=== PATIENT | female | born 1995 | race Caucasian/White ===

== ENCOUNTER 2017-08-04 14:32 | Emergency (ER) | payer MEDICARE ==
--- NOTE | 2017-08-04 15:15 | EDM.PDOC ---
ED HPI GENERAL MEDICAL PROBLEM - General Chief Complaint: Back Pain or Injury Stated Complaint: BACK PAIN Time Seen by Provider: 08/04/17 15:03 - History of Present Illness INITIAL COMMENTS - FREE TEXT/NARRATIVE: HISTORY AND PHYSICAL: History of present illness: Patient 22-year-old female presents with concern of Requip C in mild discomfort with urination she also complains of some left mid back pain fever chills vomiting diarrhea or other concern Review of systems: As per history of present illness and below otherwise all systems reviewed and negative. Past medical history: As per history of present illness and as reviewed below otherwise noncontributory. Surgical history: As per history of present illness and as reviewed below otherwise noncontributory. Social history: No reported history of drug or alcohol abuse. Family history: As per history of present illness and as reviewed below otherwise noncontributory. Physical exam: HEENT: Atraumatic, normocephalic, pupils reactive, negative for conjunctival pallor or scleral icterus, mucous membranes moist, throat clear, neck supple, nontender, trachea midline. Lungs: Clear to auscultation, breath sounds equal bilaterally, chest nontender. Heart: S1S2, regular, negative for clicks, rubs, or JVD. Abdomen: Soft, nondistended, nontender. Negative for masses or hepatosplenomegaly. Negative for costovertebral tenderness. Pelvis: Stable nontender. Genitourinary: Deferred. Rectal: Deferred. Extremities: Atraumatic, negative for cords or calf pain. Neurovascular unremarkable. Neuro: Awake, alert, oriented. Cranial nerves II through XII unremarkable. Cerebellum unremarkable. Motor and sensory unremarkable throughout. Exam nonfocal. Diagnostics: UA urine culture sensitivity chest x-ray hCG Therapeutics: None Impression: # 1 dysuria rule out UTI Definitive disposition and diagnosis as appropriate pending reevaluation and review of above. - Related Data Allergies Allergy/AdvReac Type Severity Reaction Status Date / Time ciprofloxacin Allergy Hives Verified 08/04/17 15:11 latex Allergy Hives Verified 08/04/17 15:11 Home Meds: Home Meds Baclofen 10 mg PO DAILY 08/04/17 [History] Past Medical History - Past Surgical History Other Neurological Surgeries/Procedures: spina bifida Social & Family History - Tobacco Use Smoking Status *Q: Never Smoker - Recreational Drug Use Recreational Drug Use: No ED ROS GENERAL - Review of Systems Review Of Systems: ROS reveals no pertinent complaints other than HPI. ED EXAM, GENERAL - Physical Exam Exam: See Below (The dictation) Course - Vital Signs Last Recorded V/S: Last Vital Signs Temp 36.7 C 08/04/17 15:12 Pulse 90 08/04/17 15:12 Resp 18 08/04/17 15:12 BP 111/68 08/04/17 15:12 Pulse Ox 97 08/04/17 15:12 - Orders/Labs/Meds Orders: Active Orders 24 hr Category Date Time Status CULTURE URINE [RM] Stat Lab 08/04/17 15:20 Received Labs: Laboratory Tests 08/04/17 08/04/17 Range/Units 15:20 15:20 Urine Color YELLOW Urine Appearance SLT CLOUDY Urine pH 7.5 (5.0-8.0) Ur Specific [place] 1.015 (1.001-1.035) Urine Protein TRACE (NEGATIVE) mg/dL Urine Glucose (UA) NEGATIVE (NEGATIVE) mg/dL Urine Ketones NEGATIVE (NEGATIVE) mg/dL Urine Occult Blood TRACE-INTACT (NEGATIVE) Urine Nitrite POSITIVE H (NEGATIVE) Urine Bilirubin NEGATIVE (NEGATIVE) Urine Urobilinogen 0.2 (<2.0) EU/dL Ur Leukocyte Esterase NEGATIVE (NEGATIVE) Urine RBC 1-3 (0-2/HPF) Urine WBC 2-4 (0-5/HPF) Ur Epithelial Cells MANY (NONE-FEW) Amorphous Sediment MODERATE (NEGATIVE) Urine Bacteria FEW (NEGATIVE) Urine HCG, Qual NEGATIVE (NEGATIVE) Departure - Departure Time of Disposition: 16:29 Disposition: Home, Self-Care 01 Condition: Good Clinical Impression: UTI, Urinary tract infectious disease - Discharge Information Referrals: Mague Quintero MD [Primary Care Provider] - Forms: ED Department Discharge Additional Instructions: The following information is given to patients seen in the emergency department who are being discharged to home. This information is to outline your options for follow-up care. We provide all patients seen in our emergency department with a follow-up referral. The need for follow-up, as well as the timing and circumstances, are variable depending upon the specifics of your emergency department visit. If you don't have a primary care physician on staff, we will provide you with a referral. We always advise you to contact your personal physician following an emergency department visit to inform them of the circumstance of the visit and for follow-up with them and/or the need for any referrals to a consulting specialist. The emergency department will also refer you to a specialist when appropriate. This referral assures that you have the opportunity for followup care with a specialist. All of these measure are taken in an effort to provide you with optimal care, which includes your followup. Under all circumstances we always encourage you to contact your private physician who remains a resource for coordinating your care. When calling for followup care, please make the office aware that this follow-up is from your recent emergency room visit. If for any reason you are refused follow-up, please contact the [facility] emergency department at and asked to speak to the emergency department charge nurse. Keflex is prescribed Pyridium as prescribed follow-up primary medical doctor 1- 2 days return as needed as discussed - My Orders Last 24 Hours: My Active Orders 08/04/17 15:20 CULTURE URINE [RM] Stat - Assessment/Plan Last 24 Hours: My Active Orders 08/04/17 15:20 CULTURE URINE [RM] Stat
--- NOTE | 2017-08-04 16:00 | CR ---
EXAMINATION: Two-view chest (PA and Lateral views). HISTORY: Shortness of breath. Comparison: 06/23/2017 FINDINGS: The trachea is midline. The cardiomediastinal silhouette is within normal limits. No pulmonary infilt rates, effusions or pneumothorax. There is reversal of the mid and accentuation of the lower thoracic kyphosis. IMPRESSION: No acute cardiopulmonary process.
[2017-08-04 16:50] VITALS: BP 109/60
== END 2017-08-04 16:45 | disposition home or self-care (01) ==
LOC: MW.ED 14:32
DX: N39.0 Urinary tract infection, site not specified (principal); Z88.1 Allergy status to other antibiotic agents; Z91.040 Latex allergy status
CPT/HCPCS: 71046; 71046-26; 81001; 81025; 87086; 87088; 87186; 99282; 99283

== ENCOUNTER 2017-09-07 12:20 | Emergency (ER) | payer MEDICARE ==
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
--- NOTE | 2017-09-07 14:47 | CR ---
EXAMINATION: AP chest and left ribs. HISTORY: Fall. FINDINGS: The trachea is midline. The cardiomediastinal silhouette is within normal limits. No pulmonary infilt rates, effusions or pneumothorax. Scoliotic changes most prominent near the thoracolumbar junction. Old left-sided rib fracture demonst rated no definite acute or displaced fracture. IMPRESSION: 1. No acute cardiopulmonary process. 2. No acute rib fracture identified.
--- NOTE | 2017-09-07 14:48 | CR ---
EXAMINATION: Left Shoulder HISTORY: Fall COMPARISON: None TECHNIQUE: 3 views FINDINGS/IMPRESSION: There is no acute osseous abnormality, dislocation, or fracture. Bone mineraliza tion and joint spaces appear preserved.
--- NOTE | 2017-09-07 14:53 | CT ---
EXAMINATION: Non contrast CT head. Coronal and sagittal reformats. HISTORY: Fall FINDINGS: No evidence of intra or extra axial hemorrhage, mass, midline shift, hydrocephalus or edema. No hypoattenuation changes in the major vascular territories to suggest acute infarct. No abnormal intracranial calcifications are detected. No evidence of substantial vascular calcificat ions. Paranasal sinuses and mastoid air cells are well aerated without substantial findings. Moderate left hannon deviation of the nasal septum. Pituitary fossa appears unremarkable. Calvarium is intact. No evidence of skull fracture. IMPRESSION: No acute intracranial findings.
--- NOTE | 2017-09-07 14:54 | CT ---
EXAMINATION: CT cervical spine HISTORY: Fall COMPARISON: None TECHNIQUE: Axial CT images obtained through the cervical spine without contrast. Coronal and sagittal reconstructions obtained. FINDINGS: There is reversal of the normal cervical lordosis. Vertebral body heights and disc spaces a ppear well-maintained. There is no fracture or acute osseous abnormality. Bone mineralization is norm al. Lung apices are clear. Paravertebral soft tissues appear normal. IMPRESSION: 1. No acute osseous abnormalities identified.
[2017-09-07] MEDS ORDERED: Ketorolac 60 MG/2 ML SDV IM ONE (15:04)
[2017-09-07 16:10] VITALS: BP 133/71
== END 2017-09-07 16:28 | disposition home or self-care (01) ==
LOC: MW.ED 12:20
DX: S00.12XA Contusion of left eyelid and periocular area, initial encounter (principal); S00.212A Abrasion of left eyelid and periocular area, initial encounter; F17.210 Nicotine dependence, cigarettes, uncomplicated; Z88.1 Allergy status to other antibiotic agents; Z91.040 Latex allergy status; Z79.899 Other long term (current) drug therapy; W01.0XXA Fall on same level from slipping, tripping and stumbling without subsequent striking against object, initial encounter
CPT/HCPCS: 70450; 71101; 72125; 73030; 81025; 96372; 99284; J1885

== ENCOUNTER 2017-10-26 09:13 | Inpatient (IN) | payer MEDICAID, MEDICARE ==
[2017-10-26] MEDS ORDERED: Ondansetron 4 MG/2 ML SDV IVPUSH ONE (09:27)
[2017-10-26] MEDS ORDERED: Ketorolac 30 MG/ML SDV IVPUSH ONE (09:27)
[2017-10-26] MEDS ORDERED: Sodium Chloride 0.9% 1,000 ML IV ONE (09:27)
--- NOTE | 2017-10-26 09:29 | EDM.PDOC ---
ED HPI GENERAL MEDICAL PROBLEM - General Chief Complaint: Abdominal Pain Stated Complaint: ABDOMINAL PAIN Time Seen by Provider: 10/26/17 09:28 Source of Information: Reports: Patient - History of Present Illness INITIAL COMMENTS - FREE TEXT/NARRATIVE: HISTORY AND PHYSICAL: History of present illness: [Patient presents with abdominal pain 8 out of 10 epigastric region no fever nausea vomiting chills sweats ] Review of systems: As per history of present illness and below otherwise all systems reviewed and negative. Past medical history: As per history of present illness and as reviewed below otherwise noncontributory. Surgical history: As per history of present illness and as reviewed below otherwise noncontributory. Social history: No reported history of drug or alcohol abuse. Family history: As per history of present illness and as reviewed below otherwise noncontributory. Physical exam: HEENT: Atraumatic, normocephalic, pupils reactive, negative for conjunctival pallor or scleral icterus, mucous membranes moist, throat clear, neck supple, nontender, trachea midline. Lungs: Clear to auscultation, breath sounds equal bilaterally, chest nontender. Heart: S1S2, regular, negative for clicks, rubs, or JVD. Abdomen: Soft, nondistended, nontender. Negative for masses or hepatosplenomegaly. Negative for costovertebral tenderness. Pelvis: Stable nontender. Genitourinary: Deferred. Rectal: Deferred. Extremities: Atraumatic, negative for cords or calf pain. Neurovascular unremarkable. Neuro: Awake, alert, oriented. Cranial nerves II through XII unremarkable. Cerebellum unremarkable. Motor and sensory unremarkable throughout. Exam nonfocal. Diagnostics: [CBC CMP UA hCG lipase ] Therapeutics: [Normal saline 1 L bolus Zofran 8 mg IV Toradol 30 mg IV ] morphine 2 mg IV Septra IV Impression: Pancreatitis [ abdominal pain ] Definitive disposition and diagnosis as appropriate pending reevaluation and review of above. 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 Musculoskeletal History: Reports: None Neurological History: Reports: None Psychiatric History: Reports: None Endocrine/Metabolic History: Reports: None Hematologic History: Reports: None Immunologic History: Reports: None Oncologic (Cancer) History: Reports: None Dermatologic History: Reports: None - Past Surgical History Head Surgeries/Procedures: Reports: None HEENT Surgical History: Reports: None Cardiovascular Surgical History: Reports: None Respiratory Surgical History: Reports: None GI Surgical History: Reports: None Female Surgical History: Reports: None Endocrine Surgical History: Reports: None Other Neurological Surgeries/Procedures: spina bifida Musculoskeletal Surgical History: Reports: None Oncologic Surgical History: Reports: None Dermatological Surgical History: Reports: None Social & Family History - Family History Family Medical History: Noncontributory - Tobacco Use Smoking Status *Q: Current Every Day Smoker Years of Tobacco use: 2 Packs/Tins Daily: 0.5 - Caffeine Use Caffeine Use: Reports: Soda - Recreational Drug Use Recreational Drug Use: Yes Drug Use in Last 12 Months: Yes Recreational Drug Type: Reports: Marijuana/Hashish Recreational Drug Use Frequency: Daily ED ROS GENERAL - Review of Systems Review Of Systems: ROS reveals no pertinent complaints other than HPI. ED EXAM, GENERAL - Physical Exam Exam: See Below Course - Vital Signs Last Recorded V/S: Last Vital Signs Temp 99.5 F 10/26/17 13:02 Pulse 89 10/26/17 13:02 Resp 18 10/26/17 13:02 BP 154/85 H 10/26/17 13:02 Pulse Ox 99 10/26/17 13:02 - Orders/Labs/Meds Orders: Active Orders 24 hr Category Date Time Status HCG QUALITATIVE,URINE [URCHEM] Stat Lab 10/26/17 11:08 Ordered UA W/MICROSCOPIC [URIN] Stat Lab 10/26/17 11:08 Ordered Ciprofloxacin in D5W [Cipro in D5W 400 MG/200 ML] 400 Med 10/26/17 13:00 Active mg Premix Bag 1 bag IV Q12H Sulfamethoxazole/Trimethoprim [Septra IV] 20 ml Med 10/26/17 13:30 Ordered Dextrose 5% in Water 500 ml IV Q8H Medication Orders Ciprofloxacin/Dextrose 400 mg/ (Premix) 200 mls @ 200 mls/hr IV Q12H MILAN Last Admin: 10/26/17 13:13 Dose: 200 mls/hr Labs: Laboratory Tests 10/26/17 10/26/17 10/26/17 Range/Units 09:45 09:45 09:45 WBC 8.12 (4.0-11.0) K/uL RBC 4.82 (4.30-5.90) M/uL Hgb 14.8 (12.0-16.0) g/dL Hct 43.5 (36.0-46.0) % MCV 90.2 (80.0-98.0) fL MCH 30.7 (27.0-32.0) pg MCHC 34.0 (31.0-37.0) g/dL RDW Std Deviation 53.0 (28.0-62.0) fl RDW Coeff of Renetta 16 H (11.0-15.0) % Plt Count 310 (150-400) K/uL MPV 10.10 (7.40-12.00) fL Neut % (Auto) 69.1 (48.0-80.0) % Lymph % (Auto) 21.4 (16.0-40.0) % [place] % (Auto) 7.3 (0.0-15.0) % Eos % (Auto) 1.7 (0.0-7.0) % Baso % (Auto) 0.5 (0.0-1.5) % Neut # (Auto) 5.6 (1.4-5.7) K/uL Lymph # (Auto) 1.7 (0.6-2.4) K/uL [place] # (Auto) 0.6 (0.0-0.8) K/uL Eos # (Auto) 0.1 (0.0-0.7) K/uL Baso # (Auto) 0.0 (0.0-0.1) K/uL Nucleated RBC % 0.0 /100WBC Nucleated RBCs # 0 K/uL Sodium 141 (136-145) mmol/L Potassium 3.4 L (3.5-5.1) mmol/L Chloride 104 (98-107) mmol/L Carbon Dioxide 23.5 (21.0-32.0) mmol/L BUN 12 (7.0-18.0) mg/dL Creatinine 0.5 L (0.6-1.0) mg/dL Est Cr Clr Drug Dosing 110.27 mL/min Estimated GFR (MDRD) > 60.0 ml/min Glucose 167 H (74-106) mg/dL Calcium 9.2 (8.5-10.1) mg/dL Total Bilirubin 0.2 (0.2-1.0) mg/dL AST 16 (15-37) IU/L ALT 21 (14-63) IU/L Alkaline Phosphatase 92 (46-116) U/L Total Protein 7.7 (6.4-8.2) g/dL Albumin 4.2 (3.4-5.0) g/dL Globulin 3.5 (2.0-3.5) g/dL Albumin/Globulin Ratio 1.2 L (1.3-2.8) Lipase 525 H (73-393) U/L Urine Color Urine Appearance Urine pH (5.0-8.0) Ur Specific [place] (1.001-1.035) Urine Protein (NEGATIVE) mg/dL Urine Glucose (UA) (NEGATIVE) mg/dL Urine Ketones (NEGATIVE) mg/dL Urine Occult Blood (NEGATIVE) Urine Nitrite (NEGATIVE) Urine Bilirubin (NEGATIVE) Urine Urobilinogen (<2.0) EU/dL Ur Leukocyte Esterase (NEGATIVE) Urine RBC (0-2/HPF) Urine WBC (0-5/HPF) Ur Epithelial Cells (NONE-FEW) Amorphous Sediment (NEGATIVE) Urine Bacteria (NEGATIVE) Urine Mucus (NONE-MOD) Urine HCG, Qual (NEGATIVE) Ethyl Alcohol <3 mg/dL 10/26/17 10/26/17 Range/Units 11:08 11:08 WBC (4.0-11.0) K/uL RBC (4.30-5.90) M/uL Hgb (12.0-16.0) g/dL Hct (36.0-46.0) % MCV (80.0-98.0) fL MCH (27.0-32.0) pg MCHC (31.0-37.0) g/dL RDW Std Deviation (28.0-62.0) fl RDW Coeff of Renetta (11.0-15.0) % Plt Count (150-400) K/uL MPV (7.40-12.00) fL Neut % (Auto) (48.0-80.0) % Lymph % (Auto) (16.0-40.0) % [place] % (Auto) (0.0-15.0) % Eos % (Auto) (0.0-7.0) % Baso % (Auto) (0.0-1.5) % Neut # (Auto) (1.4-5.7) K/uL Lymph # (Auto) (0.6-2.4) K/uL [place] # (Auto) (0.0-0.8) K/uL Eos # (Auto) (0.0-0.7) K/uL Baso # (Auto) (0.0-0.1) K/uL Nucleated RBC % /100WBC Nucleated RBCs # K/uL Sodium (136-145) mmol/L Potassium (3.5-5.1) mmol/L Chloride (98-107) mmol/L Carbon Dioxide (21.0-32.0) mmol/L BUN (7.0-18.0) mg/dL Creatinine (0.6-1.0) mg/dL Est Cr Clr Drug Dosing mL/min Estimated GFR (MDRD) ml/min Glucose (74-106) mg/dL Calcium (8.5-10.1) mg/dL Total Bilirubin (0.2-1.0) mg/dL AST (15-37) IU/L ALT (14-63) IU/L Alkaline Phosphatase (46-116) U/L Total Protein (6.4-8.2) g/dL Albumin (3.4-5.0) g/dL Globulin (2.0-3.5) g/dL Albumin/Globulin Ratio (1.3-2.8) Lipase (73-393) U/L Urine Color YELLOW Urine Appearance CLEAR Urine pH 6.0 (5.0-8.0) Ur Specific [place] <= 1.005 (1.001-1.035) Urine Protein NEGATIVE (NEGATIVE) mg/dL Urine Glucose (UA) NEGATIVE (NEGATIVE) mg/dL Urine Ketones NEGATIVE (NEGATIVE) mg/dL Urine Occult Blood MODERATE (NEGATIVE) Urine Nitrite POSITIVE H (NEGATIVE) Urine Bilirubin NEGATIVE (NEGATIVE) Urine Urobilinogen 0.2 (<2.0) EU/dL Ur Leukocyte Esterase NEGATIVE (NEGATIVE) Urine RBC 4-6 (0-2/HPF) Urine WBC 2-4 (0-5/HPF) Ur Epithelial Cells MANY (NONE-FEW) Amorphous Sediment LIGHT (NEGATIVE) Urine Bacteria 2+ H (NEGATIVE) Urine Mucus LIGHT (NONE-MOD) Urine HCG, Qual NEGATIVE (NEGATIVE) Ethyl Alcohol mg/dL Meds: Medications Generic Name Dose Route Start Last Admin Trade Name Freq PRN Reason Stop Dose Admin Ciprofloxacin/Dextrose 400 mg/ 200 mls @ 200 mls/hr 10/26/17 13:00 10/26/17 13:13 Premix IV 200 mls/hr Q12H MILAN Administration Discontinued Medications Generic Name Dose Route Start Last Admin Trade Name Freq PRN Reason Stop Dose Admin Sodium Chloride 1,000 mls @ 999 mls/hr 10/26/17 09:27 10/26/17 09:45 Normal Saline IV 10/26/17 10:27 999 mls/hr STAT ONE Administration Sodium Chloride 1,000 mls @ 150 mls/hr 10/26/17 10:45 10/26/17 10:50 Normal Saline IV 150 mls/hr STAT MILAN Administration Ciprofloxacin/Dextrose Confirm 10/26/17 13:08 Cipro In D5w 400 Mg/200 Ml Administered 10/26/17 13:09 Dose 200 mls @ as directed .ROUTE .STK-MED ONE Iopamidol 100 ml 10/26/17 10:52 10/26/17 10:53 Isovue Multipack-370 (76%) IVPUSH 10/26/17 10:53 100 ml ONETIME STA Administration Ketorolac Tromethamine 30 mg 10/26/17 09:27 10/26/17 09:51 Toradol IVPUSH 10/26/17 09:28 30 mg ONETIME ONE Administration Morphine Sulfate 2 mg 10/26/17 10:34 10/26/17 10:50 Morphine IVPUSH 10/26/17 10:35 2 mg ONETIME ONE Administration Ondansetron HCl 8 mg 10/26/17 09:27 10/26/17 09:46 Zofran IVPUSH 10/26/17 09:28 8 mg ONETIME ONE Administration Pantoprazole Sodium 40 mg 10/26/17 11:36 10/26/17 12:22 Protonix Iv IVPUSH 10/26/17 11:37 40 mg NOW ONE Administration Departure - Departure Time of Disposition: 13:21 Disposition: Admitted As Inpatient 65 Condition: Fair Clinical Impression: Pancreatitis, UTI, Urinary tract infectious disease - Discharge Information Referrals: Mague Quintero MD [Primary Care Provider] - Forms: ED Department Discharge - My Orders Last 24 Hours: My Active Orders 10/26/17 11:08 HCG QUALITATIVE,URINE [URCHEM] Stat UA W/MICROSCOPIC [URIN] Stat 10/26/17 13:00 Ciprofloxacin in D5W [Cipro in D5W 400 MG/200 ML] 400 mg Premix Bag 1 bag IV Q12H 10/26/17 13:30 Sulfamethoxazole/Trimethoprim [Septra IV] 20 ml Dextrose 5% in Water 500 ml IV Q8H - Assessment/Plan Last 24 Hours: My Active Orders 10/26/17 11:08 HCG QUALITATIVE,URINE [URCHEM] Stat UA W/MICROSCOPIC [URIN] Stat 10/26/17 13:00 Ciprofloxacin in D5W [Cipro in D5W 400 MG/200 ML] 400 mg Premix Bag 1 bag IV Q12H 10/26/17 13:30 Sulfamethoxazole/Trimethoprim [Septra IV] 20 ml Dextrose 5% in Water 500 ml IV Q8H
[2017-10-26 10:30] LABS: CHLORIDE,CL 104 mmol/L (98-107); SODIUM,NA 141 mmol/L (136-145)
[2017-10-26] MEDS ORDERED: Morphine 4 MG/ML Syringe IVPUSH ONE (10:34)
[2017-10-26] MEDS ORDERED: Sodium Chloride 0.9% 1,000 ML IV SCH (10:45)
[2017-10-26] MEDS ORDERED: Iopamidol 755 MG/ML 200 ML Multipack Bottle IVPUSH STA (10:52)
[2017-10-26] MEDS ORDERED: Pantoprazole 40 MG Vial IVPUSH ONE (11:36)
--- NOTE | 2017-10-26 12:44 | CT ---
CT of the abdomen and pelvis with contrast. HISTORY: Pain TECHNIQUE: Axial CT images were obtained of the abdomen and pelvis following administration of 100 mL of Isovue-370 without complication. Coronal and sagittal reconstructions obtained. FINDINGS: The lung bases are clear, no pleural effusion. The liver, spleen, adrenal glands, and pancreas appear normal. The gallbladder is normal. There is no bulky retroperitoneal lymphadenopathy or abdominal ascites. The kidneys enhance and function symmetrically without evidence of obstructive uropathy. The large and small bowel are normal caliber without evidence of obstruction. No focal pericolonic in flammation or stranding. The appendix is not well characterized. No bulky pelvic lymphadenopathy or f ree pelvic fluid. Urinary bladder wall thickening is noted, however the urinary bladder is minimally distended. Uterus and ovaries appear grossly unremarkable. Fusion and psychotic changes noted near the thoracolumbar junction. IMPRESSION: 1. No acute findings noted within the abdomen or pelvis. 2. Mild bladder wall thickening, correlate clinically for a UTI.
[2017-10-26] MEDS ORDERED: Ciprofloxacin in D5W 0 ML ONE (13:08)
[2017-10-26] MEDS: Ciprofloxacin in D5W 400 MG in Premix Bag 1 BAG IV SCH ×4 (13:13→13:22)
[2017-10-26] MEDS ORDERED: Sulfamethoxazole/Trimethoprim 20 ML in Dextrose 5% in Water 500 ML IV SCH ×2 (13:30)
[2017-10-26] MEDS ORDERED: TRIMETHOPRIM IV SCH ×2 (13:34)
[2017-10-26] MEDS ORDERED: WATER IV SCH ×4 (13:34→16:00)
[2017-10-26] MEDS ORDERED: SULFAMETHOXAZOLE IV SCH ×2 (13:34)
[2017-10-26] MEDS ORDERED: DEXTROSE IV SCH ×2 (13:34)
[2017-10-26] MEDS ORDERED: Lactated Ringers 1,000 ML IV ONE (14:18)
[2017-10-26] MEDS: HYDROmorphone 1 MG/ML Syringe IVPUSH PRN ×3 (14:47→22:20)
--- NOTE | 2017-10-26 14:56 | PCM.HP ---
H&P History of Present Illness - General Date of Service: 10/26/17 Admit Problem/Dx: Admission Diagnosis/Problem Admission Diagnosis/Problem Pancreatitis Source of Information: Patient History Limitations: Reports: No Limitations - History of Present Illness Initial Comments - Free Text/Narative: This 22 year old female with pmh of spina bifida and history of gallstone presented to the ED with 10/10 epigastric pain that has been on going for many weeks, but recently worsened this weekend and has been unable to keep anything down since Wednesday. She denies alcohol intake. She has been following with Dr Edward, who recommended she see a cork wirer in [place] due to comorbidities for surgical intervention. She denies URI symptoms, fevers, neck pain, chest pain or palpitations. Epigastric pain radiates to her back and throughout her abdomen. She has not had a BM since this weekend. She does self cath due to spina bifida and does not have a specific bowel regimen for bowel movements. She reports no alcohol use recently but no history of heavy alcohol use, she reports marijuana use for pain control, which has stopped working this weekend, smokes cigarettes and denies any further recreational drug use. In the ED no leukocytosis noted, K+ 3.4, BUN 12, Cr 0.5, lipase 525 ETOH negative. UA +2 bacteria, + nitrites and pyruri 2-4. HCG negative. LFTs/ bilirubin normal. CT of abdomen revealed no acute abdominal pelvis findings, gallbladder appeared normal. Mild bladder thickening, correlate with UTI. VS stable. In review of her records she has been worked up for epigastric pain and cholecysitis, cholelithiasis by Dr Edward. I spoke with Dr Edward regarding Meri. She will come see patient this afternoon. PCP, Dr Quintero Upper Abdominal Pain Score (Numeric/FACES): 8 - Related Data Allergies/Adverse Reactions: Allergies Allergy/AdvReac Type Severity Reaction Status Date / Time ciprofloxacin Allergy Hives Verified 10/26/17 09:25 latex Allergy Hives Verified 10/26/17 09:25 Home Medications: Home Meds Ondansetron HCl [Zofran] 4 mg PO ASDIRECTED 10/26/17 [History] Past Medical History HEENT History: Reports: None Cardiovascular History: Reports: None. Denies: Blood Clots/VTE/DVT, CAD, High Cholesterol, Hypertension Respiratory History: Reports: None. Denies: Asthma, COPD, PE Gastrointestinal History: Reports: Cholelithiasis Genitourinary History: Reports: UTI, Recurrent, Other (See Below) (neurogenic bladder). Denies: Chronic Renal Insuffiency PEDIATRIC AUDIOLOGIST History: Reports: None Musculoskeletal History: Reports: None Neurological History: Reports: Other (See Below) (spina bifida with paraplegia) Psychiatric History: Reports: None Endocrine/Metabolic History: Reports: None Hematologic History: Reports: None Immunologic History: Reports: None Oncologic (Cancer) History: Reports: None Dermatologic History: Reports: None - Past Surgical History Head Surgeries/Procedures: Reports: None HEENT Surgical History: Reports: None Cardiovascular Surgical History: Reports: None Respiratory Surgical History: Reports: None GI Surgical History: Reports: None Female Surgical History: Reports: None Endocrine Surgical History: Reports: None Neurological Surgical History: Reports: Other (See Below) (multiple back surgeries as a child secondary to spina bifida) Other Neurological Surgeries/Procedures: spina bifida Musculoskeletal Surgical History: Reports: None Oncologic Surgical History: Reports: None Dermatological Surgical History: Reports: None Social & Family History - Family History Family Medical History: Noncontributory - Tobacco Use Smoking Status *Q: Current Every Day Smoker Years of Tobacco use: 2 Packs/Tins Daily: 0.5 - Caffeine Use Caffeine Use: Reports: Soda - Alcohol Use Alcohol Use Frequency: Socially (but for "a while") - Recreational Drug Use Recreational Drug Use: Yes Drug Use in Last 12 Months: Yes Recreational Drug Type: Reports: Marijuana/Hashish Recreational Drug Use Frequency: Daily H&P Review of Systems - Review of Systems: Review Of Systems: See Below General: Reports: No Symptoms. Denies: Fever, Chills, Malaise, Weakness, Fatigue HEENT: Reports: No Symptoms. Denies: Headaches, Sinus Congestion, Sore Throat Pulmonary: Reports: No Symptoms. Denies: Shortness of Breath, Wheezing, Cough, Sputum Cardiovascular: Reports: No Symptoms. Denies: Chest Pain, Palpitations, Edema Gastrointestinal: Reports: Abdominal Pain (epigastric and RUQ), Constipation, Decreased Appetite, Distension, Nausea, Vomiting. Denies: Black Stool, Bloody Stool Genitourinary: Reports: Other (self caths due to neurogenic bladder). Denies: Dysuria, Frequency, Burning Musculoskeletal: Reports: No Symptoms Skin: Reports: No Symptoms Psychiatric: Reports: No Symptoms Neurological: Reports: No Symptoms Hematologic/Lymphatic: Reports: No Symptoms Immunologic: Reports: No Symptoms Exam - Exam Exam: See Below - Vital Signs Vital Signs: Last Vital Signs Temp 98.3 F 10/26/17 14:00 Pulse 69 10/26/17 14:00 Resp 18 10/26/17 14:00 BP 142/73 H 10/26/17 14:00 Pulse Ox 98 10/26/17 14:00 Weight: 39.916 kg - Exam General: Alert, Oriented, Cooperative, Mild Distress (curled in ball on all fours when first walked into the room.), Other (smells of marijuana) HEENT: Conjunctiva Clear, Mucosa Moist & [place], Posterior Pharynx Clear, Pupils Equal, Pupils Reactive Neck: Supple, Trachea Midline, 2 Lungs: Clear to Auscultation, Normal Respiratory Effort, Other (barrel chested) Cardiovascular: Regular Rate, Regular Rhythm GI/Abdominal Exam: Normal Bowel Sounds, Soft, No Mass, Tender (epigastric pain and RUQ tenderness), Other. No: Guarding, Rigid, Rebound, Hepatomegaly, Splenomegaly (Female) Exam: Deferred Rectal (Female) Exam: Deferred Back Exam: Normal Inspection, Full Range of Motion, NT Extremities: Normal Inspection, Normal Range of Motion, Non-Tender, No Pedal Edema, Normal Capillary Refill, Other (does not ambulate, wheelchair bound, but very mobile per self. ) Neuro Extensive - Mental Status: Alert, Oriented x3, Normal Mood/Affect, Normal Cognition Neuro Extensive - Motor, Sensory, Reflexes: CN II-XII Intact Psychiatric: Alert, Normal Affect, Normal Mood - Patient Data Lab Results Last 24 hrs: Laboratory Results - last 24 hr 10/26/17 10/26/17 10/26/17 Range/Units 09:45 09:45 09:45 WBC 8.12 (4.0-11.0) K/uL RBC 4.82 (4.30-5.90) M/uL Hgb 14.8 (12.0-16.0) g/dL Hct 43.5 (36.0-46.0) % MCV 90.2 (80.0-98.0) fL MCH 30.7 (27.0-32.0) pg MCHC 34.0 (31.0-37.0) g/dL RDW Std Deviation 53.0 (28.0-62.0) fl RDW Coeff of Renetta 16 H (11.0-15.0) % Plt Count 310 (150-400) K/uL MPV 10.10 (7.40-12.00) fL Neut % (Auto) 69.1 (48.0-80.0) % Lymph % (Auto) 21.4 (16.0-40.0) % [place] % (Auto) 7.3 (0.0-15.0) % Eos % (Auto) 1.7 (0.0-7.0) % Baso % (Auto) 0.5 (0.0-1.5) % Neut # (Auto) 5.6 (1.4-5.7) K/uL Lymph # (Auto) 1.7 (0.6-2.4) K/uL [place] # (Auto) 0.6 (0.0-0.8) K/uL Eos # (Auto) 0.1 (0.0-0.7) K/uL Baso # (Auto) 0.0 (0.0-0.1) K/uL Nucleated RBC % 0.0 /100WBC Nucleated RBCs # 0 K/uL Sodium 141 (136-145) mmol/L Potassium 3.4 L (3.5-5.1) mmol/L Chloride 104 (98-107) mmol/L Carbon Dioxide 23.5 (21.0-32.0) mmol/L BUN 12 (7.0-18.0) mg/dL Creatinine 0.5 L (0.6-1.0) mg/dL Est Cr Clr Drug Dosing 110.27 mL/min Estimated GFR (MDRD) > 60.0 ml/min Glucose 167 H (74-106) mg/dL Calcium 9.2 (8.5-10.1) mg/dL Total Bilirubin 0.2 (0.2-1.0) mg/dL AST 16 (15-37) IU/L ALT 21 (14-63) IU/L Alkaline Phosphatase 92 (46-116) U/L Total Protein 7.7 (6.4-8.2) g/dL Albumin 4.2 (3.4-5.0) g/dL Globulin 3.5 (2.0-3.5) g/dL Albumin/Globulin Ratio 1.2 L (1.3-2.8) Lipase 525 H (73-393) U/L Urine Color Urine Appearance Urine pH (5.0-8.0) Ur Specific [place] (1.001-1.035) Urine Protein (NEGATIVE) mg/dL Urine Glucose (UA) (NEGATIVE) mg/dL Urine Ketones (NEGATIVE) mg/dL Urine Occult Blood (NEGATIVE) Urine Nitrite (NEGATIVE) Urine Bilirubin (NEGATIVE) Urine Urobilinogen (<2.0) EU/dL Ur Leukocyte Esterase (NEGATIVE) Urine RBC (0-2/HPF) Urine WBC (0-5/HPF) Ur Epithelial Cells (NONE-FEW) Amorphous Sediment (NEGATIVE) Urine Bacteria (NEGATIVE) Urine Mucus (NONE-MOD) Urine HCG, Qual (NEGATIVE) Ethyl Alcohol <3 mg/dL 10/26/17 10/26/17 Range/Units 11:08 11:08 WBC (4.0-11.0) K/uL RBC (4.30-5.90) M/uL Hgb (12.0-16.0) g/dL Hct (36.0-46.0) % MCV (80.0-98.0) fL MCH (27.0-32.0) pg MCHC (31.0-37.0) g/dL RDW Std Deviation (28.0-62.0) fl RDW Coeff of [place] (11.0-15.0) % Plt Count (150-400) K/uL MPV (7.40-12.00) fL Neut % (Auto) (48.0-80.0) % Lymph % (Auto) (16.0-40.0) % [place] % (Auto) (0.0-15.0) % Eos % (Auto) (0.0-7.0) % Baso % (Auto) (0.0-1.5) % Neut # (Auto) (1.4-5.7) K/uL Lymph # (Auto) (0.6-2.4) K/uL [place] # (Auto) (0.0-0.8) K/uL Eos # (Auto) (0.0-0.7) K/uL Baso # (Auto) (0.0-0.1) K/uL Nucleated RBC % /100WBC Nucleated RBCs # K/uL Sodium (136-145) mmol/L Potassium (3.5-5.1) mmol/L Chloride (98-107) mmol/L Carbon Dioxide (21.0-32.0) mmol/L BUN (7.0-18.0) mg/dL Creatinine (0.6-1.0) mg/dL Est Cr Clr Drug Dosing mL/min Estimated GFR (MDRD) ml/min Glucose (74-106) mg/dL Calcium (8.5-10.1) mg/dL Total Bilirubin (0.2-1.0) mg/dL AST (15-37) IU/L ALT (14-63) IU/L Alkaline Phosphatase (46-116) U/L Total Protein (6.4-8.2) g/dL Albumin (3.4-5.0) g/dL Globulin (2.0-3.5) g/dL Albumin/Globulin Ratio (1.3-2.8) Lipase (73-393) U/L Urine Color YELLOW Urine Appearance CLEAR Urine pH 6.0 (5.0-8.0) Ur Specific [place] <= 1.005 (1.001-1.035) Urine Protein NEGATIVE (NEGATIVE) mg/dL Urine Glucose (UA) NEGATIVE (NEGATIVE) mg/dL Urine Ketones NEGATIVE (NEGATIVE) mg/dL Urine Occult Blood MODERATE (NEGATIVE) Urine Nitrite POSITIVE H (NEGATIVE) Urine Bilirubin NEGATIVE (NEGATIVE) Urine Urobilinogen 0.2 (<2.0) EU/dL Ur Leukocyte Esterase NEGATIVE (NEGATIVE) Urine RBC 4-6 (0-2/HPF) Urine WBC 2-4 (0-5/HPF) Ur Epithelial Cells MANY (NONE-FEW) Amorphous Sediment LIGHT (NEGATIVE) Urine Bacteria 2+ H (NEGATIVE) Urine Mucus LIGHT (NONE-MOD) Urine HCG, Qual NEGATIVE (NEGATIVE) Ethyl Alcohol mg/dL Result Diagrams: 10/26/17 09:45 10/26/17 09:45 *Q Meaningful Use (ADM) - VTE Risk Assess *Q Each Risk Factor Represents 1 Point: None Total Score 1 Point Risk Factors: 0 Each Risk Factor Represents 2 Points: None Total Score 2 Point Risk Factors: 0 Each Risk Factor Represents 3 Points: None Total Score 3 Point Risk Factors: 0 Each Risk Factor Represents 5 Points: None Total Score 5 Point Risk Factors: 0 Venous Thromboembolism Risk Factor Score *Q: 0 - Problem List (1) Pancreatitis SNOMED Code(s): 61511604 ICD Code: K85.90 - ACUTE PANCREATITIS WITHOUT NECROSIS OR INFECTION, UNSP Status: Acute Current Visit: No Qualifiers: Chronicity: acute Pancreatitis type: biliary Acute pancreatitis complication: no infection or necrosis Qualified Code(s): K85.10 - Biliary acute pancreatitis without necrosis or infection (2) Nausea and vomiting SNOMED Code(s): 33545904 ICD Code: R11.2 - NAUSEA WITH VOMITING, UNSPECIFIED Status: Acute Current Visit: Yes Qualifiers: Vomiting type: unspecified Vomiting Intractability: non-intractable Qualified Code(s): R11.2 - Nausea with vomiting, unspecified (3) Hx of cholelithiasis SNOMED Code(s): 384000201 ICD Code: Z87.19 - PERSONAL HISTORY OF OTHER DISEASES OF THE DIGESTIVE SYSTEM Status: Acute Current Visit: Yes (4) UTI, Urinary tract infectious disease SNOMED Code(s): 08223081 ICD Code: N39.0 - URINARY TRACT INFECTION, SITE NOT SPECIFIED Status: Acute Current Visit: No (5) Spina bifida SNOMED Code(s): 03021963 ICD Code: Q05.9 - SPINA BIFIDA, UNSPECIFIED Status: Chronic Current Visit : Yes Problem List Initiated/Reviewed/Updated: Yes Orders Last 24hrs: Active Orders 24 hr Category Date Time Status Admission Status [Patient Status] [ADT] Stat ADT 10/26/17 13:21 Active Intake and Output [RC] QSHIFT Care 10/26/17 14:19 Ordered Notify Provider Consults [RC] ASDIRECTED Care 10/26/17 14:40 Ordered Oxygen Therapy [RC] PRN Care 10/26/17 14:18 Ordered Up ad Enma [RC] ASDIRECTED Care 10/26/17 14:18 Ordered VTE/DVT Education [RC] PER UNIT ROUTINE Care 10/26/17 14:18 Ordered Vital Signs [RC] Q4H Care 10/26/17 14:18 Ordered Consult to Physician [CONS] Routine Cons 10/26/17 14:40 Ordered Nothing Per Oral Diet [DIET] Diet 10/26/17 Dinner Ordered Abdomen Comp [US] Urgent Exams 10/26/17 14:22 Ordered CBC WITH AUTO DIFF [HEME] AM Lab 10/27/17 05:11 Ordered CBC WITH AUTO DIFF [HEME] AM Lab 10/28/17 05:11 Ordered CBC WITH AUTO DIFF [HEME] AM Lab 10/29/17 05:11 Ordered COMPREHENSIVE METABOLIC PN,CMP [CHEM] AM Lab 10/27/17 05:11 Ordered COMPREHENSIVE METABOLIC PN,CMP [CHEM] AM Lab 10/28/17 05:11 Ordered COMPREHENSIVE METABOLIC PN,CMP [CHEM] AM Lab 10/29/17 05:11 Ordered HCG QUALITATIVE,URINE [URCHEM] Stat Lab 10/26/17 11:08 Ordered MAGNESIUM [CHEM] AM Lab 10/27/17 05:11 Ordered MAGNESIUM [CHEM] AM Lab 10/28/17 05:11 Ordered MAGNESIUM [CHEM] AM Lab 10/29/17 05:11 Ordered UA W/MICROSCOPIC [URIN] Stat Lab 10/26/17 11:08 Ordered HYDROmorphone [Dilaudid] Med 10/26/17 14:18 Ordered 0.5 mg IVPUSH Q2H PRN Lactated Ringers [Ringers, Lactated] 1,000 ml Med 10/26/17 14:18 Ordered IV .BOLUS Lactated Ringers [Ringers, Lactated] 1,000 ml Med 10/26/17 14:30 Ordered IV ASDIRECTED Ondansetron [Zofran] Med 10/26/17 14:18 Ordered 4 mg IVPUSH Q4H PRN Sodium Chloride 0.9% [Normal Saline] 1,000 ml Med 10/26/17 10:45 Active IV STAT cefTRIAXone [Rocephin] 1 mg Med 10/26/17 16:00 Active Dextrose 5% in Water 50 ml IV Q24H Sequential Compression Device [OM.PC] Per Unit Routine Oth 10/26/17 14:19 Ordered Resuscitation Status Routine Resus Stat 10/26/17 14:18 Ordered Medication Orders Hydromorphone HCl (Dilaudid) 0.5 mg IVPUSH Q2H PRN PRN Reason: Pain (severe 7-10) Sodium Chloride (Normal Saline) 1,000 mls @ 150 mls/hr IV STAT MILAN Last Admin: 10/26/17 10:50 Dose: 150 mls/hr Lactated Ringer's (Ringers, Lactated) 1,000 mls @ 999 mls/hr IV .BOLUS ONE Stop: 10/26/17 15:18 Lactated Ringer's (Ringers, Lactated) 1,000 mls @ 200 mls/hr IV ASDIRECTED IMLAN Ceftriaxone Sodium 1 mg/ (Dextrose/Water) 50 mls @ 200 mls/hr IV Q24H MILAN Ondansetron HCl (Zofran) 4 mg IVPUSH Q4H PRN PRN Reason: Nausea Assessment/Plan Comment:: this 22 year old female admitted with acute pancreatitis with known hx of cholelithiasis and UTI 1. Acute pancreatitis: Lipase elevated 525, highest it has been since intially starting workup with PCP in August. Has seen general surgery, but referred GI in [place] due to comorbidities. CT today normal. Dr Edward will see Meri this evening. Keep NPO with ice chips for now. IVF resuscitation, will give another bolus now and then continue LR at 200 ml/hr. Dilaudid for pain PRN and zofran for nausea PRN. Will monitor labwork in am. 2. UTI: likely secondary to self cathing. Will stop Bactrim and treat with Rocephin 1 gm IV daily. UC pending. VTE prophylaxis: SCDs Dispo: 2-4 days pending improvement.
[2017-10-26] MEDS: Ondansetron 4 MG/2 ML SDV IVPUSH PRN (15:26)
--- NOTE | 2017-10-26 15:49 | US ---
EXAMINATION: Right upper quadrant ultrasound HISTORY: Pain COMPARISON: CT from the same day. TECHNIQUE: Grayscale and color Doppler imaging obtained. FINDINGS: The pancreas is not well visualized. The liver is normal in contour and echotexture without a focal hepatic mass. There is a filling defect within the gallbladder. Gallbladder wall thickness i s normal. No pericholecystic fluid. Common bile duct measures 4 mm. Right kidney measures 9.4 cm pole -to-pole without evidence of hydronephrosis. Sonographic Bobby sign is negative. IMPRESSION: 1. Cholelithiasis without evidence cholecystitis. 2. Pancreas not well characterized.
[2017-10-26] MEDS ORDERED: DEXTROSE 5% IV SCH ×2 (16:00)
[2017-10-26] MEDS ORDERED: CEFTRIAXONE IV SCH ×2 (16:00)
--- NOTE | 2017-10-26 16:39 | PCM.CONS ---
H&P History of Present Illness - General Date of Service: 10/26/17 Admit Problem/Dx: Admission Diagnosis/Problem Admission Diagnosis/Problem Pancreatitis Source of Information: Patient History Limitations: Reports: No Limitations - History of Present Illness Initial Comments - Free Text/Narative: Patient is a 22 year old female who was admitted to the medicine service with acute pancreatitis. She saw me last wednesday in clinic with symptomatic cholelithiasis. Labs were performed that day including lipase and amylase and all were within normal limits. Over the weekend the patient said that she had upper abdominal pain and nausea. She smoked a large amount of marijuana over the weekend which she feels helped her symptoms. She presented to the ED this morning with intractable nausea, vomiting and abdominal pain. Her LFTs were within normal limits. She was found to have UTI. Her WBC was normal. Her lipase was elevated. A CT of the abdomen/pelvis was normal. She had an US performed which was unchanged from her last US. Her CBD was 4mm in size. There was no evidence of cholecystitis. Upper Abdominal Pain Score (Numeric/FACES): 8 - Related Data Allergies/Adverse Reactions: Allergies Allergy/AdvReac Type Severity Reaction Status Date / Time ciprofloxacin Allergy Hives Verified 10/26/17 09:25 latex Allergy Hives Verified 10/26/17 09:25 Home Medications: Home Meds Ondansetron HCl [Zofran] 4 mg PO ASDIRECTED 10/26/17 [History] Past Medical History HEENT History: Reports: None Cardiovascular History: Reports: None. Denies: Blood Clots/VTE/DVT, CAD, High Cholesterol, Hypertension Respiratory History: Reports: None. Denies: Asthma, COPD, PE Gastrointestinal History: Reports: Cholelithiasis Genitourinary History: Reports: UTI, Recurrent, Other (See Below) (neurogenic bladder). 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: Reports: None Musculoskeletal History: Reports: None Neurological History: Reports: Other (See Below) (spina bifida with paraplegia) Psychiatric History: Reports: None Endocrine/Metabolic History: Reports: None Hematologic History: Reports: None Immunologic History: Reports: None Oncologic (Cancer) History: Reports: None Dermatologic History: Reports: None - Past Surgical History Head Surgeries/Procedures: Reports: None HEENT Surgical History: Reports: None Cardiovascular Surgical History: Reports: None Respiratory Surgical History: Reports: None GI Surgical History: Reports: None Female Surgical History: Reports: None Endocrine Surgical History: Reports: None Neurological Surgical History: Reports: Other (See Below) (multiple back surgeries as a child secondary to spina bifida) Other Neurological Surgeries/Procedures: spina bifida Musculoskeletal Surgical History: Reports: None Oncologic Surgical History: Reports: None Dermatological Surgical History: Reports: None Social & Family History - Family History Family Medical History: Noncontributory - Tobacco Use Smoking Status *Q: Current Every Day Smoker Years of Tobacco use: 2 Packs/Tins Daily: 0.5 - Caffeine Use Caffeine Use: Reports: Soda - Recreational Drug Use Recreational Drug Use: Yes Drug Use in Last 12 Months: Yes Recreational Drug Type: Reports: Marijuana/Hashish Recreational Drug Use Frequency: Daily H&P Review of Systems - Review of Systems: Review Of Systems: ROS reveals no pertinent complaints other than HPI. Exam - Exam Exam: See Below - Vital Signs Vital Signs: Last Vital Signs Temp 36.8 C 10/26/17 14:00 Pulse 69 10/26/17 14:00 Resp 18 10/26/17 14:00 BP 142/73 H 10/26/17 14:00 Pulse Ox 96 10/26/17 15:00 Weight: 39.916 kg - Exam General: Alert, Oriented HEENT: Conjunctiva Clear, Mucosa Moist & [place], Pupils Equal, Pupils Reactive Lungs: Clear to Auscultation, Normal Respiratory Effort Cardiovascular: Regular Rate, Regular Rhythm GI/Abdominal Exam: Soft, Non-Tender, No Distention, No Mass - Patient Data Lab Results Last 24 hrs: Laboratory Results - last 24 hr 10/26/17 10/26/17 10/26/17 Range/Units 09:45 09:45 09:45 WBC 8.12 (4.0-11.0) K/uL RBC 4.82 (4.30-5.90) M/uL Hgb 14.8 (12.0-16.0) g/dL Hct 43.5 (36.0-46.0) % MCV 90.2 (80.0-98.0) fL MCH 30.7 (27.0-32.0) pg MCHC 34.0 (31.0-37.0) g/dL RDW Std Deviation 53.0 (28.0-62.0) fl RDW Coeff of Renetta 16 H (11.0-15.0) % Plt Count 310 (150-400) K/uL MPV 10.10 (7.40-12.00) fL Neut % (Auto) 69.1 (48.0-80.0) % Lymph % (Auto) 21.4 (16.0-40.0) % [place] % (Auto) 7.3 (0.0-15.0) % Eos % (Auto) 1.7 (0.0-7.0) % Baso % (Auto) 0.5 (0.0-1.5) % Neut # (Auto) 5.6 (1.4-5.7) K/uL Lymph # (Auto) 1.7 (0.6-2.4) K/uL [place] # (Auto) 0.6 (0.0-0.8) K/uL Eos # (Auto) 0.1 (0.0-0.7) K/uL Baso # (Auto) 0.0 (0.0-0.1) K/uL Nucleated RBC % 0.0 /100WBC Nucleated RBCs # 0 K/uL Sodium 141 (136-145) mmol/L Potassium 3.4 L (3.5-5.1) mmol/L Chloride 104 (98-107) mmol/L Carbon Dioxide 23.5 (21.0-32.0) mmol/L BUN 12 (7.0-18.0) mg/dL Creatinine 0.5 L (0.6-1.0) mg/dL Est Cr Clr Drug Dosing 110.27 mL/min Estimated GFR (MDRD) > 60.0 ml/min Glucose 167 H (74-106) mg/dL Calcium 9.2 (8.5-10.1) mg/dL Total Bilirubin 0.2 (0.2-1.0) mg/dL AST 16 (15-37) IU/L ALT 21 (14-63) IU/L Alkaline Phosphatase 92 (46-116) U/L Total Protein 7.7 (6.4-8.2) g/dL Albumin 4.2 (3.4-5.0) g/dL Globulin 3.5 (2.0-3.5) g/dL Albumin/Globulin Ratio 1.2 L (1.3-2.8) Lipase 525 H (73-393) U/L Urine Color Urine Appearance Urine pH (5.0-8.0) Ur Specific [place] (1.001-1.035) Urine Protein (NEGATIVE) mg/dL Urine Glucose (UA) (NEGATIVE) mg/dL Urine Ketones (NEGATIVE) mg/dL Urine Occult Blood (NEGATIVE) Urine Nitrite (NEGATIVE) Urine Bilirubin (NEGATIVE) Urine Urobilinogen (<2.0) EU/dL Ur Leukocyte Esterase (NEGATIVE) Urine RBC (0-2/HPF) Urine WBC (0-5/HPF) Ur Epithelial Cells (NONE-FEW) Amorphous Sediment (NEGATIVE) Urine Bacteria (NEGATIVE) Urine Mucus (NONE-MOD) Urine HCG, Qual (NEGATIVE) Ethyl Alcohol <3 mg/dL 10/26/17 10/26/17 Range/Units 11:08 11:08 WBC (4.0-11.0) K/uL RBC (4.30-5.90) M/uL Hgb (12.0-16.0) g/dL Hct (36.0-46.0) % MCV (80.0-98.0) fL MCH (27.0-32.0) pg MCHC (31.0-37.0) g/dL RDW Std Deviation (28.0-62.0) fl RDW Coeff of [place] (11.0-15.0) % Plt Count (150-400) K/uL MPV (7.40-12.00) fL Neut % (Auto) (48.0-80.0) % Lymph % (Auto) (16.0-40.0) % [place] % (Auto) (0.0-15.0) % Eos % (Auto) (0.0-7.0) % Baso % (Auto) (0.0-1.5) % Neut # (Auto) (1.4-5.7) K/uL Lymph # (Auto) (0.6-2.4) K/uL [place] # (Auto) (0.0-0.8) K/uL Eos # (Auto) (0.0-0.7) K/uL Baso # (Auto) (0.0-0.1) K/uL Nucleated RBC % /100WBC Nucleated RBCs # K/uL Sodium (136-145) mmol/L Potassium (3.5-5.1) mmol/L Chloride (98-107) mmol/L Carbon Dioxide (21.0-32.0) mmol/L BUN (7.0-18.0) mg/dL Creatinine (0.6-1.0) mg/dL Est Cr Clr Drug Dosing mL/min Estimated GFR (MDRD) ml/min Glucose (74-106) mg/dL Calcium (8.5-10.1) mg/dL Total Bilirubin (0.2-1.0) mg/dL AST (15-37) IU/L ALT (14-63) IU/L Alkaline Phosphatase (46-116) U/L Total Protein (6.4-8.2) g/dL Albumin (3.4-5.0) g/dL Globulin (2.0-3.5) g/dL Albumin/Globulin Ratio (1.3-2.8) Lipase (73-393) U/L Urine Color YELLOW Urine Appearance CLEAR Urine pH 6.0 (5.0-8.0) Ur Specific [place] <= 1.005 (1.001-1.035) Urine Protein NEGATIVE (NEGATIVE) mg/dL Urine Glucose (UA) NEGATIVE (NEGATIVE) mg/dL Urine Ketones NEGATIVE (NEGATIVE) mg/dL Urine Occult Blood MODERATE (NEGATIVE) Urine Nitrite POSITIVE H (NEGATIVE) Urine Bilirubin NEGATIVE (NEGATIVE) Urine Urobilinogen 0.2 (<2.0) EU/dL Ur Leukocyte Esterase NEGATIVE (NEGATIVE) Urine RBC 4-6 (0-2/HPF) Urine WBC 2-4 (0-5/HPF) Ur Epithelial Cells MANY (NONE-FEW) Amorphous Sediment LIGHT (NEGATIVE) Urine Bacteria 2+ H (NEGATIVE) Urine Mucus LIGHT (NONE-MOD) Urine HCG, Qual NEGATIVE (NEGATIVE) Ethyl Alcohol mg/dL Result Diagrams: 10/26/17 09:45 10/26/17 09:45 Consult PN Assessment/Plan Procedures: Procedures ASSAY OF AMYLASE (10/22/17) ASSAY OF LIPASE (10/22/17) CHEST X-RAY 2VW FRONTAL&LATL (06/23/17) COMPLETE CBC W/AUTO DIFF WBC (08/20/17) COMPREHEN METABOLIC PANEL (10/22/17) CT ABD & PELV W/CONTRAST (05/18/15) CT HEAD/BRAIN W/O DYE (09/07/17) CT NECK SPINE W/O DYE (09/07/17) ECHO EXAM OF ABDOMEN (08/20/17) EMERGENCY DEPT VISIT (09/07/17) EMERGENCY DEPT VISIT (08/04/17) EMERGENCY DEPT VISIT (05/18/15) GLYCOSYLATED HEMOGLOBIN TEST (08/18/17) HELICOBACTER PYLORI ANTIBODY (10/22/17) HYDRATE IV INFUSION ADD-ON (05/18/15) LIPID PANEL (06/10/17) MICROBE SUSCEPTIBLE JOSE (08/04/17) ROUTINE VENIPUNCTURE (10/22/17) THER/PROPH/DIAG INJ IV PUSH (05/18/15) THER/PROPH/DIAG INJ SC/IM (09/07/17) URINALYSIS AUTO W/SCOPE (08/04/17) URINE BACTERIA CULTURE (08/04/17) URINE CULTURE/COLONY COUNT (08/04/17) URINE TEST (09/07/17) X-RAY EXAM CHEST 2 VIEWS (08/04/17) X-RAY EXAM HIP UNI 2-3 VIEWS (07/16/17) X-RAY EXAM OF KNEE 3 (07/16/17) X-RAY EXAM OF SHOULDER (09/07/17) X-RAY EXAM UNILAT RIBS/CHEST (09/07/17) (1) Hx of cholelithiasis SNOMED Code(s): 899534968 Code(s): Z87.19 - PERSONAL HISTORY OF OTHER DISEASES OF THE DIGESTIVE SYSTEM Current Visit: Yes (2) Nausea and vomiting SNOMED Code(s): 77797917 Code(s): R11.2 - NAUSEA WITH VOMITING, UNSPECIFIED Current Visit: Yes Qualifiers: Vomiting type: unspecified Vomiting Intractability: non-intractable Qualified Code(s): R11.2 - Nausea with vomiting, unspecified (3) Pancreatitis SNOMED Code(s): 03979259 Code(s): K85.90 - ACUTE PANCREATITIS WITHOUT NECROSIS OR INFECTION, UNSP Current Visit: No Qualifiers: Chronicity: acute Pancreatitis type: biliary Acute pancreatitis complication: no infection or necrosis Qualified Code(s): K85.10 - Biliary acute pancreatitis without necrosis or infection (4) UTI, Urinary tract infectious disease SNOMED Code(s): 36508365 Code(s): N39.0 - URINARY TRACT INFECTION, SITE NOT SPECIFIED Current Visit : No Problem List Initiated/Reviewed/Updated: Yes Plan: Agree with medicine's plan to rehydrate with IV fluids, NPO, and bowel rest. Re- check labs in am. I discussed her case with the medical nurse practitioner. If she had gallstone pancreatitis I would expect at least a mild elevation in her LFTs and her CBD to be more dilated. Would explore any other cause of pancreatitis. Recheck LFTs and lipase in am. If elevating would get an MRCP. If lipase goes back to normal and patient feels well, advance diet as tolerated. Given her medical co-morbidities I referred her to [facility] for cholecystectomy. Would make sure she has an appointment to be seen [facility] upon discharge. Will continue to follow along while in house.
[2017-10-26] MEDS ORDERED: Potassium Chloride 20 MEQ Tab.ER PO ONE (18:23)
[2017-10-26] MEDS: Lactated Ringers 1,000 ML IV SCH ×2 (18:37→23:56)
[2017-10-27] MEDS: HYDROmorphone 1 MG/ML Syringe IVPUSH PRN ×6 (02:00→21:14)
[2017-10-27] MEDS: Ondansetron 4 MG/2 ML SDV IVPUSH PRN ×3 (02:04→16:48)
[2017-10-27] MEDS: Lactated Ringers 1,000 ML IV SCH ×3 (04:53→18:47)
[2017-10-27 06:28] LABS: CHLORIDE,CL 111 mmol/L (98-107); SODIUM,NA 144 mmol/L (136-145)
[2017-10-27] MEDS ORDERED: cefTRIAXone 1,000 MG in Dextrose 5% in Water 50 ML IV SCH ×4 (10:14→16:00)
[2017-10-27] MEDS: Pantoprazole 40 MG Vial IVPUSH SCH (11:08)
--- NOTE | 2017-10-27 11:31 | PCM.PN ---
<Isatu Stephen M - Last Filed: 10/27/17 12:32> - General Info Date of Service: 10/27/17 Admission Dx/Problem (Free Text): Admission Diagnosis/Problem Admission Diagnosis/Problem Pancreatitis Subjective Update: Feeling somewhat better today. Feeling bloated and abdominal pain continues, but again is improving. Nausea continues slightly as well. No chest pain or SOB. Functional Status: Reports: Pain Controlled, Tolerating Diet, Ambulating, Urinating - Review of Systems General: Reports: No Symptoms. Denies: Fever, Weakness, Fatigue, Malaise HEENT: Reports: No Symptoms. Denies: Headaches, Sore Throat, Visual Changes Pulmonary: Reports: No Symptoms. Denies: Shortness of Breath, Cough, Sputum Cardiovascular: Reports: No Symptoms. Denies: Chest Pain, Palpitations, Dyspnea on Exertion, Orthopnea Gastrointestinal: Reports: Abdominal Pain, Constipation, Nausea. Denies: Vomiting Genitourinary: Reports: No Symptoms. Denies: Dysuria, Frequency, Burning, Pain Musculoskeletal: Reports: No Symptoms. Denies: Neck Pain Neurological: Reports: No Symptoms Psychiatric: Reports: No Symptoms - Patient Data Vitals - Most Recent: Last Vital Signs Temp 97.7 F 10/27/17 07:52 Pulse 91 10/27/17 07:52 Resp 19 10/27/17 07:52 BP 142/82 H 10/27/17 07:52 Pulse Ox 97 10/27/17 07:52 Weight - Most Recent: 88 lb I&O - Last 24 Hours: Intake & Output 10/26/17 10/27/17 10/27/17 22:59 06:59 14:59 Intake Total 1549 0 Output Total 500 500 Balance 1049 -500 Lab Results Last 24 Hours: Laboratory Results - last 24 hr 10/26/17 10/27/17 10/27/17 Range/Units 11:08 05:10 05:10 WBC 7.62 (4.0-11.0) K/uL RBC 3.72 L (4.30-5.90) M/uL Hgb 11.2 L (12.0-16.0) g/dL Hct 34.2 L (36.0-46.0) % MCV 91.9 (80.0-98.0) fL MCH 30.1 (27.0-32.0) pg MCHC 32.7 (31.0-37.0) g/dL RDW Std Deviation 54.4 (28.0-62.0) fl RDW Coeff of Renetta 16 H (11.0-15.0) % Plt Count 249 (150-400) K/uL MPV 10.40 (7.40-12.00) fL Neut % (Auto) 45.0 L (48.0-80.0) % Lymph % (Auto) 45.7 H (16.0-40.0) % Pitkin % (Auto) 7.1 (0.0-15.0) % Eos % (Auto) 1.8 (0.0-7.0) % Baso % (Auto) 0.4 (0.0-1.5) % Neut # (Auto) 3.4 (1.4-5.7) K/uL Lymph # (Auto) 3.5 H (0.6-2.4) K/uL Pitkin # (Auto) 0.5 (0.0-0.8) K/uL Eos # (Auto) 0.1 (0.0-0.7) K/uL Baso # (Auto) 0.0 (0.0-0.1) K/uL Nucleated RBC % 0.0 /100WBC Nucleated RBCs # 0 K/uL Sodium 144 (136-145) mmol/L Potassium 3.9 (3.5-5.1) mmol/L Chloride 111 H (98-107) mmol/L Carbon Dioxide 26.0 (21.0-32.0) mmol/L BUN 4 L (7.0-18.0) mg/dL Creatinine 0.4 L (0.6-1.0) mg/dL Est Cr Clr Drug Dosing 137.84 mL/min Estimated GFR (MDRD) > 60.0 ml/min Glucose 77 (74-106) mg/dL Calcium 7.9 L (8.5-10.1) mg/dL Magnesium 1.1 L (1.5-2.0) mg/dL Total Bilirubin 0.2 (0.2-1.0) mg/dL AST 16 (15-37) IU/L ALT 16 (14-63) IU/L Alkaline Phosphatase 47 (46-116) U/L Total Protein 5.4 L (6.4-8.2) g/dL Albumin 2.8 L (3.4-5.0) g/dL Globulin 2.6 (2.0-3.5) g/dL Albumin/Globulin Ratio 1.1 L (1.3-2.8) Urine Color YELLOW Urine Appearance CLEAR Urine pH 6.0 (5.0-8.0) Ur Specific [place] <= 1.005 (1.001-1.035) Urine Protein NEGATIVE (NEGATIVE) mg/dL Urine Glucose (UA) NEGATIVE (NEGATIVE) mg/dL Urine Ketones NEGATIVE (NEGATIVE) mg/dL Urine Occult Blood MODERATE (NEGATIVE) Urine Nitrite POSITIVE H (NEGATIVE) Urine Bilirubin NEGATIVE (NEGATIVE) Urine Urobilinogen 0.2 (<2.0) EU/dL Ur Leukocyte Esterase NEGATIVE (NEGATIVE) Urine RBC 4-6 (0-2/HPF) Urine WBC 2-4 (0-5/HPF) Ur Epithelial Cells MANY (NONE-FEW) Amorphous Sediment LIGHT (NEGATIVE) Urine Bacteria 2+ H (NEGATIVE) Urine Mucus LIGHT (NONE-MOD) Med Orders - Current: Current Medications Hydromorphone HCl (Dilaudid) 0.5 mg IVPUSH Q2H PRN PRN Reason: Pain (severe 7-10) Last Admin: 10/27/17 09:56 Dose: 0.5 mg Lactated Ringer's (Ringers, Lactated) 1,000 mls @ 200 mls/hr IV ASDIRECTED [facility] Last Admin: 10/27/17 11:03 Dose: 200 mls/hr Ceftriaxone Sodium 1,000 mg/ (Dextrose/Water) 50 mls @ 200 mls/hr IV Q24H [facility] Ondansetron HCl (Zofran) 4 mg IVPUSH Q4H PRN PRN Reason: Nausea Last Admin: 10/27/17 07:28 Dose: 4 mg Pantoprazole Sodium (Protonix Iv) 40 mg IVPUSH Q24H [facility] Last Admin: 10/27/17 11:08 Dose: 40 mg Discontinued Medications Sodium Chloride (Normal Saline) 1,000 mls @ 999 mls/hr IV STAT ONE Stop: 10/26/17 10:27 Last Admin: 10/26/17 09:45 Dose: 999 mls/hr Sodium Chloride (Normal Saline) 1,000 mls @ 150 mls/hr IV STAT [facility] Last Admin: 10/26/17 10:50 Dose: 150 mls/hr Ciprofloxacin/Dextrose 400 mg/ (Premix) 200 mls @ 200 mls/hr IV Q12H [facility] Last Admin: 10/26/17 13:22 Dose: Not Given Ciprofloxacin/Dextrose (Cipro In D5w 400 Mg/200 Ml) Confirm Administered Dose 200 mls @ as directed .ROUTE .STK-MED ONE Stop: 10/26/17 13:09 Last Admin: 10/26/17 13:22 Dose: Not Given Trimethoprim/Sulfamethoxazole (20 ml/ Dextrose/Water) 520 mls @ 250 mls/hr IV Q8H [facility] Last Admin: 10/26/17 14:13 Dose: Not Given Trimethoprim/Sulfamethoxazole (15 ml/ Dextrose/Water) 515 mls @ 247.596 mls/hr IV Q8H [facility] Last Admin: 10/26/17 13:52 Dose: 247.596 mls/hr Lactated Ringer's (Ringers, Lactated) 1,000 mls @ 999 mls/hr IV .BOLUS ONE Stop: 10/26/17 15:18 Last Admin: 10/26/17 16:07 Dose: 999 mls/hr Ceftriaxone Sodium/Dextrose 1 (gm/ Dextrose/Water) 100 mls @ 400 mls/hr IV Q24H [facility] Ceftriaxone Sodium 1 mg/ (Dextrose/Water) 50 mls @ 200 mls/hr IV Q24H [facility] Last Admin: 10/26/17 17:15 Dose: 200 mls/hr Ceftriaxone Sodium 1,000 mg/ (Dextrose/Water) 50 mls @ 200 mls/hr IV Q24H [facility] Last Admin: 10/27/17 11:09 Dose: Not Given Iopamidol (Isovue Multipack-370 (76%)) 100 ml IVPUSH ONETIME STA Stop: 10/26/17 10:53 Last Admin: 10/26/17 10:53 Dose: 100 ml Ketorolac Tromethamine (Toradol) 30 mg IVPUSH ONETIME ONE Stop: 10/26/17 09:28 Last Admin: 10/26/17 09:51 Dose: 30 mg Morphine Sulfate (Morphine) 2 mg IVPUSH ONETIME ONE Stop: 10/26/17 10:35 Last Admin: 10/26/17 10:50 Dose: 2 mg Ondansetron HCl (Zofran) 8 mg IVPUSH ONETIME ONE Stop: 10/26/17 09:28 Last Admin: 10/26/17 09:46 Dose: 8 mg Pantoprazole Sodium (Protonix Iv) 40 mg IVPUSH NOW ONE Stop: 10/26/17 11:37 Last Admin: 10/26/17 12:22 Dose: 40 mg Potassium Chloride (Klor-Con M20) 40 meq PO ONETIME ONE Stop: 10/26/17 18:24 Last Admin: 10/26/17 18:37 Dose: 40 meq - Exam General: Alert, Oriented, Cooperative, No Acute Distress Neck: Supple Lungs: Clear to Auscultation, Normal Respiratory Effort Cardiovascular: Regular Rate, Regular Rhythm GI/Abdominal Exam: Normal Bowel Sounds, Soft, No Organomegaly, Distended, Tender (RUQ, epigastric and LUQ pain. ). No: Rigid Extremities: Normal Inspection, Normal Range of Motion, Non-Tender, No Pedal Edema, Normal Capillary Refill Neurological: No New Focal Deficit Psy/Mental Status: Alert, Normal Affect, Normal Mood - Problem List & Annotations (1) Pancreatitis SNOMED Code(s): 87471208 Code(s): K85.90 - ACUTE PANCREATITIS WITHOUT NECROSIS OR INFECTION, UNSP Status: Acute Current Visit: No Qualifiers: Chronicity: acute Pancreatitis type: biliary Acute pancreatitis complication: no infection or necrosis Qualified Code(s): K85.10 - Biliary acute pancreatitis without necrosis or infection (2) Nausea and vomiting SNOMED Code(s): 83833171 Code(s): R11.2 - NAUSEA WITH VOMITING, UNSPECIFIED Status: Acute Current Visit: Yes Qualifiers: Vomiting type: unspecified Vomiting Intractability: non-intractable Qualified Code(s): R11.2 - Nausea with vomiting, unspecified (3) Hx of cholelithiasis SNOMED Code(s): 725996766 Code(s): Z87.19 - PERSONAL HISTORY OF OTHER DISEASES OF THE DIGESTIVE SYSTEM Status: Acute Current Visit: Yes (4) UTI, Urinary tract infectious disease SNOMED Code(s): 24685152 Code(s): N39.0 - URINARY TRACT INFECTION, SITE NOT SPECIFIED Status: Acute Current Visit: No (5) Spina bifida SNOMED Code(s): 69103833 Code(s): Q05.9 - SPINA BIFIDA, UNSPECIFIED Status: Chronic Current Visit : Yes - Problem List Review Problem List Initiated/Reviewed/Updated: Yes - My Orders Last 24 Hours: My Active Orders 10/26/17 11:08 CULTURE URINE [RM] Routine 10/26/17 14:18 Oxygen Therapy [RC] PRN Up ad Enma [RC] ASDIRECTED VTE/DVT Education [RC] Q12H Vital Signs [RC] Q4H HYDROmorphone [Dilaudid] 0.5 mg IVPUSH Q2H PRN Ondansetron [Zofran] 4 mg IVPUSH Q4H PRN Resuscitation Status Routine 10/26/17 14:19 Intake and Output [RC] QSHIFT Sequential Compression Device [OM.PC] Per Unit Routine 10/26/17 14:30 Lactated Ringers [Ringers, Lactated] 1,000 ml IV ASDIRECTED 10/26/17 14:40 Notify Provider Consults [RC] ASDIRECTED Consult to Physician [CONS] Routine 10/26/17 Dinner Nothing Per Oral Diet [DIET] 10/27/17 11:00 Pantoprazole [ProTONIX IV] 40 mg IVPUSH Q24H 10/28/17 05:11 CBC WITH AUTO DIFF [HEME] AM COMPREHENSIVE METABOLIC PN,CMP [CHEM] AM MAGNESIUM [CHEM] AM 10/29/17 05:11 CBC WITH AUTO DIFF [HEME] AM COMPREHENSIVE METABOLIC PN,CMP [CHEM] AM MAGNESIUM [CHEM] AM - Plan Plan:: this 22 year old female admitted with acute pancreatitis with known hx of cholelithiasis and UTI 1. Acute pancreatitis: Improving, Lipase 119 today. Has seen general surgery, but referred GI in [place] due to comorbidities. Still having some nausea and bloating. Keep NPO with ice chips for now. IVF resuscitation, LR at 200 ml/hr. Dilaudid for pain PRN and zofran for nausea PRN. Will monitor labwork in am. Will add Reglan, possible cannabinoid hyperemeisis syndrome, causing gastroparesis type symptoms. Will monitor and encourage to stop using marijuana. Arranging close follow up with surgery in [place] for cholecystectomy. 2. UTI: likely secondary to self cathing. Continue Rocephin 1 gm IV daily. UC pending. VTE prophylaxis: SCDs Dispo: 2-4 days pending improvement. <Neil Martinez - Last Filed: 10/27/17 13:49> - Patient Data Vitals - Most Recent: Last Vital Signs Temp 98.5 F 10/27/17 11:55 Pulse 63 10/27/17 11:55 Resp 18 10/27/17 11:55 BP 159/69 H 10/27/17 11:55 Pulse Ox 96 10/27/17 11:55 I&O - Last 24 Hours: Intake & Output 10/26/17 10/27/17 10/27/17 22:59 06:59 14:59 Intake Total 1549 0 Output Total 500 500 Balance 1049 -500 Lab Results Last 24 Hours: Laboratory Results - last 24 hr 10/27/17 10/27/17 10/27/17 Range/Units 05:10 05:10 08:41 WBC 7.62 (4.0-11.0) K/uL RBC 3.72 L (4.30-5.90) M/uL Hgb 11.2 L (12.0-16.0) g/dL Hct 34.2 L (36.0-46.0) % MCV 91.9 (80.0-98.0) fL MCH 30.1 (27.0-32.0) pg MCHC 32.7 (31.0-37.0) g/dL RDW Std Deviation 54.4 (28.0-62.0) fl RDW Coeff of Renetta 16 H (11.0-15.0) % Plt Count 249 (150-400) K/uL MPV 10.40 (7.40-12.00) fL Neut % (Auto) 45.0 L (48.0-80.0) % Lymph % (Auto) 45.7 H (16.0-40.0) % Pitkin % (Auto) 7.1 (0.0-15.0) % Eos % (Auto) 1.8 (0.0-7.0) % Baso % (Auto) 0.4 (0.0-1.5) % Neut # (Auto) 3.4 (1.4-5.7) K/uL Lymph # (Auto) 3.5 H (0.6-2.4) K/uL Pitkin # (Auto) 0.5 (0.0-0.8) K/uL Eos # (Auto) 0.1 (0.0-0.7) K/uL Baso # (Auto) 0.0 (0.0-0.1) K/uL Nucleated RBC % 0.0 /100WBC Nucleated RBCs # 0 K/uL Sodium 144 (136-145) mmol/L Potassium 3.9 (3.5-5.1) mmol/L Chloride 111 H (98-107) mmol/L Carbon Dioxide 26.0 (21.0-32.0) mmol/L BUN 4 L (7.0-18.0) mg/dL Creatinine 0.4 L (0.6-1.0) mg/dL Est Cr Clr Drug Dosing 137.84 mL/min Estimated GFR (MDRD) > 60.0 ml/min Glucose 77 (74-106) mg/dL Calcium 7.9 L (8.5-10.1) mg/dL Magnesium 1.1 L (1.5-2.0) mg/dL Total Bilirubin 0.2 (0.2-1.0) mg/dL AST 16 (15-37) IU/L ALT 16 (14-63) IU/L Alkaline Phosphatase 47 (46-116) U/L Total Protein 5.4 L (6.4-8.2) g/dL Albumin 2.8 L (3.4-5.0) g/dL Globulin 2.6 (2.0-3.5) g/dL Albumin/Globulin Ratio 1.1 L (1.3-2.8) Lipase 119 (73-393) U/L Med Orders - Current: Current Medications Bisacodyl (Dulcolax) 10 mg RECTAL DAILY PRN PRN Reason: Constipation Hydromorphone HCl (Dilaudid) 0.5 mg IVPUSH Q2H PRN PRN Reason: Pain (severe 7-10) Last Admin: 10/27/17 13:20 Dose: 0.5 mg Lactated Ringer's (Ringers, Lactated) 1,000 mls @ 200 mls/hr IV ASDIRECTED [facility] Last Admin: 10/27/17 11:03 Dose: 200 mls/hr Ceftriaxone Sodium 1,000 mg/ (Dextrose/Water) 50 mls @ 200 mls/hr IV Q24H [facility] Metoclopramide HCl (Reglan) 5 mg IVPUSH Q8H [facility] Stop: 10/30/17 12:16 Last Admin: 10/27/17 12:54 Dose: 5 mg Ondansetron HCl (Zofran) 4 mg IVPUSH Q4H PRN PRN Reason: Nausea Pantoprazole Sodium (Protonix Iv) 40 mg IVPUSH Q24H [facility] Last Admin: 10/27/17 11:08 Dose: 40 mg Discontinued Medications Erythromycin Ethylsuccinate (Eryped 200) 100 mg PO Q6HR [facility] Sodium Chloride (Normal Saline) 1,000 mls @ 999 mls/hr IV STAT ONE Stop: 10/26/17 10:27 Last Admin: 10/26/17 09:45 Dose: 999 mls/hr Sodium Chloride (Normal Saline) 1,000 mls @ 150 mls/hr IV STAT [facility] Last Admin: 10/26/17 10:50 Dose: 150 mls/hr Ciprofloxacin/Dextrose 400 mg/ (Premix) 200 mls @ 200 mls/hr IV Q12H [facility] Last Admin: 10/26/17 13:22 Dose: Not Given Ciprofloxacin/Dextrose (Cipro In D5w 400 Mg/200 Ml) Confirm Administered Dose 200 mls @ as directed .ROUTE .STK-MED ONE Stop: 10/26/17 13:09 Last Admin: 10/26/17 13:22 Dose: Not Given Trimethoprim/Sulfamethoxazole (20 ml/ Dextrose/Water) 520 mls @ 250 mls/hr IV Q8H [facility] Last Admin: 10/26/17 14:13 Dose: Not Given Trimethoprim/Sulfamethoxazole (15 ml/ Dextrose/Water) 515 mls @ 247.596 mls/hr IV Q8H [facility] Last Admin: 10/26/17 13:52 Dose: 247.596 mls/hr Lactated Ringer's (Ringers, Lactated) 1,000 mls @ 999 mls/hr IV .BOLUS ONE Stop: 10/26/17 15:18 Last Admin: 10/26/17 16:07 Dose: 999 mls/hr Ceftriaxone Sodium/Dextrose 1 (gm/ Dextrose/Water) 100 mls @ 400 mls/hr IV Q24H [facility] Ceftriaxone Sodium 1 mg/ (Dextrose/Water) 50 mls @ 200 mls/hr IV Q24H [facility] Last Admin: 10/26/17 17:15 Dose: 200 mls/hr Ceftriaxone Sodium 1,000 mg/ (Dextrose/Water) 50 mls @ 200 mls/hr IV Q24H [facility] Last Admin: 10/27/17 11:09 Dose: Not Given Magnesium Sulfate 4 gm/ Premix 100 mls @ 50 mls/hr IV ONETIME ONE Stop: 10/27/17 13:31 Last Admin: 10/27/17 11:53 Dose: 50 mls/hr Iopamidol (Isovue Multipack-370 (76%)) 100 ml IVPUSH ONETIME STA Stop: 10/26/17 10:53 Last Admin: 10/26/17 10:53 Dose: 100 ml Ketorolac Tromethamine (Toradol) 30 mg IVPUSH ONETIME ONE Stop: 10/26/17 09:28 Last Admin: 10/26/17 09:51 Dose: 30 mg Morphine Sulfate (Morphine) 2 mg IVPUSH ONETIME ONE Stop: 10/26/17 10:35 Last Admin: 10/26/17 10:50 Dose: 2 mg Ondansetron HCl (Zofran) 8 mg IVPUSH ONETIME ONE Stop: 10/26/17 09:28 Last Admin: 10/26/17 09:46 Dose: 8 mg Ondansetron HCl (Zofran) 4 mg IVPUSH Q4H PRN PRN Reason: Nausea Last Admin: 10/27/17 07:28 Dose: 4 mg Pantoprazole Sodium (Protonix Iv) 40 mg IVPUSH NOW ONE Stop: 10/26/17 11:37 Last Admin: 10/26/17 12:22 Dose: 40 mg Polyethylene Glycol (Miralax) 17 gm PO DAILY [facility] Last Admin: 10/27/17 12:54 Dose: 17 gm Potassium Chloride (Klor-Con M20) 40 meq PO ONETIME ONE Stop: 10/26/17 18:24 Last Admin: 10/26/17 18:37 Dose: 40 meq - My Orders Last 24 Hours: My Active Orders 10/27/17 12:15 Metoclopramide [Reglan] 5 mg IVPUSH Q8H 10/27/17 16:00 cefTRIAXone [Rocephin] 1,000 mg Dextrose 5% in Water 50 ml IV Q24H
[2017-10-27] MEDS ORDERED: Magnesium Sulfate/Water 4 GM in Premix Bag 1 BAG IV ONE (11:32)
[2017-10-27] MEDS ORDERED: Polyethylene Glycol 3350 Powder 17 GM Packet PO SCH (12:30)
[2017-10-27] MEDS ORDERED: Erythromycin Ethylsuccinate Susp 200 MG/5 ML 100 ML Bottle PO SCH (12:30)
[2017-10-27] MEDS: Metoclopramide 10 MG/2 ML SDV IVPUSH SCH ×2 (12:54→21:17)
[2017-10-27] MEDS ORDERED: Bisacodyl 10 MG Supp RECTAL PRN (13:44)
[2017-10-27] MEDS ORDERED: Alum Hydrox/Mag Hydrox/Simeth 15 ML, Metoclopramide 5 MG, Lidocaine 2% 5 ML PO ONE ×3 (16:15)
[2017-10-28] MEDS: HYDROmorphone 1 MG/ML Syringe IVPUSH PRN (01:06)
[2017-10-28] MEDS: Lactated Ringers 1,000 ML IV SCH ×2 (01:10→07:44)
[2017-10-28] MEDS: Ondansetron 4 MG/2 ML SDV IVPUSH PRN ×2 (01:14→10:42)
[2017-10-28] MEDS: Metoclopramide 10 MG/2 ML SDV IVPUSH SCH ×2 (05:11→12:09)
[2017-10-28 06:34] LABS: CHLORIDE,CL 108 mmol/L (98-107); SODIUM,NA 142 mmol/L (136-145)
--- NOTE | 2017-10-28 09:20 | PCM.PN ---
- General Info Date of Service: 10/28/17 Admission Dx/Problem (Free Text): Admission Diagnosis/Problem Admission Diagnosis/Problem Pancreatitis Subjective Update: Feeling somewhat improved this morning. Pain has improved, having more leg spasms now asking for her baclofen. Reports intermittent nausea. No chest pain or SOB. Had small stools, still hard Functional Status: Reports: Pain Controlled, Tolerating Diet, Urinating (caths) - Review of Systems HEENT: Reports: No Symptoms. Denies: Headaches, Sore Throat, Rhinitis Pulmonary: Reports: No Symptoms. Denies: Shortness of Breath Cardiovascular: Reports: No Symptoms. Denies: Chest Pain Gastrointestinal: Reports: Abdominal Pain, Nausea (intermittent.). Denies: Decreased Appetite Genitourinary: Reports: No Symptoms. Denies: Dysuria, Frequency, Burning, Pain Musculoskeletal: Reports: Other (leg spasms). Denies: Neck Pain Neurological: Reports: No Symptoms Psychiatric: Reports: No Symptoms - Patient Data Vitals - Most Recent: Last Vital Signs Temp 97.2 F 10/28/17 04:00 Pulse 81 10/28/17 04:00 Resp 18 10/28/17 04:00 BP 130/87 10/28/17 04:00 Pulse Ox 97 10/28/17 04:00 Weight - Most Recent: 39.916 kg I&O - Last 24 Hours: Intake & Output 10/27/17 10/28/17 10/28/17 22:59 06:59 14:59 Intake Total 1892 1781 Output Total 2550 1200 Balance -658 581 Lab Results Last 24 Hours: Laboratory Results - last 24 hr 10/27/17 10/28/17 10/28/17 Range/Units 08:41 05:50 05:50 WBC 6.64 (4.0-11.0) K/uL RBC 3.89 L (4.30-5.90) M/uL Hgb 11.9 L (12.0-16.0) g/dL Hct 35.5 L (36.0-46.0) % MCV 91.3 (80.0-98.0) fL MCH 30.6 (27.0-32.0) pg MCHC 33.5 (31.0-37.0) g/dL RDW Std Deviation 51.8 (28.0-62.0) fl RDW Coeff of Renetta 16 H (11.0-15.0) % Plt Count 244 (150-400) K/uL MPV 10.20 (7.40-12.00) fL Neut % (Auto) 50.2 (48.0-80.0) % Lymph % (Auto) 40.2 H (16.0-40.0) % Nolan % (Auto) 7.4 (0.0-15.0) % Eos % (Auto) 1.7 (0.0-7.0) % Baso % (Auto) 0.5 (0.0-1.5) % Neut # (Auto) 3.3 (1.4-5.7) K/uL Lymph # (Auto) 2.7 H (0.6-2.4) K/uL Nolan # (Auto) 0.5 (0.0-0.8) K/uL Eos # (Auto) 0.1 (0.0-0.7) K/uL Baso # (Auto) 0.0 (0.0-0.1) K/uL Nucleated RBC % 0.0 /100WBC Nucleated RBCs # 0 K/uL Sodium 142 (136-145) mmol/L Potassium 3.8 (3.5-5.1) mmol/L Chloride 108 H (98-107) mmol/L Carbon Dioxide 26.7 (21.0-32.0) mmol/L BUN 2 L (7.0-18.0) mg/dL Creatinine 0.4 L (0.6-1.0) mg/dL Est Cr Clr Drug Dosing 137.84 mL/min Estimated GFR (MDRD) > 60.0 ml/min Glucose 75 (74-106) mg/dL Calcium 8.2 L (8.5-10.1) mg/dL Magnesium 1.7 (1.5-2.0) mg/dL Total Bilirubin 0.4 (0.2-1.0) mg/dL AST 17 (15-37) IU/L ALT 16 (14-63) IU/L Alkaline Phosphatase 51 (46-116) U/L Total Protein 5.8 L (6.4-8.2) g/dL Albumin 3.0 L (3.4-5.0) g/dL Globulin 2.8 (2.0-3.5) g/dL Albumin/Globulin Ratio 1.1 L (1.3-2.8) Lipase 119 (73-393) U/L Lewis Results Last 24 Hours: Microbiology 10/26/17 11:08 Urine Culture - Final Urine, Bladder Citrobacter Amalonaticus Med Orders - Current: Current Medications Bisacodyl (Dulcolax) 10 mg RECTAL DAILY PRN PRN Reason: Constipation Last Admin: 10/27/17 18:47 Dose: 10 mg Hydromorphone HCl (Dilaudid) 0.5 mg IVPUSH Q2H PRN PRN Reason: Pain (severe 7-10) Last Admin: 10/28/17 01:06 Dose: 0.5 mg Ceftriaxone Sodium 1,000 mg/ (Dextrose/Water) 50 mls @ 200 mls/hr IV Q24H [facility] Last Admin: 10/27/17 15:31 Dose: 200 mls/hr Lactated Ringer's (Ringers, Lactated) 1,000 mls @ 150 mls/hr IV ASDIRECTED [facility] Last Admin: 10/28/17 07:44 Dose: 150 mls/hr Metoclopramide HCl (Reglan) 5 mg IVPUSH Q8H [facility] Stop: 10/30/17 12:16 Last Admin: 10/28/17 05:11 Dose: 5 mg Ondansetron HCl (Zofran) 4 mg IVPUSH Q4H PRN PRN Reason: Nausea Last Admin: 10/28/17 01:14 Dose: 4 mg Pantoprazole Sodium (Protonix Iv) 40 mg IVPUSH Q24H [facility] Last Admin: 10/27/17 11:08 Dose: 40 mg Discontinued Medications Al Hydroxide/Mg Hydroxide 15 ml/ Metoclopramide HCl 5 mg/Lidocaine HCl 5 ml 0 ml PO ONETIME ONE Stop: 10/27/17 16:16 Last Admin: 10/27/17 17:03 Dose: 1 each Erythromycin Ethylsuccinate (Eryped 200) 100 mg PO Q6HR [facility] Sodium Chloride (Normal Saline) 1,000 mls @ 999 mls/hr IV STAT ONE Stop: 10/26/17 10:27 Last Admin: 10/26/17 09:45 Dose: 999 mls/hr Sodium Chloride (Normal Saline) 1,000 mls @ 150 mls/hr IV STAT [facility] Last Admin: 10/26/17 10:50 Dose: 150 mls/hr Ciprofloxacin/Dextrose 400 mg/ (Premix) 200 mls @ 200 mls/hr IV Q12H [facility] Last Admin: 10/26/17 13:22 Dose: Not Given Ciprofloxacin/Dextrose (Cipro In D5w 400 Mg/200 Ml) Confirm Administered Dose 200 mls @ as directed .ROUTE .STK-MED ONE Stop: 10/26/17 13:09 Last Admin: 10/26/17 13:22 Dose: Not Given Trimethoprim/Sulfamethoxazole (20 ml/ Dextrose/Water) 520 mls @ 250 mls/hr IV Q8H [facility] Last Admin: 10/26/17 14:13 Dose: Not Given Trimethoprim/Sulfamethoxazole (15 ml/ Dextrose/Water) 515 mls @ 247.596 mls/hr IV Q8H [facility] Last Admin: 10/26/17 13:52 Dose: 247.596 mls/hr Lactated Ringer's (Ringers, Lactated) 1,000 mls @ 999 mls/hr IV .BOLUS ONE Stop: 10/26/17 15:18 Last Admin: 10/26/17 16:07 Dose: 999 mls/hr Lactated Ringer's (Ringers, Lactated) 1,000 mls @ 200 mls/hr IV ASDIRECTED [facility] Last Admin: 10/27/17 11:03 Dose: 200 mls/hr Ceftriaxone Sodium/Dextrose 1 (gm/ Dextrose/Water) 100 mls @ 400 mls/hr IV Q24H [facility] Ceftriaxone Sodium 1 mg/ (Dextrose/Water) 50 mls @ 200 mls/hr IV Q24H [facility] Last Admin: 10/26/17 17:15 Dose: 200 mls/hr Ceftriaxone Sodium 1,000 mg/ (Dextrose/Water) 50 mls @ 200 mls/hr IV Q24H [facility] Last Admin: 10/27/17 11:09 Dose: Not Given Magnesium Sulfate 4 gm/ Premix 100 mls @ 50 mls/hr IV ONETIME ONE Stop: 10/27/17 13:31 Last Admin: 10/27/17 11:53 Dose: 50 mls/hr Iopamidol (Isovue Multipack-370 (76%)) 100 ml IVPUSH ONETIME STA Stop: 10/26/17 10:53 Last Admin: 10/26/17 10:53 Dose: 100 ml Ketorolac Tromethamine (Toradol) 30 mg IVPUSH ONETIME ONE Stop: 10/26/17 09:28 Last Admin: 10/26/17 09:51 Dose: 30 mg Morphine Sulfate (Morphine) 2 mg IVPUSH ONETIME ONE Stop: 10/26/17 10:35 Last Admin: 10/26/17 10:50 Dose: 2 mg Ondansetron HCl (Zofran) 8 mg IVPUSH ONETIME ONE Stop: 10/26/17 09:28 Last Admin: 10/26/17 09:46 Dose: 8 mg Ondansetron HCl (Zofran) 4 mg IVPUSH Q4H PRN PRN Reason: Nausea Last Admin: 10/27/17 07:28 Dose: 4 mg Pantoprazole Sodium (Protonix Iv) 40 mg IVPUSH NOW ONE Stop: 10/26/17 11:37 Last Admin: 10/26/17 12:22 Dose: 40 mg Polyethylene Glycol (Miralax) 17 gm PO DAILY [facility] Last Admin: 10/27/17 12:54 Dose: 17 gm Potassium Chloride (Klor-Con M20) 40 meq PO ONETIME ONE Stop: 10/26/17 18:24 Last Admin: 10/26/17 18:37 Dose: 40 meq - Exam General: Alert, Oriented, Cooperative, No Acute Distress Neck: Supple Lungs: Clear to Auscultation, Normal Respiratory Effort Cardiovascular: Regular Rate, Regular Rhythm GI/Abdominal Exam: Normal Bowel Sounds, Soft, Tender (LUQ and epigastric region) Extremities: Normal Inspection, Normal Range of Motion, Non-Tender, No Pedal Edema, Normal Capillary Refill Neurological: No New Focal Deficit Psy/Mental Status: Alert - Problem List & Annotations (1) Pancreatitis SNOMED Code(s): 38203588 Code(s): K85.90 - ACUTE PANCREATITIS WITHOUT NECROSIS OR INFECTION, UNSP Status: Acute Current Visit: No Qualifiers: Chronicity: acute Pancreatitis type: biliary Acute pancreatitis complication: no infection or necrosis Qualified Code(s): K85.10 - Biliary acute pancreatitis without necrosis or infection (2) Nausea and vomiting SNOMED Code(s): 77091879 Code(s): R11.2 - NAUSEA WITH VOMITING, UNSPECIFIED Status: Acute Current Visit: Yes Qualifiers: Vomiting type: unspecified Vomiting Intractability: non-intractable Qualified Code(s): R11.2 - Nausea with vomiting, unspecified (3) Hx of cholelithiasis SNOMED Code(s): 743763317 Code(s): Z87.19 - PERSONAL HISTORY OF OTHER DISEASES OF THE DIGESTIVE SYSTEM Status: Acute Current Visit: Yes (4) UTI, Urinary tract infectious disease SNOMED Code(s): 60421784 Code(s): N39.0 - URINARY TRACT INFECTION, SITE NOT SPECIFIED Status: Acute Current Visit: No (5) Spina bifida SNOMED Code(s): 60612408 Code(s): Q05.9 - SPINA BIFIDA, UNSPECIFIED Status: Chronic Current Visit : Yes - Problem List Review Problem List Initiated/Reviewed/Updated: Yes - My Orders Last 24 Hours: My Active Orders 10/27/17 11:00 Pantoprazole [ProTONIX IV] 40 mg IVPUSH Q24H 10/27/17 13:44 Bisacodyl [Dulcolax] 10 mg RECTAL DAILY PRN Ondansetron [Zofran] 4 mg IVPUSH Q4H PRN 10/27/17 16:16 Lactated Ringers [Ringers, Lactated] 1,000 ml IV ASDIRECTED 10/28/17 Breakfast Clear Liquid Diet [DIET] 10/29/17 05:11 CBC WITH AUTO DIFF [HEME] AM COMPREHENSIVE METABOLIC PN,CMP [CHEM] AM MAGNESIUM [CHEM] AM - Plan Plan:: this 22 year old female admitted with acute pancreatitis with known hx of cholelithiasis and UTI 1. Acute pancreatitis: Improving, Still having some nausea but this is improving.and bloating. Will trial CL today and monitor. Scale back on IVF and pain medication. LR at 150 ml/hr. Dilaudid for pain PRN and zofran for nausea PRN. Will monitor labwork in am. Reglan. Possible cannabinoid hyperemeisis syndrome, hot baths and heating pad help with pain a lot. Discussed this with her and she is skepetical but will try stop using marijuana. Arranging close follow up with surgery in [place] for cholecystectomy. 2. UTI: Improving, UC reveals Citrobacter amalonaticus, sensitive to Rocephin. Will change to PO when tolerating orals better. VTE prophylaxis: SCDs Dispo: 1-2 days pending improvement.
[2017-10-28] MEDS: Pantoprazole 40 MG Vial IVPUSH SCH (10:13)
[2017-10-28] MEDS ORDERED: Baclofen 10 MG Tab PO PRN (10:49)
--- NOTE | 2017-10-28 13:32 | PCM.DCSUM1 ---
Discharge Summary - Hospital Course Brief History: This 22 year old female with pmh of spina bifida and history of gallstone presented to the ED with 10/10 epigastric pain that has been on going for many weeks, but recently worsened this weekend and has been unable to keep anything down since Wednesday. She denies alcohol intake. She has been following with Dr Edward, who recommended she see a building and grounds supervisor in [place] due to comorbidities for surgical intervention. She denies URI symptoms, fevers, neck pain, chest pain or palpitations. Epigastric pain radiates to her back and throughout her abdomen. She has not had a BM since this weekend. She does self cath due to spina bifida and does not have a specific bowel regimen for bowel movements. She reports no alcohol use recently but no history of heavy alcohol use, she reports marijuana use for pain control, which has stopped working this weekend, smokes cigarettes and denies any further recreational drug use. In the ED no leukocytosis noted, K+ 3.4, BUN 12, Cr 0.5, lipase 525 ETOH negative. UA +2 bacteria, + nitrites and pyruri 2-4. HCG negative. LFTs/bilirubin normal. CT of abdomen revealed no acute abdominal pelvis findings, gallbladder appeared normal. Mild bladder thickening, correlate with UTI. VS stable. In review of her records she has been worked up for epigastric pain and cholecysitis, cholelithiasis by Dr Edward. I spoke with Dr Edward regarding Meri. She will come see patient this afternoon. PCP, Dr Quintero - Discharge Data Discharge Date: 10/28/17 Discharge Disposition: Home, W Home Health Agency 06 Condition: Stable - Discharge Diagnosis/Problem(s) (1) Pancreatitis SNOMED Code(s): 95106849 ICD Code: K85.90 - ACUTE PANCREATITIS WITHOUT NECROSIS OR INFECTION, UNSP Status: Acute Qualifiers: Chronicity: acute Pancreatitis type: biliary Acute pancreatitis complication: no infection or necrosis Qualified Code(s): K85.10 - Biliary acute pancreatitis without necrosis or infection (2) Nausea and vomiting SNOMED Code(s): 97814960 ICD Code: R11.2 - NAUSEA WITH VOMITING, UNSPECIFIED Status: Acute Qualifiers: Vomiting type: unspecified Vomiting Intractability: non-intractable Qualified Code(s): R11.2 - Nausea with vomiting, unspecified (3) Hx of cholelithiasis SNOMED Code(s): 189663036 ICD Code: Z87.19 - PERSONAL HISTORY OF OTHER DISEASES OF THE DIGESTIVE SYSTEM Status: Acute (4) UTI, Urinary tract infectious disease SNOMED Code(s): 50299791 ICD Code: N39.0 - URINARY TRACT INFECTION, SITE NOT SPECIFIED Status: Acute (5) Spina bifida SNOMED Code(s): 78625984 ICD Code: Q05.9 - SPINA BIFIDA, UNSPECIFIED Status: Chronic (6) Neurogenic bladder SNOMED Code(s): 353139795 ICD Code: N31.9 - NEUROMUSCULAR DYSFUNCTION OF BLADDER, UNSPECIFIED Status : Acute - Patient Summary/Data Consults: Consultations 10/26/17 14:40 Consult to Physician [CONS] Routine - Patient Instructions Diet: Full Liquid Diet (slowly transition to bland diet) Activity: As Tolerated, No Strenuous Activities Showering/Bathing: November Shower Notify Provider of: Fever, Increased Pain, Swelling and Redness, Drainage, Nausea and/or Vomiting - Discharge Plan Prescriptions/Med Rec: Cephalexin [Keflex] 500 mg PO BID #10 cap Metoclopramide HCl [Reglan] 5 mg PO TID PRN #30 tablet PRN Reason: Nausea Home Medications: Home Meds Ondansetron HCl [Zofran] 4 mg PO ASDIRECTED 10/26/17 [History] Baclofen 20 mg PO Q4H PRN 10/28/17 [History] Cephalexin [Keflex] 500 mg PO BID #10 cap 10/28/17 [Rx] Metoclopramide HCl [Reglan] 5 mg PO TID PRN #30 tablet 10/28/17 [Rx] Patient Handouts: Metoclopramide tablets, Acute Pancreatitis, [id number], Cephalexin tablets or capsules, Clean Intermittent Catheterization, Female, [place] Diet Referrals: Angelina Chand MD [Ordering Only Provider] - 11/04/17 11:10 am Mague Quintero MD [Primary Care Provider] - 11/11/17 3:15 pm - Discharge Summary/Plan Comment DC Time >30 min.: No Discharge Summary/Plan Comment: Discharge Diagnoses: Pancreatitis Cholelithiasis Possible cannabinoid hyperemesis syndrome Marijuane abuse Spina bifida Neurogenic bladder Meri was admitted and treated for acute pancreatitis along with suspected cannabinoid hyperemesis syndrome. She was treated with IVF resuscitation, analgesia and antiemetics. She was started on low dose Reglan for nausea, which did help. Lipase normalized and today she was feeling significantly better. Repeat US on admission similar to previous US, no cholecystitis but note cholelithiasis and sludge. No elevated in LFTs. We were able to move her appointment with general surgery in [place] to next week to expedite her evaluation for cholecystectomy. She was encouraged to stop use of marijuana. She tolerated liquid diet here and requested discharge home today. She will have follow up with [place] next week. She is to return to the ED or clinic if concerns should arise. Encouraged to stay on bland low fat diet. and to continue with bowel regimen at home to decrease constipation. - General Info Date of Service: 10/28/17 Admission Dx/Problem (Free Text: Admission Diagnosis/Problem Admission Diagnosis/Problem Pancreatitis Subjective Update: Feeling better and tolerating diet today. Requesting discharge home. Functional Status: Reports: Pain Controlled, Tolerating Diet - Review of Systems General: Reports: No Symptoms. Denies: Fever, Weakness, Fatigue, Malaise Pulmonary: Reports: No Symptoms. Denies: Shortness of Breath Cardiovascular: Reports: No Symptoms. Denies: Chest Pain Gastrointestinal: Reports: No Symptoms. Denies: Abdominal Pain, Nausea, Vomiting Genitourinary: Reports: No Symptoms Musculoskeletal: Reports: No Symptoms Neurological: Reports: No Symptoms - Patient Data Vitals - Most Recent: Last Vital Signs Temp 98.1 F 10/28/17 10:30 Pulse 61 10/28/17 10:30 Resp 16 10/28/17 10:30 BP 148/66 H 10/28/17 10:30 Pulse Ox 96 10/28/17 10:30 Weight - Most Recent: 39.916 kg I&O - Last 24 hours: Intake & Output 10/27/17 10/28/17 10/28/17 22:59 06:59 14:59 Intake Total 1892 1781 Output Total 2550 1200 Balance -658 581 Lab Results - Last 24 hrs: Laboratory Results - last 24 hr 10/28/17 10/28/17 Range/Units 05:50 05:50 WBC 6.64 (4.0-11.0) K/uL RBC 3.89 L (4.30-5.90) M/uL Hgb 11.9 L (12.0-16.0) g/dL Hct 35.5 L (36.0-46.0) % MCV 91.3 (80.0-98.0) fL MCH 30.6 (27.0-32.0) pg MCHC 33.5 (31.0-37.0) g/dL RDW Std Deviation 51.8 (28.0-62.0) fl RDW Coeff of Renetta 16 H (11.0-15.0) % Plt Count 244 (150-400) K/uL MPV 10.20 (7.40-12.00) fL Neut % (Auto) 50.2 (48.0-80.0) % Lymph % (Auto) 40.2 H (16.0-40.0) % Cloud % (Auto) 7.4 (0.0-15.0) % Eos % (Auto) 1.7 (0.0-7.0) % Baso % (Auto) 0.5 (0.0-1.5) % Neut # (Auto) 3.3 (1.4-5.7) K/uL Lymph # (Auto) 2.7 H (0.6-2.4) K/uL Cloud # (Auto) 0.5 (0.0-0.8) K/uL Eos # (Auto) 0.1 (0.0-0.7) K/uL Baso # (Auto) 0.0 (0.0-0.1) K/uL Nucleated RBC % 0.0 /100WBC Nucleated RBCs # 0 K/uL Sodium 142 (136-145) mmol/L Potassium 3.8 (3.5-5.1) mmol/L Chloride 108 H (98-107) mmol/L Carbon Dioxide 26.7 (21.0-32.0) mmol/L BUN 2 L (7.0-18.0) mg/dL Creatinine 0.4 L (0.6-1.0) mg/dL Est Cr Clr Drug Dosing 137.84 mL/min Estimated GFR (MDRD) > 60.0 ml/min Glucose 75 (74-106) mg/dL Calcium 8.2 L (8.5-10.1) mg/dL Magnesium 1.7 (1.5-2.0) mg/dL Total Bilirubin 0.4 (0.2-1.0) mg/dL AST 17 (15-37) IU/L ALT 16 (14-63) IU/L Alkaline Phosphatase 51 (46-116) U/L Total Protein 5.8 L (6.4-8.2) g/dL Albumin 3.0 L (3.4-5.0) g/dL Globulin 2.8 (2.0-3.5) g/dL Albumin/Globulin Ratio 1.1 L (1.3-2.8) JOSE Results - Last 24 hrs: Microbiology 10/26/17 11:08 Urine Culture - Final Urine, Bladder Citrobacter Amalonaticus Med Orders - Current: Current Medications Baclofen (Lioresal) 20 mg PO Q4H PRN PRN Reason: Spasms Last Admin: 10/28/17 12:08 Dose: 20 mg Bisacodyl (Dulcolax) 10 mg RECTAL DAILY PRN PRN Reason: Constipation Last Admin: 10/27/17 18:47 Dose: 10 mg Hydromorphone HCl (Dilaudid) 0.5 mg IVPUSH Q2H PRN PRN Reason: Pain (severe 7-10) Last Admin: 10/28/17 01:06 Dose: 0.5 mg Ceftriaxone Sodium 1,000 mg/ (Dextrose/Water) 50 mls @ 200 mls/hr IV Q24H [facility] Last Admin: 10/27/17 15:31 Dose: 200 mls/hr Lactated Ringer's (Ringers, Lactated) 1,000 mls @ 150 mls/hr IV ASDIRECTED [facility] Last Admin: 10/28/17 07:44 Dose: 150 mls/hr Metoclopramide HCl (Reglan) 5 mg IVPUSH Q8H [facility] Stop: 10/30/17 12:16 Last Admin: 10/28/17 12:09 Dose: 5 mg Ondansetron HCl (Zofran) 4 mg IVPUSH Q4H PRN PRN Reason: Nausea Last Admin: 10/28/17 10:42 Dose: 4 mg Pantoprazole Sodium (Protonix Iv) 40 mg IVPUSH Q24H [facility] Last Admin: 10/28/17 10:13 Dose: 40 mg Discontinued Medications Al Hydroxide/Mg Hydroxide 15 ml/ Metoclopramide HCl 5 mg/Lidocaine HCl 5 ml 0 ml PO ONETIME ONE Stop: 10/27/17 16:16 Last Admin: 10/27/17 17:03 Dose: 1 each Erythromycin Ethylsuccinate (Eryped 200) 100 mg PO Q6HR [facility] Sodium Chloride (Normal Saline) 1,000 mls @ 999 mls/hr IV STAT ONE Stop: 10/26/17 10:27 Last Admin: 10/26/17 09:45 Dose: 999 mls/hr Sodium Chloride (Normal Saline) 1,000 mls @ 150 mls/hr IV STAT [facility] Last Admin: 10/26/17 10:50 Dose: 150 mls/hr Ciprofloxacin/Dextrose 400 mg/ (Premix) 200 mls @ 200 mls/hr IV Q12H [facility] Last Admin: 10/26/17 13:22 Dose: Not Given Ciprofloxacin/Dextrose (Cipro In D5w 400 Mg/200 Ml) Confirm Administered Dose 200 mls @ as directed .ROUTE .STK-MED ONE Stop: 10/26/17 13:09 Last Admin: 10/26/17 13:22 Dose: Not Given Trimethoprim/Sulfamethoxazole (20 ml/ Dextrose/Water) 520 mls @ 250 mls/hr IV Q8H [facility] Last Admin: 10/26/17 14:13 Dose: Not Given Trimethoprim/Sulfamethoxazole (15 ml/ Dextrose/Water) 515 mls @ 247.596 mls/hr IV Q8H [facility] Last Admin: 10/26/17 13:52 Dose: 247.596 mls/hr Lactated Ringer's (Ringers, Lactated) 1,000 mls @ 999 mls/hr IV .BOLUS ONE Stop: 10/26/17 15:18 Last Admin: 10/26/17 16:07 Dose: 999 mls/hr Lactated Ringer's (Ringers, Lactated) 1,000 mls @ 200 mls/hr IV ASDIRECTED [facility] Last Admin: 10/27/17 11:03 Dose: 200 mls/hr Ceftriaxone Sodium/Dextrose 1 (gm/ Dextrose/Water) 100 mls @ 400 mls/hr IV Q24H [facility] Ceftriaxone Sodium 1 mg/ (Dextrose/Water) 50 mls @ 200 mls/hr IV Q24H [facility] Last Admin: 10/26/17 17:15 Dose: 200 mls/hr Ceftriaxone Sodium 1,000 mg/ (Dextrose/Water) 50 mls @ 200 mls/hr IV Q24H [facility] Last Admin: 10/27/17 11:09 Dose: Not Given Magnesium Sulfate 4 gm/ Premix 100 mls @ 50 mls/hr IV ONETIME ONE Stop: 10/27/17 13:31 Last Admin: 10/27/17 11:53 Dose: 50 mls/hr Iopamidol (Isovue Multipack-370 (76%)) 100 ml IVPUSH ONETIME [facility] Stop: 10/26/17 10:53 Last Admin: 10/26/17 10:53 Dose: 100 ml Ketorolac Tromethamine (Toradol) 30 mg IVPUSH ONETIME ONE Stop: 10/26/17 09:28 Last Admin: 10/26/17 09:51 Dose: 30 mg Morphine Sulfate (Morphine) 2 mg IVPUSH ONETIME ONE Stop: 10/26/17 10:35 Last Admin: 10/26/17 10:50 Dose: 2 mg Ondansetron HCl (Zofran) 8 mg IVPUSH ONETIME ONE Stop: 10/26/17 09:28 Last Admin: 10/26/17 09:46 Dose: 8 mg Ondansetron HCl (Zofran) 4 mg IVPUSH Q4H PRN PRN Reason: Nausea Last Admin: 10/27/17 07:28 Dose: 4 mg Pantoprazole Sodium (Protonix Iv) 40 mg IVPUSH NOW ONE Stop: 10/26/17 11:37 Last Admin: 10/26/17 12:22 Dose: 40 mg Polyethylene Glycol (Miralax) 17 gm PO DAILY [facility] Last Admin: 10/27/17 12:54 Dose: 17 gm Potassium Chloride (Klor-Con M20) 40 meq PO ONETIME ONE Stop: 10/26/17 18:24 Last Admin: 10/26/17 18:37 Dose: 40 meq - Exam General: Reports: Alert, Oriented, Cooperative Lungs: Reports: Clear to Auscultation, Normal Respiratory Effort Cardiovascular: Reports: Regular Rate, Regular Rhythm GI/Abdominal Exam: Normal Bowel Sounds, Soft, Tender (scant tenderness to epigastric region.) Extremities: Normal Inspection, Normal Range of Motion, Non-Tender, No Pedal Edema, Normal Capillary Refill Neurological: Reports: No New Focal Deficit Psy/Mental Status: Reports: Alert, Normal Affect, Normal Mood
[2017-10-28 13:56] VITALS: BP 174/84
== END 2017-10-28 14:35 | disposition home health service (06) | DRG 439 ==
LOC: MW.ED 09:13 → MW.MS 13:21
PROVIDERS: ADMIT Internal Medicine; ATTEND Internal Medicine
DX: K85.90 Acute pancreatitis without necrosis or infection, unspecified (principal); F17.200 Nicotine dependence, unspecified, uncomplicated; K85.10 Biliary acute pancreatitis without necrosis or infection; G82.20 Paraplegia, unspecified; T83.518A Infection and inflammatory reaction due to other urinary catheter, initial encounter; N39.0 Urinary tract infection, site not specified; Y84.6 Urinary catheterization as the cause of abnormal reaction of the patient, or of later complication, without mention of misadventure at the time of the procedure; R10.13 Epigastric pain; N31.9 Neuromuscular dysfunction of bladder, unspecified; F17.210 Nicotine dependence, cigarettes, uncomplicated; F12.188 Cannabis abuse with other cannabis-induced disorder; R11.10 Vomiting, unspecified; Z87.440 Personal history of urinary (tract) infections; Q05.9 Spina bifida, unspecified; Z88.1 Allergy status to other antibiotic agents; Z91.040 Latex allergy status; Z79.899 Other long term (current) drug therapy
CPT/HCPCS: 36415; 74177; 80053; 81001; 81025; 83690; 85025; 87086; 87186; 96361; 96374; 96375; 99285; C9113; G0480; J1885; J2270; J2405; J7040 ×2; Q9967; 76705; 76705-26; 83735; 87088; A9270-GY; J0696; J0744; J1170; J2765; J3475; J7060; J7120; S0039

== ENCOUNTER 2017-11-22 09:05 | Emergency (ER) | payer MEDICARE ==
--- NOTE | 2017-11-22 09:54 | EDM.PDOC ---
ED HPI GENERAL MEDICAL PROBLEM - General Chief Complaint: Abdominal Pain Stated Complaint: GALLBLADDER ISSUES Time Seen by Provider: 11/22/17 09:47 Source of Information: Reports: Patient History Limitations: Reports: No Limitations - History of Present Illness INITIAL COMMENTS - FREE TEXT/NARRATIVE: History of present illness: []Patient has a history of cholelithiasis and has a scheduled appointment with a general surgeon next month. Comes in complaining of more pain. Denies any fevers vomiting chills or diarrhea. Review of systems: As per history of present illness and below otherwise all systems reviewed and negative. Past medical history: As per history of present illness and as reviewed below otherwise noncontributory. Surgical history: As per history of present illness and as reviewed below otherwise noncontributory. Social history: No reported history of drug or alcohol abuse. Family history: As per history of present illness and as reviewed below otherwise noncontributory. Physical exam: General: Well developed, well nourished in NAD HEENT: Atraumatic, normocephalic, pupils reactive, negative for conjunctival pallor or scleral icterus, mucous membranes moist, throat clear, neck supple, nontender, trachea midline. Lungs: Clear to auscultation, breath sounds equal bilaterally, chest nontender. Heart: S1S2, regular, negative for clicks, rubs, or JVD. Abdomen: Soft, nondistended, nontender. Negative for masses or hepatosplenomegaly. Negative for costovertebral tenderness. Pelvis: Stable nontender. Genitourinary: Deferred. Rectal: Deferred. Extremities: Atraumatic, negative for cords or calf pain. Neurovascular unremarkable. Neuro: Awake, alert, oriented. Cranial nerves II through XII unremarkable. Cerebellum unremarkable. Motor and sensory unremarkable throughout. Exam nonfocal. Diagnostics: []Ultrasound abdomen cholelithiasis without cholecystitis, vital signs are stable and she was afebrile Therapeutics: []Toradol IM Impression: []choleylithiasis without cholecystitis Plan: []Increase fluids nonfatty diet take Levsin for pain follow-up call surgery for possible earlier appointment or to get on a waiting list. Definitive disposition and diagnosis as appropriate pending reevaluation and review of above. Right Upper Abdominal Pain Score (Numeric/FACES): 8 - Related Data Allergies Allergy/AdvReac Type Severity Reaction Status Date / Time ciprofloxacin Allergy Hives Verified 11/22/17 09:46 latex Allergy Hives Verified 11/22/17 09:46 Home Meds: Home Meds Baclofen 20 mg PO Q4H PRN 10/28/17 [History] Hyoscyamine Sulfate [Levsin] 0.125 mg PO TID PRN #20 tablet 11/22/17 [Rx] Past Medical History HEENT History: Reports: None Cardiovascular History: Reports: None. Denies: Blood Clots/VTE/DVT, CAD, High Cholesterol, Hypertension Respiratory History: Reports: None. Denies: Asthma, COPD, PE Gastrointestinal History: Reports: Cholelithiasis Genitourinary History: Reports: UTI, Recurrent, Other (See Below) (neurogenic bladder). Denies: Chronic Renal Insuffiency [employer] History: Reports: None Musculoskeletal History: Reports: None Neurological History: Reports: Other (See Below) (spina bifida with paraplegia) Psychiatric History: Reports: None Endocrine/Metabolic History: Reports: None Hematologic History: Reports: None Immunologic History: Reports: None Oncologic (Cancer) History: Reports: None Dermatologic History: Reports: None - Past Surgical History Head Surgeries/Procedures: Reports: None HEENT Surgical History: Reports: None Cardiovascular Surgical History: Reports: None Respiratory Surgical History: Reports: None GI Surgical History: Reports: None Female Surgical History: Reports: None Endocrine Surgical History: Reports: None Neurological Surgical History: Reports: Other (See Below) (multiple back surgeries as a child secondary to spina bifida) Other Neurological Surgeries/Procedures: spina bifida Musculoskeletal Surgical History: Reports: None Oncologic Surgical History: Reports: None Dermatological Surgical History: Reports: None Social & Family History - Family History Family Medical History: Noncontributory - Caffeine Use Caffeine Use: Reports: Soda ED ROS GENERAL - Review of Systems Review Of Systems: See Below (See history of present illness) ED EXAM, GI/ABD - Physical Exam Exam: See Below (History of present illness) Course - Vital Signs Last Recorded V/S: Last Vital Signs Temp 97.1 F 11/22/17 09:47 Pulse 86 11/22/17 11:50 Resp 16 11/22/17 11:50 BP 138/75 11/22/17 11:50 Pulse Ox 98 11/22/17 11:50 - Orders/Labs/Meds Meds: Medications Discontinued Medications Generic Name Dose Route Start Last Admin Trade Name Freq PRN Reason Stop Dose Admin Ketorolac Tromethamine 60 mg 11/22/17 11:56 Toradol IM 11/22/17 11:57 ONETIME ONE Departure - Departure Time of Disposition: 11:59 Disposition: Home, Self-Care 01 Condition: Good Clinical Impression: Cholelithiasis without cholecystitis - Discharge Information Prescriptions: Hyoscyamine Sulfate [Levsin] 0.125 mg PO TID PRN #20 tablet PRN Reason: Pain Referrals: PCP,None [Primary Care Provider] - Forms: ED Department Discharge Additional Instructions: The following information is given to patients seen in the emergency department who are being discharged to home. This information is to outline your options for follow-up care. We provide all patients seen in our emergency department with a follow-up referral. The need for follow-up, as well as the timing and circumstances, are variable depending upon the specifics of your emergency department visit. If you don't have a primary care physician on staff, we will provide you with a referral. We always advise you to contact your personal physician following an emergency department visit to inform them of the circumstance of the visit and for follow-up with them and/or the need for any referrals to a consulting specialist. The emergency department will also refer you to a specialist when appropriate. This referral assures that you have the opportunity for follow-up care with a specialist. All of these measure are taken in an effort to provide you with optimal care, which includes your follow-up. Under all circumstances we always encourage you to contact your private physician who remains a resource for coordinating your care. When calling for follow-up care, please make the office aware that this follow-up is from your recent emergency room visit. If for any reason you are refused follow-up, please contact the [facility] Emergency Department at and asked to speak to the emergency department charge nurseYenny Corado as directed, stated weight from fatty foods increase fluids: Follow up with General surgeon for possible earlier appointment [facility] Specialty Care - General Surgery Professional Building [address] [place] [address], [address] [place] [address]
--- NOTE | 2017-11-22 11:37 | US ---
EXAMINATION: Right upper quadrant ultrasound HISTORY: Gallstones COMPARISON: 10/26/2017 TECHNIQUE: Grayscale and color Doppler images obtained of the right upper quadrant. FINDINGS: Gallbladder wall thickness is normal. No pericholecystic fluid is noted. Shadowing gallston es are again noted. Common bile duct measures 4 mm. Right kidney measures at least 9.2 cm pole-to-courtney e without evidence of hydronephrosis. The liver is normal in contour and echotexture without a focal hepatic mass. No abdominal ascites. IMPRESSION: 1. Cholelithiasis, otherwise unremarkable right upper quadrant ultrasound.
[2017-11-22] MEDS ORDERED: Ketorolac 60 MG/2 ML SDV IM ONE (11:56)
[2017-11-22 12:07] VITALS: BP 138/81
== END 2017-11-22 12:22 | disposition home or self-care (01) ==
LOC: MW.ED 09:05
DX: K80.20 Calculus of gallbladder without cholecystitis without obstruction (principal); Z88.1 Allergy status to other antibiotic agents; Z91.040 Latex allergy status
CPT/HCPCS: 76705; 96372; 99284; J1885

== ENCOUNTER 2018-01-23 16:10 | Emergency (ER) | payer MEDICARE, MEDICAID ==
--- NOTE | 2018-01-23 17:23 | EDM.PDOC ---
ED HPI GENERAL MEDICAL PROBLEM - General Chief Complaint: Genitourinary Problem Stated Complaint: POSSIBLE BLADDER INFECTION Time Seen by Provider: 01/23/18 16:23 Source of Information: Reports: Patient History Limitations: Reports: No Limitations - History of Present Illness INITIAL COMMENTS - FREE TEXT/NARRATIVE: History of present illness: []Patient has a history of spina bifida and self catheters. Today she has tried several times and is unable to produce any urine. She states she is only drink one cup of water all day but drank lots of water yesterday. Review of systems: As per history of present illness and below otherwise all systems reviewed and negative. Past medical history: As per history of present illness and as reviewed below otherwise noncontributory. Surgical history: As per history of present illness and as reviewed below otherwise noncontributory. Social history: No reported history of drug or alcohol abuse. Family history: As per history of present illness and as reviewed below otherwise noncontributory. Physical exam: General: Well developed, well nourished in NAD HEENT: Atraumatic, normocephalic, pupils reactive, negative for conjunctival pallor or scleral icterus, mucous membranes moist, throat clear, neck supple, nontender, trachea midline. Lungs: Clear to auscultation, breath sounds equal bilaterally, chest nontender. Heart: S1S2, regular, negative for clicks, rubs, or JVD. Abdomen: Soft, nondistended, nontender. Negative for masses or hepatosplenomegaly. Negative for costovertebral tenderness. Pelvis: Stable nontender. Genitourinary: Deferred. Rectal: Deferred. Extremities: Atraumatic, negative for cords or calf pain. Neurovascular unremarkable. Neuro: Awake, alert, oriented. Cranial nerves II through XII unremarkable. Cerebellum unremarkable. Motor and sensory unremarkable throughout. Exam nonfocal. Diagnostics: []Urine analysis shows positive nitrites, 2-5 white cells urine was cultured Therapeutics: []Ceftriaxone IM Impression: []UTI Plan: []Nitrofurantoin as directed, increase fluids, follow-up with PMD. Definitive disposition and diagnosis as appropriate pending reevaluation and review of above. - Related Data Allergies Allergy/AdvReac Type Severity Reaction Status Date / Time ciprofloxacin Allergy Hives Verified 11/22/17 09:46 latex Allergy Hives Verified 11/22/17 09:46 Home Meds: Home Meds Baclofen 20 mg PO Q4H PRN 10/28/17 [History] Hyoscyamine Sulfate [Levsin] 0.125 mg PO TID PRN #20 tablet 11/22/17 [Rx] Nitrofurantoin Macrocrystal [Macrodantin] 100 mg PO BID #14 capsule 01/23/18 [Rx ] Past Medical History HEENT History: Reports: None Cardiovascular History: Reports: None. Denies: Blood Clots/VTE/DVT, CAD, High Cholesterol, Hypertension Respiratory History: Reports: None. Denies: Asthma, COPD, PE Gastrointestinal History: Reports: Cholelithiasis Genitourinary History: Reports: UTI, Recurrent, Other (See Below) (neurogenic bladder). Denies: Chronic Renal Insuffiency [employer] History: Reports: None Musculoskeletal History: Reports: None Neurological History: Reports: Other (See Below) (spina bifida with paraplegia) Psychiatric History: Reports: None Endocrine/Metabolic History: Reports: None Hematologic History: Reports: None Immunologic History: Reports: None Oncologic (Cancer) History: Reports: None Dermatologic History: Reports: None - Past Surgical History Head Surgeries/Procedures: Reports: None HEENT Surgical History: Reports: None Cardiovascular Surgical History: Reports: None Respiratory Surgical History: Reports: None GI Surgical History: Reports: None Female Surgical History: Reports: None Endocrine Surgical History: Reports: None Neurological Surgical History: Reports: Other (See Below) (multiple back surgeries as a child secondary to spina bifida) Other Neurological Surgeries/Procedures: spina bifida Musculoskeletal Surgical History: Reports: None Oncologic Surgical History: Reports: None Dermatological Surgical History: Reports: None Social & Family History - Family History Family Medical History: Noncontributory - Caffeine Use Caffeine Use: Reports: Soda ED ROS GENERAL - Review of Systems Review Of Systems: See Below (See history of present illness) ED EXAM, RENAL/ - Physical Exam Exam: See Below (See history of present illness) Course - Orders/Labs/Meds Orders: Active Orders 24 hr Category Date Time Status CULTURE URINE [RM] Stat Lab 01/23/18 17:39 Ordered HCG QUALITATIVE,URINE [URCHEM] Stat Lab 01/23/18 17:10 Ordered UA W/MICROSCOPIC [URIN] Stat Lab 01/23/18 17:10 Ordered cefTRIAXone [Rocephin] 1,000 mg Med 01/23/18 17:40 Active Lidocaine 1% [Xylocaine-MPF 1%] 2.1 ml IM ONETIME Medication Orders Ceftriaxone Sodium 1,000 mg/ (Lidocaine HCl) 2.1 mls @ 2.1 mls/sec IM ONETIME ONE Stop: 01/23/18 17:41 Labs: Laboratory Tests 01/23/18 01/23/18 Range/Units 17:10 17:10 Urine Color YELLOW Urine Appearance SLT CLOUDY Urine pH 6.0 (5.0-8.0) Ur Specific Doyle 1.020 (1.001-1.035) Urine Protein NEGATIVE (NEGATIVE) mg/dL Urine Glucose (UA) NEGATIVE (NEGATIVE) mg/dL Urine Ketones 40 H (NEGATIVE) mg/dL Urine Occult Blood TRACE-INTACT (NEGATIVE) Urine Nitrite POSITIVE H (NEGATIVE) Urine Bilirubin NEGATIVE (NEGATIVE) Urine Urobilinogen 0.2 (<2.0) EU/dL Ur Leukocyte Esterase NEGATIVE (NEGATIVE) Urine RBC 0-2 (0-2/HPF) Urine WBC 2-5 (0-5/HPF) Ur Epithelial Cells FEW (NONE-FEW) Urine Bacteria 2+ H (NEGATIVE) Urine HCG, Qual NEGATIVE (NEGATIVE) Meds: Medications Generic Name Dose Route Start Last Admin Trade Name Freq PRN Reason Stop Dose Admin Ceftriaxone Sodium 1,000 mg/ 2.1 mls @ 2.1 mls/sec 01/23/18 17:40 Lidocaine HCl IM 01/23/18 17:41 ONETIME ONE Departure - Departure Time of Disposition: 17:42 Disposition: Home, Self-Care 01 Condition: Good Clinical Impression: UTI (urinary tract infection) Qualifiers: Urinary tract infection type: site unspecified Hematuria presence: without hematuria Qualified Code(s): N39.0 - Urinary tract infection, site not specified - Discharge Information Prescriptions: Nitrofurantoin Macrocrystal [Macrodantin] 100 mg PO BID #14 capsule Referrals: Mague Quintero MD [Primary Care Provider] - Forms: ED Department Discharge Additional Instructions: The following information is given to patients seen in the emergency department who are being discharged to home. This information is to outline your options for follow-up care. We provide all patients seen in our emergency department with a follow-up referral. The need for follow-up, as well as the timing and circumstances, are variable depending upon the specifics of your emergency department visit. If you don't have a primary care physician on staff, we will provide you with a referral. We always advise you to contact your personal physician following an emergency department visit to inform them of the circumstance of the visit and for follow-up with them and/or the need for any referrals to a consulting specialist. The emergency department will also refer you to a specialist when appropriate. This referral assures that you have the opportunity for follow-up care with a specialist. All of these measure are taken in an effort to provide you with optimal care, which includes your follow-up. Under all circumstances we always encourage you to contact your private physician who remains a resource for coordinating your care. When calling for follow-up care, please make the office aware that this follow-up is from your recent emergency room visit. If for any reason you are refused follow-up, please contact the [facility] Emergency Department at and asked to speak to the emergency department charge nurse. [facility] [address] [place] [address] - My Orders Last 24 Hours: My Active Orders 01/23/18 17:10 HCG QUALITATIVE,URINE [URCHEM] Stat UA W/MICROSCOPIC [URIN] Stat 01/23/18 17:39 CULTURE URINE [RM] Stat 01/23/18 17:40 cefTRIAXone [Rocephin] 1,000 mg Lidocaine 1% [Xylocaine-MPF 1%] 2.1 ml IM ONETIME - Assessment/Plan Last 24 Hours: My Active Orders 01/23/18 17:10 HCG QUALITATIVE,URINE [URCHEM] Stat UA W/MICROSCOPIC [URIN] Stat 01/23/18 17:39 CULTURE URINE [RM] Stat 01/23/18 17:40 cefTRIAXone [Rocephin] 1,000 mg Lidocaine 1% [Xylocaine-MPF 1%] 2.1 ml IM ONETIME
[2018-01-23 18:09] VITALS: BP 134/76
== END 2018-01-23 18:36 | disposition home or self-care (01) ==
LOC: MW.ED 16:10
DX: N39.0 Urinary tract infection, site not specified (principal); Z88.1 Allergy status to other antibiotic agents; Z91.040 Latex allergy status
CPT/HCPCS: 81001; 81025; 87086; 96372; 99283; J0696; 87088; 87186

== ENCOUNTER 2018-02-21 14:58 | Emergency (ER) | payer MEDICARE, MEDICAID ==
--- NOTE | 2018-02-21 15:22 | EDM.PDOC ---
ED HPI GENERAL MEDICAL PROBLEM - General Chief Complaint: Abdominal Pain Stated Complaint: LT SHOULDER HURTS Time Seen by Provider: 02/21/18 15:16 Source of Information: Reports: Patient History Limitations: Reports: No Limitations - History of Present Illness INITIAL COMMENTS - FREE TEXT/NARRATIVE: HISTORY AND PHYSICAL: History of present illness: Patient is a 22-year-old female who presents to the emergency room today left shoulder pain, abdominal pain and constipation 1 week. She describes the left shoulder pain as a dull ache that is only alleviated by taking a hot or cold shower. She has no weakness, pain with range of motion or increased pain with use. She states "it's constantly there" and points to her posterior shoulder. She denies any falls, trauma or injury. She reports she has a mild "tummy ache" but believes this is due to her not having a bowel movement in 1 week. 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 Past medical history: As per history of present illness and as reviewed below otherwise noncontributory. Surgical history: As per history of present illness and as reviewed below otherwise noncontributory. Social history: No reported history of drug or alcohol abuse. Family history: As per history of present illness and as reviewed below otherwise noncontributory. Physical exam: General: Well-developed and well-nourished 22-year-old female. Wheelchair bound with noted atrophy to her lower extremities. Alert and oriented. Nontoxic appearing and in no acute distress. HEENT: Atraumatic, normocephalic, pupils equal and reactive bilaterally, negative for conjunctival pallor or scleral icterus, mucous membranes moist, throat clear, neck supple, nontender, trachea midline. No drooling or trismus noted. No meningeal signs Lungs: Clear to auscultation, breath sounds equal bilaterally, chest nontender. Heart: S1S2, regular rate and rhythm without overt murmur Abdomen: Soft, nondistended, nontender. Negative for masses or hepatosplenomegaly. Negative for costovertebral tenderness. Pelvis: Stable nontender. Genitourinary: Deferred. Rectal: Deferred. Skin: Intact, warm, dry. No lesions or rashes noted. Extremities: Atraumatic, moves all per self without difficulty, no pain with ROM of left shoulder, negative for cords or calf pain. Neurovascular unremarkable. Neuro: Awake, alert, oriented. Cranial nerves II through XII unremarkable. Cerebellum unremarkable. Motor and sensory unremarkable throughout. Exam nonfocal. Notes: As the shoulder pain is atraumatic and she has full range of motion with no deficits noted and will have her follow up with her primary care provider and or the orthopedic provider for further evaluation and management. Patient is agreeable to lab work at this time for her abdominal pain. CT scan shows a possible cystic rupture with no other acute findings or significant changes from previous exams. Patient does have a UTI which she chronically has. We'll treat with Bactrim DS and Zofran We'll give her tramadol for the left shoulder pain and discomfort. Diagnostics: CBC, CMP, UA, HCGU, CT abd/pelvis Therapeutics: Rocephin IM Prescription: Bactrim DS BID x 10 days Zofran ODT Tramadol (#15) Impression: UTI Left shoulder pain Plan: 1. Please take the medications as prescribed. 2. Tylenol and/or ibuprofen as needed for pain management. Tramadol for moderate to severe pain. Please do not take this medication while driving or needing to be functioning outside of the house as this can cause drowsiness. 3. Please see the orthopedic provider for further evaluation and management of your left shoulder pain. Follow up with your primary care provider in 1-2 days. Return to the ED as needed and as discussed. Definitive disposition and diagnosis as appropriate pending reevaluation and review of above. Duration: Day(s): Location: Reports: Abdomen, Upper Extremity, Left lower abdomen Pain Score (Numeric/FACES): 8 - Related Data Allergies Allergy/AdvReac Type Severity Reaction Status Date / Time ciprofloxacin Allergy Hives Verified 02/21/18 15:09 latex Allergy Hives Verified 02/21/18 15:09 Home Meds: Home Meds Baclofen 20 mg PO Q4H PRN 10/28/17 [History] PARoxetine [Paxil] 2 tab PO DAILY 02/21/18 [History] Past Medical History HEENT History: Reports: None Cardiovascular History: Reports: None Respiratory History: Reports: None Gastrointestinal History: Reports: Cholelithiasis Genitourinary History: Reports: UTI, Recurrent, Other (See Below) Other Genitourinary History: one kindey smaller than other [employer] History: Reports: None Musculoskeletal History: Reports: Other (See Below) Other Musculoskeletal History: spinabifida Neurological History: Reports: Other (See Below) Psychiatric History: Reports: None Endocrine/Metabolic History: Reports: None Hematologic History: Reports: None Immunologic History: Reports: None Oncologic (Cancer) History: Reports: None Dermatologic History: Reports: None - Past Surgical History Head Surgeries/Procedures: Reports: None HEENT Surgical History: Reports: None Cardiovascular Surgical History: Reports: None Respiratory Surgical History: Reports: None GI Surgical History: Reports: None Female Surgical History: Reports: None Endocrine Surgical History: Reports: None Neurological Surgical History: Reports: Other (See Below) Other Neurological Surgeries/Procedures: spina bifida Musculoskeletal Surgical History: Reports: None Oncologic Surgical History: Reports: None Dermatological Surgical History: Reports: None Social & Family History - Family History Family Medical History: Noncontributory - Tobacco Use Smoking Status *Q: Current Every Day Smoker Years of Tobacco use: 2 Packs/Tins Daily: 0.1 - Caffeine Use Caffeine Use: Reports: Tea - Recreational Drug Use Recreational Drug Use: Yes Drug Use in Last 12 Months: Yes Recreational Drug Type: Reports: Marijuana/Hashish Recreational Drug Use Frequency: Daily ED ROS GENERAL - Review of Systems Review Of Systems: ROS reveals no pertinent complaints other than HPI. ED EXAM, GI/ABD - Physical Exam Exam: See Below (See dictation) Course - Vital Signs Last Recorded V/S: Last Vital Signs Temp 96.7 F 02/21/18 17:26 Pulse 62 02/21/18 17:26 Resp 16 02/21/18 17:26 BP 139/79 02/21/18 17:26 Pulse Ox 100 02/21/18 17:26 - Orders/Labs/Meds Orders: Active Orders 24 hr Category Date Time Status Abdomen Pelvis w Cont [CT] Stat Exams 02/21/18 15:46 Taken CULTURE URINE [RM] Stat Lab 02/21/18 15:35 Received HCG QUALITATIVE,URINE [URCHEM] Stat Lab 02/21/18 15:35 Ordered UA W/MICROSCOPIC [URIN] Stat Lab 02/21/18 15:35 Ordered Labs: Laboratory Tests 02/21/18 02/21/18 02/21/18 Range/Units 15:35 15:35 15:57 WBC 12.69 H (4.0-11.0) K/uL RBC 4.79 (4.30-5.90) M/uL Hgb 14.4 (12.0-16.0) g/dL Hct 43.3 (36.0-46.0) % MCV 90.4 (80.0-98.0) fL MCH 30.1 (27.0-32.0) pg MCHC 33.3 (31.0-37.0) g/dL RDW Std Deviation 49.5 (28.0-62.0) fl RDW Coeff of Renetta 15 (11.0-15.0) % Plt Count 302 (150-400) K/uL MPV 9.90 (7.40-12.00) fL Neut % (Auto) 76.3 (48.0-80.0) % Lymph % (Auto) 15.4 L (16.0-40.0) % [place] % (Auto) 7.1 (0.0-15.0) % Eos % (Auto) 0.9 (0.0-7.0) % Baso % (Auto) 0.3 (0.0-1.5) % Neut # (Auto) 9.7 H (1.4-5.7) K/uL Lymph # (Auto) 2.0 (0.6-2.4) K/uL [place] # (Auto) 0.9 H (0.0-0.8) K/uL Eos # (Auto) 0.1 (0.0-0.7) K/uL Baso # (Auto) 0.0 (0.0-0.1) K/uL Nucleated RBC % 0.0 /100WBC Nucleated RBCs # 0 K/uL Sodium (136-145) mmol/L Potassium (3.5-5.1) mmol/L Chloride (98-107) mmol/L Carbon Dioxide (21.0-32.0) mmol/L BUN (7.0-18.0) mg/dL Creatinine (0.6-1.0) mg/dL Est Cr Clr Drug Dosing Estimated GFR (MDRD) ml/min Glucose (74-106) mg/dL Calcium (8.5-10.1) mg/dL Total Bilirubin (0.2-1.0) mg/dL AST (15-37) IU/L ALT (14-63) IU/L Alkaline Phosphatase (46-116) U/L Total Protein (6.4-8.2) g/dL Albumin (3.4-5.0) g/dL Globulin (2.0-3.5) g/dL Albumin/Globulin Ratio (1.3-2.8) Urine Color YELLOW Urine Appearance CLOUDY Urine pH 6.0 (5.0-8.0) Ur Specific Leonard 1.020 (1.001-1.035) Urine Protein TRACE (NEGATIVE) mg/dL Urine Glucose (UA) NEGATIVE (NEGATIVE) mg/dL Urine Ketones 15 H (NEGATIVE) mg/dL Urine Occult Blood SMALL H (NEGATIVE) Urine Nitrite POSITIVE H (NEGATIVE) Urine Bilirubin NEGATIVE (NEGATIVE) Urine Urobilinogen 0.2 (<2.0) EU/dL Ur Leukocyte Esterase SMALL (NEGATIVE) Urine RBC 0-1 (0-2/HPF) Urine WBC 10-15 (0-5/HPF) Ur Epithelial Cells RARE (NONE-FEW) Urine Bacteria 1+ H (NEGATIVE) Urine HCG, Qual NEGATIVE (NEGATIVE) 02/21/18 Range/Units 15:57 WBC (4.0-11.0) K/uL RBC (4.30-5.90) M/uL Hgb (12.0-16.0) g/dL Hct (36.0-46.0) % MCV (80.0-98.0) fL MCH (27.0-32.0) pg MCHC (31.0-37.0) g/dL RDW Std Deviation (28.0-62.0) fl RDW Coeff of Renetta (11.0-15.0) % Plt Count (150-400) K/uL MPV (7.40-12.00) fL Neut % (Auto) (48.0-80.0) % Lymph % (Auto) (16.0-40.0) % Wake % (Auto) (0.0-15.0) % Eos % (Auto) (0.0-7.0) % Baso % (Auto) (0.0-1.5) % Neut # (Auto) (1.4-5.7) K/uL Lymph # (Auto) (0.6-2.4) K/uL Wake # (Auto) (0.0-0.8) K/uL Eos # (Auto) (0.0-0.7) K/uL Baso # (Auto) (0.0-0.1) K/uL Nucleated RBC % /100WBC Nucleated RBCs # K/uL Sodium 135 L (136-145) mmol/L Potassium 4.1 (3.5-5.1) mmol/L Chloride 99 (98-107) mmol/L Carbon Dioxide 24.2 (21.0-32.0) mmol/L BUN 15 (7.0-18.0) mg/dL Creatinine 0.5 L (0.6-1.0) mg/dL Est Cr Clr Drug Dosing TNP Estimated GFR (MDRD) > 60.0 ml/min Glucose 70 L (74-106) mg/dL Calcium 9.2 (8.5-10.1) mg/dL Total Bilirubin 0.7 (0.2-1.0) mg/dL AST 20 (15-37) IU/L ALT 28 (14-63) IU/L Alkaline Phosphatase 78 (46-116) U/L Total Protein 8.0 (6.4-8.2) g/dL Albumin 4.0 (3.4-5.0) g/dL Globulin 4.0 H (2.0-3.5) g/dL Albumin/Globulin Ratio 1.0 L (1.3-2.8) Urine Color Urine Appearance Urine pH (5.0-8.0) Ur Specific Leonard (1.001-1.035) Urine Protein (NEGATIVE) mg/dL Urine Glucose (UA) (NEGATIVE) mg/dL Urine Ketones (NEGATIVE) mg/dL Urine Occult Blood (NEGATIVE) Urine Nitrite (NEGATIVE) Urine Bilirubin (NEGATIVE) Urine Urobilinogen (<2.0) EU/dL Ur Leukocyte Esterase (NEGATIVE) Urine RBC (0-2/HPF) Urine WBC (0-5/HPF) Ur Epithelial Cells (NONE-FEW) Urine Bacteria (NEGATIVE) Urine HCG, Qual (NEGATIVE) Departure - Departure Time of Disposition: 18:17 Disposition: Home, Self-Care 01 Clinical Impression: UTI, Urinary tract infectious disease Left shoulder pain Qualifiers: Chronicity: acute Qualified Code(s): M25.512 - Pain in left shoulder - Discharge Information Instructions: Urinary Tract Infection, Adult, Shoulder Pain Referrals: PCP,None [Primary Care Provider] - Forms: ED Department Discharge Additional Instructions: The following information is given to patients seen in the emergency department who are being discharged to home. This information is to outline your options for follow-up care. We provide all patients seen in our emergency department with a follow-up referral. The need for follow-up, as well as the timing and circumstances, are variable depending upon the specifics of your emergency department visit. If you don't have a primary care physician on staff, we will provide you with a referral. We always advise you to contact your personal physician following an emergency department visit to inform them of the circumstance of the visit and for follow-up with them and/or the need for any referrals to a consulting specialist. The emergency department will also refer you to a specialist when appropriate. This referral assures that you have the opportunity for follow-up care with a specialist. All of these measure are taken in an effort to provide you with optimal care, which includes your follow-up. Under all circumstances we always encourage you to contact your private physician who remains a resource for coordinating your care. When calling for follow-up care, please make the office aware that this follow-up is from your recent emergency room visit. If for any reason you are refused follow-up, please contact the [facility] Emergency Department at and asked to speak to the emergency department charge nurse. [facility] [address] [place] [id number] [facility] - [facility] Professional Building [address] [place] [address], [address] [place] [address] 1. Please take the medications as prescribed. 2. Tylenol and/or ibuprofen as needed for pain management. Tramadol for moderate to severe pain. Please do not take this medication while driving or needing to be functioning outside of the house as this can cause drowsiness. 3. Please see the orthopedic provider for further evaluation and management of your left shoulder pain. Follow up with your primary care provider in 1-2 days. Return to the ED as needed and as discussed. - My Orders Last 24 Hours: My Active Orders 02/21/18 15:35 CULTURE URINE [RM] Stat HCG QUALITATIVE,URINE [URCHEM] Stat UA W/MICROSCOPIC [URIN] Stat 02/21/18 15:46 Abdomen Pelvis w Cont [CT] Stat - Assessment/Plan Last 24 Hours: My Active Orders 02/21/18 15:35 CULTURE URINE [RM] Stat HCG QUALITATIVE,URINE [URCHEM] Stat UA W/MICROSCOPIC [URIN] Stat 02/21/18 15:46 Abdomen Pelvis w Cont [CT] Stat
[2018-02-21 16:33] LABS: CHLORIDE,CL 99 mmol/L (98-107); SODIUM,NA 135 mmol/L (136-145)
[2018-02-21 17:26] VITALS: BP 139/79
[2018-02-21] MEDS ORDERED: traMADol 50 MG Tab PO ONE (18:22)
[2018-02-21] MEDS ORDERED: Ondansetron 4 MG Tab.DIS PO ONE (18:22)
--- NOTE | 2018-02-22 13:57 | CT ---
EXAM DATE: 02/21/18 PATIENT'S AGE: 22 Patient: CASSI HERNANDEZ Facility: [place], [place] Site . Site : 1995 Study: CT Abdomen/Pelvis W BERNADETTE [id number]/[id number] 5:30:19 PM Ordering Physician: Doctor Darnell Final Report: INDICATION: Lower abdominal pain with nausea. TECHNIQUE: CT abdomen and pelvis acquired with 48 cc Isovue 370 IV contrast. COMPARISON: 10/26/2017 FINDINGS: Lower chest: Unremarkable. Liver: Unremarkable. Normal in size and attenuation. No masses. Gallbladder and bile ducts: Unremarkable. No stones or inflammation. No biliary dilatation. Pancreas: Unremarkable. No mass or inflammation. Spleen: Unremarkable. Normal in size. No masses. Adrenal glands: Unremarkable. No nodules. Kidneys: Unremarkable. No masses, stones, or hydronephrosis. GI tract: Unremarkable. Normal in caliber. No sign of mass or inflammation. Normal appendix. Vasculature: Unremarkable. Lymph nodes: No lymphadenopathy. Omentum/Peritoneum/Abdominal Wall: Unremarkable. No sign of mass or infiltration. No free air or significant free fluid. Pelvis: Neurogenic appearance of the bladder is unchanged. There is a 4 cm simple right adnexal cystic lesion with trace adjacent free fluid. Bones: Stable spina bifida deformities. IMPRESSION: Right adnexal 4 cm simple appearing cystic lesion is present with minimal adjacent free fluid. Cystic rupture is possible. No other acute findings or significant changes from the prior exam. Please note that all CT scans at this facility use dose modulation, iterative reconstruction, and/or weight-based dosing when appropriate to reduce radiation dose to as low as reasonably achievable. Dictated by Ho Vasquez MD @ Feb 21 2018 6:03PM (Electronic Signature) Report Signed by Proxy. SAMUEL
== END 2018-02-21 18:40 | disposition home or self-care (01) ==
LOC: MW.ED 14:58
DX: N39.0 Urinary tract infection, site not specified (principal); M25.512 Pain in left shoulder; F17.210 Nicotine dependence, cigarettes, uncomplicated; Z88.1 Allergy status to other antibiotic agents; Z91.040 Latex allergy status; Z79.899 Other long term (current) drug therapy
CPT/HCPCS: 36415; 74177; 80053; 81001; 81025; 85025; 87086; 87088; 87186; 99284; A9270; 99283

== ENCOUNTER 2018-02-22 15:03 | Inpatient (IN) | payer MEDICARE, MEDICAID ==
[2018-02-22] MEDS ORDERED: Ondansetron 4 MG/2 ML SDV IVPUSH ONE (15:40)
[2018-02-22] MEDS ORDERED: Sodium Chloride 0.9% 1,000 ML IV ONE (15:40)
[2018-02-22] MEDS ORDERED: Sodium Chloride 0.9% 2.5 ML Syringe FLUSH PRN (15:40)
[2018-02-22] MEDS ORDERED: Sodium Chloride 0.9% 10 ML Syringe FLUSH PRN (15:40)
--- NOTE | 2018-02-22 15:41 | EDM.PDOC ---
ED HPI GENERAL MEDICAL PROBLEM - General Chief Complaint: Back Pain or Injury Stated Complaint: PAIN IN THE MIDDLE OF BACK Time Seen by Provider: 02/22/18 15:41 Source of Information: Reports: Patient History Limitations: Reports: No Limitations - History of Present Illness INITIAL COMMENTS - FREE TEXT/NARRATIVE: HISTORY AND PHYSICAL: History of present illness: Patient is a 21-year-old female here with complaint of mid back pain nausea and vomiting. Patient was here yesterday for shoulder pain and abdominal pain. She was found to have a UTI and started on Macrobid. She states she's been unable to keep the antibiotic down or any Tylenol or Motrin. She states the back pain started this morning and vomiting started about 4:30 this a.m. Review of systems: As per history of present illness and below otherwise all systems reviewed and negative. Past medical history: As per history of present illness and as reviewed below otherwise noncontributory. Surgical history: As per history of present illness and as reviewed below otherwise noncontributory. Social history: No reported history of drug or alcohol abuse. Family history: As per history of present illness and as reviewed below otherwise noncontributory. Physical exam: General: Patient sitting comfortably in wheelchair in no acute distress HEENT: Atraumatic, normocephalic, pupils reactive, negative for conjunctival pallor or scleral icterus, mucous membranes moist, throat clear, neck supple, nontender, trachea midline. Lungs: Clear to auscultation, breath sounds equal bilaterally, chest nontender. Heart: S1S2, regular, negative for clicks, rubs, or JVD. Abdomen: Soft, nondistended, nontender. Negative for masses or hepatosplenomegaly. Left costovertebral tenderness. Pelvis: Stable nontender. Genitourinary: Deferred. Rectal: Deferred. Extremities: Atraumatic, negative for cords or calf pain. Neurovascular unremarkable. Neuro: Awake, alert, oriented. Cranial nerves II through XII unremarkable. Cerebellum unremarkable. Motor and sensory unremarkable throughout. Exam nonfocal. Notes: Diagnostics: CBC, CMP, lactate, blood culture x 2 ] Urine culture was done yesterday with results pending Therapeutics: 1 L normal saline IV 4 mg Zofran IV 30mg Toradol IV 1g Rocephin IV Impression: Pyelonephritis Plan: Discussed with Dr. Justin, patient will be admitted for IV antibiotics for failed outpatient therapy. Definitive disposition and diagnosis as appropriate pending reevaluation and review of above. upper back pain Pain Score (Numeric/FACES): 10 - Related Data Allergies Allergy/AdvReac Type Severity Reaction Status Date / Time ciprofloxacin Allergy Hives Verified 02/22/18 15:28 latex Allergy Hives Verified 02/22/18 15:28 Home Meds: Home Meds Baclofen 20 mg PO Q4H PRN 10/28/17 [History] Ondansetron [Zofran ODT] 4 mg PO Q6H PRN #6 tab.dis 02/21/18 [Rx] PARoxetine [Paxil] 2 tab PO DAILY 02/21/18 [History] Sulfamethoxazole/Trimethoprim [Bactrim Ds Tablet] 1 each PO BID 10 Days #20 tablet 02/21/18 [Rx] traMADol [Ultram] 50 mg PO Q4H PRN #15 tab 02/21/18 [Rx] Past Medical History HEENT History: Reports: None Cardiovascular History: Reports: None Respiratory History: Reports: None Gastrointestinal History: Reports: Cholelithiasis Genitourinary History: Reports: UTI, Recurrent, Other (See Below) Other Genitourinary History: one kindey smaller than other [employer] History: Reports: None Musculoskeletal History: Reports: Other (See Below) Other Musculoskeletal History: spinabifida Neurological History: Reports: Other (See Below) Psychiatric History: Reports: None Endocrine/Metabolic History: Reports: None Hematologic History: Reports: None Immunologic History: Reports: None Oncologic (Cancer) History: Reports: None Dermatologic History: Reports: None - Past Surgical History Head Surgeries/Procedures: Reports: None HEENT Surgical History: Reports: None Cardiovascular Surgical History: Reports: None Respiratory Surgical History: Reports: None GI Surgical History: Reports: None Female Surgical History: Reports: None Endocrine Surgical History: Reports: None Neurological Surgical History: Reports: Other (See Below) Other Neurological Surgeries/Procedures: spina bifida Musculoskeletal Surgical History: Reports: None Oncologic Surgical History: Reports: None Dermatological Surgical History: Reports: None Social & Family History - Family History Family Medical History: Noncontributory - Caffeine Use Caffeine Use: Reports: Tea ED ROS GENERAL - Review of Systems Review Of Systems: ROS reveals no pertinent complaints other than HPI. ED EXAM, UPPER BACK/NECK PAIN - Physical Exam Exam: See Below (See dictation) Course - Vital Signs Last Recorded V/S: Last Vital Signs Temp 36.1 C 02/22/18 15:29 Pulse 72 02/22/18 15:29 Resp 15 02/22/18 15:29 BP 104/74 02/22/18 15:29 Pulse Ox 98 02/22/18 15:29 - Orders/Labs/Meds Orders: Active Orders 24 hr Category Date Time Status COMPREHENSIVE METABOLIC PN,CMP [CHEM] Stat Lab 02/22/18 16:20 Received CULTURE BLOOD [BC] Stat Lab 02/22/18 16:05 Ordered CULTURE BLOOD [BC] Stat Lab 02/22/18 16:20 Results Sodium Chloride 0.9% [Saline Flush] Med 02/22/18 15:40 Active 10 ml FLUSH ASDIRECTED PRN Sodium Chloride 0.9% [Saline Flush] Med 02/22/18 15:40 Active 2.5 ml FLUSH ASDIRECTED PRN Blood Culture x2 Reflex Set [OM.PC] Stat Oth 02/22/18 16:05 Ordered Saline Lock Insert [OM.PC] Stat Oth 02/22/18 15:40 Ordered Medication Orders Sodium Chloride (Saline Flush) 10 ml FLUSH ASDIRECTED PRN PRN Reason: Keep Vein Open Sodium Chloride (Saline Flush) 2.5 ml FLUSH ASDIRECTED PRN PRN Reason: Keep Vein Open Labs: Laboratory Tests 02/22/18 02/22/18 Range/Units 16:20 16:20 WBC 11.29 H (4.0-11.0) K/uL RBC 5.13 (4.30-5.90) M/uL Hgb 15.8 (12.0-16.0) g/dL Hct 45.3 (36.0-46.0) % MCV 88.3 (80.0-98.0) fL MCH 30.8 (27.0-32.0) pg MCHC 34.9 (31.0-37.0) g/dL RDW Std Deviation 47.0 (28.0-62.0) fl RDW Coeff of Renetta 15 (11.0-15.0) % Plt Count 342 (150-400) K/uL MPV 9.90 (7.40-12.00) fL Neut % (Auto) 63.0 (48.0-80.0) % Lymph % (Auto) 25.4 (16.0-40.0) % [place] % (Auto) 9.2 (0.0-15.0) % Eos % (Auto) 1.9 (0.0-7.0) % Baso % (Auto) 0.5 (0.0-1.5) % Neut # (Auto) 7.1 H (1.4-5.7) K/uL Lymph # (Auto) 2.9 H (0.6-2.4) K/uL [place] # (Auto) 1.0 H (0.0-0.8) K/uL Eos # (Auto) 0.2 (0.0-0.7) K/uL Baso # (Auto) 0.1 (0.0-0.1) K/uL Nucleated RBC % 0.0 /100WBC Nucleated RBCs # 0 K/uL Lactate 0.9 (0.20-2.00) mmol/L Meds: Medications Generic Name Dose Route Start Last Admin Trade Name Freq PRN Reason Stop Dose Admin Sodium Chloride 10 ml 02/22/18 15:40 Saline Flush FLUSH ASDIRECTED PRN Keep Vein Open Sodium Chloride 2.5 ml 02/22/18 15:40 Saline Flush FLUSH ASDIRECTED PRN Keep Vein Open Discontinued Medications Generic Name Dose Route Start Last Admin Trade Name Freq PRN Reason Stop Dose Admin Sodium Chloride 1,000 mls @ 999 mls/hr 02/22/18 15:40 02/22/18 16:26 Normal Saline IV 02/22/18 16:40 999 mls/hr STAT ONE Administration Ketorolac Tromethamine 30 mg 02/22/18 16:37 Toradol IVPUSH 02/22/18 16:38 ONETIME ONE Ondansetron HCl 4 mg 02/22/18 15:40 02/22/18 16:26 Zofran IVPUSH 02/22/18 15:41 4 mg ONETIME ONE Administration Departure - Departure Time of Disposition: 16:44 Disposition: Refer to Observation Clinical Impression: Pyelonephritis - Discharge Information Referrals: PCP,None [Primary Care Provider] - Forms: ED Department Discharge - My Orders Last 24 Hours: My Active Orders 02/22/18 15:40 Sodium Chloride 0.9% [Saline Flush] 10 ml FLUSH ASDIRECTED PRN Sodium Chloride 0.9% [Saline Flush] 2.5 ml FLUSH ASDIRECTED PRN Saline Lock Insert [OM.PC] Stat 02/22/18 16:05 CULTURE BLOOD [BC] Stat Blood Culture x2 Reflex Set [OM.PC] Stat 02/22/18 16:20 COMPREHENSIVE METABOLIC PN,CMP [CHEM] Stat CULTURE BLOOD [BC] Stat - Assessment/Plan Last 24 Hours: My Active Orders 02/22/18 15:40 Sodium Chloride 0.9% [Saline Flush] 10 ml FLUSH ASDIRECTED PRN Sodium Chloride 0.9% [Saline Flush] 2.5 ml FLUSH ASDIRECTED PRN Saline Lock Insert [OM.PC] Stat 02/22/18 16:05 CULTURE BLOOD [BC] Stat Blood Culture x2 Reflex Set [OM.PC] Stat 02/22/18 16:20 COMPREHENSIVE METABOLIC PN,CMP [CHEM] Stat CULTURE BLOOD [BC] Stat
[2018-02-22] MEDS ORDERED: Ketorolac 30 MG/ML SDV IVPUSH ONE (16:37)
[2018-02-22] MEDS ORDERED: cefTRIAXone 1 GM in Sodium Chloride 0.9% 50 ML IV ONE (16:42)
[2018-02-22] MEDS ORDERED: cefTRIAXone 1 GM in Premix Bag 1 BAG IV ONE (16:52)
[2018-02-22 17:00] LABS: CHLORIDE,CL 100 mmol/L (98-107); SODIUM,NA 138 mmol/L (136-145)
[2018-02-22] MEDS ORDERED: Metoclopramide 5 MG Tab PO PRN ×2 (19:02→23:21)
[2018-02-22] MEDS: traMADol 50 MG Tab PO PRN (20:32)
[2018-02-22] MEDS: Ondansetron 4 MG/2 ML SDV IVPUSH PRN (20:33)
[2018-02-22] MEDS: Sodium Chloride 0.9% 1,000 ML IV SCH (20:41)
[2018-02-22] MEDS: Nicotine 7 MG/24 Hr Patch TRDERM SCH (20:42)
[2018-02-22] MEDS ORDERED: Acetaminophen 325 MG Tab PO PRN (23:10)
--- NOTE | 2018-02-22 23:23 | PCM.HP ---
H&P History of Present Illness - General Date of Service: 02/22/18 Admit Problem/Dx: Admission Diagnosis/Problem Admission Diagnosis/Problem Pyelonephritis - History of Present Illness Initial Comments - Free Text/Narative: 22 yo female with pmh of spina bifada with neurogenic bladder who self's caths. She developed dysuria, and flank pain four days ago. She was seen in the ED yesterday and given macrobid. CT scan of abdomen did not show any kidney pathology. She presents to the ED again today with nausea and vomiting and worsening pain. upper back pain Pain Score (Numeric/FACES): 8 - Related Data Allergies/Adverse Reactions: Allergies Allergy/AdvReac Type Severity Reaction Status Date / Time ciprofloxacin Allergy Hives Verified 02/22/18 15:28 latex Allergy Hives Verified 02/22/18 15:28 Home Medications: Home Meds Baclofen 20 mg PO QID 10/28/17 [History] Ondansetron [Zofran ODT] 4 mg PO Q6H PRN #6 tab.dis 02/21/18 [Rx] PARoxetine [Paxil] 2 tab PO DAILY 02/21/18 [History] Sulfamethoxazole/Trimethoprim [Bactrim Ds Tablet] 1 each PO BID 10 Days #20 tablet 02/21/18 [Rx] traMADol [Ultram] 50 mg PO Q4H PRN #15 tab 02/21/18 [Rx] FLUoxetine [PROzac] 10 mg PO DAILY 02/22/18 [History] Metoclopramide HCl 5 mg PO TID PRN 02/22/18 [History] Ondansetron HCl [Ondansetron] 4 mg PO Q6H PRN 02/22/18 [History] Past Medical History HEENT History: Reports: None Cardiovascular History: Reports: None Respiratory History: Reports: None Gastrointestinal History: Reports: Cholelithiasis Genitourinary History: Reports: UTI, Recurrent, Other (See Below) Other Genitourinary History: one kindey smaller than other 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 Musculoskeletal History: Reports: Other (See Below) Other Musculoskeletal History: spinabifida Neurological History: Reports: Other (See Below) Psychiatric History: Reports: None Endocrine/Metabolic History: Reports: None Hematologic History: Reports: None Immunologic History: Reports: None Oncologic (Cancer) History: Reports: None Dermatologic History: Reports: None - Past Surgical History Head Surgeries/Procedures: Reports: None HEENT Surgical History: Reports: None Cardiovascular Surgical History: Reports: None Respiratory Surgical History: Reports: None GI Surgical History: Reports: None Female Surgical History: Reports: None Endocrine Surgical History: Reports: None Neurological Surgical History: Reports: Other (See Below) Other Neurological Surgeries/Procedures: spina bifida Musculoskeletal Surgical History: Reports: None Oncologic Surgical History: Reports: None Dermatological Surgical History: Reports: None Social & Family History - Family History Family Medical History: Noncontributory - Tobacco Use Smoking Status *Q: Current Every Day Smoker Years of Tobacco use: 2 Packs/Tins Daily: 0.2 Second Hand Smoke Exposure: No - Caffeine Use Caffeine Use: Reports: None - Recreational Drug Use Recreational Drug Use: Yes Drug Use in Last 12 Months: Yes Recreational Drug Type: Reports: Marijuana/Hashish Recreational Drug Use Frequency: Daily Recreational Drug Last Use: Today H&P Review of Systems - Review of Systems: Review Of Systems: ROS reveals no pertinent complaints other than HPI. Exam - Exam Exam: See Below - Vital Signs Vital Signs: Last Vital Signs Temp 35.7 C 02/22/18 20:00 Pulse 61 02/22/18 20:00 Resp 16 02/22/18 20:00 BP 108/61 02/22/18 20:00 Pulse Ox 96 02/22/18 20:00 Weight: 39.1 kg - Exam General: Alert, Oriented HEENT: Mucosa Moist & [place] Neck: Supple Lungs: Clear to Auscultation, Normal Respiratory Effort Cardiovascular: Regular Rate, Regular Rhythm GI/Abdominal Exam: Normal Bowel Sounds, Soft, Non-Tender Back Exam: CVA Tenderness (R) Extremities: Non-Tender, No Pedal Edema Skin: Warm, Dry, Intact - Patient Data Lab Results Last 24 hrs: Laboratory Results - last 24 hr 02/22/18 02/22/18 02/22/18 Range/Units 16:20 16:20 16:20 WBC 11.29 H (4.0-11.0) K/uL RBC 5.13 (4.30-5.90) M/uL Hgb 15.8 (12.0-16.0) g/dL Hct 45.3 (36.0-46.0) % MCV 88.3 (80.0-98.0) fL MCH 30.8 (27.0-32.0) pg MCHC 34.9 (31.0-37.0) g/dL RDW Std Deviation 47.0 (28.0-62.0) fl RDW Coeff of Renetta 15 (11.0-15.0) % Plt Count 342 (150-400) K/uL MPV 9.90 (7.40-12.00) fL Neut % (Auto) 63.0 (48.0-80.0) % Lymph % (Auto) 25.4 (16.0-40.0) % [place] % (Auto) 9.2 (0.0-15.0) % Eos % (Auto) 1.9 (0.0-7.0) % Baso % (Auto) 0.5 (0.0-1.5) % Neut # (Auto) 7.1 H (1.4-5.7) K/uL Lymph # (Auto) 2.9 H (0.6-2.4) K/uL [place] # (Auto) 1.0 H (0.0-0.8) K/uL Eos # (Auto) 0.2 (0.0-0.7) K/uL Baso # (Auto) 0.1 (0.0-0.1) K/uL Nucleated RBC % 0.0 /100WBC Nucleated RBCs # 0 K/uL Lactate 0.9 (0.20-2.00) mmol/L Sodium 138 (136-145) mmol/L Potassium 3.7 (3.5-5.1) mmol/L Chloride 100 (98-107) mmol/L Carbon Dioxide 24.3 (21.0-32.0) mmol/L BUN 13 (7.0-18.0) mg/dL Creatinine 0.5 L (0.6-1.0) mg/dL Est Cr Clr Drug Dosing 119.04 mL/min Estimated GFR (MDRD) > 60.0 ml/min Glucose 88 (74-106) mg/dL Calcium 9.6 (8.5-10.1) mg/dL Total Bilirubin 0.7 (0.2-1.0) mg/dL AST 22 (15-37) IU/L ALT 27 (14-63) IU/L Alkaline Phosphatase 83 (46-116) U/L Total Protein 8.9 H (6.4-8.2) g/dL Albumin 4.5 (3.4-5.0) g/dL Globulin 4.4 H (2.0-3.5) g/dL Albumin/Globulin Ratio 1.0 L (1.3-2.8) Result Diagrams: 02/23/18 05:55 02/23/18 05:55 Lewis Results Last 24 hrs: Microbiology 02/22/18 16:20 Anaerobic Blood Culture - Final Blood - Venous Problem List Initiated/Reviewed/Updated: Yes Orders Last 24hrs: Active Orders 24 hr Category Date Time Status Admission Status [Patient Status] [ADT] Stat ADT 02/22/18 16:45 Active Regular Diet [DIET] Diet 02/23/18 Breakfast Active BASIC METABOLIC PANEL,BMP [CHEM] Routine Lab 02/23/18 05:00 Ordered CBC WITH AUTO DIFF [HEME] Routine Lab 02/23/18 05:00 Ordered CULTURE BLOOD [BC] Stat Lab 02/22/18 16:20 Results CULTURE BLOOD [BC] Stat Lab 02/22/18 16:37 Received CULTURE STOOL + CAMPY+SHIGATOX [RM] Routine Lab 02/22/18 19:08 Ordered Clostridium Difficile [CDIFF TOX A+B] [OP] Routine Lab 02/22/18 19:08 Ordered LIPASE [CHEM] AM Lab 02/23/18 05:11 Ordered OCCULT BLOOD DIAGNOSTIC [OP] Routine Lab 02/22/18 19:08 Ordered Acetaminophen [Tylenol] Med 02/22/18 23:10 Active 650 mg PO Q6H PRN Baclofen [Lioresal] Med 02/23/18 00:00 Active 20 mg PO QID FLUoxetine [PROzac] Med 02/23/18 09:00 Active 10 mg PO DAILY Metoclopramide [Reglan] Med 02/22/18 19:02 Active 5 mg PO TID PRN Morphine Med 02/22/18 23:16 Ordered 2 mg IVPUSH Q4H PRN Nicotine [Habitrol] Med 02/22/18 19:15 Active 7 mg TRDERM DAILY Ondansetron [Zofran] Med 02/22/18 19:05 Active 4 mg IVPUSH Q3H PRN PARoxetine [Paxil] Med 02/23/18 09:00 Pending 0 mg PO DAILY Sodium Chloride 0.9% [Normal Saline] 1,000 ml Med 02/22/18 19:15 Active IV ASDIRECTED Sodium Chloride 0.9% [Saline Flush] Med 02/22/18 15:40 Active 10 ml FLUSH ASDIRECTED PRN Sodium Chloride 0.9% [Saline Flush] Med 02/22/18 15:40 Active 2.5 ml FLUSH ASDIRECTED PRN cefTRIAXone [Rocephin in Dextrose,Iso-Osm 1 GM/50 ML] 1 Med 02/23/18 17:00 Active gm Premix Bag 1 bag IV Q24H traMADol [Ultram] Med 02/22/18 19:02 Active 50 mg PO Q4H PRN Blood Culture x2 Reflex Set [OM.PC] Stat Ot 02/22/18 16:05 Ordered Saline Lock Insert [OM.PC] Stat Oth 02/22/18 15:40 Ordered Medication Orders Acetaminophen (Tylenol) 650 mg PO Q6H PRN PRN Reason: Pain Baclofen (Lioresal) 20 mg PO QID [facility] Fluoxetine HCl (Prozac) 10 mg PO DAILY [facility] Sodium Chloride (Normal Saline) 1,000 mls @ 125 mls/hr IV ASDIRECTED [facility] Last Admin: 02/22/18 20:41 Dose: 125 mls/hr Ceftriaxone Sodium/Dextrose 1 (gm/ Premix) 50 mls @ 100 mls/hr IV Q24H [facility] Metoclopramide HCl (Reglan) 5 mg PO TID PRN PRN Reason: Nausea Morphine Sulfate (Morphine) 2 mg IVPUSH Q4H PRN PRN Reason: Pain Nicotine (Habitrol) 7 mg TRDERM DAILY [facility] Last Admin: 02/22/18 20:42 Dose: 7 mg Ondansetron HCl (Zofran) 4 mg IVPUSH Q3H PRN PRN Reason: Nausea/Vomiting Last Admin: 02/22/18 20:33 Dose: 4 mg Paroxetine HCl (Paxil) 0 mg PO DAILY [facility] Sodium Chloride (Saline Flush) 10 ml FLUSH ASDIRECTED PRN PRN Reason: Keep Vein Open Sodium Chloride (Saline Flush) 2.5 ml FLUSH ASDIRECTED PRN PRN Reason: Keep Vein Open Tramadol HCl (Ultram) 50 mg PO Q4H PRN PRN Reason: Pain Last Admin: 02/22/18 20:32 Dose: 50 mg Assessment/Plan Comment:: 22 yo female admitted with suspect pyelonephritis. We will treat with IV fluids , antiemetics and Rocephin.
[2018-02-22] MEDS ORDERED: Metoclopramide 10 MG/2 ML SDV IVPUSH PRN (23:25)
[2018-02-22] MEDS: Morphine 2 MG/ML Syringe IVPUSH PRN (23:46)
[2018-02-22] MEDS: Baclofen 10 MG Tab PO SCH (23:49)
[2018-02-22] MEDS: Heparin Sodium 5,000 Units/ML Vial SUBCUT SCH (23:50)
[2018-02-23] MEDS: Sodium Chloride 0.9% 1,000 ML IV SCH ×2 (04:57→11:37)
[2018-02-23] MEDS: Heparin Sodium 5,000 Units/ML Vial SUBCUT SCH ×4 (06:33→21:01)
[2018-02-23] MEDS: Baclofen 10 MG Tab PO SCH ×4 (06:33→23:30)
[2018-02-23 06:59] LABS: CHLORIDE,CL 107 mmol/L (98-107); SODIUM,NA 138 mmol/L (136-145)
[2018-02-23] MEDS: Nicotine 7 MG/24 Hr Patch TRDERM SCH (09:07)
[2018-02-23] MEDS: Ondansetron 4 MG/2 ML SDV IVPUSH PRN ×4 (09:07→21:03)
[2018-02-23] MEDS: Morphine 2 MG/ML Syringe IVPUSH PRN ×2 (09:17→20:22)
[2018-02-23] MEDS ORDERED: Sodium Chloride 0.9% 1,000 ML IV ONE (10:00)
--- NOTE | 2018-02-23 10:06 | PCM.PN ---
- General Info Date of Service: 02/23/18 - Review of Systems Systems Review Comment:: patient reports back pain, nausea and vomiting - Patient Data Vitals - Most Recent: Last Vital Signs Temp 36.8 C 02/23/18 08:00 Pulse 59 L 02/23/18 08:00 Resp 16 02/23/18 08:00 BP 108/52 L 02/23/18 08:00 Pulse Ox 97 02/23/18 08:00 Weight - Most Recent: 39.1 kg I&O - Last 24 Hours: Intake & Output 02/22/18 02/23/18 02/23/18 22:59 06:59 14:59 Intake Total 1000 1350 Output Total 300 Balance 1000 1050 Lab Results Last 24 Hours: Laboratory Results - last 24 hr 02/22/18 02/22/18 02/22/18 Range/Units 16:20 16:20 16:20 WBC 11.29 H (4.0-11.0) K/uL RBC 5.13 (4.30-5.90) M/uL Hgb 15.8 (12.0-16.0) g/dL Hct 45.3 (36.0-46.0) % MCV 88.3 (80.0-98.0) fL MCH 30.8 (27.0-32.0) pg MCHC 34.9 (31.0-37.0) g/dL RDW Std Deviation 47.0 (28.0-62.0) fl RDW Coeff of Renetta 15 (11.0-15.0) % Plt Count 342 (150-400) K/uL MPV 9.90 (7.40-12.00) fL Neut % (Auto) 63.0 (48.0-80.0) % Lymph % (Auto) 25.4 (16.0-40.0) % [place] % (Auto) 9.2 (0.0-15.0) % Eos % (Auto) 1.9 (0.0-7.0) % Baso % (Auto) 0.5 (0.0-1.5) % Neut # (Auto) 7.1 H (1.4-5.7) K/uL Lymph # (Auto) 2.9 H (0.6-2.4) K/uL [place] # (Auto) 1.0 H (0.0-0.8) K/uL Eos # (Auto) 0.2 (0.0-0.7) K/uL Baso # (Auto) 0.1 (0.0-0.1) K/uL Nucleated RBC % 0.0 /100WBC Nucleated RBCs # 0 K/uL Lactate 0.9 (0.20-2.00) mmol/L Sodium 138 (136-145) mmol/L Potassium 3.7 (3.5-5.1) mmol/L Chloride 100 (98-107) mmol/L Carbon Dioxide 24.3 (21.0-32.0) mmol/L BUN 13 (7.0-18.0) mg/dL Creatinine 0.5 L (0.6-1.0) mg/dL Est Cr Clr Drug Dosing 119.04 mL/min Estimated GFR (MDRD) > 60.0 ml/min Glucose 88 (74-106) mg/dL Calcium 9.6 (8.5-10.1) mg/dL Total Bilirubin 0.7 (0.2-1.0) mg/dL AST 22 (15-37) IU/L ALT 27 (14-63) IU/L Alkaline Phosphatase 83 (46-116) U/L Total Protein 8.9 H (6.4-8.2) g/dL Albumin 4.5 (3.4-5.0) g/dL Globulin 4.4 H (2.0-3.5) g/dL Albumin/Globulin Ratio 1.0 L (1.3-2.8) Lipase (73-393) U/L 02/23/18 02/23/18 02/23/18 Range/Units 05:55 05:55 05:55 WBC 7.87 (4.0-11.0) K/uL RBC 3.98 L (4.30-5.90) M/uL Hgb 11.9 L (12.0-16.0) g/dL Hct 36.2 (36.0-46.0) % MCV 91.0 (80.0-98.0) fL MCH 29.9 (27.0-32.0) pg MCHC 32.9 (31.0-37.0) g/dL RDW Std Deviation 49.6 (28.0-62.0) fl RDW Coeff of Renetta 15 (11.0-15.0) % Plt Count 244 (150-400) K/uL MPV 11.20 (7.40-12.00) fL Neut % (Auto) 56.1 (48.0-80.0) % Lymph % (Auto) 31.9 (16.0-40.0) % [place] % (Auto) 9.1 (0.0-15.0) % Eos % (Auto) 2.5 (0.0-7.0) % Baso % (Auto) 0.4 (0.0-1.5) % Neut # (Auto) 4.4 (1.4-5.7) K/uL Lymph # (Auto) 2.5 H (0.6-2.4) K/uL [place] # (Auto) 0.7 (0.0-0.8) K/uL Eos # (Auto) 0.2 (0.0-0.7) K/uL Baso # (Auto) 0.0 (0.0-0.1) K/uL Nucleated RBC % 0.0 /100WBC Nucleated RBCs # 0 K/uL Lactate (0.20-2.00) mmol/L Sodium 138 (136-145) mmol/L Potassium 3.9 (3.5-5.1) mmol/L Chloride 107 (98-107) mmol/L Carbon Dioxide 19.7 L (21.0-32.0) mmol/L BUN 11 (7.0-18.0) mg/dL Creatinine 0.3 L (0.6-1.0) mg/dL Est Cr Clr Drug Dosing 180.02 mL/min Estimated GFR (MDRD) > 60.0 ml/min Glucose 57 L (74-106) mg/dL Calcium 7.6 L (8.5-10.1) mg/dL Total Bilirubin (0.2-1.0) mg/dL AST (15-37) IU/L ALT (14-63) IU/L Alkaline Phosphatase (46-116) U/L Total Protein (6.4-8.2) g/dL Albumin (3.4-5.0) g/dL Globulin (2.0-3.5) g/dL Albumin/Globulin Ratio (1.3-2.8) Lipase 770 H (73-393) U/L Lewis Results Last 24 Hours: Microbiology 02/22/18 16:20 Anaerobic Blood Culture - Final Blood - Venous Med Orders - Current: Current Medications Acetaminophen (Tylenol) 650 mg PO Q6H PRN PRN Reason: Pain Baclofen (Lioresal) 20 mg PO QID [facility] Last Admin: 02/23/18 06:33 Dose: 20 mg Fluoxetine HCl (Prozac) 10 mg PO DAILY [facility] Last Admin: 02/23/18 09:07 Dose: 10 mg Heparin Sodium (Porcine) (Heparin Sodium) 5,000 units SUBCUT Q8H [facility] Last Admin: 02/23/18 06:33 Dose: 5,000 units Sodium Chloride (Normal Saline) 1,000 mls @ 125 mls/hr IV ASDIRECTED [facility] Last Admin: 02/23/18 04:57 Dose: 125 mls/hr Ceftriaxone Sodium/Dextrose 1 (gm/ Premix) 50 mls @ 100 mls/hr IV Q24H [facility] Sodium Chloride (Normal Saline) 1,000 mls @ 999 mls/hr IV .Bolus ONE Stop: 02/23/18 11:00 Metoclopramide HCl (Reglan) 5 mg PO Q8H PRN PRN Reason: Nausea/Vomiting Metoclopramide HCl (Reglan) 5 mg IVPUSH Q8H PRN PRN Reason: Nausea/Vomiting Last Admin: 02/22/18 23:43 Dose: 5 mg Morphine Sulfate (Morphine) 2 mg IVPUSH Q4H PRN PRN Reason: Pain Last Admin: 02/23/18 09:17 Dose: 2 mg Nicotine (Habitrol) 7 mg TRDERM DAILY [facility] Last Admin: 02/23/18 09:07 Dose: 7 mg Ondansetron HCl (Zofran) 4 mg IVPUSH Q3H PRN PRN Reason: Nausea/Vomiting Last Admin: 02/23/18 09:07 Dose: 4 mg Sodium Chloride (Saline Flush) 10 ml FLUSH ASDIRECTED PRN PRN Reason: Keep Vein Open Sodium Chloride (Saline Flush) 2.5 ml FLUSH ASDIRECTED PRN PRN Reason: Keep Vein Open Tramadol HCl (Ultram) 50 mg PO Q4H PRN PRN Reason: Pain Last Admin: 02/22/18 20:32 Dose: 50 mg Discontinued Medications Sodium Chloride (Normal Saline) 1,000 mls @ 999 mls/hr IV STAT ONE Stop: 02/22/18 16:40 Last Infusion: 02/22/18 20:40 Dose: Infused Ceftriaxone Sodium 1 gm/ (Sodium Chloride) 50 mls @ 100 mls/hr IV ONETIME ONE Stop: 02/22/18 17:11 Last Admin: 02/22/18 17:03 Dose: Not Given Ceftriaxone Sodium/Dextrose 1 (gm/ Premix) 50 mls @ 100 mls/hr IV ONETIME ONE Stop: 02/22/18 17:21 Last Admin: 02/22/18 17:01 Dose: 100 mls/hr Ketorolac Tromethamine (Toradol) 30 mg IVPUSH ONETIME ONE Stop: 02/22/18 16:38 Last Admin: 02/22/18 16:46 Dose: 30 mg Metoclopramide HCl (Reglan) 5 mg PO TID PRN PRN Reason: Nausea Ondansetron HCl (Zofran) 4 mg IVPUSH ONETIME ONE Stop: 02/22/18 15:41 Last Admin: 02/22/18 16:26 Dose: 4 mg Paroxetine HCl (Paxil) 20 mg PO DAILY [facility] - Exam General: Alert, Oriented Neck: Supple Lungs: Clear to Auscultation, Normal Respiratory Effort Cardiovascular: Regular Rate, Regular Rhythm GI/Abdominal Exam: Soft, Non-Tender, No Distention Extremities: No Pedal Edema Skin: Warm, Dry, Intact - Problem List Review Problem List Initiated/Reviewed/Updated: Yes - My Orders Last 24 Hours: My Active Orders 02/22/18 19:02 traMADol [Ultram] 50 mg PO Q4H PRN 02/22/18 19:05 Ondansetron [Zofran] 4 mg IVPUSH Q3H PRN 02/22/18 19:08 CULTURE STOOL + CAMPY+SHIGATOX [RM] Routine Clostridium Difficile [CDIFF TOX A+B] [OP] Routine OCCULT BLOOD DIAGNOSTIC [OP] Routine 02/22/18 19:15 Nicotine [Habitrol] 7 mg TRDERM DAILY Sodium Chloride 0.9% [Normal Saline] 1,000 ml IV ASDIRECTED 02/22/18 23:10 Acetaminophen [Tylenol] 650 mg PO Q6H PRN 02/22/18 23:16 Morphine 2 mg IVPUSH Q4H PRN 02/22/18 23:18 Oxygen Therapy [RC] PRN Up ad Enma [RC] ASDIRECTED Vital Signs [RC] Q4H Sequential Compression Device [OM.PC] Per Unit Routine Resuscitation Status Routine 02/22/18 23:21 Metoclopramide [Reglan] 5 mg PO Q8H PRN 02/22/18 23:25 Metoclopramide [Reglan] 5 mg IVPUSH Q8H PRN 02/22/18 23:30 Heparin Sodium 5,000 units SUBCUT Q8H 02/23/18 00:00 Baclofen [Lioresal] 20 mg PO QID 02/23/18 09:00 FLUoxetine [PROzac] 10 mg PO DAILY 02/23/18 10:00 Sodium Chloride 0.9% [Normal Saline] 1,000 ml IV .Bolus 02/23/18 10:01 Admission Status [Patient Status] [ADT] Routine 02/23/18 17:00 cefTRIAXone [Rocephin in Dextrose,Iso-Osm 1 GM/50 ML] 1 gm Premix Bag 1 bag IV Q24H 02/23/18 Breakfast Regular Diet [DIET] 02/23/18 Lunch NPO Now [Nothing per Oral Now Diet] [DIET] 02/24/18 05:11 BASIC METABOLIC PANEL,BMP [CHEM] AM CBC WITH AUTO DIFF [HEME] AM - Plan Plan:: 22 yo female admitted with E.coli pyelonephritis. Lipase was check and mildly elevated. We will continue IV fluids and have bowel rest for treatment of pancreatitis. We will continue Rocephin. Urine culture growing E.coli.
[2018-02-23] MEDS ORDERED: cefTRIAXone 1 GM in Premix Bag 1 BAG IV SCH (17:00)
[2018-02-23] MEDS: cefTRIAXone 1 GM in Sodium Chloride 0.9% 50 ML IV SCH (17:12)
[2018-02-23] MEDS: traMADol 50 MG Tab PO PRN (18:40)
--- NOTE | 2018-02-24 02:34 | PCM.SN ---
- Free Text/Narrative Note: Called by nursing as they have been unable to obtain PIV access. 22g PIV started to Lt FA. Secured with tape and tegaderm.
[2018-02-24] MEDS: Heparin Sodium 5,000 Units/ML Vial SUBCUT SCH ×2 (06:31→15:58)
[2018-02-24] MEDS: Baclofen 10 MG Tab PO SCH ×3 (06:32→17:56)
[2018-02-24 08:02] LABS: CHLORIDE,CL 111 mmol/L (98-107); SODIUM,NA 140 mmol/L (136-145)
[2018-02-24] MEDS: Nicotine 7 MG/24 Hr Patch TRDERM SCH ×2 (08:37→17:58)
[2018-02-24] MEDS: Sodium Chloride 0.9% 1,000 ML IV SCH ×2 (08:53→16:19)
[2018-02-24] MEDS: Morphine 2 MG/ML Syringe IVPUSH PRN (08:55)
[2018-02-24] MEDS: Ondansetron 4 MG/2 ML SDV IVPUSH PRN (11:34)
--- NOTE | 2018-02-24 12:08 | PCM.DCSUM1 ---
Discharge Summary - Discharge Data Discharge Disposition: Home, Self-Care 01 Condition: Fair - Discharge Plan Home Medications: Home Meds Baclofen 20 mg PO QID 10/28/17 [History] Ondansetron [Zofran ODT] 4 mg PO Q6H PRN #6 tab.dis 02/21/18 [Rx] PARoxetine [Paxil] 2 tab PO DAILY 02/21/18 [History] Sulfamethoxazole/Trimethoprim [Bactrim Ds Tablet] 1 each PO BID 10 Days #20 tablet 02/21/18 [Rx] traMADol [Ultram] 50 mg PO Q4H PRN #15 tab 02/21/18 [Rx] FLUoxetine [PROzac] 10 mg PO DAILY 02/22/18 [History] Metoclopramide HCl 5 mg PO TID PRN 02/22/18 [History] Ondansetron HCl [Ondansetron] 4 mg PO Q6H PRN 02/22/18 [History] Forms: ED Department Discharge Referrals: PCP,None [Primary Care Provider] - - Patient Data Vitals - Most Recent: Last Vital Signs Temp 98 F 02/24/18 11:38 Pulse 57 L 02/24/18 11:38 Resp 16 02/24/18 11:38 BP 130/76 02/24/18 11:38 Pulse Ox 99 02/24/18 11:38 Weight - Most Recent: 86 lb 3.2 oz I&O - Last 24 hours: Intake & Output 02/23/18 02/24/18 02/24/18 22:59 06:59 14:59 Intake Total 1365 Output Total 300 400 Balance 1065 -400 Lab Results - Last 24 hrs: Laboratory Results - last 24 hr 02/24/18 02/24/18 Range/Units 07:25 07:25 WBC 7.25 (4.0-11.0) K/uL RBC 3.89 L (4.30-5.90) M/uL Hgb 11.6 L (12.0-16.0) g/dL Hct 35.6 L (36.0-46.0) % MCV 91.5 (80.0-98.0) fL MCH 29.8 (27.0-32.0) pg MCHC 32.6 (31.0-37.0) g/dL RDW Std Deviation 49.1 (28.0-62.0) fl RDW Coeff of Renetta 15 (11.0-15.0) % Plt Count 262 (150-400) K/uL MPV 9.90 (7.40-12.00) fL Neut % (Auto) 64.5 (48.0-80.0) % Lymph % (Auto) 26.3 (16.0-40.0) % [place] % (Auto) 7.6 (0.0-15.0) % Eos % (Auto) 1.2 (0.0-7.0) % Baso % (Auto) 0.4 (0.0-1.5) % Neut # (Auto) 4.7 (1.4-5.7) K/uL Lymph # (Auto) 1.9 (0.6-2.4) K/uL [place] # (Auto) 0.6 (0.0-0.8) K/uL Eos # (Auto) 0.1 (0.0-0.7) K/uL Baso # (Auto) 0.0 (0.0-0.1) K/uL Nucleated RBC % 0.0 /100WBC Nucleated RBCs # 0 K/uL Sodium 140 (136-145) mmol/L Potassium 3.5 (3.5-5.1) mmol/L Chloride 111 H (98-107) mmol/L Carbon Dioxide 13.8 L (21.0-32.0) mmol/L BUN 3 L (7.0-18.0) mg/dL Creatinine 0.4 L (0.6-1.0) mg/dL Est Cr Clr Drug Dosing 135.02 mL/min Estimated GFR (MDRD) > 60.0 ml/min Glucose 42 L (74-106) mg/dL Calcium 7.6 L (8.5-10.1) mg/dL JOSE Results - Last 24 hrs: Microbiology 02/24/18 05:18 Clostridium difficile Toxin A & B - Final Stool / Feces Positive C. Diff Antigen 02/22/18 16:37 Aerobic Blood Culture - Preliminary Blood - Venous - Lab Draw NO GROWTH AFTER 1 DAY Anaerobic Blood Culture - Preliminary NO GROWTH AFTER 1 DAY 02/22/18 16:20 Aerobic Blood Culture - Preliminary Blood - Venous NO GROWTH AFTER 1 DAY Anaerobic Blood Culture - Final Med Orders - Current: Current Medications Acetaminophen (Tylenol) 650 mg PO Q6H PRN PRN Reason: Pain Baclofen (Lioresal) 20 mg PO QID [facility] Last Admin: 02/24/18 06:32 Dose: 20 mg Fluoxetine HCl (Prozac) 10 mg PO DAILY [facility] Last Admin: 02/24/18 08:37 Dose: 10 mg Heparin Sodium (Porcine) (Heparin Sodium) 5,000 units SUBCUT Q8H [facility] Last Admin: 02/24/18 06:31 Dose: 5,000 units Sodium Chloride (Normal Saline) 1,000 mls @ 125 mls/hr IV ASDIRECTED [facility] Last Admin: 02/24/18 08:53 Dose: 125 mls/hr Ceftriaxone Sodium 1 gm/ (Sodium Chloride) 50 mls @ 100 mls/hr IV Q24H [facility] Last Admin: 02/23/18 17:12 Dose: 100 mls/hr Metoclopramide HCl (Reglan) 5 mg PO Q8H PRN PRN Reason: Nausea/Vomiting Metoclopramide HCl (Reglan) 5 mg IVPUSH Q8H PRN PRN Reason: Nausea/Vomiting Last Admin: 02/22/18 23:43 Dose: 5 mg Morphine Sulfate (Morphine) 2 mg IVPUSH Q4H PRN PRN Reason: Pain Last Admin: 02/24/18 08:55 Dose: 2 mg Nicotine (Habitrol) 7 mg TRDERM DAILY [facility] Last Admin: 02/24/18 08:37 Dose: 7 mg Ondansetron HCl (Zofran) 4 mg IVPUSH Q3H PRN PRN Reason: Nausea/Vomiting Last Admin: 02/24/18 11:34 Dose: 4 mg Sodium Chloride (Saline Flush) 10 ml FLUSH ASDIRECTED PRN PRN Reason: Keep Vein Open Sodium Chloride (Saline Flush) 2.5 ml FLUSH ASDIRECTED PRN PRN Reason: Keep Vein Open Tramadol HCl (Ultram) 50 mg PO Q4H PRN PRN Reason: Pain Last Admin: 02/23/18 18:40 Dose: 50 mg Discontinued Medications Sodium Chloride (Normal Saline) 1,000 mls @ 999 mls/hr IV STAT ONE Stop: 02/22/18 16:40 Last Infusion: 02/22/18 20:40 Dose: Infused Ceftriaxone Sodium 1 gm/ (Sodium Chloride) 50 mls @ 100 mls/hr IV ONETIME ONE Stop: 02/22/18 17:11 Last Admin: 02/22/18 17:03 Dose: Not Given Ceftriaxone Sodium/Dextrose 1 (gm/ Premix) 50 mls @ 100 mls/hr IV ONETIME ONE Stop: 02/22/18 17:21 Last Admin: 02/22/18 17:01 Dose: 100 mls/hr Ceftriaxone Sodium/Dextrose 1 (gm/ Premix) 50 mls @ 100 mls/hr IV Q24H MILAN Sodium Chloride (Normal Saline) 1,000 mls @ 999 mls/hr IV .Bolus ONE Stop: 02/23/18 11:00 Last Admin: 02/23/18 10:35 Dose: 999 mls/hr Ketorolac Tromethamine (Toradol) 30 mg IVPUSH ONETIME ONE Stop: 02/22/18 16:38 Last Admin: 02/22/18 16:46 Dose: 30 mg Metoclopramide HCl (Reglan) 5 mg PO TID PRN PRN Reason: Nausea Ondansetron HCl (Zofran) 4 mg IVPUSH ONETIME ONE Stop: 02/22/18 15:41 Last Admin: 02/22/18 16:26 Dose: 4 mg Paroxetine HCl (Paxil) 20 mg PO DAILY MILAN
[2018-02-24] MEDS: Vancomycin 25 MG/ML Compounding Kit PO SCH ×2 (13:07→17:57)
--- NOTE | 2018-02-24 13:38 | PCM.PN ---
- General Info Date of Service: 02/24/18 Admission Dx/Problem (Free Text): Admission Diagnosis/Problem Admission Diagnosis/Problem lower abdominal pain , diarrhea , pyelonephritis Subjective Update: Patient c/o pain in the lumbar spine for the past 2 weeks , pain is rated 9/ 10 in the intensity and is tender to palpation. She states she was treated for UTI with Nitrofurantoin and she had diarrhea and vomiting for the past 1 week. She had another UTI 1 month ago and was treated with antibiotics.Her diarrhea is improving now. - Review of Systems General: Reports: No Symptoms HEENT: Reports: No Symptoms Pulmonary: Reports: No Symptoms Cardiovascular: Reports: No Symptoms Gastrointestinal: Reports: Abdominal Pain (lower abdomen) Genitourinary: Reports: No Symptoms Musculoskeletal: Reports: Back Pain Skin: Reports: No Symptoms Neurological: Reports: Other (spastic paresis b/l lower extremities) Psychiatric: Reports: No Symptoms - Patient Data Vitals - Most Recent: Last Vital Signs Temp 98 F 02/24/18 11:38 Pulse 57 L 02/24/18 11:38 Resp 16 02/24/18 11:38 BP 130/76 02/24/18 11:38 Pulse Ox 99 02/24/18 11:38 Weight - Most Recent: 86 lb 3.2 oz I&O - Last 24 Hours: Intake & Output 02/23/18 02/24/18 02/24/18 22:59 06:59 14:59 Intake Total 1365 Output Total 300 400 Balance 1065 -400 Lab Results Last 24 Hours: Laboratory Results - last 24 hr 02/24/18 02/24/18 02/24/18 Range/Units 07:25 07:25 07:25 WBC 7.25 (4.0-11.0) K/uL RBC 3.89 L (4.30-5.90) M/uL Hgb 11.6 L (12.0-16.0) g/dL Hct 35.6 L (36.0-46.0) % MCV 91.5 (80.0-98.0) fL MCH 29.8 (27.0-32.0) pg MCHC 32.6 (31.0-37.0) g/dL RDW Std Deviation 49.1 (28.0-62.0) fl RDW Coeff of Renetta 15 (11.0-15.0) % Plt Count 262 (150-400) K/uL MPV 9.90 (7.40-12.00) fL Neut % (Auto) 64.5 (48.0-80.0) % Lymph % (Auto) 26.3 (16.0-40.0) % Bryan % (Auto) 7.6 (0.0-15.0) % Eos % (Auto) 1.2 (0.0-7.0) % Baso % (Auto) 0.4 (0.0-1.5) % Neut # (Auto) 4.7 (1.4-5.7) K/uL Lymph # (Auto) 1.9 (0.6-2.4) K/uL Bryan # (Auto) 0.6 (0.0-0.8) K/uL Eos # (Auto) 0.1 (0.0-0.7) K/uL Baso # (Auto) 0.0 (0.0-0.1) K/uL Nucleated RBC % 0.0 /100WBC Nucleated RBCs # 0 K/uL Sodium 140 (136-145) mmol/L Potassium 3.5 (3.5-5.1) mmol/L Chloride 111 H (98-107) mmol/L Carbon Dioxide 13.8 L (21.0-32.0) mmol/L BUN 3 L (7.0-18.0) mg/dL Creatinine 0.4 L (0.6-1.0) mg/dL Est Cr Clr Drug Dosing 135.02 mL/min Estimated GFR (MDRD) > 60.0 ml/min Glucose 42 L (74-106) mg/dL Calcium 7.6 L (8.5-10.1) mg/dL Lipase 248 (73-393) U/L Lewis Results Last 24 Hours: Microbiology 02/24/18 05:18 Clostridium difficile Toxin A & B - Final Stool / Feces Positive C. Diff Antigen 02/22/18 16:37 Aerobic Blood Culture - Preliminary Blood - Venous - Lab Draw NO GROWTH AFTER 1 DAY Anaerobic Blood Culture - Preliminary NO GROWTH AFTER 1 DAY 02/22/18 16:20 Aerobic Blood Culture - Preliminary Blood - Venous NO GROWTH AFTER 1 DAY Anaerobic Blood Culture - Final Med Orders - Current: Current Medications Acetaminophen (Tylenol) 650 mg PO Q6H PRN PRN Reason: Pain Baclofen (Lioresal) 20 mg PO QID [facility] Last Admin: 02/24/18 12:13 Dose: 20 mg Fluoxetine HCl (Prozac) 10 mg PO DAILY [facility] Last Admin: 02/24/18 08:37 Dose: 10 mg Heparin Sodium (Porcine) (Heparin Sodium) 5,000 units SUBCUT Q8H [facility] Last Admin: 02/24/18 06:31 Dose: 5,000 units Sodium Chloride (Normal Saline) 1,000 mls @ 125 mls/hr IV ASDIRECTED [facility] Last Admin: 02/24/18 08:53 Dose: 125 mls/hr Ceftriaxone Sodium 1 gm/ (Sodium Chloride) 50 mls @ 100 mls/hr IV Q24H [facility] Last Admin: 02/23/18 17:12 Dose: 100 mls/hr Metoclopramide HCl (Reglan) 5 mg PO Q8H PRN PRN Reason: Nausea/Vomiting Metoclopramide HCl (Reglan) 5 mg IVPUSH Q8H PRN PRN Reason: Nausea/Vomiting Last Admin: 02/22/18 23:43 Dose: 5 mg Morphine Sulfate (Morphine) 2 mg IVPUSH Q4H PRN PRN Reason: Pain Last Admin: 02/24/18 08:55 Dose: 2 mg Nicotine (Habitrol) 7 mg TRDERM DAILY [facility] Last Admin: 02/24/18 08:37 Dose: 7 mg Ondansetron HCl (Zofran) 4 mg IVPUSH Q3H PRN PRN Reason: Nausea/Vomiting Last Admin: 02/24/18 11:34 Dose: 4 mg Sodium Chloride (Saline Flush) 10 ml FLUSH ASDIRECTED PRN PRN Reason: Keep Vein Open Sodium Chloride (Saline Flush) 2.5 ml FLUSH ASDIRECTED PRN PRN Reason: Keep Vein Open Tramadol HCl (Ultram) 50 mg PO Q4H PRN PRN Reason: Pain Last Admin: 02/23/18 18:40 Dose: 50 mg Vancomycin HCl (First-Vancomycin 25 Compounding Kit) 125 mg PO Q6HR [facility] Last Admin: 02/24/18 13:07 Dose: 5 ml Discontinued Medications Sodium Chloride (Normal Saline) 1,000 mls @ 999 mls/hr IV STAT ONE Stop: 02/22/18 16:40 Last Infusion: 02/22/18 20:40 Dose: Infused Ceftriaxone Sodium 1 gm/ (Sodium Chloride) 50 mls @ 100 mls/hr IV ONETIME ONE Stop: 02/22/18 17:11 Last Admin: 02/22/18 17:03 Dose: Not Given Ceftriaxone Sodium/Dextrose 1 (gm/ Premix) 50 mls @ 100 mls/hr IV ONETIME ONE Stop: 02/22/18 17:21 Last Admin: 02/22/18 17:01 Dose: 100 mls/hr Ceftriaxone Sodium/Dextrose 1 (gm/ Premix) 50 mls @ 100 mls/hr IV Q24H [facility] Sodium Chloride (Normal Saline) 1,000 mls @ 999 mls/hr IV .Bolus ONE Stop: 02/23/18 11:00 Last Admin: 02/23/18 10:35 Dose: 999 mls/hr Ketorolac Tromethamine (Toradol) 30 mg IVPUSH ONETIME ONE Stop: 02/22/18 16:38 Last Admin: 02/22/18 16:46 Dose: 30 mg Metoclopramide HCl (Reglan) 5 mg PO TID PRN PRN Reason: Nausea Ondansetron HCl (Zofran) 4 mg IVPUSH ONETIME ONE Stop: 02/22/18 15:41 Last Admin: 02/22/18 16:26 Dose: 4 mg Paroxetine HCl (Paxil) 20 mg PO DAILY [facility] - Exam General: Alert, Oriented, Cooperative HEENT: Pupils Equal, Pupils Reactive, Mucous Membr. Moist/[place] Neck: Supple, Trachea Midline, No JVD Lungs: Clear to Auscultation, Normal Respiratory Effort Cardiovascular: Regular Rate, Regular Rhythm, No Murmurs GI/Abdominal Exam: Normal Bowel Sounds, Soft, Non-Tender, No Organomegaly Back Exam: Normal Inspection Extremities: Normal Inspection Skin: Warm Neurological: Other (b/l lower extremity spastic paresis) - Problem List & Annotations (1) C. difficile diarrhea SNOMED Code(s): 0584807828951 Code(s): A04.72 - ENTEROCOLITIS D/T CLOSTRIDIUM DIFFICILE, NOT SPCF RECUR Status: Acute Current Visit: Yes (2) Back pain SNOMED Code(s): 957542614 Code(s): M54.9 - DORSALGIA, UNSPECIFIED Status: Acute Current Visit: Yes (3) UTI (urinary tract infection) SNOMED Code(s): 98060199 Code(s): N39.0 - URINARY TRACT INFECTION, SITE NOT SPECIFIED Status: Acute Current Visit: No Qualifiers: Urinary tract infection type: site unspecified Hematuria presence: without hematuria Qualified Code(s): N39.0 - Urinary tract infection, site not specified - Problem List Review Problem List Initiated/Reviewed/Updated: Yes - My Orders Last 24 Hours: My Active Orders 02/24/18 12:00 Vancomycin [First-Vancomycin 25 Compounding Kit] 125 mg PO Q6HR 02/24/18 12:30 Isolation [COMM] Routine - Plan Plan:: 22 yo female admitted with c diff diarrhea. Will start patient on Vancomycin 125 mg po q 6 h and will advance diet. For Back pain will do lumbar x ray , tylenol 650 mg po q 6 h prn for pain tramadol 50 mg po q 6 h prn for pain , continue Baclofen 20 mg po TID UTI - patient denies fever , will treat as simple uti .Continue Rocephine 2 more days.
[2018-02-24] MEDS ORDERED: Acetaminophen 325 MG Tab PO PRN (14:42)
[2018-02-24] MEDS: cefTRIAXone 1 GM in Sodium Chloride 0.9% 50 ML IV SCH (16:08)
[2018-02-24] MEDS ORDERED: traMADol 50 MG Tab PO PRN (16:17)
--- NOTE | 2018-02-24 16:58 | CR ---
EXAMINATION: Lumbar spine HISTORY: Back pain COMPARISON: CT dated 02/21/2018 TECHNIQUE: 3 views FINDINGS: There is fusion of the spine at the thoracolumbar junction with moderate kyphosis. This is similar to the previous CT. There is no fracture or acute osseous abnormality. Bone mineralization is normal. Clips project over the left upper quadrant. The SI joints are symmetric. IMPRESSION: 1. Again noted is osseous fusion of the thoracolumbar spine resulting in moderate kyphosis. 2. No acute osseous abnormalities.
[2018-02-24] MEDS ORDERED: Cyclobenzaprine 5 MG Tab PO SCH (22:00)
[2018-02-25] MEDS: Vancomycin 25 MG/ML Compounding Kit PO SCH ×4 (00:06→11:05)
[2018-02-25] MEDS: Heparin Sodium 5,000 Units/ML Vial SUBCUT SCH ×2 (00:07→09:04)
[2018-02-25] MEDS: Baclofen 10 MG Tab PO SCH ×4 (00:07→13:00)
[2018-02-25] MEDS ORDERED: Sodium Chloride 0.9% 2.5 ML Syringe FLUSH PRN (03:10)
[2018-02-25] MEDS ORDERED: Sodium Chloride 0.9% 10 ML Syringe FLUSH PRN (03:10)
[2018-02-25 06:38] LABS: CHLORIDE,CL 111 mmol/L (98-107); SODIUM,NA 141 mmol/L (136-145)
[2018-02-25] MEDS ORDERED: Potassium Chloride 20 MEQ Tab.ER PO ONE ×2 (08:22→12:28)
[2018-02-25 09:01] VITALS: BP 143/67
[2018-02-25] MEDS: Nicotine 7 MG/24 Hr Patch TRDERM SCH (09:03)
--- NOTE | 2018-02-25 14:35 | PCM.DCSUM1 ---
Discharge Summary - Hospital Course Diagnosis: Stroke: No - Discharge Data Discharge Disposition: Home, Self-Care 01 Condition: Good - Discharge Diagnosis/Problem(s) (1) C. difficile diarrhea SNOMED Code(s): 6060747560863 ICD Code: A04.72 - ENTEROCOLITIS D/T CLOSTRIDIUM DIFFICILE, NOT SPCF RECUR Status: Acute (2) Back pain SNOMED Code(s): 575489228 ICD Code: M54.9 - DORSALGIA, UNSPECIFIED Status: Acute (3) UTI (urinary tract infection) SNOMED Code(s): 23934421 ICD Code: N39.0 - URINARY TRACT INFECTION, SITE NOT SPECIFIED Status: Acute Qualifiers: Urinary tract infection type: site unspecified Hematuria presence: without hematuria Qualified Code(s): N39.0 - Urinary tract infection, site not specified - Patient Instructions Diet: Usual Diet as Tolerated Activity: As Tolerated Showering/Bathing: May Shower - Discharge Plan Prescriptions/Med Rec: Vancomycin [First-Vancomycin 25 Compounding Kit] 125 mg PO Q6HR 13 Days #1 bottle traMADol [Ultram] 50 mg PO Q4H PRN #15 tab PRN Reason: Pain Home Medications: Home Meds Baclofen 20 mg PO QID 10/28/17 [History] Ondansetron [Zofran ODT] 4 mg PO Q6H PRN #6 tab.dis 02/21/18 [Rx] PARoxetine [Paxil] 2 tab PO DAILY 02/21/18 [History] FLUoxetine [PROzac] 10 mg PO DAILY 02/22/18 [History] Metoclopramide HCl 5 mg PO TID PRN 02/22/18 [History] Vancomycin [First-Vancomycin 25 Compounding Kit] 125 mg PO Q6HR 13 Days #1 bottle 02/25/18 [Rx] traMADol [Ultram] 50 mg PO Q4H PRN #15 tab 02/25/18 [Rx] Patient Handouts: Pyelonephritis, Adult, [id number], Tramadol tablets, Back Pain, Adult, [id number], Vancomycin oral solution Referrals: Mague Quintero MD [Physician] - 03/01/18 10:00 am - Patient Data Vitals - Most Recent: Last Vital Signs Temp 98.8 F 02/25/18 08:00 Pulse 60 02/25/18 08:00 Resp 16 02/25/18 08:00 BP 143/67 H 02/25/18 08:00 Pulse Ox 99 02/25/18 08:00 Weight - Most Recent: 86 lb 3.2 oz I&O - Last 24 hours: Intake & Output 02/24/18 02/25/18 02/25/18 22:59 06:59 14:59 Intake Total 800 720 Output Total 2000 1200 Balance -1200 -480 Lab Results - Last 24 hrs: Laboratory Results - last 24 hr 02/24/18 02/25/18 02/25/18 Range/Units 18:02 05:35 05:35 WBC 7.60 (4.0-11.0) K/uL RBC 4.19 L (4.30-5.90) M/uL Hgb 12.5 (12.0-16.0) g/dL Hct 37.9 (36.0-46.0) % MCV 90.5 (80.0-98.0) fL MCH 29.8 (27.0-32.0) pg MCHC 33.0 (31.0-37.0) g/dL RDW Std Deviation 48.5 (28.0-62.0) fl RDW Coeff of Renetta 15 (11.0-15.0) % Plt Count 300 (150-400) K/uL MPV 10.60 (7.40-12.00) fL Nucleated RBC % 0.0 /100WBC Nucleated RBCs # 0 K/uL Sodium 141 (136-145) mmol/L Potassium 3.3 L (3.5-5.1) mmol/L Chloride 111 H (98-107) mmol/L Carbon Dioxide 15.3 L (21.0-32.0) mmol/L BUN 1 L (7.0-18.0) mg/dL Creatinine 0.4 L (0.6-1.0) mg/dL Est Cr Clr Drug Dosing 135.02 mL/min Estimated GFR (MDRD) > 60.0 ml/min Glucose 65 L (74-106) mg/dL POC Glucose 95 (60-110) mg/dL Calcium 8.3 L (8.5-10.1) mg/dL Total Bilirubin 0.4 (0.2-1.0) mg/dL AST 17 (15-37) IU/L ALT 22 (14-63) IU/L Alkaline Phosphatase 54 (46-116) U/L Total Protein 6.2 L (6.4-8.2) g/dL Albumin 3.1 L (3.4-5.0) g/dL Globulin 3.1 (2.0-3.5) g/dL Albumin/Globulin Ratio 1.0 L (1.3-2.8) JOSE Results - Last 24 hrs: Microbiology 02/22/18 16:37 Aerobic Blood Culture - Preliminary Blood - Venous - Lab Draw NO GROWTH AFTER 2 DAYS Anaerobic Blood Culture - Preliminary NO GROWTH AFTER 2 DAYS 02/22/18 16:20 Aerobic Blood Culture - Preliminary Blood - Venous NO GROWTH AFTER 2 DAYS Anaerobic Blood Culture - Final 02/24/18 05:18 Clostridium difficile Toxin A & B - Final Stool / Feces Positive C. Diff Antigen Med Orders - Current: Current Medications Discontinued Medications Acetaminophen (Tylenol) 650 mg PO Q6H PRN PRN Reason: Pain Acetaminophen (Tylenol) 650 mg PO Q6H PRN PRN Reason: Pain Baclofen (Lioresal) 20 mg PO QID [facility]S [facility] BEDS AT [facility] Last Admin: 02/25/18 13:00 Dose: 20 mg Cyclobenzaprine HCl (Flexeril) 5 mg PO TID COUNTS INCLUDE 234 BEDS AT THE [facility] Fluoxetine HCl (Prozac) 10 mg PO DAILY [facility]S [facility]CLUDE 234 BEDS AT THE [facility] Last Admin: 02/25/18 09:03 Dose: 10 mg Heparin Sodium (Porcine) (Heparin Sodium) 5,000 units SUBCUT Q8H [facility]S [facility]CLUDE 234 BEDS AT THE [facility] Last Admin: 02/25/18 09:04 Dose: 5,000 units Sodium Chloride (Normal Saline) 1,000 mls @ 999 mls/hr IV STAT ONE Stop: 02/22/18 16:40 Last Infusion: 02/22/18 20:40 Dose: Infused Ceftriaxone Sodium 1 gm/ (Sodium Chloride) 50 mls @ 100 mls/hr IV ONETIME ONE Stop: 02/22/18 17:11 Last Admin: 02/22/18 17:03 Dose: Not Given Ceftriaxone Sodium/Dextrose 1 (gm/ Premix) 50 mls @ 100 mls/hr IV ONETIME ONE Stop: 02/22/18 17:21 Last Admin: 02/22/18 17:01 Dose: 100 mls/hr Sodium Chloride (Normal Saline) 1,000 mls @ 125 mls/hr IV ASDIRECTED COUNTS INCLUDE 234 BEDS AT THE [facility] Stop: 02/24/18 23:30 Last Admin: 02/24/18 16:19 Dose: 125 mls/hr Ceftriaxone Sodium/Dextrose 1 (gm/ Premix) 50 mls @ 100 mls/hr IV Q24H COUNTS INCLUDE 234 BEDS AT THE [facility] Sodium Chloride (Normal Saline) 1,000 mls @ 999 mls/hr IV .Bolus ONE Stop: 02/23/18 11:00 Last Admin: 02/23/18 10:35 Dose: 999 mls/hr Ceftriaxone Sodium 1 gm/ (Sodium Chloride) 50 mls @ 100 mls/hr IV Q24H COUNTS INCLUDE 234 BEDS AT THE [facility] Last Admin: 02/24/18 16:08 Dose: 100 mls/hr Ketorolac Tromethamine (Toradol) 30 mg IVPUSH ONETIME ONE Stop: 02/22/18 16:38 Last Admin: 02/22/18 16:46 Dose: 30 mg Metoclopramide HCl (Reglan) 5 mg PO TID PRN PRN Reason: Nausea Metoclopramide HCl (Reglan) 5 mg PO Q8H PRN PRN Reason: Nausea/Vomiting Metoclopramide HCl (Reglan) 5 mg IVPUSH Q8H PRN PRN Reason: Nausea/Vomiting Last Admin: 02/22/18 23:43 Dose: 5 mg Morphine Sulfate (Morphine) 2 mg IVPUSH Q4H PRN PRN Reason: Pain Last Admin: 02/24/18 08:55 Dose: 2 mg Nicotine (Habitrol) 7 mg TRDERM DAILY [facility]S INCLUDE 234 BEDS AT [facility] Last Admin: 02/25/18 09:03 Dose: 7 mg Ondansetron HCl (Zofran) 4 mg IVPUSH ONETIME ONE Stop: 02/22/18 15:41 Last Admin: 02/22/18 16:26 Dose: 4 mg Ondansetron HCl (Zofran) 4 mg IVPUSH Q3H PRN PRN Reason: Nausea/Vomiting Last Admin: 02/24/18 11:34 Dose: 4 mg Paroxetine HCl (Paxil) 20 mg PO DAILY [facility]S [facility]CLUDE 234 BEDS AT [facility] Potassium Chloride (Klor-Con M20) 40 meq PO ONETIME ONE Stop: 02/25/18 08:23 Last Admin: 02/25/18 09:02 Dose: 40 meq Potassium Chloride (Klor-Con M20) 40 meq PO ONETIME ONE Stop: 02/25/18 12:29 Last Admin: 02/25/18 12:56 Dose: 40 meq Sodium Chloride (Saline Flush) 10 ml FLUSH ASDIRECTED PRN PRN Reason: Keep Vein Open Sodium Chloride (Saline Flush) 2.5 ml FLUSH ASDIRECTED PRN PRN Reason: Keep Vein Open Sodium Chloride (Saline Flush) 10 ml FLUSH ASDIRECTED PRN PRN Reason: Keep Vein Open Sodium Chloride (Saline Flush) 2.5 ml FLUSH ASDIRECTED PRN PRN Reason: Keep Vein Open Tramadol HCl (Ultram) 50 mg PO Q4H PRN PRN Reason: Pain Last Admin: 02/23/18 18:40 Dose: 50 mg Vancomycin HCl (First-Vancomycin 25 Compounding Kit) 125 mg PO Q6HR [facility] Last Admin: 02/25/18 11:05 Dose: 125 mg
== END 2018-02-25 13:28 | disposition home or self-care (01) | DRG 372 ==
LOC: MW.ED 15:03 → MW.MS 16:45 → MW.ED 18:02 → MW.MS 18:04 → OBSVTOIN 02-23 10:01 → MW.MS 02-23 10:47
PROVIDERS: ADMIT Internal Medicine; ATTEND Internal Medicine
DX: A04.72 Enterocolitis due to Clostridium difficile, not specified as recurrent (principal); N12 Tubulo-interstitial nephritis, not specified as acute or chronic; N39.0 Urinary tract infection, site not specified; M54.9 Dorsalgia, unspecified; N31.9 Neuromuscular dysfunction of bladder, unspecified; Q05.9 Spina bifida, unspecified; Z91.040 Latex allergy status; Z88.8 Allergy status to other drugs, medicaments and biological substances; Z79.899 Other long term (current) drug therapy; F17.200 Nicotine dependence, unspecified, uncomplicated
CPT/HCPCS: 36415 ×2; 80048; 80053; 83605; 83690; 85025 ×2; 87040 ×2; 96361; 96365; 96375; 99284; A9270 ×6; J0696; J1644 ×2; J1885; J2270 ×2; J2405 ×3; J2765; J7040 ×3; 72100; 72100-26; 82962; 85027; 87324; 96372; 96376; G0378; J7050

== ENCOUNTER 2018-09-11 08:53 | Inpatient (IN) | payer MEDICARE, MEDICAID ==
[2018-09-11] MEDS ORDERED: Sodium Chloride 0.9% 10 ML Syringe FLUSH PRN (09:27)
[2018-09-11] MEDS ORDERED: Sodium Chloride 0.9% 1,000 ML IV ONE (09:28)
[2018-09-11] MEDS ORDERED: HYDROmorphone 1 MG/ML Syringe IVPUSH ONE ×3 (09:29→11:45)
[2018-09-11] MEDS ORDERED: Ketorolac 30 MG/ML SDV IVPUSH ONE (09:29)
--- NOTE | 2018-09-11 09:35 | EDM.PDOC ---
ED HPI GENERAL MEDICAL PROBLEM - General Chief Complaint: Genitourinary Problem Stated Complaint: POSSIBLY KIDNEY INFECTION Time Seen by Provider: 09/11/18 09:12 - History of Present Illness INITIAL COMMENTS - FREE TEXT/NARRATIVE: HISTORY AND PHYSICAL: History of present illness: The patient is a 23-year-old female who is well known to this ED as well as his provider with a history of spina bifida and paraplegia chronic back pain and shoulder pain, chronic UTIs as well as chronic C. difficile and who presents with complaints of persistent lower back pain that started last week. The patient was seen in our clinic on Wednesday, 2 days ago and had a UA which I reviewed. It was positive again for UTI and she was started on a sulfa med. According to the computer a culture was not ordered for me to review. The patient says that she also received a shot of antibiotics in the clinic but she is not feeling better. She says that currently she is not taking medications for her chronic back and shoulder pain and she has not seen by pain management. She says she use [id number] essential oils as much as she can. She denies any fever but says she felt chilly last evening and she has had no anterior abdominal pain no vomiting no cough runny nose or sore throat. She says she has had mushy stools which are rest colored but not black or bloody and she is also concerned about a return of her C. difficile. The patient says that she self catheters herself and that she has been getting less urine output although she says she has been pushing fluids. The patient says she will intermittently get muscle spasms in her legs which is not new or different but she is having them more frequently over the last few days and she is concerned that the infection is progressing. She has not had any recent New trauma Review of systems: As per history of present illness and below otherwise all systems reviewed and negative. Past medical history: As per history of present illness and as reviewed below otherwise noncontributory. Surgical history: As per history of present illness and as reviewed below otherwise noncontributory. Social history: No reported history of drug or alcohol abuse. Family history: As per history of present illness and as reviewed below otherwise noncontributory. Physical exam: General: Well-developed petite female who is nontoxic but tearful my evaluation and vital signs have been reviewed by me. HEENT: Atraumatic, normocephalic, pupils reactive, negative for conjunctival pallor or scleral icterus, mucous membranes moist, throat clear, neck supple, nontender, trachea midline. Lungs: Clear to auscultation, breath sounds equal bilaterally, chest nontender. No wheezing stridor or work of breathing Heart: S1S2, regular rate and rhythm no overt murmurs Abdomen: Soft, nondistended, nontender. Negative for masses or hepatosplenomegaly. Negative for costovertebral tenderness. Bowel sounds are slightly hypoactive and there is actually no tenderness on deep palpation throughout the abdomen and no rebound or guarding. There is no tympany on percussion Pelvis: Stable nontender. Genitourinary: Deferred. Rectal: Deferred. Extremities: Atraumatic, patient with chronic atrophy of her lower extremities and after I assisted the nurse to move her into the bed she did have some spasm of her right lower extremity. These have full range of motion without defects or deficits Neurovascular unremarkable. Neuro: Awake, alert, oriented. Cranial nerves II through XII unremarkable. Motor and sensory unremarkable throughout with the exception of the chronic paraplegia of her lower extremities.. Back: There are no midline step-offs in his defects of the thoracic or lumbar spine and there is no discrete CVA tenderness Diagnostics: CBC CMP lipase UA UCG urine culture lactic acid blood cultures stool for culture and sensitivity and C. difficile CT scan of the abdomen and pelvis UDS Therapeutics: IV fluids Toradol Dilaudid Zofran 1135: Patient is still complaining of pain despite medications given so I will re-dose her with Dilaudid. She may be experiencing some bladder spasm which I' ll discuss with the hospitalist. I did discuss the CT scan findings with Dr. Arrington who feels this is likely a chronic issue as she has no upper abdominal pain and no upper abdominal symptoms such as nausea or vomiting. He said he would be available to Dr. Jacobo for consult as needed if any symptoms develop. I 've also discussed the CT scan findings and all testing results with the patient and have suggested observation admission for better pain management and further care and observation. She is agreeable. I discussed this case with Dr. Jacobo in our hospitalist at 11:45 AM. Please note that the patient has not produced a stool sample here in the ED. Impression: Acute on chronic intractable back pain, history of UTI on therapy, persistent bladder spasms and leg spasms Definitive disposition and diagnosis as appropriate pending reevaluation and review of above. Left Upper Shoulder Pain Score (Numeric/FACES): 10 - Related Data Allergies Allergy/AdvReac Type Severity Reaction Status Date / Time ciprofloxacin Allergy Hives Verified 09/11/18 09:21 latex Allergy Hives Verified 09/11/18 09:21 Home Meds: Home Meds Baclofen 20 mg PO Q6HR PRN 10/28/17 [History] Past Medical History - Past Health History Medical/Surgical History: Denies Medical/Surgical History HEENT History: Reports: None Cardiovascular History: Reports: None Respiratory History: Reports: None Gastrointestinal History: Reports: Cholelithiasis Genitourinary History: Reports: UTI, Recurrent, Other (See Below) Other Genitourinary History: one kidney smaller than other TRESTLEMAN History: Reports: None Musculoskeletal History: Reports: Other (See Below) Other Musculoskeletal History: spina bifida Neurological History: Reports: None Psychiatric History: Reports: None Endocrine/Metabolic History: Reports: None Hematologic History: Reports: None Immunologic History: Reports: None Oncologic (Cancer) History: Reports: None Dermatologic History: Reports: None - Infectious Disease History Infectious Disease History: Reports: C-Difficile - Past Surgical History Head Surgeries/Procedures: Reports: None HEENT Surgical History: Reports: None Cardiovascular Surgical History: Reports: None Respiratory Surgical History: Reports: None GI Surgical History: Reports: Cholecystectomy Female Surgical History: Reports: None Endocrine Surgical History: Reports: None Neurological Surgical History: Reports: Other (See Below) Other Neurological Surgeries/Procedures: spina bifida Musculoskeletal Surgical History: Reports: Other (See Below) Other Musculoskeletal Surgeries/Procedures:: back surgery Oncologic Surgical History: Reports: None Dermatological Surgical History: Reports: None Social & Family History - Family History Family Medical History: Noncontributory - Tobacco Use Smoking Status *Q: Current Some Day Smoker Years of Tobacco use: 6 Packs/Tins Daily: 0.2 - Caffeine Use Caffeine Use: Reports: Tea - Recreational Drug Use Recreational Drug Use: No ED ROS GENERAL - Review of Systems Review Of Systems: ROS reveals no pertinent complaints other than HPI. ED EXAM, GENERAL - Physical Exam Exam: See Below (See dictation) Course - Vital Signs Last Recorded V/S: Last Vital Signs Temp 36.5 C 09/11/18 09:17 Pulse 94 09/11/18 09:17 Resp 20 09/11/18 09:17 BP 140/89 09/11/18 09:17 Pulse Ox 98 09/11/18 09:17 - Orders/Labs/Meds Orders: Active Orders 24 hr Category Date Time Status Blood Glucose Check, Bedside [RC] ONETIME Care 09/11/18 09:26 Active Abdomen Pelvis wo Cont [CT] Stat Exams 09/11/18 09:28 Ordered CULTURE BLOOD [BC] Stat Lab 09/11/18 09:48 Received CULTURE BLOOD [BC] Stat Lab 09/11/18 10:03 Received CULTURE STOOL + CAMPY+SHIGATOX [RM] Stat Lab 09/11/18 09:29 Ordered CULTURE URINE [RM] Stat Lab 09/11/18 09:45 Received Clostridium Difficile [CDIFF TOX A+B] [OP] Stat Lab 09/11/18 09:29 Ordered Sodium Chloride 0.9% [Saline Flush] Med 09/11/18 09:27 Active 10 ml FLUSH ASDIRECTED PRN Sodium Chloride 0.9% [Saline Flush] Med 09/11/18 09:27 Active 2.5 ml FLUSH ASDIRECTED PRN Blood Culture x2 Reflex Set [OM.PC] Stat Oth 09/11/18 09:28 Ordered Saline Lock Insert [OM.PC] Stat Oth 09/11/18 09:26 Ordered Medication Orders Sodium Chloride (Saline Flush) 10 ml FLUSH ASDIRECTED PRN PRN Reason: Keep Vein Open Last Admin: 09/11/18 10:13 Dose: 10 ml Sodium Chloride (Saline Flush) 2.5 ml FLUSH ASDIRECTED PRN PRN Reason: Keep Vein Open Last Admin: 09/11/18 10:13 Dose: 2.5 ml Labs: Laboratory Tests 09/11/18 09/11/18 09/11/18 Range/Units 09:45 09:45 09:45 WBC (4.0-11.0) K/uL RBC (4.30-5.90) M/uL Hgb (12.0-16.0) g/dL Hct (36.0-46.0) % MCV (80.0-98.0) fL MCH (27.0-32.0) pg MCHC (31.0-37.0) g/dL RDW Std Deviation (28.0-62.0) fl RDW Coeff of Renetta (11.0-15.0) % Plt Count (150-400) K/uL MPV (7.40-12.00) fL Neut % (Auto) (48.0-80.0) % Lymph % (Auto) (16.0-40.0) % [place] % (Auto) (0.0-15.0) % Eos % (Auto) (0.0-7.0) % Baso % (Auto) (0.0-1.5) % Neut # (Auto) (1.4-5.7) K/uL Lymph # (Auto) (0.6-2.4) K/uL [place] # (Auto) (0.0-0.8) K/uL Eos # (Auto) (0.0-0.7) K/uL Baso # (Auto) (0.0-0.1) K/uL Nucleated RBC % /100WBC Nucleated RBCs # K/uL Lactate (0.20-2.00) mmol/L Sodium (136-145) mmol/L Potassium (3.5-5.1) mmol/L Chloride (98-107) mmol/L Carbon Dioxide (21.0-32.0) mmol/L BUN (7.0-18.0) mg/dL Creatinine (0.6-1.0) mg/dL Est Cr Clr Drug Dosing Estimated GFR (MDRD) ml/min Glucose (74-106) mg/dL Calcium (8.5-10.1) mg/dL Total Bilirubin (0.2-1.0) mg/dL AST (15-37) IU/L ALT (14-63) IU/L Alkaline Phosphatase (46-116) U/L Total Protein (6.4-8.2) g/dL Albumin (3.4-5.0) g/dL Globulin (2.6-4.0) g/dL Albumin/Globulin Ratio (0.9-1.6) Lipase (73-393) U/L Urine Color YELLOW Urine Appearance CLEAR Urine pH 7.0 (5.0-8.0) Ur Specific [place] 1.020 (1.001-1.035) Urine Protein TRACE H (NEGATIVE) mg/dL Urine Glucose (UA) NEGATIVE (NEGATIVE) mg/dL Urine Ketones NEGATIVE (NEGATIVE) mg/dL Urine Occult Blood MODERATE H (NEGATIVE) Urine Nitrite NEGATIVE (NEGATIVE) Urine Bilirubin NEGATIVE (NEGATIVE) Urine Urobilinogen 0.2 (<2.0) EU/dL Ur Leukocyte Esterase NEGATIVE (NEGATIVE) Urine RBC 4-6 (0-2/HPF) Urine WBC 3-8 (0-5/HPF) Ur Epithelial Cells FEW (NONE-FEW) Amorphous Sediment FEW (NEGATIVE) Urine Bacteria FEW (NEGATIVE) Urine Mucus FEW (NONE-MOD) Urine HCG, Qual NEGATIVE (NEGATIVE) Urine Opiates Screen NEGATIVE (NEGATIVE) Ur Oxycodone Screen NEGATIVE (NEGATIVE) Urine Methadone Screen NEGATIVE (NEGATIVE) Ur Barbiturates Screen NEGATIVE (NEGATIVE) Ur Phencyclidine Scrn NEGATIVE (NEGATIVE) Ur Amphetamine Screen NEGATIVE (NEGATIVE) U Methamphetamines Scrn NEGATIVE (NEGATIVE) U Benzodiazepines Scrn NEGATIVE (NEGATIVE) U Cocaine Metab Screen NEGATIVE (NEGATIVE) U Marijuana (THC) Screen NEGATIVE (NEGATIVE) 09/11/18 09/11/18 09/11/18 Range/Units 09:48 09:48 09:48 WBC 7.83 (4.0-11.0) K/uL RBC 4.54 (4.30-5.90) M/uL Hgb 14.2 (12.0-16.0) g/dL Hct 41.4 (36.0-46.0) % MCV 91.2 (80.0-98.0) fL MCH 31.3 (27.0-32.0) pg MCHC 34.3 (31.0-37.0) g/dL RDW Std Deviation 45.9 (28.0-62.0) fl RDW Coeff of Renetta 14 (11.0-15.0) % Plt Count 254 (150-400) K/uL MPV 10.20 (7.40-12.00) fL Neut % (Auto) 73.5 (48.0-80.0) % Lymph % (Auto) 16.1 (16.0-40.0) % [place] % (Auto) 9.7 (0.0-15.0) % Eos % (Auto) 0.4 (0.0-7.0) % Baso % (Auto) 0.3 (0.0-1.5) % Neut # (Auto) 5.8 H (1.4-5.7) K/uL Lymph # (Auto) 1.3 (0.6-2.4) K/uL [place] # (Auto) 0.8 (0.0-0.8) K/uL Eos # (Auto) 0.0 (0.0-0.7) K/uL Baso # (Auto) 0.0 (0.0-0.1) K/uL Nucleated RBC % 0.0 /100WBC Nucleated RBCs # 0 K/uL Lactate 1.4 (0.20-2.00) mmol/L Sodium 141 (136-145) mmol/L Potassium 3.6 (3.5-5.1) mmol/L Chloride 106 (98-107) mmol/L Carbon Dioxide 23.8 (21.0-32.0) mmol/L BUN 7 (7.0-18.0) mg/dL Creatinine 0.5 L (0.6-1.0) mg/dL Est Cr Clr Drug Dosing TNP Estimated GFR (MDRD) > 60.0 ml/min Glucose 96 (74-106) mg/dL Calcium 9.0 (8.5-10.1) mg/dL Total Bilirubin 0.3 (0.2-1.0) mg/dL AST 30 (15-37) IU/L ALT 37 (14-63) IU/L Alkaline Phosphatase 97 (46-116) U/L Total Protein 7.9 (6.4-8.2) g/dL Albumin 3.9 (3.4-5.0) g/dL Globulin 4.0 (2.6-4.0) g/dL Albumin/Globulin Ratio 1.0 (0.9-1.6) Lipase 179 (73-393) U/L Urine Color Urine Appearance Urine pH (5.0-8.0) Ur Specific [place] (1.001-1.035) Urine Protein (NEGATIVE) mg/dL Urine Glucose (UA) (NEGATIVE) mg/dL Urine Ketones (NEGATIVE) mg/dL Urine Occult Blood (NEGATIVE) Urine Nitrite (NEGATIVE) Urine Bilirubin (NEGATIVE) Urine Urobilinogen (<2.0) EU/dL Ur Leukocyte Esterase (NEGATIVE) Urine RBC (0-2/HPF) Urine WBC (0-5/HPF) Ur Epithelial Cells (NONE-FEW) Amorphous Sediment (NEGATIVE) Urine Bacteria (NEGATIVE) Urine Mucus (NONE-MOD) Urine HCG, Qual (NEGATIVE) Urine Opiates Screen (NEGATIVE) Ur Oxycodone Screen (NEGATIVE) Urine Methadone Screen (NEGATIVE) Ur Barbiturates Screen (NEGATIVE) Ur Phencyclidine Scrn (NEGATIVE) Ur Amphetamine Screen (NEGATIVE) U Methamphetamines Scrn (NEGATIVE) U Benzodiazepines Scrn (NEGATIVE) U Cocaine Metab Screen (NEGATIVE) U Marijuana (THC) Screen (NEGATIVE) Meds: Medications Generic Name Dose Route Start Last Admin Trade Name Freq PRN Reason Stop Dose Admin Sodium Chloride 10 ml 09/11/18 09:27 09/11/18 10:13 Saline Flush FLUSH 10 ml ASDIRECTED PRN Administration Keep Vein Open Sodium Chloride 2.5 ml 09/11/18 09:27 09/11/18 10:13 Saline Flush FLUSH 2.5 ml ASDIRECTED PRN Administration Keep Vein Open Discontinued Medications Generic Name Dose Route Start Last Admin Trade Name Freq PRN Reason Stop Dose Admin Hydromorphone HCl 1 mg 09/11/18 09:29 09/11/18 10:12 Dilaudid IVPUSH 09/11/18 09:30 1 mg ONETIME ONE Administration Hydromorphone HCl 1 mg 09/11/18 11:18 09/11/18 11:35 Dilaudid IVPUSH 09/11/18 11:19 Not Given ONETIME ONE Hydromorphone HCl 1 mg 09/11/18 11:45 09/11/18 11:35 Dilaudid IVPUSH 09/11/18 11:46 1 mg ONETIME ONE Administration Sodium Chloride 1,000 mls @ 999 mls/hr 09/11/18 09:28 09/11/18 10:00 Normal Saline IV 09/11/18 10:28 999 mls/hr STAT ONE Administration Ketorolac Tromethamine 30 mg 09/11/18 09:29 09/11/18 10:09 Toradol IVPUSH 09/11/18 09:30 30 mg ONETIME ONE Administration Ondansetron HCl 4 mg 09/11/18 09:57 09/11/18 10:04 Zofran IVPUSH 09/11/18 09:58 4 mg ONETIME ONE Administration Departure - Departure Time of Disposition: 11:51 Disposition: Refer to Observation Condition: Good Clinical Impression: Acute exacerbation of chronic low back pain, UTI, Urinary tract infectious disease - Discharge Information Referrals: Mague Quintero MD [Primary Care Provider] - Forms: ED Department Discharge - My Orders Last 24 Hours: My Active Orders 09/11/18 09:26 Blood Glucose Check, Bedside [RC] ONETIME Saline Lock Insert [OM.PC] Stat 09/11/18 09:27 Sodium Chloride 0.9% [Saline Flush] 10 ml FLUSH ASDIRECTED PRN Sodium Chloride 0.9% [Saline Flush] 2.5 ml FLUSH ASDIRECTED PRN 09/11/18 09:28 Abdomen Pelvis wo Cont [CT] Stat Blood Culture x2 Reflex Set [OM.PC] Stat 09/11/18 09:29 CULTURE STOOL + CAMPY+SHIGATOX [RM] Stat Clostridium Difficile [CDIFF TOX A+B] [OP] Stat 09/11/18 09:45 CULTURE URINE [RM] Stat 09/11/18 09:48 CULTURE BLOOD [BC] Stat 09/11/18 10:03 CULTURE BLOOD [BC] Stat - Assessment/Plan Last 24 Hours: My Active Orders 09/11/18 09:26 Blood Glucose Check, Bedside [RC] ONETIME Saline Lock Insert [OM.PC] Stat 09/11/18 09:27 Sodium Chloride 0.9% [Saline Flush] 10 ml FLUSH ASDIRECTED PRN Sodium Chloride 0.9% [Saline Flush] 2.5 ml FLUSH ASDIRECTED PRN 09/11/18 09:28 Abdomen Pelvis wo Cont [CT] Stat Blood Culture x2 Reflex Set [OM.PC] Stat 09/11/18 09:29 CULTURE STOOL + CAMPY+SHIGATOX [RM] Stat Clostridium Difficile [CDIFF TOX A+B] [OP] Stat 09/11/18 09:45 CULTURE URINE [RM] Stat 09/11/18 09:48 CULTURE BLOOD [BC] Stat 09/11/18 10:03 CULTURE BLOOD [BC] Stat
[2018-09-11] MEDS ORDERED: Ondansetron 4 MG/2 ML SDV IVPUSH ONE (09:57)
[2018-09-11] MEDS: Sodium Chloride 0.9% 2.5 ML Syringe FLUSH PRN (10:13)
[2018-09-11 10:54] LABS: CHLORIDE,CL 106 mmol/L (98-107); SODIUM,NA 141 mmol/L (136-145)
[2018-09-11] MEDS ORDERED: HYDROmorphone 1 MG/ML Syringe ONE (11:31)
[2018-09-11] MEDS ORDERED: Acetaminophen 325 MG Tab PO PRN (12:41)
[2018-09-11] MEDS ORDERED: Enoxaparin 30 MG/0.3 ML Syringe SUBCUT SCH (12:45)
--- NOTE | 2018-09-11 12:50 | PCM.HP ---
H&P History of Present Illness - General Date of Service: 09/11/18 Admit Problem/Dx: Admission Diagnosis/Problem Admission Diagnosis/Problem Back pain Source of Information: Patient History Limitations: Reports: No Limitations - History of Present Illness Initial Comments - Free Text/Narative: The patient is a 23-year-old lady who has a history of multiple admissions secondary to complicated urinary tract infections. The patient was last admitted to hospitalization in July 2018. The patient says that she continues to self catheterize herself and this will become more difficult. She also has severe back pain which is usually indicative of a urinary tract infection. The patient has spina bifida and uses a wheelchair to move around. The patient was evaluated for urinary tract infection on September 09, 2018 and had been given Bactrim and her urinary tract infection had not improved. She was having more pain in her lower back. More spasming in her urinary bladder. Patient had no radiation of the pain. She had no specific aggravating or relieving factors. The patient had denied any fever or chills. The patient was also concerned about possible return of C. difficile colitis as well. Onset of Symptoms: Reports: Gradual Duration of Symptoms: Reports: Day(s): Location: Reports: Abdomen, Back Quality: Reports: Stabbing Severity: Moderate Improves with: Reports: Medication Worsens with: Reports: None Associated Symptoms: Reports: No Other Symptoms Left Upper Shoulder Pain Score (Numeric/FACES): 10 - Related Data Allergies/Adverse Reactions: Allergies Allergy/AdvReac Type Severity Reaction Status Date / Time ciprofloxacin Allergy Hives Verified 09/11/18 09:21 latex Allergy Hives Verified 09/11/18 09:21 Home Medications: Home Meds Baclofen 20 mg PO Q6HR PRN 10/28/17 [History] Past Medical History - Past Health History Medical/Surgical History: Denies Medical/Surgical History HEENT History: Reports: None Cardiovascular History: Reports: None Respiratory History: Reports: None Gastrointestinal History: Reports: Cholelithiasis Genitourinary History: Reports: UTI, Recurrent, Other (See Below) Other Genitourinary History: one kidney smaller than other LACE SEWER History: Reports: None Musculoskeletal History: Reports: Other (See Below) Other Musculoskeletal History: spina bifida Neurological History: Reports: None Psychiatric History: Reports: None Endocrine/Metabolic History: Reports: None Hematologic History: Reports: None Immunologic History: Reports: None Oncologic (Cancer) History: Reports: None Dermatologic History: Reports: None - Infectious Disease History Infectious Disease History: Reports: C-Difficile - Past Surgical History Head Surgeries/Procedures: Reports: None HEENT Surgical History: Reports: None Cardiovascular Surgical History: Reports: None Respiratory Surgical History: Reports: None GI Surgical History: Reports: Cholecystectomy Female Surgical History: Reports: None Endocrine Surgical History: Reports: None Neurological Surgical History: Reports: Other (See Below) Other Neurological Surgeries/Procedures: spina bifida Musculoskeletal Surgical History: Reports: Other (See Below) Other Musculoskeletal Surgeries/Procedures:: back surgery Oncologic Surgical History: Reports: None Dermatological Surgical History: Reports: None Social & Family History - Family History Family Medical History: Noncontributory - Tobacco Use Smoking Status *Q: Current Some Day Smoker Years of Tobacco use: 6 Packs/Tins Daily: 0.2 - Caffeine Use Caffeine Use: Reports: Tea - Recreational Drug Use Recreational Drug Use: No H&P Review of Systems - Review of Systems: Review Of Systems: See Below General: Reports: Malaise, Weakness HEENT: Reports: No Symptoms Pulmonary: Reports: No Symptoms Cardiovascular: Reports: No Symptoms Gastrointestinal: Reports: No Symptoms Genitourinary: Reports: Dysuria, Frequency Musculoskeletal: Reports: Back Pain Skin: Reports: No Symptoms Psychiatric: Reports: No Symptoms Neurological: Reports: No Symptoms Hematologic/Lymphatic: Reports: No Symptoms Immunologic: Reports: No Symptoms Exam - Exam Exam: See Below - Vital Signs Vital Signs: Last Vital Signs Temp 36.5 C 09/11/18 09:17 Pulse 96 09/11/18 12:18 Resp 16 09/11/18 12:18 BP 118/61 09/11/18 12:18 Pulse Ox 96 09/11/18 12:18 Weight: 40.823 kg - Exam Quality Assessment: No: Supplemental Oxygen General: Alert, Oriented, Cooperative HEENT: Conjunctiva Clear, EACs Clear, EOMI, PERRLA. No: Mucosa Moist & [place] ( Dry) Neck: Supple, Trachea Midline Lungs: Clear to Auscultation, Normal Respiratory Effort Cardiovascular: Regular Rate, Regular Rhythm GI/Abdominal Exam: Normal Bowel Sounds, No Distention (Female) Exam: Deferred Rectal (Female) Exam: Deferred Back Exam: Full Range of Motion. No: Normal Inspection (Spina bifida) Extremities: No: Normal Inspection Skin: Warm, Dry, Intact Neurological: Cranial Nerves Intact Neuro Extensive - Mental Status: Alert, Oriented x3 Psychiatric: Alert, Normal Affect, Normal Mood - Patient Data Lab Results Last 24 hrs: Laboratory Results - last 24 hr 09/11/18 09/11/18 09/11/18 Range/Units 09:45 09:45 09:45 WBC (4.0-11.0) K/uL RBC (4.30-5.90) M/uL Hgb (12.0-16.0) g/dL Hct (36.0-46.0) % MCV (80.0-98.0) fL MCH (27.0-32.0) pg MCHC (31.0-37.0) g/dL RDW Std Deviation (28.0-62.0) fl RDW Coeff of Renetta (11.0-15.0) % Plt Count (150-400) K/uL MPV (7.40-12.00) fL Neut % (Auto) (48.0-80.0) % Lymph % (Auto) (16.0-40.0) % [place] % (Auto) (0.0-15.0) % Eos % (Auto) (0.0-7.0) % Baso % (Auto) (0.0-1.5) % Neut # (Auto) (1.4-5.7) K/uL Lymph # (Auto) (0.6-2.4) K/uL Rowan # (Auto) (0.0-0.8) K/uL Eos # (Auto) (0.0-0.7) K/uL Baso # (Auto) (0.0-0.1) K/uL Nucleated RBC % /100WBC Nucleated RBCs # K/uL Lactate (0.20-2.00) mmol/L Sodium (136-145) mmol/L Potassium (3.5-5.1) mmol/L Chloride (98-107) mmol/L Carbon Dioxide (21.0-32.0) mmol/L BUN (7.0-18.0) mg/dL Creatinine (0.6-1.0) mg/dL Est Cr Clr Drug Dosing Estimated GFR (MDRD) ml/min Glucose (74-106) mg/dL Calcium (8.5-10.1) mg/dL Total Bilirubin (0.2-1.0) mg/dL AST (15-37) IU/L ALT (14-63) IU/L Alkaline Phosphatase (46-116) U/L Total Protein (6.4-8.2) g/dL Albumin (3.4-5.0) g/dL Globulin (2.6-4.0) g/dL Albumin/Globulin Ratio (0.9-1.6) Lipase (73-393) U/L Urine Color YELLOW Urine Appearance CLEAR Urine pH 7.0 (5.0-8.0) Ur Specific [place] 1.020 (1.001-1.035) Urine Protein TRACE H (NEGATIVE) mg/dL Urine Glucose (UA) NEGATIVE (NEGATIVE) mg/dL Urine Ketones NEGATIVE (NEGATIVE) mg/dL Urine Occult Blood MODERATE H (NEGATIVE) Urine Nitrite NEGATIVE (NEGATIVE) Urine Bilirubin NEGATIVE (NEGATIVE) Urine Urobilinogen 0.2 (<2.0) EU/dL Ur Leukocyte Esterase NEGATIVE (NEGATIVE) Urine RBC 4-6 (0-2/HPF) Urine WBC 3-8 (0-5/HPF) Ur Epithelial Cells FEW (NONE-FEW) Amorphous Sediment FEW (NEGATIVE) Urine Bacteria FEW (NEGATIVE) Urine Mucus FEW (NONE-MOD) Urine HCG, Qual NEGATIVE (NEGATIVE) Urine Opiates Screen NEGATIVE (NEGATIVE) Ur Oxycodone Screen NEGATIVE (NEGATIVE) Urine Methadone Screen NEGATIVE (NEGATIVE) Ur Barbiturates Screen NEGATIVE (NEGATIVE) Ur Phencyclidine Scrn NEGATIVE (NEGATIVE) Ur Amphetamine Screen NEGATIVE (NEGATIVE) U Methamphetamines Scrn NEGATIVE (NEGATIVE) U Benzodiazepines Scrn NEGATIVE (NEGATIVE) U Cocaine Metab Screen NEGATIVE (NEGATIVE) U Marijuana (THC) Screen NEGATIVE (NEGATIVE) 09/11/18 09/11/18 09/11/18 Range/Units 09:48 09:48 09:48 WBC 7.83 (4.0-11.0) K/uL RBC 4.54 (4.30-5.90) M/uL Hgb 14.2 (12.0-16.0) g/dL Hct 41.4 (36.0-46.0) % MCV 91.2 (80.0-98.0) fL MCH 31.3 (27.0-32.0) pg MCHC 34.3 (31.0-37.0) g/dL RDW Std Deviation 45.9 (28.0-62.0) fl RDW Coeff of Renetta 14 (11.0-15.0) % Plt Count 254 (150-400) K/uL MPV 10.20 (7.40-12.00) fL Neut % (Auto) 73.5 (48.0-80.0) % Lymph % (Auto) 16.1 (16.0-40.0) % [place] % (Auto) 9.7 (0.0-15.0) % Eos % (Auto) 0.4 (0.0-7.0) % Baso % (Auto) 0.3 (0.0-1.5) % Neut # (Auto) 5.8 H (1.4-5.7) K/uL Lymph # (Auto) 1.3 (0.6-2.4) K/uL [place] # (Auto) 0.8 (0.0-0.8) K/uL Eos # (Auto) 0.0 (0.0-0.7) K/uL Baso # (Auto) 0.0 (0.0-0.1) K/uL Nucleated RBC % 0.0 /100WBC Nucleated RBCs # 0 K/uL Lactate 1.4 (0.20-2.00) mmol/L Sodium 141 (136-145) mmol/L Potassium 3.6 (3.5-5.1) mmol/L Chloride 106 (98-107) mmol/L Carbon Dioxide 23.8 (21.0-32.0) mmol/L BUN 7 (7.0-18.0) mg/dL Creatinine 0.5 L (0.6-1.0) mg/dL Est Cr Clr Drug Dosing TNP Estimated GFR (MDRD) > 60.0 ml/min Glucose 96 (74-106) mg/dL Calcium 9.0 (8.5-10.1) mg/dL Total Bilirubin 0.3 (0.2-1.0) mg/dL AST 30 (15-37) IU/L ALT 37 (14-63) IU/L Alkaline Phosphatase 97 (46-116) U/L Total Protein 7.9 (6.4-8.2) g/dL Albumin 3.9 (3.4-5.0) g/dL Globulin 4.0 (2.6-4.0) g/dL Albumin/Globulin Ratio 1.0 (0.9-1.6) Lipase 179 (73-393) U/L Urine Color Urine Appearance Urine pH (5.0-8.0) Ur Specific [place] (1.001-1.035) Urine Protein (NEGATIVE) mg/dL Urine Glucose (UA) (NEGATIVE) mg/dL Urine Ketones (NEGATIVE) mg/dL Urine Occult Blood (NEGATIVE) Urine Nitrite (NEGATIVE) Urine Bilirubin (NEGATIVE) Urine Urobilinogen (<2.0) EU/dL Ur Leukocyte Esterase (NEGATIVE) Urine RBC (0-2/HPF) Urine WBC (0-5/HPF) Ur Epithelial Cells (NONE-FEW) Amorphous Sediment (NEGATIVE) Urine Bacteria (NEGATIVE) Urine Mucus (NONE-MOD) Urine HCG, Qual (NEGATIVE) Urine Opiates Screen (NEGATIVE) Ur Oxycodone Screen (NEGATIVE) Urine Methadone Screen (NEGATIVE) Ur Barbiturates Screen (NEGATIVE) Ur Phencyclidine Scrn (NEGATIVE) Ur Amphetamine Screen (NEGATIVE) U Methamphetamines Scrn (NEGATIVE) U Benzodiazepines Scrn (NEGATIVE) U Cocaine Metab Screen (NEGATIVE) U Marijuana (THC) Screen (NEGATIVE) Result Diagrams: 09/11/18 09:48 09/11/18 09:48 - Problem List (1) UTI, Urinary tract infectious disease SNOMED Code(s): 97760537 ICD Code: N39.0 - URINARY TRACT INFECTION, SITE NOT SPECIFIED Status: Acute Priority: High Current Visit: Yes Problem Details: Recurrent (2) Acute exacerbation of chronic low back pain SNOMED Code(s): 107109472 ICD Code: M54.5 - LOW BACK PAIN; G89.29 - OTHER CHRONIC PAIN Status: Chronic Priority: High Current Visit: Yes (3) Acute cystitis SNOMED Code(s): 59179818 ICD Code: N30.00 - ACUTE CYSTITIS WITHOUT HEMATURIA Status: Chronic Priority: High Current Visit: Yes Qualifiers: Hematuria presence: without hematuria Qualified Code(s): N30.00 - Acute cystitis without hematuria (4) Neurogenic bladder SNOMED Code(s): 260825457 ICD Code: N31.9 - NEUROMUSCULAR DYSFUNCTION OF BLADDER, UNSPECIFIED Status : Chronic Priority: High Current Visit: Yes (5) Spina bifida SNOMED Code(s): 94342159 ICD Code: Q05.9 - SPINA BIFIDA, UNSPECIFIED Status: Chronic Priority: High Current Visit: Yes Qualifiers: Spinal region: lumbosacral Presence of hydrocephalus: without hydrocephalus Qualified Code(s): Q05.7 - Lumbar spina bifida without hydrocephalus Problem List Initiated/Reviewed/Updated: Yes Orders Last 24hrs: Active Orders 24 hr Category Date Time Status Patient Status [ADT] Stat ADT 09/11/18 11:51 Active Oxygen Therapy [RC] PRN Care 09/11/18 12:41 Active Up to Chair [RC] ASDIRECTED Care 09/11/18 12:41 Active Urinary Catheter Assessment [RC] ASDIRECTED Care 09/11/18 12:41 Active VTE/DVT Education [RC] PER UNIT ROUTINE Care 09/11/18 12:41 Active Vital Signs [RC] Q4H Care 09/11/18 12:41 Active Regular Diet [DIET] Diet 09/11/18 Dinner Active Abdomen Pelvis wo Cont [CT] Stat Exams 09/11/18 09:28 Taken BASIC METABOLIC PANEL,BMP [CHEM] AM Lab 09/12/18 05:11 Ordered CBC WITH AUTO DIFF [HEME] AM Lab 09/12/18 05:11 Ordered CULTURE BLOOD [BC] Stat Lab 09/11/18 09:48 Received CULTURE BLOOD [BC] Stat Lab 09/11/18 10:03 Received CULTURE STOOL + CAMPY+SHIGATOX [RM] Stat Lab 09/11/18 09:29 Ordered CULTURE URINE [RM] Stat Lab 09/11/18 09:45 Received Clostridium Difficile [CDIFF TOX A+B] [OP] Stat Lab 09/11/18 09:29 Ordered Acetaminophen [Tylenol] Med 09/11/18 12:41 Active 650 mg PO Q4H PRN Enoxaparin [Lovenox] Med 09/11/18 12:45 Active 30 mg SUBCUT Q24H Sodium Chloride 0.9% [Saline Flush] Med 09/11/18 09:27 Active 10 ml FLUSH ASDIRECTED PRN Sodium Chloride 0.9% [Saline Flush] Med 09/11/18 09:27 Active 2.5 ml FLUSH ASDIRECTED PRN Blood Culture x2 Reflex Set [OM.PC] Stat Oth 09/11/18 09:28 Ordered Saline Lock Insert [OM.PC] Stat Oth 09/11/18 09:26 Ordered Resuscitation Status Routine Resus Stat 09/11/18 12:41 Ordered Medication Orders Acetaminophen (Tylenol) 650 mg PO Q4H PRN PRN Reason: Pain (Mild 1-3)/fever Enoxaparin Sodium (Lovenox) 30 mg SUBCUT Q24H MILAN Sodium Chloride (Saline Flush) 10 ml FLUSH ASDIRECTED PRN PRN Reason: Keep Vein Open Last Admin: 09/11/18 10:13 Dose: 10 ml Sodium Chloride (Saline Flush) 2.5 ml FLUSH ASDIRECTED PRN PRN Reason: Keep Vein Open Last Admin: 09/11/18 10:13 Dose: 2.5 ml Assessment/Plan Comment:: The patient is a 22-year-old lady who has a history of multiple admissions secondary to come to get a urinary tract infections and spina bifida. She is to continue on her current antibiotics for now. This consisted Bactrim DS one by mouth twice a day. The patient also have her pain controlled with the use of chronic pain medications. She also have DVT prophylaxis with the use of Lovenox at 30 mg subcutaneous daily. Testing for C. difficile colitis is also been ordered. The patient should be able to be discharged in 1-2 days depending upon her symptomology. She is also been ordered to continue self-catheterization.
[2018-09-11] MEDS ORDERED: diazePAM 5 MG/ML MDV IV ONE (14:48)
[2018-09-11] MEDS: Ondansetron 4 MG/2 ML SDV IVPUSH PRN (15:15)
[2018-09-11] MEDS: Sulfamethoxazole/Trimethoprim 800-160 MG Tab PO SCH (20:44)
[2018-09-11] MEDS: Baclofen 10 MG Tab PO PRN (21:05)
[2018-09-11] MEDS ORDERED: diazePAM 5 MG/ML MDV ONE (21:32)
[2018-09-12] MEDS: Baclofen 10 MG Tab PO PRN ×3 (04:17→21:29)
[2018-09-12 06:31] LABS: CHLORIDE,CL 108 mmol/L (98-107); SODIUM,NA 141 mmol/L (136-145)
[2018-09-12] MEDS: Sulfamethoxazole/Trimethoprim 800-160 MG Tab PO SCH ×2 (08:23→20:00)
[2018-09-12] MEDS: Potassium Chloride 20 MEQ Tab.ER PO SCH ×2 (10:02→20:00)
--- NOTE | 2018-09-12 10:32 | CT ---
EXAM DATE: 09/11/18 PATIENT'S AGE: 23 Patient: CASSI HERNANDEZ Facility: [place], [place] Site Site : 1995 Study: CT Abdomen/Pelvis [id number]/[id number] 10:43:42 AM Ordering Physician: Ehsan Final Report: INDICATION: Abdominal pain. TECHNIQUE: CT abdomen and pelvis performed without oral IV contrast. COMPARISON: CT 07/10/2018. FINDINGS: Chronic dysplasia of the chest wall, hips, pelvis, and thoracic/lumbar spine. Fusion and kyphosis involving mid and upper lumbar and lower thoracic vertebral bodies. Chronic left-sided rib deformities either related to prior trauma or surgery. Diffuse stippled moderate amounts of calcification along the left lower pleural surface is stable and chronic and could be related to prior insult such as surgery, trauma, hemothorax, and/or infection/inflammation. Mild atelectasis and scarring in the left lower lobe. Stable changes of cholecystectomy. Liver extends into the mid to lower pelvis at and this is stable. Few benign calcifications along the surface of the spleen. Mild increased density in the medullary portions of both kidneys is again noted and could be related to dehydration or very early medullary nephrocalcinosis. Cortical thinning and scarring in the right lower kidney stable. Lobulated appearance of the left kidney is stable with moderately prominent areas of cortical thinning and scarring. Cannot exclude some focal eventration of the left hemidiaphragm wall versus stable moderate-sized diaphragmatic hernia. Apparent postsurgical changes along the left hemidiaphragm anteriorly. Portions of the stomach, duodenum, spleen, and left kidney may be herniated into the left lower chest and this is fairly stable. Urinary bladder wall somewhat thickened but not well distended and similar to prior exam. Cecum is located in the left lower abdomen and pelvis rectified of this was present previously. Remainder negative. IMPRESSION: 1. No acute disease in abdomen or pelvis. 2. Displayed involving the skeletal system diffusely is stable. 3. Moderate eventration left hemidiaphragm versus left diaphragmatic hernia containing fat and left abdominal organ stable. 4. Moderate lobulated appearance of both kidneys consistent with chronic renal insult stable. 5. Increased density which is mild of the medullary portions of both kidneys may be related to a dehydration or early medullary nephrocalcinosis. Other findings as above. Please note that all CT scans at this facility use dose modulation, iterative reconstruction, and/or weight-based dosing when appropriate to reduce radiation dose to as low as reasonably achievable. Dictated by Avinash Banda MD @ Sep 11 2018 10:56AM (Electronic Signature) Report Signed by Proxy. MTDD
--- NOTE | 2018-09-12 11:05 | PCM.PN ---
<KahlilSlick Z - Last Filed: 09/12/18 11:00> - General Info Date of Service: 09/12/18 Subjective Update: Patient is feeling better than yesterday however is still having diarrhea which has come back positive for C. difficile infection. - Patient Data Vitals - Most Recent: Last Vital Signs Temp 36.4 C 09/12/18 07:15 Pulse 70 09/12/18 07:15 Resp 18 09/12/18 07:15 BP 125/72 09/12/18 07:15 Pulse Ox 97 09/12/18 07:15 Weight - Most Recent: 40.823 kg I&O - Last 24 Hours: Intake & Output 09/11/18 09/12/18 09/12/18 22:59 06:59 14:59 Intake Total 250 740 Output Total 300 Balance 250 440 Lab Results Last 24 Hours: Laboratory Results - last 24 hr 09/11/18 09/12/18 09/12/18 Range/Units 09:48 05:00 05:24 WBC 4.88 (4.0-11.0) K/uL RBC 4.08 L (4.30-5.90) M/uL Hgb 12.3 (12.0-16.0) g/dL Hct 37.3 (36.0-46.0) % MCV 91.4 (80.0-98.0) fL MCH 30.1 (27.0-32.0) pg MCHC 33.0 (31.0-37.0) g/dL RDW Std Deviation 45.9 (28.0-62.0) fl RDW Coeff of Renetta 14 (11.0-15.0) % Plt Count 218 (150-400) K/uL MPV 10.60 (7.40-12.00) fL Neut % (Auto) 49.4 (48.0-80.0) % Lymph % (Auto) 32.6 (16.0-40.0) % Treasure % (Auto) 14.3 (0.0-15.0) % Eos % (Auto) 3.3 (0.0-7.0) % Baso % (Auto) 0.4 (0.0-1.5) % Neut # (Auto) 2.4 (1.4-5.7) K/uL Lymph # (Auto) 1.6 (0.6-2.4) K/uL Treasure # (Auto) 0.7 (0.0-0.8) K/uL Eos # (Auto) 0.2 (0.0-0.7) K/uL Baso # (Auto) 0.0 (0.0-0.1) K/uL Nucleated RBC % 0.0 /100WBC Nucleated RBCs # 0 K/uL Sodium 141 (136-145) mmol/L Potassium 3.6 (3.5-5.1) mmol/L Chloride 106 (98-107) mmol/L Carbon Dioxide 23.8 (21.0-32.0) mmol/L BUN 7 (7.0-18.0) mg/dL Creatinine 0.5 L (0.6-1.0) mg/dL Est Cr Clr Drug Dosing TNP Estimated GFR (MDRD) > 60.0 ml/min Glucose 96 (74-106) mg/dL Calcium 9.0 (8.5-10.1) mg/dL Phosphorus 3.1 (2.6-4.7) mg/dL Magnesium 1.8 (1.8-2.4) mg/dL Total Bilirubin 0.3 (0.2-1.0) mg/dL AST 30 (15-37) IU/L ALT 37 (14-63) IU/L Alkaline Phosphatase 97 (46-116) U/L Total Protein 7.9 (6.4-8.2) g/dL Albumin 3.9 (3.4-5.0) g/dL Globulin 4.0 (2.6-4.0) g/dL Albumin/Globulin Ratio 1.0 (0.9-1.6) Lipase 179 (73-393) U/L 09/12/18 Range/Units 05:24 WBC (4.0-11.0) K/uL RBC (4.30-5.90) M/uL Hgb (12.0-16.0) g/dL Hct (36.0-46.0) % MCV (80.0-98.0) fL MCH (27.0-32.0) pg MCHC (31.0-37.0) g/dL RDW Std Deviation (28.0-62.0) fl RDW Coeff of Renetta (11.0-15.0) % Plt Count (150-400) K/uL MPV (7.40-12.00) fL Neut % (Auto) (48.0-80.0) % Lymph % (Auto) (16.0-40.0) % Treasure % (Auto) (0.0-15.0) % Eos % (Auto) (0.0-7.0) % Baso % (Auto) (0.0-1.5) % Neut # (Auto) (1.4-5.7) K/uL Lymph # (Auto) (0.6-2.4) K/uL Treasure # (Auto) (0.0-0.8) K/uL Eos # (Auto) (0.0-0.7) K/uL Baso # (Auto) (0.0-0.1) K/uL Nucleated RBC % /100WBC Nucleated RBCs # K/uL Sodium 141 (136-145) mmol/L Potassium 3.3 L (3.5-5.1) mmol/L Chloride 108 H (98-107) mmol/L Carbon Dioxide 21.5 (21.0-32.0) mmol/L BUN 6 L (7.0-18.0) mg/dL Creatinine 0.4 L (0.6-1.0) mg/dL Est Cr Clr Drug Dosing 139.76 Estimated GFR (MDRD) > 60.0 ml/min Glucose 79 (74-106) mg/dL Calcium 8.2 L (8.5-10.1) mg/dL Phosphorus (2.6-4.7) mg/dL Magnesium (1.8-2.4) mg/dL Total Bilirubin (0.2-1.0) mg/dL AST (15-37) IU/L ALT (14-63) IU/L Alkaline Phosphatase (46-116) U/L Total Protein (6.4-8.2) g/dL Albumin (3.4-5.0) g/dL Globulin (2.6-4.0) g/dL Albumin/Globulin Ratio (0.9-1.6) Lipase (73-393) U/L Lewis Results Last 24 Hours: Microbiology 09/11/18 10:03 Aerobic Blood Culture - Preliminary Blood - Venous - Lab Draw NO GROWTH AFTER 1 DAY Anaerobic Blood Culture - Preliminary NO GROWTH AFTER 1 DAY 09/11/18 09:48 Aerobic Blood Culture - Preliminary Blood - Venous NO GROWTH AFTER 1 DAY Anaerobic Blood Culture - Preliminary NO GROWTH AFTER 1 DAY 09/12/18 00:53 Clostridium difficile Toxin A & B - Final Stool / Feces Positive C. Diff Antigen 09/12/18 00:53 Campylobacter Antigen Assay - Final Stool / Feces NEGATIVE [facility] Med Orders - Current: Current Medications Acetaminophen (Tylenol) 650 mg PO Q4H PRN PRN Reason: Pain (Mild 1-3)/fever Last Admin: 09/12/18 10:14 Dose: 650 mg Baclofen (Lioresal) 20 mg PO Q4H PRN PRN Reason: Spasms Last Admin: 09/12/18 08:35 Dose: 20 mg Heparin Sodium (Porcine) (Heparin Sodium) 5,000 units SUBCUT Q8H [facility] Ondansetron HCl (Zofran) 4 mg IVPUSH Q6H PRN PRN Reason: Nausea/Vomiting Last Admin: 09/11/18 15:15 Dose: 4 mg Potassium Chloride (Klor-Con M20) 40 meq PO BID [facility] Last Admin: 09/12/18 10:02 Dose: 40 meq Sodium Chloride (Saline Flush) 10 ml FLUSH ASDIRECTED PRN PRN Reason: Keep Vein Open Last Admin: 09/11/18 10:13 Dose: 10 ml Sodium Chloride (Saline Flush) 2.5 ml FLUSH ASDIRECTED PRN PRN Reason: Keep Vein Open Last Admin: 09/11/18 10:13 Dose: 2.5 ml Trimethoprim/Sulfamethoxazole (Septra Ds) 1 tab PO BID [facility] Last Admin: 09/12/18 08:23 Dose: 1 tab Vancomycin HCl (Pharmacy To Dose - Vancomycin) 1 dose .XX ASDIRECTED [facility] Vancomycin HCl (First-Vancomycin 25 Compounding Kit) 125 mg PO QID [facility] Discontinued Medications Diazepam (Valium) 2.5 mg IV ONETIME ONE Stop: 09/11/18 14:49 Last Admin: 09/11/18 15:18 Dose: 2.5 mg Diazepam (Valium) 2.5 mg IVPUSH ONETIME ONE Stop: 09/11/18 20:53 Last Admin: 09/11/18 21:40 Dose: 2.5 mg Diazepam (Valium) Confirm Administered Dose 5 mg .ROUTE .STK-MED ONE Stop: 09/11/18 21:33 Last Admin: 09/11/18 21:40 Dose: Not Given Enoxaparin Sodium (Lovenox) 30 mg SUBCUT Q24H [facility] Last Admin: 09/11/18 13:13 Dose: 30 mg Hydromorphone HCl (Dilaudid) 1 mg IVPUSH ONETIME ONE Stop: 09/11/18 09:30 Last Admin: 09/11/18 10:12 Dose: 1 mg Hydromorphone HCl (Dilaudid) 1 mg IVPUSH ONETIME ONE Stop: 09/11/18 11:19 Last Admin: 09/11/18 11:35 Dose: Not Given Hydromorphone HCl (Dilaudid) 1 mg IVPUSH ONETIME ONE Stop: 09/11/18 11:46 Last Admin: 09/11/18 11:35 Dose: 1 mg Hydromorphone HCl (Dilaudid) Confirm Administered Dose 1 mg .ROUTE .STK-MED ONE Stop: 09/11/18 11:32 Last Admin: 09/11/18 14:39 Dose: Not Given Sodium Chloride (Normal Saline) 1,000 mls @ 999 mls/hr IV STAT ONE Stop: 09/11/18 10:28 Last Admin: 09/11/18 10:00 Dose: 999 mls/hr Ketorolac Tromethamine (Toradol) 30 mg IVPUSH ONETIME ONE Stop: 09/11/18 09:30 Last Admin: 09/11/18 10:09 Dose: 30 mg Ondansetron HCl (Zofran) 4 mg IVPUSH ONETIME ONE Stop: 09/11/18 09:58 Last Admin: 09/11/18 10:04 Dose: 4 mg - Exam General: Alert, Oriented, Cooperative Lungs: Clear to Auscultation, Normal Respiratory Effort Cardiovascular: Regular Rate, Regular Rhythm Back Exam: Other (Patient is still complaining of some musculoskeletal pain and back shoulder of the left) - Problem List Review Problem List Initiated/Reviewed/Updated: Yes - My Orders Last 24 Hours: My Active Orders 09/12/18 09:00 Pharmacy to Dose - Vancomycin 1 dose .XX ASDIRECTED Potassium Chloride [Klor-Con M20] 40 meq PO BID 09/12/18 12:00 Vancomycin [First-Vancomycin 25 Compounding Kit] 125 mg PO QID - Plan Plan:: The patient is a 22-year-old lady who has a history of multiple admissions secondary to come to get a urinary tract infections and spina bifida who also has had a C. difficile culture come back positive. -Currently continue with antibiotics for the urinary tract infection, for the patient's positive C. difficile infection as this is a repeat infection the patient will require oral vancomycin 125 mg every 6 hours for a total of 14 days. FEN: Patient is not on any IV fluids, potassium at 3.3-which is being replaced, serum magnesium and phosphorus were checked and are normal, patient is on a regular diet DVT prophylaxis: Heparin 5000 units subcutaneous every 8 hours <Deangelo Jacobo - Last Filed: 09/12/18 11:37> - General Info Subjective Update: I have examined the patient independently of medical laboratory technician, Dr. Guillory, and have discussed the case with him. I have reviewed and agree with the findings and plan of care as outlined for this patient. Please see orders. - Patient Data Vitals - Most Recent: Last Vital Signs Temp 36.9 C 09/12/18 11:00 Pulse 91 09/12/18 11:00 Resp 16 09/12/18 11:00 BP 149/93 H 09/12/18 11:00 Pulse Ox 98 09/12/18 11:00 I&O - Last 24 Hours: Intake & Output 09/11/18 09/12/18 09/12/18 22:59 06:59 14:59 Intake Total 250 740 Output Total 300 Balance 250 440 Lab Results Last 24 Hours: Laboratory Results - last 24 hr 09/12/18 09/12/18 09/12/18 Range/Units 05:00 05:24 05:24 WBC 4.88 (4.0-11.0) K/uL RBC 4.08 L (4.30-5.90) M/uL Hgb 12.3 (12.0-16.0) g/dL Hct 37.3 (36.0-46.0) % MCV 91.4 (80.0-98.0) fL MCH 30.1 (27.0-32.0) pg MCHC 33.0 (31.0-37.0) g/dL RDW Std Deviation 45.9 (28.0-62.0) fl RDW Coeff of Renetta 14 (11.0-15.0) % Plt Count 218 (150-400) K/uL MPV 10.60 (7.40-12.00) fL Neut % (Auto) 49.4 (48.0-80.0) % Lymph % (Auto) 32.6 (16.0-40.0) % Treasure % (Auto) 14.3 (0.0-15.0) % Eos % (Auto) 3.3 (0.0-7.0) % Baso % (Auto) 0.4 (0.0-1.5) % Neut # (Auto) 2.4 (1.4-5.7) K/uL Lymph # (Auto) 1.6 (0.6-2.4) K/uL Treasure # (Auto) 0.7 (0.0-0.8) K/uL Eos # (Auto) 0.2 (0.0-0.7) K/uL Baso # (Auto) 0.0 (0.0-0.1) K/uL Nucleated RBC % 0.0 /100WBC Nucleated RBCs # 0 K/uL Sodium 141 (136-145) mmol/L Potassium 3.3 L (3.5-5.1) mmol/L Chloride 108 H (98-107) mmol/L Carbon Dioxide 21.5 (21.0-32.0) mmol/L BUN 6 L (7.0-18.0) mg/dL Creatinine 0.4 L (0.6-1.0) mg/dL Est Cr Clr Drug Dosing 139.76 mL/min Estimated GFR (MDRD) > 60.0 ml/min Glucose 79 (74-106) mg/dL Calcium 8.2 L (8.5-10.1) mg/dL Phosphorus 3.1 (2.6-4.7) mg/dL Magnesium 1.8 (1.8-2.4) mg/dL Lewis Results Last 24 Hours: Microbiology 09/11/18 10:03 Aerobic Blood Culture - Preliminary Blood - Venous - Lab Draw NO GROWTH AFTER 1 DAY Anaerobic Blood Culture - Preliminary NO GROWTH AFTER 1 DAY 09/11/18 09:48 Aerobic Blood Culture - Preliminary Blood - Venous NO GROWTH AFTER 1 DAY Anaerobic Blood Culture - Preliminary NO GROWTH AFTER 1 DAY 09/12/18 00:53 Clostridium difficile Toxin A & B - Final Stool / Feces Positive C. Diff Antigen 09/12/18 00:53 Campylobacter Antigen Assay - Final Stool / Feces NEGATIVE [facility] Med Orders - Current: Current Medications Acetaminophen (Tylenol) 650 mg PO Q4H PRN PRN Reason: Pain (Mild 1-3)/fever Last Admin: 09/12/18 10:14 Dose: 650 mg Baclofen (Lioresal) 20 mg PO Q4H PRN PRN Reason: Spasms Last Admin: 09/12/18 08:35 Dose: 20 mg Heparin Sodium (Porcine) (Heparin Sodium) 5,000 units SUBCUT Q8H [facility] Hydromorphone HCl (Dilaudid) 1 mg IVPUSH Q8H PRN PRN Reason: Pain (moderate 4-6) Ondansetron HCl (Zofran) 4 mg IVPUSH Q6H PRN PRN Reason: Nausea/Vomiting Last Admin: 09/11/18 15:15 Dose: 4 mg Potassium Chloride (Klor-Con M20) 40 meq PO BID [facility] Last Admin: 09/12/18 10:02 Dose: 40 meq Sodium Chloride (Saline Flush) 10 ml FLUSH ASDIRECTED PRN PRN Reason: Keep Vein Open Last Admin: 09/11/18 10:13 Dose: 10 ml Sodium Chloride (Saline Flush) 2.5 ml FLUSH ASDIRECTED PRN PRN Reason: Keep Vein Open Last Admin: 09/11/18 10:13 Dose: 2.5 ml Trimethoprim/Sulfamethoxazole (Septra Ds) 1 tab PO BID [facility] Last Admin: 09/12/18 08:23 Dose: 1 tab Vancomycin HCl (Pharmacy To Dose - Vancomycin) 1 dose .XX ASDIRECTED [facility] Vancomycin HCl (First-Vancomycin 25 Compounding Kit) 125 mg PO QID [facility] Discontinued Medications Diazepam (Valium) 2.5 mg IV ONETIME ONE Stop: 09/11/18 14:49 Last Admin: 09/11/18 15:18 Dose: 2.5 mg Diazepam (Valium) 2.5 mg IVPUSH ONETIME ONE Stop: 09/11/18 20:53 Last Admin: 09/11/18 21:40 Dose: 2.5 mg Diazepam (Valium) Confirm Administered Dose 5 mg .ROUTE .STK-MED ONE Stop: 09/11/18 21:33 Last Admin: 09/11/18 21:40 Dose: Not Given Enoxaparin Sodium (Lovenox) 30 mg SUBCUT Q24H [facility] Last Admin: 09/11/18 13:13 Dose: 30 mg Hydromorphone HCl (Dilaudid) 1 mg IVPUSH ONETIME ONE Stop: 09/11/18 09:30 Last Admin: 09/11/18 10:12 Dose: 1 mg Hydromorphone HCl (Dilaudid) 1 mg IVPUSH ONETIME ONE Stop: 09/11/18 11:19 Last Admin: 09/11/18 11:35 Dose: Not Given Hydromorphone HCl (Dilaudid) 1 mg IVPUSH ONETIME ONE Stop: 09/11/18 11:46 Last Admin: 09/11/18 11:35 Dose: 1 mg Hydromorphone HCl (Dilaudid) Confirm Administered Dose 1 mg .ROUTE .STK-MED ONE Stop: 09/11/18 11:32 Last Admin: 09/11/18 14:39 Dose: Not Given Hydromorphone HCl (Dilaudid) 0.5 mg IVPUSH Q6H PRN PRN Reason: Pain (moderate 4-6) Sodium Chloride (Normal Saline) 1,000 mls @ 999 mls/hr IV STAT ONE Stop: 09/11/18 10:28 Last Admin: 09/11/18 10:00 Dose: 999 mls/hr Ketorolac Tromethamine (Toradol) 30 mg IVPUSH ONETIME ONE Stop: 09/11/18 09:30 Last Admin: 09/11/18 10:09 Dose: 30 mg Ondansetron HCl (Zofran) 4 mg IVPUSH ONETIME ONE Stop: 09/11/18 09:58 Last Admin: 09/11/18 10:04 Dose: 4 mg - Problem List & Annotations (1) UTI, Urinary tract infectious disease SNOMED Code(s): 68237147 Code(s): N39.0 - URINARY TRACT INFECTION, SITE NOT SPECIFIED Status: Acute Priority: High Current Visit: Yes Annotation/Comment:: Recurrent (2) Acute exacerbation of chronic low back pain SNOMED Code(s): 112866710 Code(s): M54.5 - LOW BACK PAIN; G89.29 - OTHER CHRONIC PAIN Status: Chronic Priority: High Current Visit: Yes (3) Acute cystitis SNOMED Code(s): 89411415 Code(s): N30.00 - ACUTE CYSTITIS WITHOUT HEMATURIA Status: Chronic Priority: High Current Visit: Yes Qualifiers: Hematuria presence: without hematuria Qualified Code(s): N30.00 - Acute cystitis without hematuria (4) Neurogenic bladder SNOMED Code(s): 847240452 Code(s): N31.9 - NEUROMUSCULAR DYSFUNCTION OF BLADDER, UNSPECIFIED Status: Chronic Priority: High Current Visit: Yes (5) Spina bifida SNOMED Code(s): 33594720 Code(s): Q05.9 - SPINA BIFIDA, UNSPECIFIED Status: Chronic Priority: High Current Visit: Yes Qualifiers: Spinal region: lumbosacral Presence of hydrocephalus: without hydrocephalus Qualified Code(s): Q05.7 - Lumbar spina bifida without hydrocephalus - My Orders Last 24 Hours: My Active Orders 09/11/18 12:41 Oxygen Therapy [RC] PRN Up to Chair [RC] ASDIRECTED VTE/DVT Education [RC] PER UNIT ROUTINE Vital Signs [RC] Q4H Acetaminophen [Tylenol] 650 mg PO Q4H PRN Resuscitation Status Routine 09/11/18 14:49 Ondansetron [Zofran] 4 mg IVPUSH Q6H PRN 09/11/18 20:53 Baclofen [Lioresal] 20 mg PO Q4H PRN 09/11/18 21:00 Sulfamethoxazole/Trimethoprim [Septra DS] 1 tab PO BID 09/11/18 Dinner Regular Diet [DIET] 09/12/18 09:06 Precautions [COMM] Routine 09/12/18 14:00 Heparin Sodium 5,000 units SUBCUT Q8H
[2018-09-12] MEDS ORDERED: HYDROmorphone 2 MG/ML SDV IVPUSH PRN (11:27)
[2018-09-12] MEDS ORDERED: HYDROmorphone 2 MG/ML Syringe IVPUSH PRN (11:28)
[2018-09-12] MEDS: Vancomycin 25 MG/ML Compounding Kit PO SCH ×3 (11:46→23:11)
[2018-09-12] MEDS: Ondansetron 4 MG/2 ML SDV IVPUSH PRN ×2 (13:55→23:12)
[2018-09-12] MEDS: Sodium Chloride 0.9% 2.5 ML Syringe FLUSH PRN (13:55)
[2018-09-12] MEDS: Heparin Sodium 5,000 Units/ML Vial SUBCUT SCH ×2 (14:45→21:34)
[2018-09-12] MEDS: HYDROmorphone 2 MG/ML Syringe IVPUSH PRN ×2 (16:41→23:16)
[2018-09-13] MEDS: Heparin Sodium 5,000 Units/ML Vial SUBCUT SCH (06:05)
[2018-09-13] MEDS: Vancomycin 25 MG/ML Compounding Kit PO SCH ×2 (06:08→12:02)
[2018-09-13] MEDS: Potassium Chloride 20 MEQ Tab.ER PO SCH (09:20)
[2018-09-13] MEDS: Sulfamethoxazole/Trimethoprim 800-160 MG Tab PO SCH (09:20)
[2018-09-13] MEDS: HYDROmorphone 2 MG/ML Syringe IVPUSH PRN (09:38)
[2018-09-13] MEDS: Ondansetron 4 MG/2 ML SDV IVPUSH PRN (09:40)
[2018-09-13 10:14] LABS: CHLORIDE,CL 108 mmol/L (98-107); SODIUM,NA 141 mmol/L (136-145)
[2018-09-13 12:13] VITALS: BP 93/60
--- NOTE | 2018-09-13 12:16 | PCM.DCSUM1 ---
Discharge Summary - Discharge Data Discharge Date: 09/13/18 Discharge Disposition: Home, Self-Care 01 Condition: Good - Patient Summary/Data Hospital Course: The patient is a 23-year-old female with mh of spina bifida who has multiple admissions secondary to complicated urinary tract infections. The patient says that she continues to self catheterize herself and this will become more difficult. Patient presents with back pain and bladder spasms. She also reports diarrhea and has a history of C.diff infection in the past. This admission she tested positive for C.diff antigen. She was treated with bactrim and PO vancomycin. Today she is feeling better and is requesting discharge home. She is to be followed up with her PCP and Dr. Ott. - Discharge Plan Prescriptions/Med Rec: Sulfamethoxazole/Trimethoprim [Septra DS] 1 tab PO BID #10 tablet Vancomycin [First-Vancomycin 25 Compounding Kit] 125 mg PO QID 12 Days #1 bottle Home Medications: Home Meds Baclofen 20 mg PO Q4HR 10/28/17 [History] Sulfamethoxazole/Trimethoprim [Septra DS] 1 tab PO BID #10 tablet 09/13/18 [Rx] Vancomycin [First-Vancomycin 25 Compounding Kit] 125 mg PO QID 12 Days #1 bottle 09/13/18 [Rx] Referrals: Filomena Pulliam, BELL ATTENDANT [Nurse Practitioner] - 09/27/18 9:00 am - Discharge Summary/Plan Comment DC Time >30 min.: No - Patient Data Vitals - Most Recent: Last Vital Signs Temp 36.2 C 09/13/18 09:18 Pulse 78 09/13/18 09:18 Resp 18 09/13/18 09:18 BP 101/72 09/13/18 09:18 Pulse Ox 98 09/13/18 09:18 Weight - Most Recent: 40.823 kg I&O - Last 24 hours: Intake & Output 09/12/18 09/13/18 09/13/18 22:59 06:59 14:59 Intake Total 500 440 Output Total 600 500 Balance -100 -60 Lab Results - Last 24 hrs: Laboratory Results - last 24 hr 09/13/18 09/13/18 Range/Units 09:02 09:02 WBC 5.52 (4.0-11.0) K/uL RBC 4.38 (4.30-5.90) M/uL Hgb 13.4 (12.0-16.0) g/dL Hct 39.8 (36.0-46.0) % MCV 90.9 (80.0-98.0) fL MCH 30.6 (27.0-32.0) pg MCHC 33.7 (31.0-37.0) g/dL RDW Std Deviation 45.1 (28.0-62.0) fl RDW Coeff of Renetta 14 (11.0-15.0) % Plt Count 244 (150-400) K/uL MPV 10.30 (7.40-12.00) fL Neut % (Auto) 45.2 L (48.0-80.0) % Lymph % (Auto) 44.7 H (16.0-40.0) % [place] % (Auto) 7.2 (0.0-15.0) % Eos % (Auto) 2.7 (0.0-7.0) % Baso % (Auto) 0.2 (0.0-1.5) % Neut # (Auto) 2.5 (1.4-5.7) K/uL Lymph # (Auto) 2.5 H (0.6-2.4) K/uL [place] # (Auto) 0.4 (0.0-0.8) K/uL Eos # (Auto) 0.2 (0.0-0.7) K/uL Baso # (Auto) 0.0 (0.0-0.1) K/uL Nucleated RBC % 0.0 /100WBC Nucleated RBCs # 0 K/uL Sodium 141 (136-145) mmol/L Potassium 4.3 (3.5-5.1) mmol/L Chloride 108 H (98-107) mmol/L Carbon Dioxide 21.6 (21.0-32.0) mmol/L BUN 3 L (7.0-18.0) mg/dL Creatinine 0.4 L (0.6-1.0) mg/dL Est Cr Clr Drug Dosing 139.76 mL/min Estimated GFR (MDRD) > 60.0 ml/min Glucose 82 (74-106) mg/dL Calcium 9.0 (8.5-10.1) mg/dL Total Bilirubin 0.2 (0.2-1.0) mg/dL AST 34 (15-37) IU/L ALT 51 (14-63) IU/L Alkaline Phosphatase 91 (46-116) U/L Total Protein 7.3 (6.4-8.2) g/dL Albumin 3.6 (3.4-5.0) g/dL Globulin 3.7 (2.6-4.0) g/dL Albumin/Globulin Ratio 1.0 (0.9-1.6) JOSE Results - Last 24 hrs: Microbiology 09/11/18 10:03 Aerobic Blood Culture - Preliminary Blood - Venous - Lab Draw NO GROWTH AFTER 2 DAYS Anaerobic Blood Culture - Preliminary NO GROWTH AFTER 2 DAYS 09/11/18 09:48 Aerobic Blood Culture - Preliminary Blood - Venous NO GROWTH AFTER 2 DAYS Anaerobic Blood Culture - Preliminary NO GROWTH AFTER 2 DAYS 09/11/18 09:45 Urine Culture - Final Urine, Clean Catch Yeast Isolated Normal Urogenital Radha 09/12/18 00:53 Campylobacter Antigen Assay - Final Stool / Feces NEGATIVE [facility] Shiga Toxin I - Final NEGATIVE FOR SHIGA TOXIN 1 Shiga Toxin II - Final NEGATIVE FOR SHIGA TOXIN 2 09/12/18 11:55 Stool Occult Blood (JOSE) - Final Stool / Feces NEGATIVE OCCULT BLOOD Med Orders - Current: Current Medications Acetaminophen (Tylenol) 650 mg PO Q4H PRN PRN Reason: Pain (Mild 1-3)/fever Last Admin: 09/12/18 10:14 Dose: 650 mg Baclofen (Lioresal) 20 mg PO Q4H PRN PRN Reason: Spasms Last Admin: 09/12/18 21:29 Dose: 20 mg Heparin Sodium (Porcine) (Heparin Sodium) 5,000 units SUBCUT Q8H [facility] Last Admin: 09/13/18 06:05 Dose: 5,000 units Hydromorphone HCl (Dilaudid) 0.5 mg IVPUSH Q4H PRN PRN Reason: Pain Last Admin: 09/13/18 09:38 Dose: 0.5 mg Ondansetron HCl (Zofran) 4 mg IVPUSH Q6H PRN PRN Reason: Nausea/Vomiting Last Admin: 09/13/18 09:40 Dose: 4 mg Potassium Chloride (Klor-Con M20) 40 meq PO BID [facility] Last Admin: 09/13/18 09:20 Dose: 40 meq Sodium Chloride (Saline Flush) 10 ml FLUSH ASDIRECTED PRN PRN Reason: Keep Vein Open Last Admin: 09/11/18 10:13 Dose: 10 ml Sodium Chloride (Saline Flush) 2.5 ml FLUSH ASDIRECTED PRN PRN Reason: Keep Vein Open Last Admin: 09/12/18 13:55 Dose: 2.5 ml Trimethoprim/Sulfamethoxazole (Septra Ds) 1 tab PO BID [facility] Last Admin: 09/13/18 09:20 Dose: 1 tab Vancomycin HCl (Pharmacy To Dose - Vancomycin) 1 dose .XX ASDIRECTED [facility] Vancomycin HCl (First-Vancomycin 25 Compounding Kit) 125 mg PO QID [facility] Last Admin: 09/13/18 12:02 Dose: 5 ml Discontinued Medications Diazepam (Valium) 2.5 mg IV ONETIME ONE Stop: 09/11/18 14:49 Last Admin: 09/11/18 15:18 Dose: 2.5 mg Diazepam (Valium) 2.5 mg IVPUSH ONETIME ONE Stop: 09/11/18 20:53 Last Admin: 09/11/18 21:40 Dose: 2.5 mg Diazepam (Valium) Confirm Administered Dose 5 mg .ROUTE .STK-MED ONE Stop: 09/11/18 21:33 Last Admin: 09/11/18 21:40 Dose: Not Given Enoxaparin Sodium (Lovenox) 30 mg SUBCUT Q24H [facility] Last Admin: 09/11/18 13:13 Dose: 30 mg Hydromorphone HCl (Dilaudid) 1 mg IVPUSH ONETIME ONE Stop: 09/11/18 09:30 Last Admin: 09/11/18 10:12 Dose: 1 mg Hydromorphone HCl (Dilaudid) 1 mg IVPUSH ONETIME ONE Stop: 09/11/18 11:19 Last Admin: 09/11/18 11:35 Dose: Not Given Hydromorphone HCl (Dilaudid) 1 mg IVPUSH ONETIME ONE Stop: 09/11/18 11:46 Last Admin: 09/11/18 11:35 Dose: 1 mg Hydromorphone HCl (Dilaudid) Confirm Administered Dose 1 mg .ROUTE .STK-MED ONE Stop: 09/11/18 11:32 Last Admin: 09/11/18 14:39 Dose: Not Given Hydromorphone HCl (Dilaudid) 0.5 mg IVPUSH Q6H PRN PRN Reason: Pain (moderate 4-6) Hydromorphone HCl (Dilaudid) 1 mg IVPUSH Q8H PRN PRN Reason: Pain (moderate 4-6) Last Admin: 09/12/18 11:47 Dose: 1 mg Sodium Chloride (Normal Saline) 1,000 mls @ 999 mls/hr IV STAT ONE Stop: 09/11/18 10:28 Last Admin: 09/11/18 10:00 Dose: 999 mls/hr Ketorolac Tromethamine (Toradol) 30 mg IVPUSH ONETIME ONE Stop: 09/11/18 09:30 Last Admin: 09/11/18 10:09 Dose: 30 mg Ondansetron HCl (Zofran) 4 mg IVPUSH ONETIME ONE Stop: 09/11/18 09:58 Last Admin: 09/11/18 10:04 Dose: 4 mg
== END 2018-09-13 14:05 | disposition home or self-care (01) | DRG 372 ==
LOC: MW.ED 08:53 → MW.MS 12:00 → OBSVTOIN 09-12 11:07 → MW.MS 09-12 13:57
PROVIDERS: ADMIT Internal Medicine; ATTEND Internal Medicine
DX: A04.72 Enterocolitis due to Clostridium difficile, not specified as recurrent (principal); N39.0 Urinary tract infection, site not specified; Q05.9 Spina bifida, unspecified; G82.20 Paraplegia, unspecified; M54.5 Low back pain; G89.29 Other chronic pain; N32.89 Other specified disorders of bladder; M62.838 Other muscle spasm; N31.9 Neuromuscular dysfunction of bladder, unspecified; Q05.7 Lumbar spina bifida without hydrocephalus; F17.210 Nicotine dependence, cigarettes, uncomplicated; Z88.1 Allergy status to other antibiotic agents; Z91.040 Latex allergy status; Z79.899 Other long term (current) drug therapy; Z87.440 Personal history of urinary (tract) infections; Z99.3 Dependence on wheelchair; Z90.49 Acquired absence of other specified parts of digestive tract
CPT/HCPCS: 36415; 74176; 80048; 80053; 80305; 81001; 81025; 83605; 83690; 83735; 84100; 85025 ×2; 87040 ×2; 87046; 87086; 87324; 87899 ×3; 96361; 96374; 96375; 96376; 99284; A9270 ×8; J1170 ×2; J1650; J1885; J2405 ×2; J3360; J7040; 82272; 96372; 99283; G0378; J1644

== ENCOUNTER 2018-11-23 14:52 | Emergency (ER) | payer MEDICARE, MEDICAID ==
[2018-11-23] MEDS ORDERED: Sodium Chloride 0.9% 1,000 ML IV ONE (15:34)
[2018-11-23] MEDS ORDERED: Ondansetron 4 MG/2 ML SDV IVPUSH ONE (15:34)
--- NOTE | 2018-11-23 15:36 | EDM.PDOC ---
ED HPI GENERAL MEDICAL PROBLEM - General Chief Complaint: Back Pain or Injury Stated Complaint: BACK PAIN Time Seen by Provider: 11/23/18 15:26 Source of Information: Reports: Patient History Limitations: Reports: No Limitations - History of Present Illness INITIAL COMMENTS - FREE TEXT/NARRATIVE: HISTORY AND PHYSICAL: History of present illness: Patient is a 23-year-old female who presents to the emergency room with complaints of left upper back pain below the scapula. She states she has had associated nausea, vomiting, diarrhea and dysuria. Patient does have a history of spina bifida, wheelchair bound and recurrent UTIs. She denies any recent injury, trauma or falls. She denies any fever, chills, headache, change in vision, syncope or near syncope. Denies any chest pain, shortness of breath or cough. Denies any abdominal pain, blood in urine or stool. Patient has been eating and drinking appropriately. Review of systems: As per history of present illness and below otherwise all systems reviewed and negative. Past medical history: As per history of present illness and as reviewed below otherwise noncontributory. Surgical history: As per history of present illness and as reviewed below otherwise noncontributory. Social history: See social history for further information Family history: As per history of present illness and as reviewed below otherwise noncontributory. Physical exam: General: Nontoxic-appearing 23-year-old female. She is in a wheelchair. Vital signs have been reviewed by me. Appears in no acute distress. HEENT: Atraumatic, normocephalic, pupils equal and reactive bilaterally, negative for conjunctival pallor or scleral icterus, mucous membranes moist, TMs normal bilaterally, throat clear, neck supple, nontender, trachea midline. No drooling or trismus noted. No meningeal signs. No hot potato voice noted. Lungs: Clear to auscultation, breath sounds equal bilaterally, chest nontender. Heart: S1S2, regular rate and rhythm without overt murmur Abdomen: Soft, nondistended, nontender. Negative for masses or hepatosplenomegaly. Negative for costovertebral tenderness. Pelvis: Stable nontender. Genitourinary: Deferred. Rectal: Deferred. Skin: Intact, warm, dry. No lesions or rashes noted. C-spine/Back: No pinpoint vertebral tenderness upon palpation. No crepitus, step -offs or obvious deformities. Extremities: Atraumatic, moves all extremities per self without difficulty or deficits, negative for cords or calf pain. Neurovascular unremarkable. Neuro: Awake, alert, oriented. Cranial nerves II through XII unremarkable. Cerebellum unremarkable. Motor and sensory unremarkable throughout. Exam nonfocal. Notes: Patient does have a urinary tract infection. Initially he was connected to his abdomen and pelvis with the patient is not able to lay flat on her back as she does have a normal variance of muscle spasms/twitching. She declines the CT at this time. Will treat with Macrobid and Pyridium. She was unable to provide a stool sample that was adequate. We discussed providing a sample and bring it back for outpatient labs. Supplies given patient for further testing. We discussed the need for appropriate follow-up with her primary care provider. Supportive care measures were reviewed and discussed. Voices understanding and is agreeable to plan of care. Denies any further questions or concerns at this time. Diagnostics: CBC, CMP, UA, Stool Studies, CT abd/pelvis Therapeutics: IV fluid, Zofran, Toradol Prescription: Macrobid Pyridium Outpatient stool studies Impression: UTI Plan: 1. Increase your oral fluids. 2. Take the medications as prescribed. 3. As we discussed he may bring a stool study back for further evaluation if you continue to have diarrhea. 4. Follow up with her primary care provider as we discussed. Return to the ED as needed and as discussed. Definitive disposition and diagnosis as appropriate pending reevaluation and review of above. back Pain Score (Numeric/FACES): 10 - Related Data Allergies Allergy/AdvReac Type Severity Reaction Status Date / Time ciprofloxacin Allergy Hives Verified 09/11/18 09:21 latex Allergy Hives Verified 09/11/18 09:21 Home Meds: Home Meds Baclofen 20 mg PO Q4HR 10/28/17 [History] Nitrofurantoin Monohyd/M-Cryst [Macrobid 100 mg Capsule] 100 mg PO BID 7 Days # 14 capsule 11/23/18 [Rx] Phenazopyridine [Pyridium] 100 mg PO TID PRN 2 Days #6 tab 11/23/18 [Rx] Past Medical History - Past Health History Medical/Surgical History: Denies Medical/Surgical History HEENT History: Reports: None Cardiovascular History: Reports: None Respiratory History: Reports: None Gastrointestinal History: Reports: Cholelithiasis Genitourinary History: Reports: UTI, Recurrent, Other (See Below) Other Genitourinary History: one kidney smaller than other BREAD ICER History: Reports: None Musculoskeletal History: Reports: Other (See Below) Other Musculoskeletal History: spina bifida Neurological History: Reports: None Psychiatric History: Reports: None Endocrine/Metabolic History: Reports: None Hematologic History: Reports: None Immunologic History: Reports: None Oncologic (Cancer) History: Reports: None Dermatologic History: Reports: None - Infectious Disease History Infectious Disease History: Reports: C-Difficile - Past Surgical History Head Surgeries/Procedures: Reports: None HEENT Surgical History: Reports: None Cardiovascular Surgical History: Reports: None Respiratory Surgical History: Reports: None GI Surgical History: Reports: Cholecystectomy Female Surgical History: Reports: None Endocrine Surgical History: Reports: None Neurological Surgical History: Reports: Other (See Below) Other Neurological Surgeries/Procedures: spina bifida Musculoskeletal Surgical History: Reports: Other (See Below) Other Musculoskeletal Surgeries/Procedures:: back surgery Oncologic Surgical History: Reports: None Dermatological Surgical History: Reports: None Social & Family History - Family History Family Medical History: Noncontributory - Tobacco Use Smoking Status *Q: Light Tobacco Smoker Years of Tobacco use: 3 Packs/Tins Daily: 0.3 - Caffeine Use Caffeine Use: Reports: Tea - Recreational Drug Use Recreational Drug Use: Yes Recreational Drug Type: Reports: Marijuana/Hashish Recreational Drug Use Frequency: Socially ED ROS GENERAL - Review of Systems Review Of Systems: ROS reveals no pertinent complaints other than HPI. ED EXAM, UPPER BACK/NECK PAIN - Physical Exam Exam: See Below (See dictation) Course - Vital Signs Last Recorded V/S: Last Vital Signs Temp 97.2 F 11/23/18 15:02 Pulse 104 H 11/23/18 15:02 Resp 20 11/23/18 15:02 BP 116/68 11/23/18 15:02 Pulse Ox 97 11/23/18 15:02 - Orders/Labs/Meds Orders: Active Orders 24 hr Category Date Time Status CDIFF TOX A+B [OP] Stat Lab 11/23/18 16:45 Ordered CULTURE STOOL + CAMPY+SHIGATOX [RM] Stat Lab 11/23/18 16:45 Ordered CULTURE URINE [RM] Stat Lab 11/23/18 16:28 Received OVA & PARASITES BY IMMUNOASSAY [MREF] Stat Lab 11/23/18 16:45 Ordered Labs: Laboratory Tests 11/23/18 11/23/18 11/23/18 Range/Units 16:25 16:25 16:28 WBC 13.76 H (4.0-11.0) K/uL RBC 4.61 (4.30-5.90) M/uL Hgb 14.3 (12.0-16.0) g/dL Hct 42.1 (36.0-46.0) % MCV 91.3 (80.0-98.0) fL MCH 31.0 (27.0-32.0) pg MCHC 34.0 (31.0-37.0) g/dL RDW Std Deviation 47.8 (28.0-62.0) fl RDW Coeff of Renetta 15 (11.0-15.0) % Plt Count 312 (150-400) K/uL MPV 10.10 (7.40-12.00) fL Neut % (Auto) 68.1 (48.0-80.0) % Lymph % (Auto) 24.1 (16.0-40.0) % [place] % (Auto) 6.6 (0.0-15.0) % Eos % (Auto) 0.8 (0.0-7.0) % Baso % (Auto) 0.4 (0.0-1.5) % Neut # (Auto) 9.4 H (1.4-5.7) K/uL Lymph # (Auto) 3.3 H (0.6-2.4) K/uL [place] # (Auto) 0.9 H (0.0-0.8) K/uL Eos # (Auto) 0.1 (0.0-0.7) K/uL Baso # (Auto) 0.1 (0.0-0.1) K/uL Nucleated RBC % 0.0 /100WBC Nucleated RBCs # 0 K/uL Sodium 138 (136-145) mmol/L Potassium 3.9 (3.5-5.1) mmol/L Chloride 102 (98-107) mmol/L Carbon Dioxide 22.1 (21.0-32.0) mmol/L BUN 13 (7.0-18.0) mg/dL Creatinine 0.5 L (0.6-1.0) mg/dL Est Cr Clr Drug Dosing TNP Estimated GFR (MDRD) > 60.0 ml/min Glucose 94 (74-106) mg/dL Calcium 9.1 (8.5-10.1) mg/dL Total Bilirubin 0.6 (0.2-1.0) mg/dL AST 15 (15-37) IU/L ALT 21 (14-63) IU/L Alkaline Phosphatase 75 (46-116) U/L Total Protein 8.2 (6.4-8.2) g/dL Albumin 4.2 (3.4-5.0) g/dL Globulin 4.0 (2.6-4.0) g/dL Albumin/Globulin Ratio 1.0 (0.9-1.6) Urine Color YELLOW Urine Appearance CLOUDY Urine pH 6.0 (5.0-8.0) Ur Specific [place] 1.020 (1.001-1.035) Urine Protein 30 H (NEGATIVE) mg/dL Urine Glucose (UA) NEGATIVE (NEGATIVE) mg/dL Urine Ketones NEGATIVE (NEGATIVE) mg/dL Urine Occult Blood LARGE H (NEGATIVE) Urine Nitrite POSITIVE H (NEGATIVE) Urine Bilirubin NEGATIVE (NEGATIVE) Urine Urobilinogen 0.2 (<2.0) EU/dL Ur Leukocyte Esterase SMALL H (NEGATIVE) Urine RBC 2-3 (0-2/HPF) Urine WBC 1-2 (0-5/HPF) Ur Epithelial Cells RARE (NONE-FEW) Urine Bacteria 1+ H (NEGATIVE) Meds: Medications Discontinued Medications Generic Name Dose Route Start Last Admin Trade Name Freq PRN Reason Stop Dose Admin Sodium Chloride 1,000 mls @ 999 mls/hr 11/23/18 15:34 11/23/18 16:21 Normal Saline IV 11/23/18 16:34 999 mls/hr STAT ONE Administration Morphine Sulfate 2 mg 11/23/18 16:30 11/23/18 16:34 Morphine IVPUSH 11/23/18 16:31 2 mg ONETIME ONE Administration Ondansetron HCl 4 mg 11/23/18 15:34 11/23/18 16:21 Zofran IVPUSH 11/23/18 15:35 4 mg ONETIME ONE Administration Departure - Departure Time of Disposition: 17:15 Disposition: Home, Self-Care 01 Clinical Impression: UTI (urinary tract infection) Qualifiers: Urinary tract infection type: site unspecified Hematuria presence: without hematuria Qualified Code(s): N39.0 - Urinary tract infection, site not specified - Discharge Information Prescriptions: Nitrofurantoin Monohyd/M-Cryst [Macrobid 100 mg Capsule] 100 mg PO BID 7 Days # 14 capsule Phenazopyridine [Pyridium] 100 mg PO TID PRN 2 Days #6 tab PRN Reason: Dysuria Instructions: Urinary Tract Infection, Adult, [id number] Referrals: PCP,Unknown [Primary Care Provider] - Forms: ED Department Discharge Additional Instructions: The following information is given to patients seen in the emergency department who are being discharged to home. This information is to outline your options for follow-up care. We provide all patients seen in our emergency department with a follow-up referral. The need for follow-up, as well as the timing and circumstances, are variable depending upon the specifics of your emergency department visit. If you don't have a primary care physician on staff, we will provide you with a referral. We always advise you to contact your personal physician following an emergency department visit to inform them of the circumstance of the visit and for follow-up with them and/or the need for any referrals to a consulting specialist. The emergency department will also refer you to a specialist when appropriate. This referral assures that you have the opportunity for follow-up care with a specialist. All of these measure are taken in an effort to provide you with optimal care, which includes your follow-up. Under all circumstances we always encourage you to contact your private physician who remains a resource for coordinating your care. When calling for follow-up care, please make the office aware that this follow-up is from your recent emergency room visit. If for any reason you are refused follow-up, please contact the [facility] Emergency Department at and asked to speak to the emergency department charge nurse. [facility] [address] [place] [id number] [id number] 1. Increase your oral fluids. 2. Take the medications as prescribed. 3. As we discussed he may bring a stool study back for further evaluation if you continue to have diarrhea. 4. Follow up with her primary care provider as we discussed. Return to the ED as needed and as discussed. - My Orders Last 24 Hours: My Active Orders 11/23/18 16:28 CULTURE URINE [RM] Stat 11/23/18 16:45 CDIFF TOX A+B [OP] Stat CULTURE STOOL + CAMPY+SHIGATOX [RM] Stat OVA & PARASITES BY IMMUNOASSAY [MREF] Stat - Assessment/Plan Last 24 Hours: My Active Orders 11/23/18 16:28 CULTURE URINE [RM] Stat 11/23/18 16:45 CDIFF TOX A+B [OP] Stat CULTURE STOOL + CAMPY+SHIGATOX [RM] Stat OVA & PARASITES BY IMMUNOASSAY [MREF] Stat
[2018-11-23] MEDS ORDERED: Morphine 2 MG/ML Syringe IVPUSH ONE (16:30)
[2018-11-23 16:52] LABS: CHLORIDE,CL 102 mmol/L (98-107); SODIUM,NA 138 mmol/L (136-145)
[2018-11-23 18:24] VITALS: BP 139/70
== END 2018-11-23 17:37 | disposition home or self-care (01) ==
LOC: MW.ED 14:52
DX: N39.0 Urinary tract infection, site not specified (principal); F17.210 Nicotine dependence, cigarettes, uncomplicated; Z88.1 Allergy status to other antibiotic agents; Z91.040 Latex allergy status; Z79.899 Other long term (current) drug therapy
CPT/HCPCS: 36415; 80053; 81001; 85025; 87077; 87086; 87186; 96361; 96374; 96375; 99283; J2270; J2405; J7040

== ENCOUNTER 2019-05-31 17:19 | Emergency (ER) | payer MEDICARE, MEDICAID ==
[2019-05-31] MEDS ORDERED: Ondansetron 4 MG Tab.DIS PO PRN (18:05)
[2019-05-31] MEDS ORDERED: Ketorolac 60 MG/2 ML SDV IM ONE (18:05)
--- NOTE | 2019-05-31 18:17 | EDM.PDOC ---
<Miguel Ceja - Last Filed: 05/31/19 18:37> ED HPI GENERAL MEDICAL PROBLEM - General Chief Complaint: Back Pain or Injury Stated Complaint: BACK PAIN Time Seen by Provider: 05/31/19 18:15 Source of Information: Reports: Patient - History of Present Illness INITIAL COMMENTS - FREE TEXT/NARRATIVE: HISTORY AND PHYSICAL: History of present illness: []Patient with history of spina bifida post low back surgery in remote past presents with left flank pain increasing over the last 3 days she rates at 20 out of 10, no apparent distress however she does have history of chronic UTI , pain radiates to the left groin no fever chills sweats she has vomited 4 times today per patient Review of systems: As per history of present illness and below otherwise all systems reviewed and negative. Past medical history: As per history of present illness and as reviewed below otherwise noncontributory. Surgical history: As per history of present illness and as reviewed below otherwise noncontributory. Social history: No reported history of drug or alcohol abuse. Family history: As per history of present illness and as reviewed below otherwise noncontributory. Physical exam: HEENT: Atraumatic, normocephalic, pupils reactive, negative for conjunctival pallor or scleral icterus, mucous membranes moist, throat clear, neck supple, nontender, trachea midline. Lungs: Clear to auscultation, breath sounds equal bilaterally, chest nontender. Heart: S1S2, regular, negative for clicks, rubs, or JVD. Abdomen: Soft, nondistended, nontender. Negative for masses or hepatosplenomegaly. Negative for costovertebral tenderness. Pelvis: Stable nontender. Genitourinary: Deferred. Rectal: Deferred. Extremities: Atraumatic, negative for cords or calf pain. Neurovascular unremarkable. Neuro: Awake, alert, oriented. Cranial nerves II through XII unremarkable. Cerebellum unremarkable. Motor and sensory unremarkable throughout. Exam nonfocal. Diagnostics: [CBC CMP UA hCG CT abdomen pelvis no contrast ] Therapeutics: [Zofran 8 mg ODT Toradol ] Impression: [ left flank pain ] Definitive disposition and diagnosis as appropriate pending reevaluation and review of above. L flank and lower back Pain Score (Numeric/FACES): 10 - Related Data Allergies Allergy/AdvReac Type Severity Reaction Status Date / Time ciprofloxacin Allergy Hives Verified 05/31/19 17:37 latex Allergy Hives Verified 05/31/19 17:37 Home Meds: Home Meds Baclofen 20 mg PO Q4HR 10/28/17 [History] Past Medical History - Past Health History Medical/Surgical History: Denies Medical/Surgical History HEENT History: Reports: None Cardiovascular History: Reports: None Respiratory History: Reports: None Gastrointestinal History: Reports: Cholelithiasis Genitourinary History: Reports: UTI, Recurrent, Other (See Below) Other Genitourinary History: one kidney smaller than other [employer] History: Reports: None Musculoskeletal History: Reports: Other (See Below) Other Musculoskeletal History: spina bifida Neurological History: Reports: None Psychiatric History: Reports: None Endocrine/Metabolic History: Reports: None Hematologic History: Reports: None Immunologic History: Reports: None Oncologic (Cancer) History: Reports: None Dermatologic History: Reports: None - Infectious Disease History Infectious Disease History: Reports: C-Difficile - Past Surgical History Head Surgeries/Procedures: Reports: None HEENT Surgical History: Reports: None Cardiovascular Surgical History: Reports: None Respiratory Surgical History: Reports: None GI Surgical History: Reports: Cholecystectomy Female Surgical History: Reports: None Endocrine Surgical History: Reports: None Neurological Surgical History: Reports: Other (See Below) Other Neurological Surgeries/Procedures: spina bifida Musculoskeletal Surgical History: Reports: Other (See Below) Other Musculoskeletal Surgeries/Procedures:: back surgery Oncologic Surgical History: Reports: None Dermatological Surgical History: Reports: None Social & Family History - Family History Family Medical History: Noncontributory - Tobacco Use Smoking Status *Q: Current Every Day Smoker Years of Tobacco use: 3 Packs/Tins Daily: 0.5 - Caffeine Use Caffeine Use: Reports: None - Recreational Drug Use Recreational Drug Use: Yes Recreational Drug Type: Reports: Marijuana/Hashish Recreational Drug Use Frequency: Daily Course - Vital Signs Last Recorded V/S: Last Vital Signs Temp 36.2 C 05/31/19 17:33 Pulse 84 05/31/19 19:16 Resp 32 H 05/31/19 17:33 BP 137/79 05/31/19 19:16 Pulse Ox 100 05/31/19 17:33 - Orders/Labs/Meds Orders: Active Orders 24 hr Category Date Time Status Ondansetron [Zofran ODT] Med 05/31/19 18:05 Active 8 mg PO ONETIME PRN Medication Orders Ondansetron HCl (Zofran Odt) 8 mg PO ONETIME PRN PRN Reason: Nausea/Vomiting Last Admin: 05/31/19 18:29 Dose: 8 mg Labs: Laboratory Tests 05/31/19 05/31/19 05/31/19 Range/Units 17:54 17:54 18:40 WBC 10.10 (4.0-11.0) K/uL RBC 4.35 (4.30-5.90) M/uL Hgb 13.7 (12.0-16.0) g/dL Hct 40.9 (36.0-46.0) % MCV 94.0 (80.0-98.0) fL MCH 31.5 (27.0-32.0) pg MCHC 33.5 (31.0-37.0) g/dL RDW Std Deviation 45.3 (28.0-62.0) fl RDW Coeff of Renetta 13 (11.0-15.0) % Plt Count 305 (150-400) K/uL MPV 10.10 (7.40-12.00) fL Neut % (Auto) 56.9 (48.0-80.0) % Lymph % (Auto) 33.9 (16.0-40.0) % [place] % (Auto) 6.1 (0.0-15.0) % Eos % (Auto) 2.6 (0.0-7.0) % Baso % (Auto) 0.5 (0.0-1.5) % Neut # (Auto) 5.8 H (1.4-5.7) K/uL Lymph # (Auto) 3.4 H (0.6-2.4) K/uL [place] # (Auto) 0.6 (0.0-0.8) K/uL Eos # (Auto) 0.3 (0.0-0.7) K/uL Baso # (Auto) 0.1 (0.0-0.1) K/uL Nucleated RBC % 0.0 /100WBC Nucleated RBCs # 0 K/uL Sodium (136-145) mmol/L Potassium (3.5-5.1) mmol/L Chloride (98-107) mmol/L Carbon Dioxide (21.0-32.0) mmol/L BUN (7.0-18.0) mg/dL Creatinine (0.6-1.0) mg/dL Est Cr Clr Drug Dosing mL/min Estimated GFR (MDRD) ml/min Glucose (74-106) mg/dL Calcium (8.5-10.1) mg/dL Total Bilirubin (0.2-1.0) mg/dL AST (15-37) IU/L ALT (14-63) IU/L Alkaline Phosphatase (46-116) U/L Total Protein (6.4-8.2) g/dL Albumin (3.4-5.0) g/dL Globulin (2.6-4.0) g/dL Albumin/Globulin Ratio (0.9-1.6) Urine Color YELLOW Urine Appearance CLEAR Urine pH 7.5 (5.0-8.0) Ur Specific [place] 1.020 (1.001-1.035) Urine Protein NEGATIVE (NEGATIVE) mg/dL Urine Glucose (UA) NEGATIVE (NEGATIVE) mg/dL Urine Ketones NEGATIVE (NEGATIVE) mg/dL Urine Occult Blood NEGATIVE (NEGATIVE) Urine Nitrite NEGATIVE (NEGATIVE) Urine Bilirubin NEGATIVE (NEGATIVE) Urine Urobilinogen 0.2 (<2.0) EU/dL Ur Leukocyte Esterase NEGATIVE (NEGATIVE) Urine HCG, Qual NEGATIVE (NEGATIVE) 05/31/19 Range/Units 18:40 WBC (4.0-11.0) K/uL RBC (4.30-5.90) M/uL Hgb (12.0-16.0) g/dL Hct (36.0-46.0) % MCV (80.0-98.0) fL MCH (27.0-32.0) pg MCHC (31.0-37.0) g/dL RDW Std Deviation (28.0-62.0) fl RDW Coeff of Renetta (11.0-15.0) % Plt Count (150-400) K/uL MPV (7.40-12.00) fL Neut % (Auto) (48.0-80.0) % Lymph % (Auto) (16.0-40.0) % [place] % (Auto) (0.0-15.0) % Eos % (Auto) (0.0-7.0) % Baso % (Auto) (0.0-1.5) % Neut # (Auto) (1.4-5.7) K/uL Lymph # (Auto) (0.6-2.4) K/uL [place] # (Auto) (0.0-0.8) K/uL Eos # (Auto) (0.0-0.7) K/uL Baso # (Auto) (0.0-0.1) K/uL Nucleated RBC % /100WBC Nucleated RBCs # K/uL Sodium 141 (136-145) mmol/L Potassium 3.6 (3.5-5.1) mmol/L Chloride 107 (98-107) mmol/L Carbon Dioxide 25.3 (21.0-32.0) mmol/L BUN 10 (7.0-18.0) mg/dL Creatinine 0.5 L (0.6-1.0) mg/dL Est Cr Clr Drug Dosing 104.69 mL/min Estimated GFR (MDRD) > 60.0 ml/min Glucose 121 H (74-106) mg/dL Calcium 9.0 (8.5-10.1) mg/dL Total Bilirubin 0.2 (0.2-1.0) mg/dL AST 23 (15-37) IU/L ALT 47 (14-63) IU/L Alkaline Phosphatase 81 (46-116) U/L Total Protein 7.1 (6.4-8.2) g/dL Albumin 3.6 (3.4-5.0) g/dL Globulin 3.5 (2.6-4.0) g/dL Albumin/Globulin Ratio 1.0 (0.9-1.6) Urine Color Urine Appearance Urine pH (5.0-8.0) Ur Specific [place] (1.001-1.035) Urine Protein (NEGATIVE) mg/dL Urine Glucose (UA) (NEGATIVE) mg/dL Urine Ketones (NEGATIVE) mg/dL Urine Occult Blood (NEGATIVE) Urine Nitrite (NEGATIVE) Urine Bilirubin (NEGATIVE) Urine Urobilinogen (<2.0) EU/dL Ur Leukocyte Esterase (NEGATIVE) Urine HCG, Qual (NEGATIVE) Meds: Medications Generic Name Dose Route Start Last Admin Trade Name Freq PRN Reason Stop Dose Admin Ondansetron HCl 8 mg 05/31/19 18:05 05/31/19 18:29 Zofran Odt PO 8 mg ONETIME PRN Administration Nausea/Vomiting Discontinued Medications Generic Name Dose Route Start Last Admin Trade Name Adrianne PRN Reason Stop Dose Admin Ketorolac Tromethamine 60 mg 05/31/19 18:05 05/31/19 18:29 Toradol IM 05/31/19 18:06 60 mg ONETIME ONE Administration Departure - Departure Disposition: Home, Self-Care 01 Clinical Impression: Abdominal pain - Discharge Information Referrals: Mague Quintero MD [Primary Care Provider] - Forms: ED Department Discharge Additional Instructions: The following information is given to patients seen in the emergency department who are being discharged to home. This information is to outline your options for follow-up care. We provide all patients seen in our emergency department with a follow-up referral. The need for follow-up, as well as the timing and circumstances, are variable depending upon the specifics of your emergency department visit. If you don't have a primary care physician on staff, we will provide you with a referral. We always advise you to contact your personal physician following an emergency department visit to inform them of the circumstance of the visit and for follow-up with them and/or the need for any referrals to a consulting specialist. The emergency department will also refer you to a specialist when appropriate. This referral assures that you have the opportunity for followup care with a specialist. All of these measure are taken in an effort to provide you with optimal care, which includes your followup. Under all circumstances we always encourage you to contact your private physician who remains a resource for coordinating your care. When calling for followup care, please make the office aware that this follow-up is from your recent emergency room visit. If for any reason you are refused follow-up, please contact the [facility] emergency department at and asked to speak to the emergency department charge nurse. Follow-up primary medical doctor as discussed return as needed as discussed clear liquids 24 hours advance diet as discussed follow-up Gen. surgery is needed as discussed <Donnell Serra - Last Filed: 05/31/19 20:03> ED ROS GENERAL - Review of Systems Review Of Systems: Comprehensive ROS is negative, except as noted in HPI. ED EXAM, GENERAL - Physical Exam Exam: See Below (See dictation) Course - Vital Signs Text/Narrative:: Patient's emergency department course has been unremarkable CT scan showed no acute findings routine labs were negative. Departure - Departure Time of Disposition: 20:02 Condition: Good
[2019-05-31 19:11] LABS: BLOOD UREA NITROGEN,BUN 10 mg/dL (7.0-18.0); CARBON DIOXIDE,CO2 25.3 mmol/L (21.0-32.0); CHLORIDE,CL 107 mmol/L (98-107); GLUCOSE RANDOM 121 mg/dL (74-106); POTASSIUM,K 3.6 mmol/L (3.5-5.1); SODIUM,NA 141 mmol/L (136-145)
--- NOTE | 2019-05-31 19:25 | CT ---
Indication: Left flank pain x 3 days Technique: Multiple contiguous axial images were obtained from the lung bases through symphysis pubis without intravenous contrast. Please note that all CT scans at this facility use dose modulation, iterative reconstruction, and/or weight-based dosing when appropriate to reduce radiation dose to as low as reasonably achievable. Comparison: September 11, 2018 Findings: The lung bases are clear. The heart is normal in size. The liver, spleen, pancreas, adrenals, and kidneys are grossly normal. No intrahepatic biliary ductal dilatation or hydronephrosis is identified. Postsurgical changes of a cholecystectomy are identified. No hydronephrosis or hydroureter is identified. The uterus is grossly normal. Thickening of the urinary bladder is identified. The small and large bowel are normal in caliber. No free air or free fluid is identified. The aorta is normal in caliber. Dysplastic changes of the spine and pelvis are identified. Impression: No hydronephrosis or hydroureter. No renal/ureteral calculi. Thickening of the urinary bladder. Please note that all CT scans at this facility use dose modulation, iterative reconstruction, and/or weight-based dosing when appropriate to reduce radiation dose to as low as reasonably achievable. Dictated by Eileen Michel MD @ May 31 2019 7:09PM Signed by Dr. Eileen Michel @ May 31 2019 7:23PM
[2019-05-31 20:25] VITALS: BP 150/94; PULSE 66
== END 2019-05-31 20:25 | disposition home or self-care (01) ==
LOC: MW.ED 17:19
DX: R10.9 Unspecified abdominal pain (principal); F17.210 Nicotine dependence, cigarettes, uncomplicated; Z88.1 Allergy status to other antibiotic agents; Z91.040 Latex allergy status; Z98.890 Other specified postprocedural states
CPT/HCPCS: 36415; 74176; 80053; 81003; 81025; 85025; 96372; 99284; A9270; J1885

== ENCOUNTER 2020-03-19 02:33 | Emergency (ER) | payer MEDICARE, MEDICAID ==
--- NOTE | 2020-03-19 02:52 | EDM.PDOC ---
ED HPI GENERAL MEDICAL PROBLEM - General Stated Complaint: MEDICAL CLEARANCE Time Seen by Provider: 03/19/20 02:45 - History of Present Illness INITIAL COMMENTS - FREE TEXT/NARRATIVE: HISTORY AND PHYSICAL: History of present illness: This a 25-year-old female with history significant for spina bifida, hypertension, diabetes who presents the ER today for medical clearance secondary to incarceration for DUI. Patient denies any symptomatology. Patient has any recent fevers, shakes, chills, nausea, vomiting, diarrhea, dysuria, frequency, urgency, chest pain, shortness of breath. Patient reports that her lisinopril and metformin were both been stopped by her doctor secondary to episode of diarrhea. Review of systems: As per history of present illness and below otherwise all systems reviewed and negative. Past medical history: As per history of present illness and as reviewed below otherwise noncontributory. Surgical history: As per history of present illness and as reviewed below otherwise noncontributory. Social history: No reported history of drug or alcohol abuse. Family history: As per history of present illness and as reviewed below otherwise noncontributory. Physical exam: Constitutional: Patient is oriented to person, place, and time. Appears well- developed and well-nourished. No distress. HEENT: Moist mucous membranes Head: Normocephalic and atraumatic Eyes: Right eye exhibits no discharge. Left eye exhibits no discharge. No scleral icterus Neck: Normal range of motion. No tracheal deviation present. Cardiovascular: Normal rate and regular rhythm. Pulmonary: Effort normal, no respiratory distress. Abdominal: No distention Musculoskeletal: Baseline for patient Neurologic: Alert and oriented to person, place and time. Skin: Bruni, warm and dry. Psychiatric: Normal mood and affect. Behavior is normal. Judgment and thought content normal. Nursing note and vital signs have been reviewed Assessment and plan: This is a 25-year-old female who is clinically hemodynamically stable and is medically cleared for incarceration will be discharged in custody of [facility]. Patient currently has no active medical issues that would require further inpatient level care. Reassessment at the time of disposition demonstrates that the patient is in no acute distress. The patient has remained stable throughout the entire ED visit and is without objective evidence for acute process requiring urgent intervention or hospitalization. The patient is stable for discharge, counseling is provided as documented above, discussed symptomatic treatment and specific conditions for return. I have spoken with the patient/caregive and discussed todays findings, in addition to providing specific details for the plan of care. Questions are answered and there is agreement with the plan. - Related Data Allergies Allergy/AdvReac Type Severity Reaction Status Date / Time ciprofloxacin Allergy Hives Verified 03/19/20 02:47 latex Allergy Hives Verified 03/19/20 02:47 Home Meds: Home Meds Baclofen 20 mg PO Q4HR 10/28/17 [History] Antidepressent 03/19/20 [History] Past Medical History - Past Health History Medical/Surgical History: Denies Medical/Surgical History HEENT History: Reports: None Cardiovascular History: Reports: None Respiratory History: Reports: None Gastrointestinal History: Reports: Cholelithiasis Genitourinary History: Reports: UTI, Recurrent, Other (See Below) Other Genitourinary History: one kidney smaller than other 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 Musculoskeletal History: Reports: Other (See Below) Other Musculoskeletal History: spina bifida Neurological History: Reports: None Psychiatric History: Reports: None Endocrine/Metabolic History: Reports: None Hematologic History: Reports: None Immunologic History: Reports: None Oncologic (Cancer) History: Reports: None Dermatologic History: Reports: None - Infectious Disease History Infectious Disease History: Reports: C-Difficile - Past Surgical History GI Surgical History: Reports: Cholecystectomy Neurological Surgical History: Reports: Other (See Below) Other Neurological Surgeries/Procedures: spina bifida Musculoskeletal Surgical History: Reports: Other (See Below) Other Musculoskeletal Surgeries/Procedures:: back surgery Dermatological Surgical History: Reports: None Social & Family History - Family History Family Medical History: Noncontributory - Caffeine Use Caffeine Use: Reports: None ED ROS GENERAL - Review of Systems Review Of Systems: See Below ED EXAM, GENERAL - Physical Exam Exam: See Below Departure - Departure Time of Disposition: 02:51 Disposition: Home, Self-Care 01 Condition: Good Clinical Impression: Encounter for medical screening examination, Medical clearance for incarceration, Spina bifida - Discharge Information Referrals: Filomena Pulliam INTERIOR DESIGN PROFESSIONAL [Primary Care Provider] - Additional Instructions: You are being medically cleared at this time to be released with law enforcement. Please notify law enforcement of any new or concerning symptoms. The following information is given to patients seen in the emergency department who are being discharged to home. This information is to outline your options for follow-up care. We provide all patients seen in our emergency department with a follow-up referral. The need for follow-up, as well as the timing and circumstances, are variable depending upon the specifics of your emergency department visit. If you don't have a primary care physician on staff, we will provide you with a referral. We always advise you to contact your personal physician following an emergency department visit to inform them of the circumstance of the visit and for follow-up with them and/or the need for any referrals to a consulting specialist. The emergency department will also refer you to a specialist when appropriate. This referral assures that you have the opportunity for follow-up care with a specialist. All of these measure are taken in an effort to provide you with optimal care, which includes your follow-up. Under all circumstances we always encourage you to contact your private physician who remains a resource for coordinating your care. When calling for follow-up care, please make the office aware that this follow-up is from your recent emergency room visit. If for any reason you are refused follow-up, please contact the [facility] Emergency Department at and asked to speak to the emergency department charge nurse.
[2020-03-19 03:04] VITALS: BP 123/76; PULSE 98
== END 2020-03-19 03:04 | disposition home or self-care (01) ==
LOC: MW.ED 02:33
DX: Z02.89 Encounter for other administrative examinations (principal); Q05.9 Spina bifida, unspecified; E11.9 Type 2 diabetes mellitus without complications; I10 Essential (primary) hypertension; Z88.1 Allergy status to other antibiotic agents; Z91.040 Latex allergy status
CPT/HCPCS: 82962; 99282; 99283

== ENCOUNTER 2020-04-10 12:54 | Emergency (ER) | payer MEDICARE, MEDICAID ==
[2020-04-10] MEDS ORDERED: Ondansetron 4 MG/2 ML SDV IVPUSH ONE (14:53)
[2020-04-10] MEDS ORDERED: Sodium Chloride 0.9% 2.5 ML Syringe FLUSH PRN (14:53)
[2020-04-10] MEDS ORDERED: Morphine 4 MG/ML Syringe IVPUSH ONE (14:53)
[2020-04-10] MEDS ORDERED: Sodium Chloride 0.9% 1,000 ML IV ONE (14:53)
[2020-04-10] MEDS ORDERED: Sodium Chloride 0.9% 10 ML Syringe FLUSH PRN (14:53)
[2020-04-10] MEDS ORDERED: Famotidine 20 MG/2 ML SDV IVPUSH ONE (14:53)
--- NOTE | 2020-04-10 15:01 | EDM.PDOC ---
ED HPI GENERAL MEDICAL PROBLEM - General Chief Complaint: General Stated Complaint: NOT FEELING WELL Time Seen by Provider: 04/10/20 14:48 Source of Information: Reports: Patient History Limitations: Reports: No Limitations - History of Present Illness INITIAL COMMENTS - FREE TEXT/NARRATIVE: 25F PMHx spina bifida, wheelchair bound at baseline, UTIs, cholelithiasis, neurogenic bladder presenting for 2-months of RLQP. Pain has worsened over last several days. Multiple episodes of non-bloody emesis. Multiple episodes of diarrhea. No fevers. Chronic cough/SOB. Things appear brighter than normal in her eyes. R abdomen Pain Score (Numeric/FACES): 10 - Related Data Allergies Allergy/AdvReac Type Severity Reaction Status Date / Time ciprofloxacin Allergy Hives Verified 03/19/20 02:47 latex Allergy Hives Verified 03/19/20 02:47 Home Meds: Home Meds Baclofen 20 mg PO Q4HR 10/28/17 [History] Antidepressent 03/19/20 [History] Sulfamethoxazole/Trimethoprim [Bactrim Ds Tablet] 1 each PO BID 7 Days #14 tablet 04/10/20 [Rx] lisinopriL [Lisinopril] 04/10/20 [History] metFORMIN [Glucophage XR] 04/10/20 [History] oxyCODONE HCl/Acetaminophen [Percocet 5-325 mg Tablet] 1 each PO Q4H PRN #12 tablet 04/10/20 [Rx] Past Medical History - Past Health History Medical/Surgical History: Denies Medical/Surgical History HEENT History: Reports: None Cardiovascular History: Reports: None, Hypertension Respiratory History: Reports: None Gastrointestinal History: Reports: Cholelithiasis Genitourinary History: Reports: UTI, Recurrent, Other (See Below) Other Genitourinary History: one kidney smaller than other 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 Musculoskeletal History: Reports: Other (See Below) Other Musculoskeletal History: spina bifida Neurological History: Reports: None Psychiatric History: Reports: None Endocrine/Metabolic History: Reports: None, Diabetes, Type II Hematologic History: Reports: None Immunologic History: Reports: None Oncologic (Cancer) History: Reports: None Dermatologic History: Reports: None - Infectious Disease History Infectious Disease History: Reports: C-Difficile - Past Surgical History Head Surgeries/Procedures: Reports: None GI Surgical History: Reports: Cholecystectomy Neurological Surgical History: Reports: Other (See Below) Other Neurological Surgeries/Procedures: spina bifida Musculoskeletal Surgical History: Reports: Other (See Below) Other Musculoskeletal Surgeries/Procedures:: back surgery Dermatological Surgical History: Reports: None Social & Family History - Family History Family Medical History: Noncontributory - Caffeine Use Caffeine Use: Reports: None - Recreational Drug Use Recreational Drug Type: Reports: Marijuana/Hashish ED ROS GENERAL - Review of Systems Review Of Systems: Comprehensive ROS is negative, except as noted in HPI. ED EXAM, GENERAL - Physical Exam Exam: See Below Exam Limited By: No Limitations General Appearance: Alert, WD/WN, No Apparent Distress Ears: Normal External Exam Nose: Normal Inspection Throat/Mouth: Normal Inspection, Normal Lips, Normal Voice, No Airway Compromise Head: Atraumatic, Normocephalic Neck: Normal Inspection Respiratory/Chest: No Respiratory Distress, Lungs Clear, Normal Breath Sounds, No Accessory Muscle Use Cardiovascular: Normal Peripheral Pulses, Regular Rate, Rhythm GI/Abdominal: Soft, Distended, Other (voluntary guarding in RLQ) Extremities: Normal Inspection Neurological: Alert Psychiatric: Normal Affect, Normal Mood Skin Exam: Warm, Dry, Intact Course - Vital Signs Last Recorded V/S: Last Vital Signs Temp 98.2 F 04/10/20 19: Pulse 72 04/10/20 19: Resp 16 04/10/20 19:20 BP 102/55 L 04/10/20 19: Pulse Ox 98 04/10/20 19:20 - Orders/Labs/Meds Orders: Active Orders 24 hr Category Date Time Status Saline Lock Insert [OM.PC] Stat Oth 04/10/20 14:53 Ordered Labs: Laboratory Tests 04/10/20 04/10/20 04/10/20 Range/Units 15:09 15:09 15:09 WBC 13.27 H (4.0-11.0) K/uL RBC 4.82 (4.30-5.90) M/uL Hgb 14.8 (12.0-16.0) g/dL Hct 45.0 (36.0-46.0) % MCV 93.4 (80.0-98.0) fL MCH 30.7 (27.0-32.0) pg MCHC 32.9 (31.0-37.0) g/dL RDW Std Deviation 48.1 (28.0-62.0) fl RDW Coeff of Renetta 14 (11.0-15.0) % Plt Count 459 H (150-400) K/uL MPV 9.80 (7.40-12.00) fL Neut % (Auto) 77.1 (48.0-80.0) % Lymph % (Auto) 18.5 (16.0-40.0) % Larue % (Auto) 3.7 (0.0-15.0) % Eos % (Auto) 0.5 (0.0-7.0) % Baso % (Auto) 0.2 (0.0-1.5) % Neut # (Auto) 10.2 H (1.4-5.7) K/uL Lymph # (Auto) 2.5 H (0.6-2.4) K/uL Larue # (Auto) 0.5 (0.0-0.8) K/uL Eos # (Auto) 0.1 (0.0-0.7) K/uL Baso # (Auto) 0.0 (0.0-0.1) K/uL Nucleated RBC % 0.0 /100WBC Nucleated RBCs # 0 K/uL Lactate 1.0 (0.20-2.00) mmol/L Sodium 139 (136-145) mmol/L Potassium 3.7 (3.5-5.1) mmol/L Chloride 100 (98-107) mmol/L Carbon Dioxide 25.1 (21.0-32.0) mmol/L BUN 8 (7.0-18.0) mg/dL Creatinine 0.5 L (0.6-1.0) mg/dL Est Cr Clr Drug Dosing 122.47 mL/min Estimated GFR (MDRD) > 60.0 ml/min Glucose 84 (74-106) mg/dL POC Glucose (60-110) mg/dL Calcium 9.7 (8.5-10.1) mg/dL Magnesium 1.7 L (1.8-2.4) mg/dL Total Bilirubin 0.5 (0.2-1.0) mg/dL AST 30 (15-37) IU/L ALT 57 (14-63) IU/L Alkaline Phosphatase 93 (46-116) U/L Total Protein 9.7 H (6.4-8.2) g/dL Albumin 4.9 (3.4-5.0) g/dL Globulin 4.8 H (2.6-4.0) g/dL Albumin/Globulin Ratio 1.0 (0.9-1.6) Lipase 174 (73-393) U/L Urine Color Urine Appearance Urine pH (5.0-8.0) Ur Specific [place] (1.001-1.035) Urine Protein (NEGATIVE) mg/dL Urine Glucose (UA) (NEGATIVE) mg/dL Urine Ketones (NEGATIVE) mg/dL Urine Occult Blood (NEGATIVE) Urine Nitrite (NEGATIVE) Urine Bilirubin (NEGATIVE) Urine Urobilinogen (<2.0) EU/dL Ur Leukocyte Esterase (NEGATIVE) Urine RBC (0-2/HPF) Urine WBC (0-5/HPF) Ur Epithelial Cells (NONE-FEW) Urine Bacteria (NEGATIVE) Urine Mucus (NONE-MOD) Urine HCG, Qual (NEGATIVE) 04/10/20 04/10/20 04/10/20 Range/Units 15:14 15:17 15:17 WBC (4.0-11.0) K/uL RBC (4.30-5.90) M/uL Hgb (12.0-16.0) g/dL Hct (36.0-46.0) % MCV (80.0-98.0) fL MCH (27.0-32.0) pg MCHC (31.0-37.0) g/dL RDW Std Deviation (28.0-62.0) fl RDW Coeff of Renetta (11.0-15.0) % Plt Count (150-400) K/uL MPV (7.40-12.00) fL Neut % (Auto) (48.0-80.0) % Lymph % (Auto) (16.0-40.0) % Larue % (Auto) (0.0-15.0) % Eos % (Auto) (0.0-7.0) % Baso % (Auto) (0.0-1.5) % Neut # (Auto) (1.4-5.7) K/uL Lymph # (Auto) (0.6-2.4) K/uL Larue # (Auto) (0.0-0.8) K/uL Eos # (Auto) (0.0-0.7) K/uL Baso # (Auto) (0.0-0.1) K/uL Nucleated RBC % /100WBC Nucleated RBCs # K/uL Lactate (0.20-2.00) mmol/L Sodium (136-145) mmol/L Potassium (3.5-5.1) mmol/L Chloride (98-107) mmol/L Carbon Dioxide (21.0-32.0) mmol/L BUN (7.0-18.0) mg/dL Creatinine (0.6-1.0) mg/dL Est Cr Clr Drug Dosing mL/min Estimated GFR (MDRD) ml/min Glucose (74-106) mg/dL POC Glucose 68 (60-110) mg/dL Calcium (8.5-10.1) mg/dL Magnesium (1.8-2.4) mg/dL Total Bilirubin (0.2-1.0) mg/dL AST (15-37) IU/L ALT (14-63) IU/L Alkaline Phosphatase (46-116) U/L Total Protein (6.4-8.2) g/dL Albumin (3.4-5.0) g/dL Globulin (2.6-4.0) g/dL Albumin/Globulin Ratio (0.9-1.6) Lipase (73-393) U/L Urine Color YELLOW Urine Appearance SLT CLOUDY Urine pH 6.5 (5.0-8.0) Ur Specific [place] 1.020 (1.001-1.035) Urine Protein 30 H (NEGATIVE) mg/dL Urine Glucose (UA) 100 H (NEGATIVE) mg/dL Urine Ketones >=80 (NEGATIVE) mg/dL Urine Occult Blood MODERATE H (NEGATIVE) Urine Nitrite POSITIVE H (NEGATIVE) Urine Bilirubin NEGATIVE (NEGATIVE) Urine Urobilinogen 0.2 (<2.0) EU/dL Ur Leukocyte Esterase TRACE H (NEGATIVE) Urine RBC 5-10 (0-2/HPF) Urine WBC 3-6 (0-5/HPF) Ur Epithelial Cells FEW (NONE-FEW) Urine Bacteria 2+ H (NEGATIVE) Urine Mucus MODERATE (NONE-MOD) Urine HCG, Qual NEGATIVE (NEGATIVE) 04/10/20 Range/Units 15:48 WBC (4.0-11.0) K/uL RBC (4.30-5.90) M/uL Hgb (12.0-16.0) g/dL Hct (36.0-46.0) % MCV (80.0-98.0) fL MCH (27.0-32.0) pg MCHC (31.0-37.0) g/dL RDW Std Deviation (28.0-62.0) fl RDW Coeff of Renetta (11.0-15.0) % Plt Count (150-400) K/uL MPV (7.40-12.00) fL Neut % (Auto) (48.0-80.0) % Lymph % (Auto) (16.0-40.0) % Larue % (Auto) (0.0-15.0) % Eos % (Auto) (0.0-7.0) % Baso % (Auto) (0.0-1.5) % Neut # (Auto) (1.4-5.7) K/uL Lymph # (Auto) (0.6-2.4) K/uL Larue # (Auto) (0.0-0.8) K/uL Eos # (Auto) (0.0-0.7) K/uL Baso # (Auto) (0.0-0.1) K/uL Nucleated RBC % /100WBC Nucleated RBCs # K/uL Lactate (0.20-2.00) mmol/L Sodium (136-145) mmol/L Potassium (3.5-5.1) mmol/L Chloride (98-107) mmol/L Carbon Dioxide (21.0-32.0) mmol/L BUN (7.0-18.0) mg/dL Creatinine (0.6-1.0) mg/dL Est Cr Clr Drug Dosing mL/min Estimated GFR (MDRD) ml/min Glucose (74-106) mg/dL POC Glucose 169 H (60-110) mg/dL Calcium (8.5-10.1) mg/dL Magnesium (1.8-2.4) mg/dL Total Bilirubin (0.2-1.0) mg/dL AST (15-37) IU/L ALT (14-63) IU/L Alkaline Phosphatase (46-116) U/L Total Protein (6.4-8.2) g/dL Albumin (3.4-5.0) g/dL Globulin (2.6-4.0) g/dL Albumin/Globulin Ratio (0.9-1.6) Lipase (73-393) U/L Urine Color Urine Appearance Urine pH (5.0-8.0) Ur Specific [place] (1.001-1.035) Urine Protein (NEGATIVE) mg/dL Urine Glucose (UA) (NEGATIVE) mg/dL Urine Ketones (NEGATIVE) mg/dL Urine Occult Blood (NEGATIVE) Urine Nitrite (NEGATIVE) Urine Bilirubin (NEGATIVE) Urine Urobilinogen (<2.0) EU/dL Ur Leukocyte Esterase (NEGATIVE) Urine RBC (0-2/HPF) Urine WBC (0-5/HPF) Ur Epithelial Cells (NONE-FEW) Urine Bacteria (NEGATIVE) Urine Mucus (NONE-MOD) Urine HCG, Qual (NEGATIVE) Meds: Medications Discontinued Medications Generic Name Dose Route Start Last Admin Trade Name Freq PRN Reason Stop Dose Admin Dextrose/Water 25 ml 04/10/20 15:21 04/10/20 15:27 Dextrose 50% In Water IVPUSH 04/10/20 15:22 25 ml ONETIME ONE Administration Famotidine 20 mg 04/10/20 14:53 04/10/20 15:07 Pepcid IVPUSH 04/10/20 14:54 20 mg ONETIME ONE Administration Sodium Chloride 1,000 mls @ 999 mls/hr 04/10/20 14:53 04/10/20 15:02 Normal Saline IV 04/10/20 15:53 999 mls/hr .Bolus ONE Administration Sodium Chloride 154 meq/ 1,038.5 mls @ 500 mls/hr 04/10/20 15:30 Dextrose/Water IV ASDIRECTED MILAN Ceftriaxone Sodium/Dextrose 1 50 mls @ 100 mls/hr 04/10/20 16:22 04/10/20 16:34 gm/ Premix IV 04/10/20 16:51 100 mls/hr ONETIME ONE Administration Morphine Sulfate 4 mg 04/10/20 14:53 04/10/20 15:04 Morphine IVPUSH 04/10/20 14:54 4 mg ONETIME ONE Administration Ondansetron HCl 4 mg 04/10/20 14:53 04/10/20 15:06 Zofran IVPUSH 04/10/20 14:54 4 mg ONETIME ONE Administration Sodium Chloride 2.5 ml 04/10/20 14:53 04/10/20 15:06 Saline Flush FLUSH 2.5 ml ASDIRECTED PRN Administration Keep Vein Open Sodium Chloride 10 ml 04/10/20 14:53 04/10/20 15:06 Saline Flush FLUSH 10 ml ASDIRECTED PRN Administration Keep Vein Open - Re-Assessments/Exams Free Text/Narrative Re-Assessment/Exam: 04/10/20 15:01 Will get labs, will treat symptomatically, will get CT A/P. 04/10/20 18:34 CT only remarkable for cystitis. UA w/ evidence UTI. WIll d/c with PMD and GI f/u Departure - Departure Time of Disposition: 18:35 Disposition: Home, Self-Care 01 Condition: Good Clinical Impression: UTI (urinary tract infection) Qualifiers: Urinary tract infection type: site unspecified Hematuria presence: without hematuria Qualified Code(s): N39.0 - Urinary tract infection, site not specified - Discharge Information Prescriptions: Sulfamethoxazole/Trimethoprim [Bactrim Ds Tablet] 1 each PO BID 7 Days #14 tablet oxyCODONE HCl/Acetaminophen [Percocet 5-325 mg Tablet] 1 each PO Q4H PRN #12 tablet PRN Reason: Pain Instructions: Urinary Tract Infection, Adult, [id number] Referrals: PCP,Unobtain [Primary Care Provider] - Forms: ED Department Discharge Additional Instructions: The following information is given to patients seen in the emergency department who are being discharged to home. This information is to outline your options for follow-up care. We provide all patients seen in our emergency department with a follow-up referral. The need for follow-up, as well as the timing and circumstances, are variable depending upon the specifics of your emergency department visit. If you don't have a primary care physician on staff, we will provide you with a referral. We always advise you to contact your personal physician following an emergency department visit to inform them of the circumstance of the visit and for follow-up with them and/or the need for any referrals to a consulting specialist. The emergency department will also refer you to a specialist when appropriate. This referral assures that you have the opportunity for follow-up care with a specialist. All of these measure are taken in an effort to provide you with optimal care, which includes your follow-up. Under all circumstances we always encourage you to contact your private physician who remains a resource for coordinating your care. When calling for follow-up care, please make the office aware that this follow-up is from your recent emergency room visit. If for any reason you are refused follow-up, please contact the [facility] Emergency Department at and asked to speak to the emergency department charge nurse. Please follow up with your primary care physician. If you do not have a primary care physician, see below: [facility] [address] [place] [id number] [facility] [address] [place] [id number] Sepsis Event Note (ED) - Evaluation Sepsis Screening Result: No Definite Risk - Focused Exam Vital Signs: Vital Signs Temp Pulse Resp BP Pulse Ox 04/10/20 19:20 98.2 F 72 16 102/55 L 98 - My Orders Last 24 Hours: My Active Orders 04/10/20 14:53 Saline Lock Insert [OM.PC] Stat - Assessment/Plan Last 24 Hours: My Active Orders 04/10/20 14:53 Saline Lock Insert [OM.PC] Stat
[2020-04-10] MEDS ORDERED: 50% Dextrose in Water 50 ML Syringe IVPUSH ONE (15:21)
[2020-04-10] MEDS ORDERED: Sodium Chloride 23.4% 154 MEQ in Dextrose 10% in Water 1,000 ML IV SCH ×2 (15:30)
[2020-04-10 15:48] LABS: BLOOD UREA NITROGEN,BUN 8 mg/dL (7.0-18.0); CARBON DIOXIDE,CO2 25.1 mmol/L (21.0-32.0); CHLORIDE,CL 100 mmol/L (98-107); GLUCOSE RANDOM 84 mg/dL (74-106); LIPASE 174 U/L (73-393); POTASSIUM,K 3.7 mmol/L (3.5-5.1); SODIUM,NA 139 mmol/L (136-145)
[2020-04-10] MEDS ORDERED: cefTRIAXone 1 GM in Premix Bag 1 BAG IV ONE (16:22)
--- NOTE | 2020-04-10 18:09 | CT ---
INDICATION: Acute on chronic right lower quadrant pain TECHNIQUE: CT abdomen and pelvis acquired with 80 cc Isovue 370 IV contrast. COMPARISON: February 14, 2020 FINDINGS: Lower chest: Unremarkable. Liver: Unremarkable. Spleen: Tiny splenic capsule calcifications. Pancreas: Unremarkable. Gallbladder and bile ducts: S/p cholecystectomy. Adrenal glands: Unremarkable. Kidneys: Scarring on the left kidney. GI tract: The cecum is located in the left lower quadrant. Appendix is not seen. Vascular structures: Unremarkable. Lymph nodes: Unremarkable. Miscellaneous: Unremarkable. No free air or significant free fluid. Pelvic Organs: Diffuse wall thickening of the urinary bladder, unchanged compared to the prior exam. Bones: Congenital anomalies of the T12-L3 vertebrae. IMPRESSION: No etiology seen to explain right lower quadrant pain. Note that the cecum is located in the left lower quadrant and the appendix is not visualized. Diffuse wall thickening of the urinary bladder is unchanged. This could represent chronic inflammation or acute cystitis. 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 Scarring of the left kidney. Status post cholecystectomy. Please note that all CT scans at this facility use dose modulation, iterative reconstruction, and/or weight-based dosing when appropriate to reduce radiation dose to as low as reasonably achievable. Dictated by Elvira Toure MD @ Apr 10 2020 5:55PM Signed by Dr. Elvira Toure @ Apr 10 2020 6:07PM
[2020-04-10 19:46] VITALS: BP 102/55; PULSE 72
== END 2020-04-10 19:20 | disposition home or self-care (01) ==
LOC: MW.ED 12:54
DX: N39.0 Urinary tract infection, site not specified (principal); I10 Essential (primary) hypertension; Q05.9 Spina bifida, unspecified; E11.9 Type 2 diabetes mellitus without complications; Z88.1 Allergy status to other antibiotic agents; Z91.040 Latex allergy status; Z79.899 Other long term (current) drug therapy; Z79.84 Long term (current) use of oral hypoglycemic drugs
CPT/HCPCS: 36415; 74177; 80053; 81001; 81025; 82962; 83605; 83690; 83735; 85025; 96361; 96365; 96375; 99284; J0696; J2270; J2405; J3490; J7030

== ENCOUNTER 2020-12-12 16:49 | Emergency (ER) | payer MEDICARE, MEDICAID ==
--- NOTE | 2020-12-12 17:03 | EDM.PDOC ---
ED HPI GENERAL MEDICAL PROBLEM - General Stated Complaint: SPOTTING, CRAMPING, VOMITING Time Seen by Provider: 12/12/20 16:51 Source of Information: Reports: Patient History Limitations: Reports: No Limitations - History of Present Illness INITIAL COMMENTS - FREE TEXT/NARRATIVE: HISTORY AND PHYSICAL: History of present illness: The patient is a 25-year-old female with a history of who presents to the emergency department with complaints which started this morning lower quad pain that shoots up into her upper right quadrant. She states the pain has been getting progressively worse. She rates the pain as severe. Patient states that she took a test 17 which was positive. The patient is 5 weeks 3 days according to the LMP. The patient is worried about possible urinary tract infection as she self caths. Its been febrile since her last urinary tract infection. The patient denies any fever, chills, headache, change in vision, syncope or near syncope. Denies any chest pain, back pain, shortness of breath or cough. Denies any diarrhea, constipation or dysuria. Has not noted any blood in urine or stool. Patient has been eating and drinking appropriately. In the emergency department the patient is hemodynamically stable with a heart rate of 99 and a blood pressure of 148/85. She is afebrile with a temperature of 96.2. Review of systems: As per history of present illness and below otherwise all systems reviewed and negative. Past medical history: As per history of present illness and as reviewed below otherwise noncontributory. Surgical history: As per history of present illness and as reviewed below otherwise noncontributory. Social history: See social history for further information Family history: As per history of present illness and as reviewed below otherwise noncontributory. Physical exam: General: Well developed and well nourished. Alert and orientated x 3. Nontoxic in appearance and in some distress due to pain. Vital signs are stable and have been reviewed by me. Nursing notes were reviewed. HEENT: Atraumatic, normocephalic, pupils equal and reactive bilaterally, negative for conjunctival pallor or scleral icterus, mucous membranes moist, TMs normal bilaterally, throat clear, neck supple, nontender, trachea midline. No drooling or trismus noted. No meningeal signs. No hot potato voice noted. Lungs: Clear to auscultation bilaterally. No wheezes, rales, or rhonchi. Chest nontender. Normal work of breathing, no accessory muscles used. Heart: S1S2, regular rate and rhythm without overt murmur, gallops, or rubs. No JVD. No peripheral edema Abdomen: Soft, round with generalized tenderness, more so on the RLQ. Normoactive bowel sounds. Negative for masses or costovertebral tenderness. Skin: Intact, warm, dry. No lesions or rashes noted. Hematologic: No petechiae or purpra. Mucosa appropriate color and normal nail bed color and refill. Extremities: Wheelchair bound due to Spina Bifida. Legs are atrophied and twitching. Neurovascular unremarkable. Neuro: Awake, alert, oriented. Cranial nerves II through XII unremarkable. Cerebellum unremarkable. Motor and sensory unremarkable throughout. Exam nonfocal. Psychiatric: Mood and affect are appropriate. Normal thought process. Answering questions appropriately. Notes: *This patient was seen and evaluated during the 2019 SARS-CoV-2 novel coronavirus pandemic period. Community viral transmission is ongoing at time of this encounter and the emergency department is operating under pandemic response procedures. As stated above the patient has a history of spina bifida and presents today with possible with spotting and increased severe right lower quad pain. I will obtain blood work and a quantitative hCG to establish . I will do a transvaginal ultrasound to ensure there is no ectopic happening. And due to the patient's neurogenic bladder and self cathing I will do a urinalysis to ensure she does not have a UTI. I will treat the patient's pain with morphine as this is safe in and treat her nausea with Zofran. 18:35 the personnel technician did not see a gestational sac and the patient's quantitative hCG is less than 1. I informed the patient of the ultrasound results and the quantitative hCG of less than 1 and as such no . The patient is understanding of the results but continues in severe pain so I will order another 2 mg of morphine and a CT to rule out anything such as appendicitis. The abdomen pelvis CT is read by the radiologist: 1. No acute findings. 2. 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 I spoke with the patient regarding her multiple abdominal CT scans and continued abdominal pain. The patient states that she has asked her primary care for a referral to a pipelayer but this has not been accomplished. I encouraged the patient to revisit the issue with her primary care. I have talked with the patient about today's findings, in addition to providing specific details for plan of care. Reassessment at the time of disposition demonstrates that the patient is in no acute distress. The patient is stable for discharge, counseling was provided and we discussed in great detail signs and symptoms that would prompt them to return to the Emergency Department. Medication, follow up and supportive care measures were reviewed and discussed. Voices understanding and is agreeable to plan of care. Denies any further questions or concerns at this time. Diagnostics: CBC, CMP, hCG quantitative, OB transvaginal US Therapeutics: IV fluids, Zofran x 2, morphine 2 mg x 2, Dilaudid Prescription: Zofran 4 mg p.o. every 4-6 hours #10, nitrofurantoin 100 mg twice daily for 7 days Impression: Abdominal pain, UTI Plan: 1. You were evaluated today on an emergent basis. Your complaints of abdominal pain and spotting after a positive test were evaluated with blood work that was essentially negative. We did a quantitative hCG which showed you are not . An ultrasound was done which showed no gestational sac. You continue to have abdominal pain and you were treated with IV Zofran, IV morphine, and IV Dilaudid which did help your pain. We did a abdominal CT which was normal for you. You have had multiple CT scans over the years and need to see a pipelayer regarding how to best handle this. I will prescribe you Zofran for the nausea. I will prescribe nitrofurantoin 100 mg twice daily for 7 days. You received your first dose in the emergency room. 2. You can alternate Tylenol and ibuprofen as needed for pain and fever management. 3. We encourage you to follow up with your primary care provider and/or recommended specialist in the next few days for re-evaluation and further care/management. 4. If your symptoms should worsen, new symptoms develop or any of the signs and symptoms we discussed should arise please return to the emergency room or call 911 (if needed). Definitive disposition and diagnosis as appropriate pending reevaluation and review of above. right abd Pain Score (Numeric/FACES): 8 - Related Data Allergies Allergy/AdvReac Type Severity Reaction Status Date / Time ciprofloxacin Allergy Hives Verified 12/12/20 17:05 latex Allergy Hives Verified 12/12/20 17:05 Home Meds: Home Meds Baclofen 20 mg PO Q4HR 10/28/17 [History] Antidepressent 03/19/20 [History] Sulfamethoxazole/Trimethoprim [Bactrim Ds Tablet] 1 each PO BID 7 Days #14 tablet 04/10/20 [Rx] lisinopriL [Lisinopril] 04/10/20 [History] metFORMIN [Glucophage XR] 04/10/20 [History] oxyCODONE HCl/Acetaminophen [Percocet 5-325 mg Tablet] 1 each PO Q4H PRN #12 tablet 04/10/20 [Rx] Nitrofurantoin Bradford/Macrocryst [Nitrofurantoin Bradford-MCR] 100 mg PO BID 7 Days #13 cap 12/12/20 [Rx] Ondansetron [Zofran ODT] 4 mg PO Q6H PRN #10 tab.dis 12/12/20 [Rx] Past Medical History - Past Health History Medical/Surgical History: Denies Medical/Surgical History HEENT History: Reports: None Cardiovascular History: Reports: None, Hypertension Respiratory History: Reports: None Gastrointestinal History: Reports: Cholelithiasis Genitourinary History: Reports: UTI, Recurrent, Other (See Below) Other Genitourinary History: one kidney smaller than other [employer] History: Reports: None Musculoskeletal History: Reports: Other (See Below) Other Musculoskeletal History: spina bifida Neurological History: Reports: None Psychiatric History: Reports: None Endocrine/Metabolic History: Reports: None, Diabetes, Type II Hematologic History: Reports: None Immunologic History: Reports: None Oncologic (Cancer) History: Reports: None Dermatologic History: Reports: None - Infectious Disease History Infectious Disease History: Reports: C-Difficile - Past Surgical History Head Surgeries/Procedures: Reports: None GI Surgical History: Reports: Cholecystectomy Neurological Surgical History: Reports: Other (See Below) Other Neurological Surgeries/Procedures: spina bifida Musculoskeletal Surgical History: Reports: Other (See Below) Other Musculoskeletal Surgeries/Procedures:: back surgery Dermatological Surgical History: Reports: None Social & Family History - Family History Family Medical History: No Pertinent Family History - Caffeine Use Caffeine Use: Reports: None ED ROS GENERAL - Review of Systems Review Of Systems: Comprehensive ROS is negative, except as noted in HPI. ED EXAM, GENERAL - Physical Exam Exam: See Below (See dictation) Course - Vital Signs Last Recorded V/S: Last Vital Signs Temp 98.0 F 12/12/20 20:28 Pulse 88 12/12/20 21:19 Resp 18 12/12/20 21:19 BP 109/62 12/12/20 21:19 Pulse Ox 96 12/12/20 21:19 - Orders/Labs/Meds Orders: Active Orders 24 hr Category Date Time Status Saline Lock Insert [OM.PC] Stat Oth 12/12/20 17:13 Ordered Labs: Laboratory Tests 12/12/20 12/12/20 12/12/20 Range/Units 17:38 17:38 17:55 WBC 9.96 (4.0-11.0) K/uL RBC 4.93 (4.30-5.90) M/uL Hgb 14.9 (12.0-16.0) g/dL Hct 44.0 (36.0-46.0) % MCV 89.2 (80.0-98.0) fL MCH 30.2 (27.0-32.0) pg MCHC 33.9 (31.0-37.0) g/dL RDW Std Deviation 50.2 (28.0-62.0) fl RDW Coeff of Renetta 15 (11.0-15.0) % Plt Count 353 (150-400) K/uL MPV 10.40 (7.40-12.00) fL Neut % (Auto) 69.5 (48.0-80.0) % Lymph % (Auto) 23.0 (16.0-40.0) % Bradford % (Auto) 6.6 (0.0-15.0) % Eos % (Auto) 0.5 (0.0-7.0) % Baso % (Auto) 0.4 (0.0-1.5) % Neut # (Auto) 6.9 H (1.4-5.7) K/uL Lymph # (Auto) 2.3 (0.6-2.4) K/uL Bradford # (Auto) 0.7 (0.0-0.8) K/uL Eos # (Auto) 0.1 (0.0-0.7) K/uL Baso # (Auto) 0.0 (0.0-0.1) K/uL Nucleated RBC % 0.0 /100WBC Nucleated RBCs # 0 K/uL Sodium 140 (136-145) mmol/L Potassium 3.6 (3.5-5.1) mmol/L Chloride 101 (98-107) mmol/L Carbon Dioxide 25.3 (21.0-32.0) mmol/L BUN 9 (7.0-18.0) mg/dL Creatinine 0.6 (0.6-1.0) mg/dL Est Cr Clr Drug Dosing 101.74 mL/min Estimated GFR (MDRD) > 60.0 ml/min Glucose 132 H (74-106) mg/dL Calcium 10.0 (8.5-10.1) mg/dL Total Bilirubin 0.6 (0.2-1.0) mg/dL AST 39 H (15-37) IU/L ALT 63 (14-63) IU/L Alkaline Phosphatase 89 (46-116) U/L Total Protein 8.8 H (6.4-8.2) g/dL Albumin 4.5 (3.4-5.0) g/dL Globulin 4.3 H (2.6-4.0) g/dL Albumin/Globulin Ratio 1.1 (0.9-1.6) HCG, Quant < 1.0 mIU/mL Urine Color YELLOW Urine Appearance HAZY Urine pH 7.0 (5.0-8.0) Ur Specific Robson 1.015 (1.001-1.035) Urine Protein TRACE H (NEGATIVE) mg/dL Urine Glucose (UA) NEGATIVE (NEGATIVE) mg/dL Urine Ketones 40 H (NEGATIVE) mg/dL Urine Occult Blood SMALL H (NEGATIVE) Urine Nitrite POSITIVE H (NEGATIVE) Urine Bilirubin NEGATIVE (NEGATIVE) Urine Urobilinogen 0.2 (<2.0) EU/dL Ur Leukocyte Esterase NEGATIVE (NEGATIVE) Urine RBC 0-2 (0-2/HPF) Urine WBC 0-2 (0-5/HPF) Ur Epithelial Cells OCCASIONAL (NONE-FEW) Urine Bacteria 2+ H (NEGATIVE) Urinalysis Comment Meds: Medications Discontinued Medications Generic Name Dose Route Start Last Admin Trade Name Freq PRN Reason Stop Dose Admin Hydromorphone HCl 1 mg 12/12/20 19:29 12/12/20 20:20 Hydromorphone 1 Mg/Ml Syringe IVPUSH 12/12/20 19:30 1 mg ONETIME ONE Administration Sodium Chloride 1,000 mls @ 999 mls/hr 12/12/20 17:12 12/12/20 17:36 Normal Saline IV 12/12/20 18:12 999 mls/hr .BOLUS ONE Administration Iopamidol 100 ml 12/12/20 19:29 12/12/20 20:17 Iopamidol 755 Mg/Ml 500 Ml Multipack Bottle IVPUSH 12/12/20 19:30 100 ml ONETIME STA Administration Morphine Sulfate 2 mg 12/12/20 17:14 12/12/20 17:30 Morphine 2 Mg/Ml Syringe IVPUSH 12/12/20 17:15 2 mg ONETIME ONE Administration Morphine Sulfate 2 mg 12/12/20 18:33 12/12/20 18:43 Morphine 2 Mg/Ml Syringe IVPUSH 12/12/20 18:34 2 mg ONETIME ONE Administration Nitrofurantoin Macrocrystals 100 mg 12/12/20 20:54 12/12/20 21:16 Nitrofurantoin Monohydrate/Macrocrystalline 100 Mg Cap PO 12/12/20 20:55 100 mg ONETIME ONE Administration Ondansetron HCl 4 mg 12/12/20 17:13 12/12/20 17:30 Ondansetron 4 Mg/2 Ml Sdv IVPUSH 12/12/20 17:14 4 mg ONETIME ONE Administration Ondansetron HCl 4 mg 12/12/20 19:28 12/12/20 20:24 Ondansetron 4 Mg/2 Ml Sdv IVPUSH 12/12/20 19:29 4 mg ONETIME ONE Administration Sodium Chloride 10 ml 12/12/20 17:13 12/12/20 17:36 Sodium Chloride 0.9% 10 Ml Syringe FLUSH 10 ml ASDIRECTED PRN Administration Keep Vein Open Sodium Chloride 2.5 ml 12/12/20 17:13 12/12/20 17:36 Sodium Chloride 0.9% 2.5 Ml Syringe FLUSH 2.5 ml ASDIRECTED PRN Administration Keep Vein Open Departure - Departure Time of Disposition: 21:00 Disposition: Home, Self-Care 01 Condition: Good Clinical Impression: Abdominal pain Qualifiers: Abdominal location: right lower quadrant Qualified Code(s): R10.31 - Right lower quadrant pain UTI (urinary tract infection) Qualifiers: Urinary tract infection type: site unspecified Hematuria presence: without hematuria Qualified Code(s): N39.0 - Urinary tract infection, site not specified - Discharge Information *PRESCRIPTION DRUG MONITORING PROGRAM REVIEWED*: No *COPY OF PRESCRIPTION DRUG MONITORING REPORT IN PATIENT JANA: No Prescriptions: Nitrofurantoin Bradford/Macrocryst [Nitrofurantoin Bradford-MCR] 100 mg PO BID 7 Days #13 cap Ondansetron [Zofran ODT] 4 mg PO Q6H PRN #10 tab.dis PRN Reason: Nausea Instructions: Abdominal Pain, Adult, [id number] Referrals: Filomena Pulliam, SEQUINS SLINGER [Primary Care Provider] - Forms: ED Department Discharge Additional Instructions: The following information is given to patients seen in the emergency department who are being discharged to home. This information is to outline your options for follow-up care. We provide all patients seen in our emergency department with a follow-up referral. The need for follow-up, as well as the timing and circumstances, are variable depending upon the specifics of your emergency department visit. If you don't have a primary care physician on staff, we will provide you with a referral. We always advise you to contact your personal physician following an emergency department visit to inform them of the circumstance of the visit and for follow-up with them and/or the need for any referrals to a consulting specialist. The emergency department will also refer you to a specialist when appropriate. This referral assures that you have the opportunity for follow-up care with a specialist. All of these measure are taken in an effort to provide you with optimal care, which includes your follow-up. Under all circumstances we always encourage you to contact your private physician who remains a resource for coordinating your care. When calling for follow-up care, please make the office aware that this follow-up is from your recent emergency room visit. If for any reason you are refused follow-up, please contact the [facility] Emergency Department at and asked to speak to the emergency department charge nurse. [facility] [address] [place] [address] [id number] [address] [place] [address] Plan: 1. You were evaluated today on an emergent basis. Your complaints of abdominal pain and spotting after a positive test were evaluated with blood work that was essentially negative. We did a quantitative hCG which showed you are not . An ultrasound was done which showed no gestational sac. You continue to have abdominal pain and you were treated with IV Zofran, IV morphine, and IV Dilaudid which did help your pain. We did a abdominal CT which was normal for you. You have had multiple CT scans over the years and need to see a pipelayer regarding how to best handle this. I will prescribe you Zofran for the nausea. I will prescribe nitrofurantoin 100 mg twice daily for 7 days. You received your first dose in the emergency room. 2. You can alternate Tylenol and ibuprofen as needed for pain and fever management. 3. We encourage you to follow up with your primary care provider and/or recommended specialist in the next few days for re-evaluation and further care/management. 4. If your symptoms should worsen, new symptoms develop or any of the signs and symptoms we discussed should arise please return to the emergency room or call 911 (if needed). - My Orders Last 24 Hours: My Active Orders 12/12/20 17:13 Saline Lock Insert [OM.PC] Stat - Assessment/Plan Last 24 Hours: My Active Orders 12/12/20 17:13 Saline Lock Insert [OM.PC] Stat
[2020-12-12] MEDS ORDERED: Sodium Chloride 0.9% 1,000 ML IV ONE (17:12)
[2020-12-12] MEDS ORDERED: Sodium Chloride 0.9% 10 ML Syringe FLUSH PRN (17:13)
[2020-12-12] MEDS ORDERED: Ondansetron 4 MG/2 ML SDV IVPUSH ONE ×2 (17:13→19:28)
[2020-12-12] MEDS ORDERED: Sodium Chloride 0.9% 2.5 ML Syringe FLUSH PRN (17:13)
[2020-12-12] MEDS ORDERED: Morphine 2 MG/ML SYRINGE IVPUSH ONE ×2 (17:14→18:33)
[2020-12-12 18:17] LABS: BLOOD UREA NITROGEN,BUN 9 mg/dL (7.0-18.0); CARBON DIOXIDE,CO2 25.3 mmol/L (21.0-32.0); CHLORIDE,CL 101 mmol/L (98-107); GLUCOSE RANDOM 132 mg/dL (74-106); POTASSIUM,K 3.6 mmol/L (3.5-5.1); SODIUM,NA 140 mmol/L (136-145)
--- NOTE | 2020-12-12 18:40 | US ---
For Patients: As a result of the Century Cures Act, medical imaging exams and procedure reports are released immediately into your electronic medical record. You may view this report before your referring provider. If you have questions, please contact your health care provider. INDICATION: Five week 5 day . Right-sided pain. TECHNIQUE: First trimester transvaginal OB ultrasound. FINDINGS: The uterus is retroverted and measures 5.3 x 3.8 x 3.9 cm. There is no visible intrauterine , however at this young age an intrauterine may not be seen by ultrasound. Both maternal ovaries appear normal. Normal color spectral Doppler flow in both ovaries. Small amount of free fluid filled in the pelvis. IMPRESSION: No intrauterine is seen, however it may be too early. Consider follow-up ultrasound and/or beta HCG to ensure viable . Ectopic and failed cannot be excluded on this exam. Dictated by Uriel Mathur MD @ 12/12/2020 6:39:[address] Uriel Mathur @ Dec 12 2020 6:39PM
[2020-12-12] MEDS ORDERED: Iopamidol 755 MG/ML 500 ML Multipack Bottle IVPUSH STA (19:29)
[2020-12-12] MEDS ORDERED: HYDROmorphone 1 MG/ML Syringe IVPUSH ONE (19:29)
[2020-12-12 20:29] VITALS: BP 109/62
--- NOTE | 2020-12-12 20:35 | CT ---
For Patients: As a result of the Century Cures Act, medical imaging exams and procedure reports are released immediately into your electronic medical record. You may view this report before your referring provider. If you have questions, please contact your health care provider. INDICATION: Right lower quadrant pain. TECHNIQUE: IV contrast-enhanced CT abdomen and pelvis. 100 mL [id number] injected. COMPARISON: 04/10/[address] FINDINGS: Cholecystectomy. No biliary dilation. Liver, spleen, pancreas, adrenal glands are normal. There is scattered cortical scarring in both kidneys. 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 Uterus and adnexa are unremarkable. 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 The appendix is not visible but there is no evidence for acute appendicitis. No volvulus. Urinary bladder is patulous and thick-walled, likely from neurogenic bladder. IMPRESSION: 1. No acute findings. 2. 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 Please note that all CT scans at this facility use dose modulation, iterative reconstruction, and/or weight-based dosing when appropriate to reduce radiation dose to as low as reasonably achievable. Dictated by Uriel Mathur MD @ 12/12/2020 8:33:[address] Uriel Mathur @ Dec 12 2020 8:33PM
[2020-12-12] MEDS ORDERED: Nitrofurantoin Monohydrate/Macrocrystalline 100 MG Cap PO ONE (20:54)
[2020-12-12 21:20] VITALS: PULSE 88
== END 2020-12-12 21:38 | disposition home or self-care (01) ==
LOC: MW.ED 16:49
DX: N39.0 Urinary tract infection, site not specified (principal); I10 Essential (primary) hypertension; E11.9 Type 2 diabetes mellitus without complications; Z79.84 Long term (current) use of oral hypoglycemic drugs; Z79.899 Other long term (current) drug therapy; Z91.040 Latex allergy status; Z88.1 Allergy status to other antibiotic agents
CPT/HCPCS: 36415; 74177; 76817; 80053; 81001; 84702; 85025; 96374; 96375; 96376; 99284; A9270; J1170; J2270; J2405; J7030; Q9967

== ENCOUNTER 2020-12-14 09:15 | Emergency (ER) | payer MEDICARE, MEDICAID ==
[2020-12-14] MEDS ORDERED: Sodium Chloride 0.9% 10 ML Syringe FLUSH PRN (09:39)
[2020-12-14] MEDS ORDERED: Ondansetron 4 MG/2 ML SDV IVPUSH ONE (09:39)
[2020-12-14] MEDS ORDERED: Sodium Chloride 0.9% 1,000 ML IV ONE (09:39)
[2020-12-14] MEDS ORDERED: Sodium Chloride 0.9% 2.5 ML Syringe FLUSH PRN (09:39)
[2020-12-14] MEDS ORDERED: Ketorolac 15 MG/ML SDV IVPUSH ONE (09:39)
[2020-12-14] MEDS ORDERED: cefTRIAXone 1 GM in Premix Bag 1 BAG IV ONE (09:40)
[2020-12-14 10:22] LABS: BLOOD UREA NITROGEN,BUN 6 mg/dL (7.0-18.0); CARBON DIOXIDE,CO2 21.3 mmol/L (21.0-32.0); CHLORIDE,CL 101 mmol/L (98-107); GLUCOSE RANDOM 142 mg/dL (74-106); LIPASE 84 U/L (73-393); POTASSIUM,K 3.5 mmol/L (3.5-5.1); SODIUM,NA 139 mmol/L (136-145)
[2020-12-14] MEDS ORDERED: Morphine 4 MG/ML Syringe IVPUSH ONE (11:03)
[2020-12-14] MEDS ORDERED: Metoclopramide 10 MG/2 ML SDV IVPUSH ONE (11:04)
[2020-12-14] MEDS ORDERED: diphenhydrAMINE 50 MG/ML SDV IVPUSH ONE (11:07)
[2020-12-14 11:21] VITALS: BP 148/99; PULSE 92
--- NOTE | 2020-12-14 11:57 | EDM.PDOC ---
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 Patient denies any recent fevers, shakes, chills. Patient reports she been having episodes of nausea and vomiting but denies any diarrhea. Patient has any chest pain or shortness of breath. Patient reports that the pain is greatest in the right lower quadrant. Patient reports that she utilizes CBD for her muscle spasm pain but does not utilize any THC. Patient reports that she has been told in the past that she might have cyclical vomiting syndrome from THC use but that was several years ago and she believes that it was ultimately determined to be from her gallbladder. Patient is status post cholecystectomy. Patient reports that she self caths herself. Patient reports that she is noticed increasing spasmodic episodes of her lower extremities. Patient reports that she was seen and evaluated here yesterday because she thought that she was . Patient reports on November 25 she had a positive test however shortly thereafter she started having bleeding. Here in the ED, her beta hCG yesterday was less than 1. Patient had an ultrasound which was unremarkable. Patient has CT scan of the abdomen pelvis which was also unremarkable had no significant pathology identified. Review of systems: As per history of present illness and below otherwise all systems reviewed and negative. Past medical history: As per history of present illness and as reviewed below otherwise no ncontributory. Surgical history: As per history of present illness and as reviewed below otherwise noncontributory. Social history: No reported history of drug abuse. Family history: As per history of present illness and as reviewed below otherwise noncontributory. Physical exam: This patient was seen and evaluated during the 2019 SARS-CoV-2 novel coronavirus pandemic period. Community viral transmission is ongoing at time of this encounter and the emergency department is operating under pandemic response procedures. Constitutional: Patient is oriented to person, place, and time. Appears well- developed and well-nourished. No distress. HEENT: Moist mucous membranes Head: Normocephalic and atraumatic Eyes: Right eye exhibits no discharge. Left eye exhibits no discharge. No s cleral icterus Neck: Normal range of motion. No tracheal deviation present. Cardiovascular: Normal rate and regular rhythm. Pulmonary: Effort normal, no respiratory distress. Abd: Soft, nondistended, no rebound/guarding, no psoas or obturator signs, no tenderness at Mcberney's point, no Bobby's sign. Pt does not present with an exam that would be consistent with an acute surgical abdomen at this time, tenderness to palpation right lower quadrant Musculoskeletal: Normal range of motion Neurologic: Alert and oriented to person, place and time. Skin: Garner, warm and dry. Psychiatric: Normal mood and affect. Behavior is normal. Judgment and thought content normal. Nursing note and vital signs have been reviewed Diagnostics: CBC, CMP within normal limits Therapeutics: Rocephin 1 g IV Toradol 15 mg IV, Zofran 4 IV, morphine 4 mg IV with Reglan 10 mg IV with Benadryl 25 mg IV Assessment and plan: 25-year-old female who presents ER today complaining of recurrence of her right lower quadrant abdominal pain that she was seen and evaluated here for yesterday. Patient reports that the pain has been there for approximately [address] scan yesterday was unremarkable. I have recommended a repeat CT scan here today but patient is refusing secondary to the amount of radiation she is ready been exposed to. I will respect the patient's autonomy but she has verbalized understanding that without a repeat CT scan that I might be missing an evolving pathology that might not have been identified with yesterday's CT scan. Patient understands the risks of potential and disability by missing potential pathology but not repeating the CT scan. The remainder of the patient's labs have all been within normal limits with any significant changes. Patient was given a dose of IV Rocephin here in the ED to assist her with the UTI that she was diagnosed with yesterday. Patient feels much improved after receiving the morphine Reglan and Benadryl here in the ED. Patient feels comfortable with the plan to be discharged home with continued outpatient work-up. Reassessment at the time of disposition demonstrates that the patient is in no acute distress. The patient has remained stable throughout the entire ED visit and is without objective evidence for acute process requiring urgent intervention or hospitalization. The patient is stable for discharge, counseling is provided as documented above, discussed symptomatic treatment and specific conditions for return. I have spoken with the patient/caregiver and discussed todays findings, in addition to providing specific details for the plan of care. Questions are answered and there is agreement with the plan. Definitive disposition and diagnosis as appropriate pending reevaluation and review of above. Abdominal Pain Pain Score (Numeric/FACES): 7 - Related Data Allergies Allergy/AdvReac Type Severity Reaction Status Date / Time ciprofloxacin Allergy Hives Verified 12/14/20 09:28 latex Allergy Hives Verified 12/14/20 09:28 Home Meds: Home Meds Baclofen 20 mg PO Q4HR 10/28/17 [History] Antidepressent 03/19/20 [History] Sulfamethoxazole/Trimethoprim [Bactrim Ds Tablet] 1 each PO BID 7 Days #14 tablet 04/10/20 [Rx] lisinopriL [Lisinopril] 04/10/20 [History] metFORMIN [Glucophage XR] 04/10/20 [History] oxyCODONE HCl/Acetaminophen [Percocet 5-325 mg Tablet] 1 each PO Q4H PRN #12 tablet 04/10/20 [Rx] Nitrofurantoin [place]razos/Macrocryst [Nitrofurantoin [place]-MCR] 100 mg PO BID 7 Days #1 3 cap 12/12/20 [Rx] Ondansetron [Zofran ODT] 4 mg PO Q6H PRN #10 tab.dis 12/12/20 [Rx] Ondansetron [Zofran ODT] 4 mg PO Q6H PRN #12 tab.dis 12/14/20 [Rx] Past Medical History - Past Health History Medical/Surgical History: Denies Medical/Surgical History HEENT History: Reports: None Cardiovascular History: Reports: None, Hypertension Respiratory History: Reports: None Gastrointestinal History: Reports: Cholelithiasis Genitourinary History: Reports: UTI, Recurrent, Other (See Below) Other Genitourinary History: one kidney smaller than other [employer] History: Reports: None Musculoskeletal History: Reports: Other (See Below) Other Musculoskeletal History: spina bifida Neurological History: Reports: None Psychiatric History: Reports: None Endocrine/Metabolic History: Reports: None, Diabetes, Type II Hematologic History: Reports: None Immunologic History: Reports: None Oncologic (Cancer) History: Reports: None Dermatologic History: Reports: None - Infectious Disease History Infectious Disease History: Reports: C-Difficile - Past Surgical History Head Surgeries/Procedures: Reports: None HEENT Surgical History: Reports: None Cardiovascular Surgical History: Reports: None Respiratory Surgical History: Reports: None GI Surgical History: Reports: Cholecystectomy Female Surgical History: Reports: None Endocrine Surgical History: Reports: None Neurological Surgical History: Reports: Other (See Below) Other Neurological Surgeries/Procedures: spina bifida Musculoskeletal Surgical History: Reports: Other (See Below) Other Musculoskeletal Surgeries/Procedures:: back surgery Oncologic Surgical History: Reports: None Dermatological Surgical History: Reports: None Social & Family History - Family History Family Medical History: No Pertinent Family History - Tobacco Use Tobacco Use Status *Q: Never Tobacco User - Caffeine Use Caffeine Use: Reports: None - Recreational Drug Use Recreational Drug Use: No ED ROS GENERAL - Review of Systems Review Of Systems: See Below ED EXAM, GENERAL - Physical Exam Exam: See Below Course - Vital Signs Last Recorded V/S: Last Vital Signs Temp 98.0 F 12/14/20 09:29 Pulse 92 12/14/20 10:59 Resp 19 12/14/20 10:59 BP 148/99 H 12/14/20 10:59 Pulse Ox 99 12/14/20 10:59 - Orders/Labs/Meds Orders: Active Orders 24 hr Category Date Time Status Sodium Chloride 0.9% [Saline Flush] Med 12/14/20 09:39 Active 10 ml FLUSH ASDIRECTED PRN Sodium Chloride 0.9% [Saline Flush] Med 12/14/20 09:39 Active 2.5 ml FLUSH ASDIRECTED PRN Saline Lock Insert [OM.PC] Stat Oth 12/14/20 09:39 Ordered Medication Orders Sodium Chloride (Sodium Chloride 0.9% 10 Ml Syringe) 10 ml FLUSH ASDIRECTED PRN PRN Reason: Keep Vein Open Last Admin: 12/14/20 09:55 Dose: 10 ml Documented by: [email or web address] Sodium Chloride (Sodium Chloride 0.9% 2.5 Ml Syringe) 2.5 ml FLUSH ASDIRECTED PRN PRN Reason: Keep Vein Open Last Admin: 12/14/20 09:55 Dose: 2.5 ml Documented by: [id number] Labs: Laboratory Tests 12/14/20 12/14/20 12/14/20 Range/Units 09:50 09:50 09:50 WBC 12.46 H (4.0-11.0) K/uL RBC 4.64 (4.30-5.90) M/uL Hgb 13.7 (12.0-16.0) g/dL Hct 41.3 (36.0-46.0) % MCV 89.0 (80.0-98.0) fL MCH 29.5 (27.0-32.0) pg MCHC 33.2 (31.0-37.0) g/dL RDW Std Deviation 49.2 (28.0-62.0) fl RDW Coeff of Renetta 15 (11.0-15.0) % Plt Count 342 (150-400) K/uL MPV 10.30 (7.40-12.00) fL Neut % (Auto) 82.9 H (48.0-80.0) % Lymph % (Auto) 12.7 L (16.0-40.0) % [place] % (Auto) 3.9 (0.0-15.0) % Eos % (Auto) 0.3 (0.0-7.0) % Baso % (Auto) 0.2 (0.0-1.5) % Neut # (Auto) 10.3 H (1.4-5.7) K/uL Lymph # (Auto) 1.6 (0.6-2.4) K/uL [place] # (Auto) 0.5 (0.0-0.8) K/uL Eos # (Auto) 0.0 (0.0-0.7) K/uL Baso # (Auto) 0.0 (0.0-0.1) K/uL Nucleated RBC % 0.0 /100WBC Nucleated RBCs # 0 K/uL Sodium 139 (136-145) mmol/L Potassium 3.5 (3.5-5.1) mmol/L Chloride 101 (98-107) mmol/L Carbon Dioxide 21.3 (21.0-32.0) mmol/L BUN 6 L (7.0-18.0) mg/dL Creatinine 0.5 L (0.6-1.0) mg/dL Est Cr Clr Drug Dosing TNP Estimated GFR (MDRD) > 60.0 ml/min Glucose 142 H (74-106) mg/dL Calcium 8.7 (8.5-10.1) mg/dL Total Bilirubin 0.7 (0.2-1.0) mg/dL AST 34 (15-37) IU/L ALT 57 (14-63) IU/L Alkaline Phosphatase 76 (46-116) U/L Total Protein 7.9 (6.4-8.2) g/dL Albumin 4.1 (3.4-5.0) g/dL Globulin 3.8 (2.6-4.0) g/dL Albumin/Globulin Ratio 1.1 (0.9-1.6) Lipase 84 (73-393) U/L HCG, Qual NEGATIVE (NEG) Meds: Medications Generic Name Dose Route Start Last Admin Trade Name Adrianne PRN Reason Stop Dose Admin Sodium Chloride 10 ml 12/14/20 09:39 12/14/20 09:55 Sodium Chloride 0.9% 10 Ml Syringe FLUSH 10 ml ASDIRECTED PRN Administration Keep Vein Open Sodium Chloride 2.5 ml 12/14/20 09:39 12/14/20 09:55 Sodium Chloride 0.9% 2.5 Ml Syringe FLUSH 2.5 ml ASDIRECTED PRN Administration Keep Vein Open Discontinued Medications Generic Name Dose Route Start Last Admin Trade Name Adrianne PRN Reason Stop Dose Admin Diphenhydramine HCl 25 mg 12/14/20 11:07 12/14/20 11:13 Diphenhydramine 50 Mg/Ml Sdv IVPUSH 12/14/20 11:08 25 mg ONETIME ONE Administration Ceftriaxone Sodium/Dextrose 1 50 mls @ 100 mls/hr 12/14/20 09:40 12/14/20 09:55 gm/ Premix IV 12/14/20 10:09 100 mls/hr ONETIME ONE Administration Sodium Chloride 1,000 mls @ 999 mls/hr 12/14/20 09:39 12/14/20 09:55 Normal Saline IV 12/14/20 10:39 999 mls/hr .Bolus ONE Administration Ketorolac Tromethamine 15 mg 12/14/20 09:39 12/14/20 09:55 Ketorolac 15 Mg/Ml Sdv IVPUSH 12/14/20 09:40 15 mg ONETIME ONE Administration Metoclopramide HCl 10 mg 12/14/20 11:04 12/14/20 11:13 Metoclopramide 10 Mg/2 Ml Sdv IVPUSH 12/14/20 11:05 10 mg ONETIME ONE Administration Morphine Sulfate 4 mg 12/14/20 11:03 12/14/20 11:13 Morphine 4 Mg/Ml Syringe IVPUSH 12/14/20 11:04 4 mg ONETIME ONE Administration Ondansetron HCl 4 mg 12/14/20 09:39 12/14/20 09:55 Ondansetron 4 Mg/2 Ml Sdv IVPUSH 12/14/20 09:40 4 mg ONETIME ONE Administration Departure - Departure Time of Disposition: 12:08 Disposition: Home, Self-Care 01 Condition: Good Clinical Impression: UTI, Urinary tract infectious disease Abdominal pain Qualifiers: Abdominal location: right lower quadrant Qualified Code(s): R10.31 - Right lower quadrant pain - Discharge Information Instructions: Indwelling Urinary Catheter Care, Adult, Abdominal Pain, Adult, [id number], Urinary Tract Infection, Adult Referrals: Filomena Pulliam [employer] [Primary Care Provider] - Additional Instructions: You were seen and evaluated in the ER today secondary to your abdominal pain. The cause of your abdominal pain has not been identified in the emergency department. The CT scan that we obtained yesterday did not reveal any significant pathology however no CT scan was ordered in the ED today secondary to your preference and concern regarding the amount of radiation exposure that you have been exposed to in the past. Please return to the ED if you have any new or concerning symptoms. Please make an appointment see your family doctor so they can make appropriate referrals for you so they can assist you with identifying the root cause of your abdominal pain. You will be given a prescription for Zofran to assist you with your abdominal pain and discomfort as well as to help you keep down the antibiotics and other medications that you are taking. The following information is given to patients seen in the emergency department who are being discharged to home. This information is to outline your options for follow-up care. We provide all patients seen in our emergency department with a follow-up referral. The need for follow-up, as well as the timing and circumstances, are variable depending upon the specifics of your emergency department visit. If you don't have a primary care physician on staff, we will provide you with a referral. We always advise you to contact your personal physician following an emergency department visit to inform them of the circumstance of the visit and for follow-up with them and/or the need for any referrals to a consulting specialist. The emergency department will also refer you to a specialist when appropriate. This referral assures that you have the opportunity for follow-up care with a specialist. All of these measure are taken in an effort to provide you with optimal care, which includes your follow-up. Under all circumstances we always encourage you to contact your private physician who remains a resource for coordinating your care. When calling for follow-up care, please make the office aware that this follow-up is from your recent emergency room visit. If for any reason you are refused follow-up, please contact the [facility] Emergency Department at and asked to speak to the emergency department charge nurse. [facility] - Primary Care [address] [place] [address] [address] Sepsis Event Note (ED) - Evaluation Sepsis Screening Result: No Definite Risk - Focused Exam Vital Signs: Vital Signs Temp Pulse Resp BP Pulse Ox 12/14/20 10:59 92 19 148/99 H 99 12/14/20 09:29 98.0 F 91 20 141/81 H 97 - My Orders Last 24 Hours: My Active Orders 12/14/20 09:39 Sodium Chloride 0.9% [Saline Flush] 10 ml FLUSH ASDIRECTED PRN Sodium Chloride 0.9% [Saline Flush] 2.5 ml FLUSH ASDIRECTED PRN Saline Lock Insert [OM.PC] Stat - Assessment/Plan Last 24 Hours: My Active Orders 12/14/20 09:39 Sodium Chloride 0.9% [Saline Flush] 10 ml FLUSH ASDIRECTED PRN Sodium Chloride 0.9% [Saline Flush] 2.5 ml FLUSH ASDIRECTED PRN Saline Lock Insert [OM.PC] Stat
== END 2020-12-14 12:21 | disposition home or self-care (01) ==
LOC: MW.ED 09:15
DX: N39.0 Urinary tract infection, site not specified (principal); Q05.9 Spina bifida, unspecified; I10 Essential (primary) hypertension; E11.9 Type 2 diabetes mellitus without complications; Z88.1 Allergy status to other antibiotic agents; Z91.040 Latex allergy status; Z79.899 Other long term (current) drug therapy; Z79.84 Long term (current) use of oral hypoglycemic drugs
CPT/HCPCS: 36415; 80053; 83690; 84703; 85025; 96365; 96375; 99284; J0696; J1200; J1885; J2270; J2405; J2765; J7030; 99283

== ENCOUNTER 2021-02-26 08:12 | Day surgery (SDC) | payer MEDICARE, MEDICAID ==
[~2021-02-26 08:12] MED LIST: Lactated Ringers 1,000 ML IV SCH; Propofol 200 MG/20 ML SDV ONE; fentaNYL 100 MCG/2 ML SDV ONE
--- NOTE | 2021-02-26 08:52 | PCM.PREANE ---
Preanesthetic Assessment - Procedure Proposed Procedure: EGD - Anesthesia/Transfusion/Family Hx Anesthesia History: No Prior Anesthesia Family History of Anesthesia Reaction: No Transfusion History: No Prior Transfusion(s) - Review of Systems General: No Symptoms Pulmonary: No Symptoms (Vapes. Smoked until about 18 months ago switched to vape) Cardiovascular: No Symptoms Gastrointestinal: Abdominal Pain (chronic blosting) Neurological: Other (Spina Bifida, Paraplegia, wheelchair bound, chronic urinary retention (self caths)) Other: Reports: Diabetes (NIDDM), Liver Problems (Fatty), Depression, Anxiety - Physical Assessment NPO Status Date: 02/25/21 NPO Status Time: 17:00 Vital Signs: Last Vital Signs Temp 97.5 F 02/26/21 08:32 Pulse 104 H 02/26/21 08:32 Resp 16 02/26/21 08:32 BP 122/79 02/26/21 08:32 Pulse Ox 98 02/26/21 08:32 Height: 4 ft 7 in Weight: 46.72 kg ASA Class: 3 Mental Status: Alert & Oriented x3 Airway Class: Mallampati = 2 Dentition: Reports: Normal Dentition Thyro-Mental Finger Breadths: 3 Mouth Opening Finger Breadths: 3 ROM/Head Extension: Full Lungs: Clear to Auscultation, Normal Respiratory Effort Cardiovascular: Regular Rate, Regular Rhythm - Allergies Allergies/Adverse Reactions: Allergies Allergy/AdvReac Type Severity Reaction Status Date / Time ciprofloxacin Allergy Hives Verified 02/20/21 07:36 latex Allergy Hives Verified 02/20/21 07:36 - Acknowledgements Anesthesia Type Planned: General Anesthesia Pt an Appropriate Candidate for the Planned Anesthesia: Yes Alternatives and Risks of Anesthesia Discussed w Pt/Guardian: Yes Pt/Guardian Understands and Agrees with Anesthesia Plan: Yes PreAnesthesia Questionnaire - Past Health History Medical/Surgical History: Denies Medical/Surgical History HEENT History: Reports: None Cardiovascular History: Reports: None, Hypertension Respiratory History: Reports: None Gastrointestinal History: Reports: Cholelithiasis Other Gastrointestinal History: occasional heartburn and abdominal bloating, hx C-diff 1 year ago Genitourinary History: Reports: UTI, Recurrent, Other (See Below) Other Genitourinary History: one kidney smaller than other [employer]PERATOR History: Reports: None Musculoskeletal History: Reports: Other (See Below) Other Musculoskeletal History: spina bifida Neurological History: Reports: None Other Neuro History: spina bifida Psychiatric History: Reports: None Endocrine/Metabolic History: Reports: None, Diabetes, Type II Other Endocrine/Metabolic History: pre diabetic Hematologic History: Reports: None Immunologic History: Reports: None Oncologic (Cancer) History: Reports: None Dermatologic History: Reports: None - Infectious Disease History Infectious Disease History: Reports: C-Difficile - Past Surgical History Female Surgical History: Reports: None Neurological Surgical History: Reports: Other (See Below) Other Neurological Surgeries/Procedures: spina bifida Other Musculoskeletal Surgeries/Procedures:: back surgery - SUBSTANCE USE Tobacco Use Status *Q: Light Tobacco User Tobacco Use Within Last Twelve Months: Vaping Recreational Drug Type: Reports: Marijuana/Hashish Recreational Drug Last Use: february 17 - HOME MEDS Home Medications: Home Meds Baclofen 0.5 - 1 tab PO TID PRN 10/28/17 [History] lisinopriL [Lisinopril] 5 mg PO DAILY 04/10/20 [History] metFORMIN [Glucophage XR] 0.5 tab PO ACBREAKFAST 04/10/20 [History] Acetaminophen [Tylenol Extra Strength] 1 - 2 tab PO ASDIRECTED PRN 02/20/21 [History] Cannabidiol (Cbd) Extract [CBD Oil] 1 dose PO ASDIRECTED PRN 02/20/21 [History] - CURRENT (IN HOUSE) MEDS Current Meds: Current Medications Lactated Ringer's (Ringers, Lactated) 1,000 mls @ 125 mls/hr IV ASDIRECTED MILAN Discontinued Medications Fentanyl (Fentanyl 100 Mcg/2 Ml Sdv) Confirm Administered Dose 100 mcg .ROUTE .STK-MED ONE Stop: 02/26/21 08:07 Propofol (Propofol 200 Mg/20 Ml Sdv) Confirm Administered Dose 400 mg .ROUTE .STK-MED ONE Stop: 02/26/21 08:06
--- NOTE | 2021-02-26 09:38 | PCM.OPNOTE ---
- General Post-Op/Procedure Note Date of Surgery/Procedure: 02/26/21 Operative Procedure(s): EGD with biopsies Findings: she had a more acute angle to her pyloric. Dictation number [id number] Pre Op Diagnosis: Issues with bloating and occ Nausea and vomiting. Primary Surgeon: Kalen Justin Pathology: biopsies Complications: None Condition: Good
--- NOTE | 2021-02-26 09:44 | PCM.POSTAN ---
POST ANESTHESIA ASSESSMENT - MENTAL STATUS Mental Status: Alert, Oriented - VITAL SIGNS Vital Signs: Last Vital Signs Temp 97.5 F 02/26/21 08:32 Pulse 104 H 02/26/21 08:32 Resp 16 02/26/21 08:32 BP 122/79 02/26/21 08:32 Pulse Ox 98 02/26/21 08:32 - RESPIRATORY Respiratory Status: Respiratory Rate WNL, Airway Patent, O2 Saturation Stable - CARDIOVASCULAR CV Status: Pulse Rate WNL, Blood Pressure Stable - GASTROINTESTINAL GI Status: No Symptoms - PAIN Pain Score: 0 - POST OP HYDRATION Hydration Status: Adequate & Stable
--- NOTE | 2021-02-26 09:55 | PCM48HPAN ---
Post Anesthesia Note - EVALUATION WITHIN 48HRS OF ANESTHETIC Vital Signs in Normal Range: Yes Patient Participated in Evaluation: Yes Respiratory Function Stable: Yes Airway Patent: Yes Cardiovascular Function Stable: Yes Hydration Status Stable: Yes Pain Control Satisfactory: Yes Nausea and Vomiting Control Satisfactory: Yes Mental Status Recovered: Yes Vital Signs: Last Vital Signs Temp 97.5 F 02/26/21 08:32 Pulse 98 02/26/21 09:49 Resp 16 02/26/21 09:49 BP 112/61 02/26/21 09:49 Pulse Ox 94 L 02/26/21 09:49 - COMMENTS/OBSERVATIONS Free Text/Narrative:: Pt doing well post-op. VSS. No apparent anesthetic complications. Dr. Wilmar Lin
[2021-02-26 11:17] VITALS: BP 119/76; PULSE 98
--- NOTE | 2021-02-28 01:42 | OR ---
SURGEON: YANET MICHELLE MD DATE OF PROCEDURE: 02/26/2021 PREOPERATIVE DIAGNOSIS: Bloating with occasional nausea and vomiting. POSTOPERATIVE DIAGNOSIS: Some minimal gastritis. The patient had more acute angle into her pylorus. PRIMARY SURGEON: Yanet Michelle MD ANESTHESIA: With Anesthesiology. EXTENT OF THE EGD: To the bulb of duodenum, however, was unable to advance any further because of the acute angle. REASON FOR PROCEDURE: The patient is a pleasant 25-year-old female who says for the past year she has been having issues with bloating after eating and sometimes nausea and vomiting. She is also having some right lower abdominal pain. She has a history of spina bifida. She does have a malrotation in her abdomen. The patient is getting a barium enema tomorrow. PROCEDURE IN DETAIL: Physical examination was performed. The major risks and benefits associated with the procedure were explained to the patient in detail. The patient verbalized understanding of the same. The patient was then connected to appropriate monitoring device and IV started. EKG, pulse, pulse oximetry, blood pressure, and capnography were monitored throughout the entire procedure. Continuous oxygen and sedation were provided by the anesthesiologist. After a time-out, sedation was began. After adequate sedation was achieved, the upper endoscope was then advanced under direct visualization without any difficulty in the upper GI tract and mucosa of the esophagus, GE junction, stomach, pylorus, and duodenum were inspected. On entering the stomach, the patient did have a very acute angle into the pylorus, basically had to retroflex the scope. Did get up to through the pylorus and went in the duodenal bulb, really was unable to advance any further because of another acute angle. Mucosa in the duodenal bulb appeared normal though. The scope was then withdrawn. Both retrograde and antegrade views of the stomach were done. The patient had some minimal gastritis. Biopsies done of the antrum and pylorus area to check for H pylori. Scope was brought to the GE junction. GE junction was about 25 cm from her incisor. GE junction appeared good with a good squamocolumnar junction. The scope was brought back into the stomach. Stomach was desufflated. Scope was then brought up to the esophagus. Distal esophagus also appeared normal. Scope was completely removed, procedure was terminated. ENDOSCOPIC DIAGNOSIS: The patient did have a rather acute angle into her pylorus. Unable to get further in the duodenal bulb because of the acuteness of the angle. The patient will follow up in the clinic to go over her pathology and recommendation. DELANEY RICHARD /[id number]
== END 2021-02-26 10:20 | disposition home or self-care (01) ==
LOC: MW.SDS 08:12
PROVIDERS: ATTEND Surgery
DX: K29.50 Unspecified chronic gastritis without bleeding (principal); B96.81 Helicobacter pylori [H. pylori] as the cause of diseases classified elsewhere; E11.9 Type 2 diabetes mellitus without complications; E55.9 Vitamin D deficiency, unspecified; F17.210 Nicotine dependence, cigarettes, uncomplicated; Z79.899 Other long term (current) drug therapy
CPT/HCPCS: 43239; 82947; 88305; 88342; J2704; J3010; J7120; 00731

== ENCOUNTER 2021-03-24 21:32 | Emergency (ER) | payer MEDICARE, MEDICAID ==
[2021-03-24] MEDS ORDERED: Sodium Chloride 0.9% 10 ML Syringe FLUSH PRN (23:41)
[2021-03-24] MEDS ORDERED: Sodium Chloride 0.9% 2.5 ML Syringe FLUSH PRN (23:41)
[2021-03-24] MEDS ORDERED: Lactated Ringers 1,000 ML IV ONE (23:41)
[2021-03-24] MEDS ORDERED: Ondansetron 4 MG/2 ML SDV IVPUSH ONE (23:41)
[2021-03-24] MEDS ORDERED: Ketorolac 15 MG/ML SDV IVPUSH ONE (23:41)
[2021-03-24] MEDS ORDERED: HYDROmorphone 1 MG/ML Syringe IVPUSH ONE (23:41)
--- NOTE | 2021-03-24 23:51 | EDM.PDOC ---
ED HPI GENERAL MEDICAL PROBLEM - General Chief Complaint: Genitourinary Problem Stated Complaint: POSSIBLE KIDNEY INFECTION Time Seen by Provider: 03/24/21 23:22 Source of Information: Reports: Patient History Limitations: Reports: No Limitations - History of Present Illness INITIAL COMMENTS - FREE TEXT/NARRATIVE: 26-year-old female with history of kidney stone, C. difficile colitis, UTI, neurogenic bladder, pyelonephritis, spina bifida presents with right flank pain that radiates to the right anterior abdomen, along with urinary urgency, vomiting, hematuria since . Pain is moderate, constant, radiates from the right flank to the right anterior abdomen, no alleviating or exacerbating factors, sharp. She denies fever but admits to chills and nausea and vomiting. She also notes chronic diarrhea for 1 year. She has not been able to tolerate her baclofen secondary to vomiting. ROS: A 10-point review of systems, other than pertinent positives and negatives as stated per HPI, is otherwise negative Past medical history: No additional pertinent history Past Surgical history: No additional pertinent history Social history: No additional pertinent history Family history: No additional pertinent history PHYSICAL EXAM General: AOx4, GCS = 15, moderate distress HEENT: dry mucous membrane Neck: supple, no meningismus, no Kernig or Brudzinski Cardiac: S1S2 RRR Respiratory: CTAB, no crackles or rales, no wheezing Abdomen: Soft, nontender, no rebound or guarding, nondistended, no pulsatile mass. Back: Right CVA tenderness Musculoskeletal: NVI distally, no deformity Neuro: No focal deficits Right Flank Pain Score (Numeric/FACES): 10 - Related Data Allergies Allergy/AdvReac Type Severity Reaction Status Date / Time ciprofloxacin Allergy Hives Verified 02/26/21 09:23 latex Allergy Hives Verified 02/26/21 09:23 Home Meds: Home Meds Baclofen 0.5 - 1 tab PO TID PRN 10/28/17 [History] lisinopriL [Lisinopril] 5 mg PO DAILY 04/10/20 [History] metFORMIN [Glucophage XR] 0.5 tab PO ACBREAKFAST 04/10/20 [History] Acetaminophen [Tylenol Extra Strength] 1 - 2 tab PO ASDIRECTED PRN 02/20/21 [History] Cannabidiol (Cbd) Extract [CBD Oil] 1 dose PO ASDIRECTED PRN 02/20/21 [History] Dicyclomine [Bentyl] 10 mg PO QIDACANDBED #12 cap 03/25/21 [Rx] Omeprazole Magnesium [Prilosec Otc] 20 mg PO BID #30 tablet. 03/25/21 [Rx] Ondansetron [Zofran ODT] 4 mg PO Q6H PRN #12 tab.dis 03/25/21 [Rx] Past Medical History - Past Health History Medical/Surgical History: Denies Medical/Surgical History HEENT History: Reports: None Cardiovascular History: Reports: Hypertension Respiratory History: Reports: None Gastrointestinal History: Reports: Cholelithiasis, Other (See Below) Other Gastrointestinal History: occasional heartburn and abdominal bloating, hx C-diff 1 year ago Genitourinary History: Reports: UTI, Recurrent, Other (See Below) Other Genitourinary History: one kidney smaller than other CYTOTECHNOLOGIST History: Reports: None Musculoskeletal History: Reports: Other (See Below) Other Musculoskeletal History: spina bifida, paraplegic from waist down, uses W/C, c/o intermittent muscle spasms to lower extremities when she lies down Neurological History: Reports: Other (See Below) Other Neuro History: spina bifida Psychiatric History: Reports: Anxiety Endocrine/Metabolic History: Reports: Other (See Below) Other Endocrine/Metabolic History: pre diabetic Hematologic History: Reports: None Immunologic History: Reports: None Oncologic (Cancer) History: Reports: None Dermatologic History: Reports: None - Infectious Disease History Infectious Disease History: Reports: C-Difficile - Past Surgical History Head Surgeries/Procedures: Reports: None HEENT Surgical History: Reports: None Cardiovascular Surgical History: Reports: None Respiratory Surgical History: Reports: None GI Surgical History: Reports: Cholecystectomy Female Surgical History: Reports: Other (See Below) Other Female Surgeries/Procedures: states had attempted supra pubic cath placement as a child Endocrine Surgical History: Reports: None Neurological Surgical History: Reports: Lumbar Spine, Other (See Below) Other Neurological Surgeries/Procedures: back surgeries for repair of spina bifida Musculoskeletal Surgical History: Reports: Other (See Below) Other Musculoskeletal Surgeries/Procedures:: back surgeries as a child for spina bifida, states had surgery on her left rib cage area a a child Oncologic Surgical History: Reports: None Dermatological Surgical History: Reports: None Social & Family History - Family History Family Medical History: No Pertinent Family History - Tobacco Use Tobacco Use Status *Q: Never Tobacco User - Caffeine Use Caffeine Use: Reports: None - Recreational Drug Use Recreational Drug Use: No ED ROS GENERAL - Review of Systems Review Of Systems: See Below (see dictation) ED EXAM, GENERAL - Physical Exam Exam: See Below (see dictation) Course - Vital Signs Last Recorded V/S: Last Vital Signs Temp 98.3 F 03/24/21 22:34 Pulse 72 03/25/21 02:17 Resp 18 03/25/21 02:17 BP 119/59 L 03/25/21 02:17 Pulse Ox 96 03/25/21 02:17 - Orders/Labs/Meds Orders: Active Orders 24 hr Category Date Time Status C DIFFICILE AG/TOXIN W/REFLEX [RM] Stat Lab 03/24/21 23:43 Ordered Sodium Chloride 0.9% [Saline Flush] Med 03/24/21 23:41 Active 10 ml FLUSH ASDIRECTED PRN Sodium Chloride 0.9% [Saline Flush] Med 03/24/21 23:41 Active 2.5 ml FLUSH ASDIRECTED PRN Saline Lock Insert [OM.PC] Stat Oth 03/24/21 23:41 Ordered Medication Orders Sodium Chloride (Sodium Chloride 0.9% 10 Ml Syringe) 10 ml FLUSH ASDIRECTED PRN PRN Reason: Keep Vein Open Sodium Chloride (Sodium Chloride 0.9% 2.5 Ml Syringe) 2.5 ml FLUSH ASDIRECTED PRN PRN Reason: Keep Vein Open Labs: Laboratory Tests 03/24/21 03/24/21 03/25/21 Range/Units 23:50 23:50 00:50 WBC 12.51 H (4.0-11.0) K/uL RBC 4.94 (4.30-5.90) M/uL Hgb 15.2 (12.0-16.0) g/dL Hct 43.2 (36.0-46.0) % MCV 87.4 (80.0-98.0) fL MCH 30.8 (27.0-32.0) pg MCHC 35.2 (31.0-37.0) g/dL RDW Std Deviation 47.3 (28.0-62.0) fl RDW Coeff of Renetta 15 (11.0-15.0) % Plt Count 392 (150-400) K/uL MPV 11.40 (7.40-12.00) fL Neut % (Auto) 82.4 H (48.0-80.0) % Lymph % (Auto) 12.7 L (16.0-40.0) % [place] % (Auto) 4.7 (0.0-15.0) % Eos % (Auto) 0.0 (0.0-7.0) % Baso % (Auto) 0.2 (0.0-1.5) % Neut # (Auto) 10.3 H (1.4-5.7) K/uL Lymph # (Auto) 1.6 (0.6-2.4) K/uL [place] # (Auto) 0.6 (0.0-0.8) K/uL Eos # (Auto) 0.0 (0.0-0.7) K/uL Baso # (Auto) 0.0 (0.0-0.1) K/uL Nucleated RBC % 0.0 /100WBC Nucleated RBCs # 0 K/uL Sodium 135 L (136-145) mmol/L Potassium 4.0 (3.5-5.1) mmol/L Chloride 94 L (98-107) mmol/L Carbon Dioxide 27.4 (21.0-32.0) mmol/L BUN 7 (7.0-18.0) mg/dL Creatinine 0.6 (0.6-1.0) mg/dL Est Cr Clr Drug Dosing 100.85 mL/min Estimated GFR (MDRD) > 60.0 ml/min Glucose 234 H (74-106) mg/dL Calcium 10.5 H (8.5-10.1) mg/dL Total Bilirubin 0.4 (0.2-1.0) mg/dL AST 63 H (15-37) IU/L ALT 101 H (14-63) IU/L Alkaline Phosphatase 91 (46-116) U/L Total Protein 8.9 H (6.4-8.2) g/dL Albumin 4.6 (3.4-5.0) g/dL Globulin 4.3 H (2.6-4.0) g/dL Albumin/Globulin Ratio 1.1 (0.9-1.6) Lipase 161 (73-393) U/L Urine Color YELLOW Urine Appearance CLEAR Urine pH 6.5 (5.0-8.0) Ur Specific [place] 1.015 (1.001-1.035) Urine Protein 30 H (NEGATIVE) mg/dL Urine Glucose (UA) >=1000 (NEGATIVE) mg/dL Urine Ketones 15 H (NEGATIVE) mg/dL Urine Occult Blood SMALL H (NEGATIVE) Urine Nitrite NEGATIVE (NEGATIVE) Urine Bilirubin NEGATIVE (NEGATIVE) Urine Urobilinogen 0.2 (<2.0) EU/dL Ur Leukocyte Esterase NEGATIVE (NEGATIVE) Urine RBC 1-3 (0-2/HPF) Urine WBC 0-2 (0-5/HPF) Ur Epithelial Cells RARE (NONE-FEW) Urine Bacteria RARE (NEGATIVE) Urine Opiates Screen (NEGATIVE) Ur Oxycodone Screen (NEGATIVE) Urine Methadone Screen (NEGATIVE) Ur Barbiturates Screen (NEGATIVE) Ur Phencyclidine Scrn (NEGATIVE) Ur Amphetamine Screen (NEGATIVE) U Methamphetamines Scrn (NEGATIVE) U Benzodiazepines Scrn (NEGATIVE) U Cocaine Metab Screen (NEGATIVE) U Marijuana (THC) Screen (NEGATIVE) 03/25/21 Range/Units 00:50 WBC (4.0-11.0) K/uL RBC (4.30-5.90) M/uL Hgb (12.0-16.0) g/dL Hct (36.0-46.0) % MCV (80.0-98.0) fL MCH (27.0-32.0) pg MCHC (31.0-37.0) g/dL RDW Std Deviation (28.0-62.0) fl RDW Coeff of Renetta (11.0-15.0) % Plt Count (150-400) K/uL MPV (7.40-12.00) fL Neut % (Auto) (48.0-80.0) % Lymph % (Auto) (16.0-40.0) % [place] % (Auto) (0.0-15.0) % Eos % (Auto) (0.0-7.0) % Baso % (Auto) (0.0-1.5) % Neut # (Auto) (1.4-5.7) K/uL Lymph # (Auto) (0.6-2.4) K/uL [place] # (Auto) (0.0-0.8) K/uL Eos # (Auto) (0.0-0.7) K/uL Baso # (Auto) (0.0-0.1) K/uL Nucleated RBC % /100WBC Nucleated RBCs # K/uL Sodium (136-145) mmol/L Potassium (3.5-5.1) mmol/L Chloride (98-107) mmol/L Carbon Dioxide (21.0-32.0) mmol/L BUN (7.0-18.0) mg/dL Creatinine (0.6-1.0) mg/dL Est Cr Clr Drug Dosing mL/min Estimated GFR (MDRD) ml/min Glucose (74-106) mg/dL Calcium (8.5-10.1) mg/dL Total Bilirubin (0.2-1.0) mg/dL AST (15-37) IU/L ALT (14-63) IU/L Alkaline Phosphatase (46-116) U/L Total Protein (6.4-8.2) g/dL Albumin (3.4-5.0) g/dL Globulin (2.6-4.0) g/dL Albumin/Globulin Ratio (0.9-1.6) Lipase (73-393) U/L Urine Color Urine Appearance Urine pH (5.0-8.0) Ur Specific [place] (1.001-1.035) Urine Protein (NEGATIVE) mg/dL Urine Glucose (UA) (NEGATIVE) mg/dL Urine Ketones (NEGATIVE) mg/dL Urine Occult Blood (NEGATIVE) Urine Nitrite (NEGATIVE) Urine Bilirubin (NEGATIVE) Urine Urobilinogen (<2.0) EU/dL Ur Leukocyte Esterase (NEGATIVE) Urine RBC (0-2/HPF) Urine WBC (0-5/HPF) Ur Epithelial Cells (NONE-FEW) Urine Bacteria (NEGATIVE) Urine Opiates Screen NEGATIVE (NEGATIVE) Ur Oxycodone Screen NEGATIVE (NEGATIVE) Urine Methadone Screen NEGATIVE (NEGATIVE) Ur Barbiturates Screen NEGATIVE (NEGATIVE) Ur Phencyclidine Scrn NEGATIVE (NEGATIVE) Ur Amphetamine Screen NEGATIVE (NEGATIVE) U Methamphetamines Scrn NEGATIVE (NEGATIVE) U Benzodiazepines Scrn NEGATIVE (NEGATIVE) U Cocaine Metab Screen NEGATIVE (NEGATIVE) U Marijuana (THC) Screen NEGATIVE (NEGATIVE) Meds: Medications Generic Name Dose Route Start Last Admin Trade Name Freq PRN Reason Stop Dose Admin Sodium Chloride 10 ml 03/24/21 23:41 Sodium Chloride 0.9% 10 Ml Syringe FLUSH ASDIRECTED PRN Keep Vein Open Sodium Chloride 2.5 ml 03/24/21 23:41 Sodium Chloride 0.9% 2.5 Ml Syringe FLUSH ASDIRECTED PRN Keep Vein Open Discontinued Medications Generic Name Dose Route Start Last Admin Trade Name Freq PRN Reason Stop Dose Admin Al Hydroxide/Mg Hydroxide 15 0 ml 03/25/21 02:40 ml/ Lidocaine HCl 5 ml PO 03/25/21 02:41 ONETIME ONE Hydromorphone HCl 1 mg 03/24/21 23:41 03/24/21 23:56 Hydromorphone 1 Mg/Ml Syringe IVPUSH 03/24/21 23:42 1 mg ONETIME ONE Administration Lactated Ringer's 1,000 mls @ 999 mls/hr 03/24/21 23:41 03/24/21 23:55 Ringers, Lactated IV 03/25/21 00:41 999 mls/hr .BOLUS ONE Administration Pantoprazole Sodium 40 mg/ 20 mls @ 420 mls/hr 03/25/21 02:39 Sodium Chloride IVPUSH 03/25/21 02:41 ONETIME ONE Ketorolac Tromethamine 15 mg 03/24/21 23:41 03/24/21 23:55 Ketorolac 15 Mg/Ml Sdv IVPUSH 03/24/21 23:42 15 mg ONETIME ONE Administration Ondansetron HCl 4 mg 03/24/21 23:41 03/24/21 23:55 Ondansetron 4 Mg/2 Ml Sdv IVPUSH 03/24/21 23:42 4 mg ONETIME ONE Administration - Re-Assessments/Exams Free Text/Narrative Re-Assessment/Exam: 03/25/21 02:47 After IV pain medication in the ER, the patient improved and is currently stable for discharge. I performed a repeat exam and did not appreciate new abnormal findings. Patient exhibits normal vital signs and has a normal gait on road test. I advised the patient to return to the ER for reevaluation if symptoms worsened, including fever, worsening pain, or any other worrisome symptoms. I instructed the patient to follow up with their PCP within 2-3 days. MEDICAL DECISION MAKING: I reviewed the patients past medical records, lab and radiographic findings. I discussed the case with the patient. My differential diagnosis included: Ureteral stone, UTI, cystitis, neurogenic bladder. CT did not demonstrate ureteral calculi. Urine did not demonstrate UTI. Her pain improved in the ED with IV pain medication, repeat abdominal exam is soft and nontender, I do not suspect need for hospitalization. I gave her strict return precautions for recurrent pain. Departure - Departure Time of Disposition: 02:48 Disposition: Home, Self-Care 01 Condition: Good Clinical Impression: Neurogenic bladder, Flank pain Abdominal pain Qualifiers: Abdominal location: right lower quadrant Qualified Code(s): R10.31 - Right lower quadrant pain - Discharge Information *PRESCRIPTION DRUG MONITORING PROGRAM REVIEWED*: Not Applicable *COPY OF PRESCRIPTION DRUG MONITORING REPORT IN PATIENT JANA: Not Applicable Prescriptions: Dicyclomine [Bentyl] 10 mg PO QIDACANDBED #12 cap Omeprazole Magnesium [Prilosec Otc] 20 mg PO BID #30 tablet. Ondansetron [Zofran ODT] 4 mg PO Q6H PRN #12 tab.dis PRN Reason: Vomiting Instructions: Flank Pain, Adult, [id number], Abdominal Pain, Adult, [id number], Neurogenic Bladder Referrals: Malika Wang PA [Primary Care Provider] - 3 Days Forms: ED Department Discharge Additional Instructions: The need for follow-up, as well as the timing and circumstances, are variable depending upon the specifics of your emergency department visit. If you don't have a primary care physician on staff, we will provide you with a referral. We always advise you to contact your personal physician following an emergency department visit to inform them of the circumstance of the visit and for follow-up with them and/or the need for any referrals to a consulting specialist. The emergency department will also refer you to a specialist when appropriate. This referral assures that you have the opportunity for follow-up care with a specialist. All of these measure are taken in an effort to provide you with optimal care, which includes your follow-up. Under all circumstances we always encourage you to contact your private physician who remains a resource for coordinating your care. When calling for follow-up care, please make the office aware that this follow-up is from your recent emergency room visit. If for any reason you are refused follow-up, please contact the [facility] Emergency Department at and asked to speak to the emergency department charge nurse. If you do not have a primary care doctor, please follow up with the clinics below within 3-5 days. [facility] - [facility] [address] [place] [id number] [facility] [address] [place] [id number] Sepsis Event Note (ED) - Focused Exam Vital Signs: Vital Signs Temp Pulse Resp BP Pulse Ox 03/25/21 02:17 72 18 119/59 L 96 03/24/21 22:34 98.3 F 95 18 130/89 97 - My Orders Last 24 Hours: My Active Orders 03/24/21 23:41 Sodium Chloride 0.9% [Saline Flush] 10 ml FLUSH ASDIRECTED PRN Sodium Chloride 0.9% [Saline Flush] 2.5 ml FLUSH ASDIRECTED PRN Saline Lock Insert [OM.PC] Stat 03/24/21 23:43 C DIFFICILE AG/TOXIN W/REFLEX [RM] Stat - Assessment/Plan Last 24 Hours: My Active Orders 03/24/21 23:41 Sodium Chloride 0.9% [Saline Flush] 10 ml FLUSH ASDIRECTED PRN Sodium Chloride 0.9% [Saline Flush] 2.5 ml FLUSH ASDIRECTED PRN Saline Lock Insert [OM.PC] Stat 03/24/21 23:43 C DIFFICILE AG/TOXIN W/REFLEX [RM] Stat
[2021-03-25 00:42] LABS: BLOOD UREA NITROGEN,BUN 7 mg/dL (7.0-18.0); CARBON DIOXIDE,CO2 27.4 mmol/L (21.0-32.0); CHLORIDE,CL 94 mmol/L (98-107); GLUCOSE RANDOM 234 mg/dL (74-106); LIPASE 161 U/L (73-393); SODIUM,NA 135 mmol/L (136-145)
--- NOTE | 2021-03-25 01:55 | CT ---
INDICATION: Right flank pain TECHNIQUE: CT abdomen and pelvis without contrast. COMPARISON: December 12, 2020 FINDINGS: Lower chest: Unremarkable. Liver: Unremarkable. Spleen: Unremarkable. Pancreas: Unremarkable. Gallbladder and bile ducts: S/p cholecystectomy. Adrenal glands: Unremarkable. Kidneys: Scarring of the left kidney. Medullary nephrocalcinosis. No kidney or ureteral stones and no hydronephrosis. GI tract: Moderate distention of the stomach with fluid. Abnormal position of the descending colon with the cecum in the left lower quadrant. Vascular structures: Unremarkable. Lymph nodes: Unremarkable. Miscellaneous: Unremarkable. No free air or significant free fluid. Pelvic Organs: 3.4 x 3.0 cm mixed density mass in the left adnexa. 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 IMPRESSION: No urinary tract stones, hydronephrosis, or other cause for right flank pain. Moderate distension of the stomach with fluid. Medullary nephrocalcinosis. Scarring of the left kidney. Mixed density mass in the left adnexa. This may represent a hemorrhagic ovarian cyst. Consider pelvic ultrasound for further evaluation if clinically indicated. Status post cholecystectomy. Congenital anomalies of the colon, spine, and ribs. Please note that all CT scans at this facility use dose modulation, iterative reconstruction, and/or weight-based dosing when appropriate to reduce radiation dose to as low as reasonably achievable. Dictated by Elvira Toure MD @ 03/25/2021 1:54:09 AM (Electronically Signed)
[2021-03-25] MEDS ORDERED: Pantoprazole 40 MG in Sodium Chloride 0.9% 20 ML IVPUSH ONE (02:39)
[2021-03-25] MEDS ORDERED: Alum Hydrox/Mag Hydrox/Simeth 15 ML, Lidocaine 2% 5 ML PO ONE ×2 (02:40)
[2021-03-25 03:45] VITALS: BP 107/60; PULSE 78
== END 2021-03-25 03:30 | disposition home or self-care (01) ==
LOC: MW.ED 21:32
DX: R10.31 Right lower quadrant pain (principal); N31.9 Neuromuscular dysfunction of bladder, unspecified; I10 Essential (primary) hypertension; Q05.9 Spina bifida, unspecified; Z88.1 Allergy status to other antibiotic agents; Z91.040 Latex allergy status; Z79.899 Other long term (current) drug therapy
CPT/HCPCS: 36415; 74176; 80053; 80305; 81001; 83690; 85025; 96374; 96375; 99284; A9270; C9113; J1170; J1885; J2405; J7120

== ENCOUNTER 2021-09-30 23:27 | Emergency (ER) | payer MEDICARE, MEDICAID ==
[2021-09-30] MEDS ORDERED: Acetaminophen 500 MG Tab PO ONE (23:34)
[2021-10-01] MEDS ORDERED: Diphtheria,Pertussis(Acell),Tetanus Vaccine 0.5 ML Syringe IM ONE (01:47)
[2021-10-01] MEDS ORDERED: Ketorolac 30 MG/ML SDV IM ONE (01:48)
[2021-10-01] MEDS ORDERED: Ondansetron 4 MG Tab.DIS PO ONE (02:11)
[2021-10-01] MEDS ORDERED: Octyl 2-Cyanoacrylate 1 Tube TOP ONE (02:24)
[2021-10-01 02:59] VITALS: BP 114/75; PULSE 74
== END 2021-10-01 02:55 | disposition home or self-care (01) ==
LOC: MERGE 23:27 → EDBD 23:27 → MW.ED 23:27
DX: S01.81XA Laceration without foreign body of other part of head, initial encounter (principal); Z23 Encounter for immunization; W05.0XXA Fall from non-moving wheelchair, initial encounter
CPT/HCPCS: 12011; 70450; 72125; 90471; 90715; 96372; 99284; A9270; J1885